=== PATIENT | female | born 1955 | race Caucasian/White ===

== ENCOUNTER → 2018-02-10 | Outpatient (CLI) | payer BC ==
[2018-02-10 14:42] LABS: Basophils % (A) 1 %; Eosinophils # (A) 0.2 k/uL (0-0.7); Eosinophils % (A) 3 %; HCT 43.7 % (34.0-46.0); HGB 13.8 gm/dL (11.4-16.0); Lymphocytes # (A) 1.1 k/uL (1.0-4.8); Lymphocytes % (A) 18 %; MCH 27.8 pg (25.0-35.0); MCHC 31.6 g/dL (31.0-37.0); MCV 87.9 fL (80.0-100.0); Mean Platelet Volume 7.8; Monocytes # (A) 0.4 k/uL (0-1.0); Monocytes % (A) 6 %; Neutrophils # (A) 4.3 k/uL (1.3-7.7); Neutrophils % (A) 70 %; Platelet Count 269 k/uL (150-450); RBC 4.97 m/uL (3.80-5.40); RDW 13.3 % (11.5-15.5); WBC 6.1 k/uL (3.8-10.6)
[2018-02-10 14:53] LABS: ALT 33 U/L (9-52); AST 26 U/L (14-36); Albumin 3.8 g/dL (3.5-5.0); Alkaline Phosphatase 79 U/L (38-126); Anion Gap 10 mmol/L; Blood Urea Nitrogen 15 mg/dL (7-17); Calcium 9.3 mg/dL (8.4-10.2); Carbon Dioxide 27 mmol/L (22-30); Chloride 105 mmol/L (98-107); Glucose 115 mg/dL (74-99); Potassium 3.7 mmol/L (3.5-5.1); Sodium 142 mmol/L (137-145); Total Bilirubin 0.4 mg/dL (0.2-1.3); Total Protein 6.6 g/dL (6.3-8.2)
== END | disposition home or self-care (01) ==
LOC: LABWHC1 14:03
PROVIDERS: ATTEND Family Medicine
DX: Z01.810 Encounter for preprocedural cardiovascular examination (principal)
CPT/HCPCS: 36415; 80053; 85025; 85610

== ENCOUNTER → 2018-02-25 | Outpatient (CLI) | payer BC ==
--- NOTE | 2018-02-25 10:16 | NM ---
EXAMINATION TYPE: NM stress cardiolite complete DATE OF EXAM: 02/25/2018 COMPARISON: NONE HISTORY: Vertigo, headaches TECHNIQUE: After the intravenous administration of 10.2 mCi Tc 99m Sestamibi - Rest images obtained 25.6 minutes post injection. The patient exercised using a GRIS protocol and 1 minute prior to pea k exercise was injected with 45 mCi Tc 99m Sestamibi - Stress images obtained 10 minutes post injecti on. FINDINGS: Targeted heart rate was achieved during performance of the study. Review of stress and rest SPECT rich ges demonstrates predominantly fixed defect involving the anteroapical myocardium. There is a suggest ion of this small area of questionable stress-induced ischemia involving the anteroseptal. Gated anal ysis shows normal wall motion with an estimated left ventricular ejection fraction of 59 %. IMPRESSION: 1. Predominantly fixed defect anteroapical myocardium. Could not exclude a tiny area of stress-induce d reversibility involving the anterior septal portion myocardium.
--- NOTE | 2018-02-26 06:19 | EST ---
EXERCISE STRESS AGE: 62 SEX: F HT: 68" WT: 205 pounds PROTOCOL: Cardiolite STAGE: I DURATION OF EXERCISE: 4:51. HEART RATE REST: 73 BLOOD PRESSURE REST: 145/86 MAXIMUM HEART RATE ACHIEVED: 136 MAXIMUM BLOOD PRESSURE: 168/74 85% MPHR: 133 100% MPHR: 157 METS: 6.8 INDICATIONS: Pre-op clearance. CLINICAL INFORMATION: Baseline heart rate 73 beats per minute. Baseline blood pressure 145/86 mmHg. Baseline 12-lead ECG shows sinus rhythm with normal MI interval. Narrow QRS. Patient exercised on a Matthew protocol for 4 minutes 51 seconds achieving a peak heart rate of 136 beats per minute. Normal blood pressure response to exercise. Intermittent PVCs were noted. No chest discomfort. She complains of shortness of breath and tiredness and no ST-segment abnormalities noted. IMPRESSION: 1. Low average exercise capacity. 2. PVCs noted with exercise. No nonsustained ventricular tachycardia. 3. Normal blood pressure response to exercise. No ECG evidence for ischemia. MMODL / IJN: [id number] /
== END | disposition home or self-care (01) ==
LOC: RADNMMAIN 07:23
PROVIDERS: ATTEND Family Medicine
DX: I99.8 Other disorder of circulatory system (principal); R06.09 Other forms of dyspnea
CPT/HCPCS: 93017; 78452; A9500

== ENCOUNTER → 2019-01-07 | Outpatient (CLI) | payer BC ==
--- NOTE | 2019-01-07 15:57 | CT ---
EXAMINATION TYPE: CT iac wo con DATE OF EXAM: 01/07/2019 COMPARISON: None HISTORY: Hearing loss CT DLP: 204mGycm Automated exposure control for dose reduction was used. Helical imaging through the brain. FINDINGS: There is motion on the exam. The external auditory canals are patent bilaterally. Mastoid air cells show no evidence of abnormal opacification bilaterally. The middle ear ossicles are symmetric and unremarkable. There is no jignesh dence of suspicious surrounding soft tissue density to suggest cholesteatoma. The scutum is preserve d bilaterally. The cochlea and the semicircular canals are symmetric and unremarkable. Vestibular a queduct and internal carotid canal appear unremarkable. Temporomandibular joints are maintained bila terally. There is opacity involving portion of the right maxillary sinus, inflammatory change presen t in the bilateral maxillary sinuses, ethmoid air cells. IMPRESSION: No significant abnormality seen to account for patient's symptoms. Sinus disease.
== END ==
LOC: RADCTMAIN 12:00
PROVIDERS: ATTEND Otolaryngology Sleep Medicine
DX: J32.9 Chronic sinusitis, unspecified (principal)
CPT/HCPCS: 70480

== ENCOUNTER → 2020-05-24 | Outpatient (CLI) | payer MEDICARE ==
--- NOTE | 2020-05-24 14:49 | MR ---
EXAMINATION TYPE: MR brain wo con DATE OF EXAM: 05/24/2020 COMPARISON: Correlation CT IAC 01/07/2019 HISTORY: 54-year-old female Head trauma, confusion TECHNIQUE: Multiplanar, multisequence images of the brain and brainstem were acquired without IV con trast. Diffusion weighted imaging is performed. FINDINGS: No evidence for acute infarction, hemorrhage, mass, mass effect, midline shift, herniation, effacemen t of basal cisterns, or extra-axial fluid collection. No hydrocephalus. Mild generalized supratentorial volume loss. T-2/FLAIR weighted sequences show minimal T2 bright white matter changes particularly in the subcorti gene and deep white matter regions, approximately 2 foci in each side. T2 star sequence shows no suspicious susceptibility artifact to suggest prior intracranial microplate s Midline structures demonstrate normal morphology. The craniocervical junction is normal. Dominant left vertebral artery. The nondominant right vertebral artery may terminate as a PICA branch . There may be a hypoplastic A1 segment left vertebral artery. Mild to moderate mucosal thickening ethmoid air cells. Mild mucosal thickening maxillary sinuses with partially visualized 1.5 cm mucosal retention cyst floor right maxillary sinus. Rightward nasal sept al deviation. Globes are intact. IMPRESSION: 1. Mild generalized atrophy. Minimal bright white matter change suggesting trace burden of chronic sm all vessel ischemic disease. No acute intracranial abnormality. 2. Moderate chronic ethmoid sinus disease. Rightward nasal septal deviation.
== END | disposition home or self-care (01) ==
LOC: RADMRIMAIN 10:56
PROVIDERS: ATTEND Family Medicine
DX: G31.9 Degenerative disease of nervous system, unspecified (principal); R90.89 Other abnormal findings on diagnostic imaging of central nervous system
CPT/HCPCS: 70551

== ENCOUNTER → 2020-10-05 | Outpatient (CLI) | payer MEDICARE ==
--- NOTE | 2020-10-05 11:58 | CT ---
EXAMINATION TYPE: CT chest wo con DATE OF EXAM: 10/05/2020 COMPARISON: None HISTORY: Myasthenia Gravis without exacerbation CT DLP: 411.1 mGycm. Automated Exposure Control for Dose Reduction was Utilized. TECHNIQUE: CT scan of the thorax is performed without IV contrast. FINDINGS: Lack of intravenous contrast could compromise sensitivity. LUNGS: The lungs are remarkable for interstitial changes, subpleural nodularity noted on axial image 39 in the left lower lobe. There are multiple additional nodules present, nodules measure only approx imately 2 mm within upper pole nodule on axial image #11 measuring 5 mm with central calcification is no pleural effusion or pneumothorax seen. The tracheobronchial tree is patent. MEDIASTINUM: Lack of IV contrast is noted to limit evaluation for mediastinal and especially hilar ad enopathy. There is a retrocaval pretracheal node which shows a short axis measurement of 13 mm, is en larged, additional node shows a short axis measurement of 11 mm, shotty nodes present in the aorticop ulmonary window, superior mediastinum. No cardiomegaly or pericardial effusion is seen. Coronary ar miguelina is dilated, correlate for pulmonary artery hypertension OTHER: Root of the aorta measures 4 cm. There is a paraesophageal hernia with partial intrathoracic s tomach. Some associated nodes at this level. Dependent high attenuation within the gallbladder consis tent with stones. Low-attenuation foci within the liver may represent cysts but are indeterminate, la rgest in the left lobe measures 11 mm, there are at least 4 lesions present. IMPRESSION: Findings may related to old granulomatous disease. There is no evident thymic mass. Aorti c aneurysm, correlate for pulmonary artery hypertension. Cholelithiasis. Hiatal hernia. Indeterminate liver lesions.
== END | disposition home or self-care (01) ==
LOC: RADCTMAIN 08:29
PROVIDERS: ATTEND Psychiatry & Neurology Neurology
DX: I71.2 Thoracic aortic aneurysm, without rupture (principal); K44.9 Diaphragmatic hernia without obstruction or gangrene
CPT/HCPCS: 71250

== ENCOUNTER 2020-10-27 17:06 | Emergency (ER) | payer MEDICARE ==
[2020-10-27 17:13] VITALS: TEMP 99.5
[2020-10-27] MEDS ORDERED: KETOROLAC 15 MG/ML 1 ML VIAL IM STA (17:40)
--- NOTE | 2020-10-27 17:42 | ED ---
Skin/Abscess/FB HPI - General Chief complaint: Skin/Abscess/Foreign Body Stated complaint: leg swelling/sore Time Seen by Provider: 10/27/20 17:23 Source: patient Mode of arrival: ambulatory Limitations: no limitations - History of Present Illness Initial comments: 65 year-old female patient presents to the emergency department today for evaluation of right lower leg pain. Patient states that yesterday she started having discomfort to the lower hassan anteriorly. States that today the area appeared swollen and red. Denies history of similar symptoms. Denies any known injury. States that it hurts to bear weight or walk on the leg. Denies history of DVT. Denies any recent travel. Has history of hypertension. Denies fever or chills. Denies taking any medication for symptoms. Patient denies any recent rash, cough, shortness of breath, chest pain, abdominal pain, nausea, vomiting, diarrhea, constipation, back pain, numbness, tingling, dizziness, weakness, hematuria, dysuria, urinary urgency, urinary frequency, headache, visual changes, or any other complaints. - Related Data Home Medications Medication Instructions Recorded Confirmed Enalapril [Vasotec] 10 mg PO DAILY 08/14/16 08/15/16 Levothyroxine Sodium [Synthroid] 125 mcg PO DAILY 08/14/16 08/15/16 Metoprolol Succinate (ER) [Toprol 50 mg PO DAILY 08/14/16 08/15/16 Xl] Multivit with Calcium,Iron,Min 1 each PO DAILY 08/14/16 08/15/16 [Women's Daily Multivitamin] Previous Rx's Medication Instructions Recorded Ibuprofen [Motrin] 600 mg PO Q8HR PRN #30 tab 10/27/20 Allergies Allergy/AdvReac Type Severity Reaction Status Date / Time No Known Allergies Allergy Verified 10/27/20 17:13 Review of Systems ROS Statement: Those systems with pertinent positive or pertinent negative responses have been documented in the HPI. ROS Other: All systems not noted in ROS Statement are negative. Past Medical History Past Medical History: Hypertension, Thyroid Disorder History of Any Multi-Drug Resistant Organisms: None Reported Past Surgical History: Hysterectomy Additional Past Surgical History / Comment(s): REPAIR RT RUPTURED THIGH MUSCLE. COLONOSCOPY Past Anesthesia/Blood Transfusion Reactions: No Reported Reaction Past Psychological History: No Psychological Hx Reported Smoking Status: Never smoker Past Alcohol Use History: None Reported Past Drug Use History: None Reported - Past Family History Sister(s) Family Medical History: Cancer Additional Family Medical History / Comment(s): COLON Mother Family Medical History: Cancer Additional Family Medical History / Comment(s): BREAST Father Family Medical History: Cancer Additional Family Medical History / Comment(s): LUNG General Exam Limitations: no limitations General appearance: alert, in no apparent distress, other (Physical well- developed, well-nourished adult female patient in no acute distress. Vital signs upon presentation are temperature 99.5F, pulse 89, respirations 20, blood pressure 144/77, pulse ox 99% on room air.) Eye exam: Present: normal appearance, PERRL, EOMI. Absent: scleral icterus, conjunctival injection, periorbital swelling Respiratory exam: Present: normal lung sounds bilaterally. Absent: respiratory distress, wheezes, rales, rhonchi, stridor Cardiovascular Exam: Present: regular rate, normal rhythm, normal heart sounds. Absent: systolic murmur, diastolic murmur, rubs, gallop, clicks Extremities exam: Present: full ROM, normal capillary refill, other (Right ateromedial hassan redness, swelling, induration. Area is very tender to touch. Skin is otherwise pink, warm, dry. Cap refills less than 3 seconds. Pedal and posttibial pulses 2+ and equal bilaterally.). Absent: normal inspection, tenderness, pedal edema, joint swelling, calf tenderness Neurological exam: Present: alert, oriented X3, CN II-XII intact Psychiatric exam: Present: normal affect, normal mood Skin exam: Present: warm, dry, intact, normal color. Absent: rash Course Vital Signs 10/27/20 17:08 Temperature 99.5 F Pulse Rate 89 Respiratory 20 Rate Blood Pressure 144/77 O2 Sat by Pulse 99 Oximetry Medical Decision Making - Medical Decision Making 65 year-old female patient presents to the emergency department for evaluation of redness, swelling, and pain to the right lower leg starting last night. Physical examination did reveal soft tissue swelling, erythema and oblique induration to the vessels over the right anterior medial hassan. Ultrasound was obtained and showed negative DVT but did show evidence for superficial thrombophlebitis. Patient will be started on anti-inflammatory medication and instructed to apply warm compresses over the area. She'll be discharged popped her primary care physician for further evaluation in 1-2 days. Return parameters were discussed in detail. She verbalizes understanding and agrees with this plan. - Radiology Data Radiology results: report reviewed, image reviewed Ultrasound of the right lower extremity was obtained. Report was reviewed in its entirety. Impression by Dr. Padron shows no evidence of deep vein thrombosis in the right leg. There is some superficial vein thrombosis. Disposition Clinical Impression: Thrombophlebitis of superficial veins of right lower extremity Disposition: HOME SELF-CARE Condition: Good Instructions (If sedation given, give patient instructions): Superficial Thrombophlebitis (ED) Additional Instructions: Apply warm compresses to the area. Take Motrin 3 times daily with meals. Follow-up through primary care physician for recheck in 1-2 days. Return to the emergency department immediately for any new, worsening, or concerning symp toms. Prescriptions: Ibuprofen [Motrin] 600 mg PO Q8HR PRN #30 tab PRN Reason: Pain Is patient prescribed a controlled substance at d/c from ED?: No Referrals: Rachana Dasilva MD [Primary Care Provider] - 1-2 days Time of Disposition: 19:09
--- NOTE | 2020-10-27 18:23 | US ---
EXAMINATION TYPE: US venous doppler duplex LE RT DATE OF EXAM: 10/27/2020 6:09 PM COMPARISON: NONE CLINICAL HISTORY: Right lower leg pain and swelling. SIDE PERFORMED: Right TECHNIQUE: The lower extremity deep venous system is examined utilizing real time linear array sonog omid with graded compression, doppler sonography and color-flow sonography. VESSELS IMAGED: Common Femoral Vein Deep Femoral Vein Greater Saphenous Vein * Femoral Vein Popliteal Vein Small Saphenous Vein * Proximal Calf Veins (* superficial vessels) Right Leg: Negative for DVT At area of concern, superficial thrombus in calf varicosities. IMPRESSION: No evidence of deep vein thrombosis in the right leg. There is some superficial vein thro mbosis.
[2020-10-27 19:13] VITALS: RESP 18
[2020-10-27 19:16] VITALS: BP 139/72; PULSE 83
== END 2020-10-27 19:16 | disposition home or self-care (01) ==
LOC: EC 17:06
DX: I80.01 Phlebitis and thrombophlebitis of superficial vessels of right lower extremity (principal); I10 Essential (primary) hypertension; E07.9 Disorder of thyroid, unspecified; Z79.890 Hormone replacement therapy; Z79.899 Other long term (current) drug therapy
CPT/HCPCS: 93971; 99283; 96372; J1885

== ENCOUNTER → 2020-12-19 | Outpatient (CLI) | payer MEDICARE ==
--- NOTE | 2020-12-19 15:55 | BD ---
EXAMINATION TYPE: Axial Bone Density DATE OF EXAM: 12/19/2020 COMPARISON: NONE CLINICAL HISTORY: Height: 5 FT 5 IN Weight: 197 FRAX RISK QUESTIONS: Alcohol (3 or more units per day): NO Family History (Parent hip fracture): NO Glucocorticoids (More than 3mos): NO (Ex: prednisone, prednisolone, methylprednisolone, dexamethasone, and hydrocortisone). History of Fracture in Adulthood: NO Secondary Osteoporosis: 1. Type 1 Diabetes: NO 2. Hyperthyroidism: NO 3. Menopause before 45: NO 4. Malnutrition: NO 5. Chronic liver disease: NO Rheumatoid Arthritis: NO Current Tobacco Use: NO RISK FACTORS HISTORY OF: When: Family History of Osteoporosis: YES Active: YES Diet low in dairy products/other sources of calcium: NO Postmenopausal woman: AGE 42-43 Take estrogen and/or progesterone medications: NONE Lost more than 2 inches in height since high school: YES Poor Health: YES MEDICATIONS: Thyroid Medications: YES Which medication: LEVOTHYROXINE How Lon-20 YEARS Additional Medications: METOPROLOL, LEVOTHYROXINE, AMLODIPINE, PRESERVISION, Additional History: EXAM MEASUREMENTS: Bone mineral densitometry was performed using the [employer] System. Bone mineral density as measured about the Lumbar spine is: ----- L1-L4(G/cm2): 0.968 T Score Values are as follows: ----- L2: -2.8 ----- L3: -1.2 ----- L4: -2.4 ----- L1-L4: -1.8 BASELINE Bone mineral density about the R hip (g/cm2): 0.767 Bone mineral density about the L hip (g/cm2): 0.755 T Score values are as follows: -----R Neck: -1.9 -----L Neck: -2.0 -----R Total: -0.9 -----L Total: -1.2 BASELINE IMPRESSION: Osteopenia (T Score between -2.5 and -1). There is slightly increased risk of fracture and the patient may be considered for treatment. Re-Screen 2-5 years. NOTE: T-SCORE=SD OF THE YOUNG ADULT MEAN.
== END | disposition home or self-care (01) ==
LOC: RADBDWWP 09:08
PROVIDERS: ATTEND Family Medicine
DX: M85.80 Other specified disorders of bone density and structure, unspecified site (principal); Z13.820 Encounter for screening for osteoporosis; N95.1 Menopausal and female climacteric states
CPT/HCPCS: 77080

== ENCOUNTER → 2021-03-29 | Day surgery (SDC) | payer MEDICARE ==
[2021-03-28 09:28] VITALS: BMI 30.1
[~2021-03-29] MED LIST: ALPRAZolam 0.25 MG TAB PO PRN; ALPRAZolam 0.5 MG TAB PO PRN; ASPIRIN 325 MG TAB PO STA; ASPIRIN 81 MG PO SCH; ATORVASTATIN 80 MG TAB PO STA; FERROUS SULFATE 325 MG TAB PO SCH; HEPARIN SODIUM 1,000 UN/ML (10ML VL) IV ONE; IOPAMIDOL-370 125ML BTL INJ ONE; LEVOTHYROXINE 125 MCG TAB PO SCH; LIDOCAINE 1% INJ 10MG/ML (20 ML MDV) SQ ONE; MAGNESIUM OXIDE 400 MG TAB PO SCH; METOPROLOL SUCCINATE (ER) 50 MG TAB.ER.24H PO SCH; NITROGLYCERIN SL TABS 0.4 MG TAB SUBLINGUAL PRN; RX INFO: IV CONTRAST WAS GIVEN 1 EACH MISC MISCELLANE PRN; SODIUM CHLORIDE 0.9% 1,000 ML IV SCH; SODIUM CHLORIDE 0.9% 1,000 ML in EMPTY BAG 1 BAG IV ONE; VERAPAMIL SYRINGE (5 MG/10 ML) INTRAARTER ONE; fentaNYL (PF) 50 MCG/ML 2 ML AMP IV ONE; lisinopriL 20 MG TAB PO SCH
[2021-03-29 07:03] VITALS: RESP 16; TEMP 98.4
[2021-03-29] MEDS: MIDAZOLAM 2 MG/2 ML VIAL IV ONE ×2 (07:38→07:47)
--- NOTE | 2021-03-29 08:33 | CC ---
CARDIAC CATHETERIZATION REPORT Mrs. Oseguera is a 65-year-old female known history of hypertension who has been complaining of progressive symptoms of dyspnea on exertion. She underwent myocardial perfusion imaging that revealed evidence of inducible ischemia in the anterolateral wall. In view of that, recommendation was made regarding cardiac catheterization, the procedure as well as the risks and the complications were discussed with the patient who is in full understanding and agreement. PROCEDURE: Patient was brought to offset label rewinder in a fasting semi-sedated state after receiving fentanyl and Benadryl and achieving moderate conscious sedated state. Using Xylocaine anesthesia and Seldinger technique, a 6-Grenadian sheath was introduced in the right radial artery. Selective right and angiography performed using 5-Grenadian 3.5 bend right and left Ange catheter. Multiple views of the coronary artery including hemiaxial views were obtained. Following that, catheter and sheath were removed. Hemostasis was obtained with deployment of TR band. There was no immediate complication. Patient was returned to her room in stable condition. Of note, the patient received 5000 units of intravenous heparin as well as intra-arterial verapamil. FINDINGS: LEFT MAIN: This is a short size vessel, large in caliber, bifurcating in left circumflex, left anterior descending artery. Left main artery has no evidence of high- grade stenosis. LEFT ANTERIOR DESCENDING ARTERY: This vessel reaches toward the apex, tapers down distally, gives rise to a diagonal branch. The left anterior descending artery as well as branches have no evidence of obstructive coronary artery disease. LEFT CIRCUMFLEX: This is a nondominant vessel, large in caliber, giving rise to a very proximal obtuse marginal branch. The second and third obtuse marginal branches are moderate in caliber. The left circumflex as well as branches have no evidence of obstructive coronary artery disease. RIGHT CORONARY ARTERY: This is a large dominant vessel bifurcating distally PDA and posterolateral segment and branches. The right coronary artery as well as branches have no evidence of obstructive coronary artery disease. LEFT VENTRICULOGRAM: Left ventriculogram was not performed. CONCLUSION: 1. Normal coronary arteries. 2. Right dominance. RECOMMENDATION: In view of finding anatomy, I recommend continue medical therapy with aggressive coronary risk modifications that have been initiated. Those findings and recommendation were discussed with the patient and she has full understanding and agreement. MMODL / IJN: [id number] /
[2021-03-29 10:22] VITALS: BP 133/83; PULSE 64
== END | disposition home or self-care (01) ==
LOC: CATHCVL 06:10
PROVIDERS: ATTEND Internal Medicine Interventional Cardiology
DX: R06.00 Dyspnea, unspecified (principal); R94.39 Abnormal result of other cardiovascular function study; I10 Essential (primary) hypertension; I73.9 Peripheral vascular disease, unspecified; I08.1 Rheumatic disorders of both mitral and tricuspid valves; Z20.822 Contact with and (suspected) exposure to COVID-19; I27.20 Pulmonary hypertension, unspecified; Z90.710 Acquired absence of both cervix and uterus; E07.9 Disorder of thyroid, unspecified; Z87.891 Personal history of nicotine dependence; Z79.82 Long term (current) use of aspirin; Z79.890 Hormone replacement therapy; Z79.899 Other long term (current) drug therapy
CPT/HCPCS: 93454; 87635; C1894; C1769 ×2; J2250; J2001; J3010; J1644; Q9967

== ENCOUNTER → 2021-04-25 | Outpatient (CLI) | payer MEDICARE ==
[2021-04-26 13:46] LABS: Zinc, Serum 104 ug/dL (60-130)
[2021-04-26 16:41] LABS: Calcium 8.6 mg/dL (8.7-10.3); Magnesium 2.2 mg/dL (1.5-2.4)
== END | disposition home or self-care (01) ==
LOC: LABWHC1 11:22
PROVIDERS: ATTEND Psychiatry & Neurology Pain Medicine
DX: R19.7 Diarrhea, unspecified (principal); Z51.81 Encounter for therapeutic drug level monitoring
CPT/HCPCS: 36415; 82180; 82310; 83540; 83735; 84630

== ENCOUNTER 2021-06-21 10:52 | Day surgery (SDC) | payer MEDICARE ==
[2021-06-19 09:02] VITALS: BMI 31.6
[~2021-06-21 10:52] MED LIST changes: -ALPRAZolam 0.25 MG TAB PO PRN; -ALPRAZolam 0.5 MG TAB PO PRN; -ASPIRIN 325 MG TAB PO STA; -ASPIRIN 81 MG PO SCH; -ATORVASTATIN 80 MG TAB PO STA; -FERROUS SULFATE 325 MG TAB PO SCH; -HEPARIN SODIUM 1,000 UN/ML (10ML VL) IV ONE; -IOPAMIDOL-370 125ML BTL INJ ONE; +LACTATED RINGERS 1,000 ML IV SCH; -LEVOTHYROXINE 125 MCG TAB PO SCH; +LIDOCAINE 1% (10MG/ML) FOR IV START INTRADERMA PRN; -LIDOCAINE 1% INJ 10MG/ML (20 ML MDV) SQ ONE; -MAGNESIUM OXIDE 400 MG TAB PO SCH; -METOPROLOL SUCCINATE (ER) 50 MG TAB.ER.24H PO SCH; -NITROGLYCERIN SL TABS 0.4 MG TAB SUBLINGUAL PRN; -RX INFO: IV CONTRAST WAS GIVEN 1 EACH MISC MISCELLANE PRN; -SODIUM CHLORIDE 0.9% 1,000 ML IV SCH; -SODIUM CHLORIDE 0.9% 1,000 ML in EMPTY BAG 1 BAG IV ONE; -VERAPAMIL SYRINGE (5 MG/10 ML) INTRAARTER ONE; -fentaNYL (PF) 50 MCG/ML 2 ML AMP IV ONE; -lisinopriL 20 MG TAB PO SCH
[2021-06-21 11:15] VITALS: RESP 16; TEMP 98.4
[2021-06-21] MEDS ORDERED: PROPOFOL 10 MG/ML 20 ML VIAL IV ONE (11:34)
--- NOTE | 2021-06-21 11:52 | P.PCN ---
Date of Procedure: 06/21/21 Procedure(s) Performed: BRIEF HISTORY: Patient is a 65-year-old pleasant white female scheduled for an elective colonoscopy as a part of screening for colorectal neoplasia. Her last colonoscopy was 5 years ago. She does have family history of colon cancer [id number]. PROCEDURE PERFORMED: Colonoscopy with biopsy. PREOPERATIVE DIAGNOSIS: Screening for colon cancer. IV sedation per Anesthesia. PROCEDURE: After informed consent was obtained, the patient, was brought into the endoscopy unit. IV sedation was administered by Anesthesia under continuous monitoring. Digital rectal examination was normal. Initially the Olympus CF-160 flexible video colonoscope was then inserted in the rectum, gradually advanced into the cecum without any difficulty. Careful examination was performed as the scope was gradually being withdrawn. Ileocecal valve and the appendiceal orifice were visualized and appeared normal. Prep was excellent. Mucosa of the cecum, ascending colon, transverse colon, descending colon, sigmoid colon, and rectum appeared normal. There were 2 small polyps in the distal rectum measuring 2 or 3 mm in size both of which were removed by cold biopsy Retroflexion was performed in the rectum and grade 2 internal hemorrhoids were seen. The patient tolerated the procedure well. IMPRESSION: 2 mm and 3 mm distal rectal polyp status post biopsy Small internal hemorrhoids RECOMMENDATIONS: Findings of this examination were discussed with the patient as well as a family. She was advised to follow with the biopsy results. She was advised to have a repeat screening colonoscopy every 5 years because of the strong family history of colon cancer
[2021-06-21 12:10] VITALS: BP 170/97; PULSE 56
== END 2021-06-21 12:24 ==
LOC: ORWHC2ENDO 10:52
PROVIDERS: ATTEND Internal Medicine Gastroenterology
DX: Z12.11 Encounter for screening for malignant neoplasm of colon (principal); K62.1 Rectal polyp; K64.8 Other hemorrhoids; Z80.0 Family history of malignant neoplasm of digestive organs; I10 Essential (primary) hypertension; E07.9 Disorder of thyroid, unspecified; G70.00 Myasthenia gravis without (acute) exacerbation; F03.90 Unspecified dementia, unspecified severity, without behavioral disturbance, psychotic disturbance, mood disturbance, and anxiety; K21.9 Gastro-esophageal reflux disease without esophagitis; Z79.890 Hormone replacement therapy; Z79.899 Other long term (current) drug therapy
CPT/HCPCS: 88305; 45380; J2704

== ENCOUNTER → 2021-08-19 | Outpatient (CLI) | payer MEDICARE ==
--- NOTE | 2021-08-19 12:03 | MR ---
EXAMINATION TYPE: MR brain wo/w con DATE OF EXAM: 08/19/2021 COMPARISON: MRI brain 05/24/2020 HISTORY: Atypical dementia, Neoplasm, Dizziness TECHNIQUE: Multiplanar, multisequence images of the brain and brainstem is performed without and with IV contras t, utilizing 8.5 mL intravenous Gadavist . FINDINGS: Diffusion weighted images demonstrate no evidence of a recent infarct or other diffusion ab normality. There is no extra-axial fluid collection or significant interval change in white matter s ignal abnormality. The ventricular system and cisternal spaces are normal in size and appearance. T he brain volume is age appropriate. Midline structures demonstrate normal morphology. The craniocervical junction appears within normal limits. Post contrast images demonstrate no abnormal enhancement. The dural venous sinuses appear pa tent. The visualized sinuses are similar, probable mucous retention cyst in the right maxillary sinus , callosal disease in the bilateral maxillary sinuses, ethmoid air cells similar to prior exam and th e globes are intact. IMPRESSION: Similar white matter signal changes consistent with demyelination, possible chronic small vessel ischemic change, there is age-related atrophy similar to prior
== END | disposition home or self-care (01) ==
LOC: RADMRIMAIN 09:26
PROVIDERS: ATTEND Psychiatry & Neurology Neurology
DX: C80.1 Malignant (primary) neoplasm, unspecified (principal); R93.0 Abnormal findings on diagnostic imaging of skull and head, not elsewhere classified
CPT/HCPCS: 70553; A9585

== ENCOUNTER → 2023-06-30 | Outpatient (CLI) | payer MEDICARE ==
[2023-06-30 10:36] LABS: African American GFR (CKD) >90 (>60 ml/min/1.73 sqM); Blood Urea Nitrogen 14 mg/dL (7-17); Non-African American GFR(CKD) >90 (>60 ml/min/1.73 sqM)
--- NOTE | 2023-06-30 12:23 | CT ---
EXAMINATION TYPE: CT angio chest CT DLP: 846.7 mGycm, Automated exposure control for dose reduction was used. DATE OF EXAM: 06/30/2023 11:40 AM COMPARISON: CT 10/05/2020. CLINICAL INDICATION:Female, 67 years old with history of I71.2 THORACIC AORTIC ANEURYSM,; Thoracic ao rtic aneurysm. TECHNIQUE/CONTRAST: CTA scan of the thorax is performed without and with IV Contrast, patient injected with 100ml mL of I sovue 370, 3D reconstructed images are created on an independent workstation and reviewed.. FINDINGS: Lungs/Pleura: Thickening of interlobular septa. No evidence of focal consolidation, pleural effusion or pneumothorax. Airway: Large airways are patent. Heart: Entire is mildly enlarged for size. Vasculature: No evidence for intramural hematoma on noncontrast. No evidence of intimal flap to sugge st dissection. No aneurysm identified. Scattered atherosclerotic disease. The ascending thoracic aor ta is at the upper limits normal measuring 39 mm. The aortic arch and descending thoracic aorta witho ut evidence for aneurysmal dilation. No filling defect within the pulmonary arterial vasculature to s uggest pulmonary embolus. Mediastinum: Moderate hiatal hernia is present. Multiple prominent lymph nodes are seen within the me diastinum similar prior in 2020 measuring up to 15 mm at the right low paratracheal region andr 13 mm in short axis in the subcarinal region. Musculoskeletal: Mild degenerative disc disease changes are present throughout the thoracolumbar spin e. Soft Tissues: Unremarkable. Lower neck: No significant findings. Upper Abdomen: Stable cysts in the segment 4A of the liver. IMPRESSION: 1. No evidence for aortic aneurysm, dissection, intramural hematoma, pulmonary embolus or significan t atherosclerotic disease. 2. Stable mediastinal lymphadenopathy back to at least 10/05/2020 3. Findings of cardiomegaly and some pulmonary vascular congestion correlate with serum BNP for comp onent of congestive heart failure with reactive lymphadenopathy.
== END | disposition home or self-care (01) ==
LOC: RADCTMAIN 09:45
PROVIDERS: ATTEND Internal Medicine Interventional Cardiology
DX: I71.20 Thoracic aortic aneurysm, without rupture, unspecified (principal); I51.7 Cardiomegaly; R59.0 Localized enlarged lymph nodes
CPT/HCPCS: 82565; 84520; 71275; 36415; Q9967

== ENCOUNTER 2023-10-24 08:15 | Inpatient (IN) | payer MEDICARE ==
[2023-10-24] MEDS ORDERED: KETOROLAC 15 MG/ML 1 ML VIAL IVP STA (08:24)
[2023-10-24] MEDS ORDERED: SODIUM CHLORIDE 0.9% 1,000 ML IV ONE (08:24)
[2023-10-24] MEDS ORDERED: ONDANSETRON 4 MG/2 ML VIAL IVP STA (08:24)
[2023-10-24] MEDS ORDERED: FAMOTIDINE 20 MG/2 ML VIAL IV STA (08:24)
--- NOTE | 2023-10-24 08:44 | ED ---
General Adult HPI - General Chief complaint: Nausea/Vomiting/Diarrhea Stated complaint: sick Time Seen by Provider: 10/24/23 08:23 Source: patient, family, RN notes reviewed Mode of arrival: ambulatory Limitations: no limitations - History of Present Illness Initial comments: 68-year-old female with a past medical history significant for hypot hyroidism and thoracic aortic aneurysm presents to the emergency department with a chief complaint of nausea and vomiting. Patient is complaining of nausea, vomiting, left-sided abdominal pain that radiates to her back 3 days. She describes the pain as sharp and at rest. She denies any chest pain, shortness of breath, fevers. she has been taking her medications as prescribed. She denies any trauma or injury. - Related Data Home Medications Medication Instructions Recorded Confirmed Levothyroxine Sodium [Synthroid] 125 mcg PO DAILY 08/14/16 10/24/23 Metoprolol Succinate (ER) [Toprol 50 mg PO DAILY 08/14/16 10/24/23 Xl] Ferrous Sulfate [Feosol] 325 mg PO DAILY 03/28/21 10/24/23 Beet Root 1000mg 1,000 mg PO DAILY 10/24/23 10/24/23 Cholecalciferol [Vitamin D3 (25 25 mcg PO DAILY 10/24/23 10/24/23 Mcg = 1000 Iu)] Cinnamon Bark [Cinnamon] 1,000 mg PO DAILY 10/24/23 10/24/23 Cyanocobalamin (Vitamin B-12) 1,000 mcg PO DAILY 10/24/23 10/24/23 [Vitamin B-12] Donepezil [Aricept] 10 mg PO DAILY 10/24/23 10/24/23 Ezetimibe [Zetia] 10 mg PO DAILY 10/24/23 10/24/23 Ginkgo Biloba Extract 1 cap PO DAILY 10/24/23 10/24/23 Potassium(Unknown Dose) 1 tab PO DAILY 10/24/23 10/24/23 Pro Advanced Urinary Formula 1 cap PO DAILY 10/24/23 10/24/23 Stem Cell Supplement 1 cap PO DAILY 10/24/23 10/24/23 amLODIPine [Norvasc] 10 mg PO DAILY 10/24/23 10/24/23 Allergies Allergy/AdvReac Type Severity Reaction Status Date / Time No Known Allergies Allergy Verified 10/24/23 14:33 Review of Systems ROS Statement: Those systems with pertinent positive or pertinent negative responses have been documented in the HPI. ROS Other: All systems not noted in ROS Statement are negative. Past Medical History Past Medical History: Deep Vein Thrombosis (DVT), GERD/Reflux, Hypertension, Memory Impairment, Thyroid Disorder Additional Past Medical History / Comment(s): early dementia and [place],90% deaf- please relay information to /daughter. family hx colorectal cancer. bowel/urinary incontinence wears depends. has appt 07/13 with neurologist to r/o myasthenia gravis has been experiencing facial drooping,lethary,muscle weakness. osteopenia History of Any Multi-Drug Resistant Organisms: None Reported Past Surgical History: Heart Catheterization, Hysterectomy Additional Past Surgical History / Comment(s): REPAIR RT RUPTURED THIGH MUSCLE. COLONOSCOPY, bladder prolapse surgery Past Anesthesia/Blood Transfusion Reactions: No Reported Reaction Past Psychological History: No Psychological Hx Reported Smoking Status: Never smoker Past Alcohol Use History: None Reported Past Drug Use History: None Reported - Past Family History Sister(s) Family Medical History: Cancer Additional Family Medical History / Comment(s): COLON Mother Family Medical History: Cancer Additional Family Medical History / Comment(s): BREAST Father Family Medical History: Cancer Additional Family Medical History / Comment(s): LUNG General Exam - General Exam Comments Initial Comments: General: Alert, in no acute distress Head: atraumatic normocephalic. Eyes PERRL, EOMI intact, mucous membranes moist Respiratory: Lungs clear to auscultation bilaterally Cardiovascular: Heart rate regular rate and rhythm Abdominal: Soft without guarding or rebound Extremities: Normal inspection with full range of motion and normal capillary refill Neuroogic: alert and oriented 3, CN II-XII intact, able to ambulate with steady gait Skin: warm dry and intact with normal color Limitations: no limitations Course Vital Signs 10/24/23 10/24/23 10/24/23 08:19 10:04 10:56 Temperature 98 F Pulse Rate 90 83 Respiratory 18 16 Rate Blood Pressure 160/82 170/87 O2 Sat by Pulse 98 95 90 L Oximetry 10/24/23 10/24/23 10/24/23 12:58 15:25 15:26 Temperature Pulse Rate 87 84 Respiratory 18 16 Rate Blood Pressure 143/81 156/63 O2 Sat by Pulse 95 95 Oximetry - Reevaluation(s) Reevaluation #1: 10/24/23 10:09 Notified of patient's oxygen saturation ranging from 89% to 91% on room air. Patient denies any shortness of breath. Patient placed on 3 L oxygen. Reevaluation #3: 10/24/23 14:[address] Roy who agrees and accepts the patient for admission EKG Findings - EKG Comments: EKG Findings:: I interpreted the following: EKG performed at 08:49 rate 78 bpm normal sinus rhythm LA interval 167, QRS duration 90 QT/QTc 362/395 Medical Decision Making - Medical Decision Making Was pt. sent in by a medical professional or institution (, YOLIE, ARBITRATOR, urgent care, hospital, or usp...) When possible be specific @ -[No] Did you speak to anyone other than the patient for history (EMS, parent, family, police, friend...)? What history was obtained from this source @ -[No] Did you review nursing and triage notes (agree or disagree)? Why? @ -[I reviewed and agree with nursing and triage notes] Were old charts reviewed (outside hosp., previous admission, EMS record, old EKG, old radiological studies, urgent care reports/EKG's, usp records)? Report findings @ -[No old charts were reviewed] Differential Diagnosis (chest pain, altered mental status, abdominal pain women, abdominal pain men, vaginal bleeding, weakness, fever, dyspnea, syncope, headache, dizziness, GI bleed, back pain, seizure, CVA, palpatations, mental health, musculoskeletal)? @ -[not applicable] EKG interpreted by me (3pts min.). @ -[As above] X-rays interpreted by me (1pt min.). @ yes CT interpreted by me (1pt min.). @ -yes U/S interpreted by me (1pt. min.). @ -None What testing was considered but not performed or refused? (CT, X-rays, U/S, labs)? Why? @ -[None] What meds were considered but not given or refused? Why? @ -[None] Did you discuss the management of the patient with other professionals (professionals i.e. , YOLIE, ARBITRATOR, lab, RT, psych nurse, social service manager, school community relations coordinator, teacher, community relations officer, rifle case repairer)? Give summary @ -Case discussed with Kirill Mccartney who agrees and accepts the patient for admission Was smoking cessation discussed for >3mins.? @ -[No] Was critical care preformed (if so, how long)? @ -[No] Were there social determinants of health that impacted care today? How? (Homelessness, low income, unemployed, alcoholism, drug addiction, transportation, low edu. Level, literacy, decrease access to med. care, group home, r ehab)? @ -[No] Was there de-escalation of care discussed even if they declined (Discuss DNR or withdrawal of care, Hospice)? DNR status @ -[No] What co-morbidities impacted this encounter? (DM, HTN, Smoking, COPD, CAD, Cance r, CVA, ARF, Chemo, Hep., AIDS, mental health diagnosis, sleep apnea, morbid obesity)? @ -[None] Was patient admitted / discharged? Hospital course, mention meds given and route, prescriptions, significant lab abnormalities, going to OR and other pertinent info. @Admission. This is a 68-year-old female presents the emergency depar tment with nausea and vomiting, back pain. Patient had a thorough history and physical exam performed. Exam revealed patient oxygen saturation 91-92% on room air. Upon exertion patient's oxygen level well decrease to 87-89%. Patient placed on 2 L of supplemental oxygen with improvement. Saturation 95%. Patient does not show any signs of acute respiratory distress. Resting comfortably on the stretcher multiple times during the evaluations. Patient laboratory studies which revealed WBC 23.5, hemoglobin 14.5 sodium 136, potassium 4.9 BUN 37, creatinine 0.69 lactic acid 0.9 initial troponin negative. BNP 4000 Covid or influenza RSV are negative. Urinalysis reveals 147 wbc's. Otherwise negative. Patient had computed tomography scan which revealed: Changes in the upper right quadrant. There is no obvious diverticulitis or pyelonephritis identified. There is a amount of fluid within the right paracolic gutter. Sigmoid diverticulosis without evidence of diverticulitis there is prominent me is single lymphadenopathy. I discussed the results in detail with the patient verbalized understanding all questions were addressed. She is agreeable with the plan for admission. She is provided Toradol, Pepcid, Zofran, 1 L IV fluids with symptomatic improvement. Although patient came in to be evaluated for nausea and vomiting, since oxygen saturation with decreased upon exertion. Case was discussed with Dr. Roy, [facility] who agrees and accepts the patient for further observation with recommend consult to pulmonology and infectious disease. Patient will be started on Rocephin. Case is discussed with Dr. veronica [facility] who agrees with plan of care Undiagnosed new problem with uncertain prognosis? @ -[No] Drug Therapy requiring intensive monitoring for toxicity (Heparin, Nitro, Insulin, Cardizem)? @ -[No] Were any procedures done? @ -[No] Diagnosis/symptom? @ -Nausea and Vomiting - Hypoxia - Pneumonia vs. Atelectasis - Leukocytosis - Elevated BNP Acute, or Chronic, or Acute on Chronic? @ -Acute Uncomplicated (without systemic symptoms) or Complicated (systemic symptoms)? @ -Uncomplictaed Side effects of treatment? @ -[No] Exacerbation, Progression, or Severe Exacerbation? @ -[No] Poses a threat to life or bodily function? How? (Chest pain, [place], [place], pneumonia, PE, COPD, DKA, ARF, appy, cholecystitis, CVA, Diverticulitis, Homicidal, Suicidal, threat to staff... and all critical care pts) @ -Yes, hypoxia - Lab Data Result diagrams: 10/24/23 08:34 10/24/23 08:34 Lab Results 10/24/23 10/24/23 10/24/23 Range/Units 08:34 08:34 08:34 WBC 23.5 H (3.8-10.6) k/uL RBC 4.86 (3.80-5.40) m/uL Hgb 14.5 (11.4-16.0) gm/dL Hct 44.3 (34.0-46.0) % MCV 91.2 (80.0-100.0) fL MCH 29.8 (25.0-35.0) pg MCHC 32.7 (31.0-37.0) g/dL RDW 13.0 (11.5-15.5) % Plt Count 140 L (150-450) k/uL MPV 10.5 Neutrophils % 93 % Lymphocytes % 2 % Monocytes % 3 % Eosinophils % 0 % Basophils % 0 % Neutrophils # 21.8 H (1.3-7.7) k/uL Lymphocytes # 0.5 L (1.0-4.8) k/uL Monocytes # 0.8 (0-1.0) k/uL Eosinophils # 0.1 (0-0.7) k/uL Basophils # 0.1 (0-0.2) k/uL Sodium 136 L (137-145) mmol/L Potassium 4.9 (3.5-5.1) mmol/L Chloride 100 (98-107) mmol/L Carbon Dioxide 26 (22-30) mmol/L Anion Gap 10 mmol/L BUN 37 H (7-17) mg/dL Creatinine 0.69 (0.52-1.04) mg/dL Est GFR (CKD-EPI)AfAm >90 (>60 ml/min/1.73 sqM) Est GFR (CKD-EPI)NonAf 89 (>60 ml/min/1.73 sqM) Glucose 100 H (74-99) mg/dL Plasma Lactic Acid Shekhar (0.7-2.0) mmol/L Calcium 8.1 L (8.4-10.2) mg/dL Total Bilirubin 1.3 (0.2-1.3) mg/dL AST 55 H (14-36) U/L ALT 33 (4-34) U/L Alkaline Phosphatase 82 (38-126) U/L Troponin I 0.016 (0.000-0.034) ng/mL NT-Pro-B Natriuret Pep pg/mL Total Protein 6.7 (6.3-8.2) g/dL Albumin 3.6 (3.5-5.0) g/dL Lipase (23-300) U/L Urine Color Urine Appearance (Clear) Urine pH (5.0-8.0) Ur Specific Walls (1.001-1.035) Urine Protein (Negative) Urine Glucose (UA) (Negative) Urine Ketones (Negative) Urine Blood (Negative) Urine Nitrite (Negative) Urine Bilirubin (Negative) Urine Urobilinogen (<2.0) mg/dL Ur Leukocyte Esterase (Negative) Urine RBC (0-5) /hpf Urine WBC (0-5) /hpf Ur Squamous Epith Cells (0-4) /hpf Urine Bacteria (None) /hpf Hyaline Casts (0-2) /lpf Urine Mucus (None) /hpf Influenza Type A (PCR) (Not Detectd) Influenza Type B (PCR) (Not Detectd) RSV (PCR) (Not Detectd) SARS-CoV-2 (PCR) (Not Detectd) 10/24/23 10/24/23 10/24/23 Range/Units 08:34 08:34 10:53 WBC (3.8-10.6) k/uL RBC (3.80-5.40) m/uL Hgb (11.4-16.0) gm/dL Hct (34.0-46.0) % MCV (80.0-100.0) fL MCH (25.0-35.0) pg MCHC (31.0-37.0) g/dL RDW (11.5-15.5) % Plt Count (150-450) k/uL MPV Neutrophils % % Lymphocytes % % Monocytes % % Eosinophils % % Basophils % % Neutrophils # (1.3-7.7) k/uL Lymphocytes # (1.0-4.8) k/uL Monocytes # (0-1.0) k/uL Eosinophils # (0-0.7) k/uL Basophils # (0-0.2) k/uL Sodium (137-145) mmol/L Potassium (3.5-5.1) mmol/L Chloride (98-107) mmol/L Carbon Dioxide (22-30) mmol/L Anion Gap mmol/L BUN (7-17) mg/dL Creatinine (0.52-1.04) mg/dL Est GFR (CKD-EPI)AfAm (>60 ml/min/1.73 sqM) Est GFR (CKD-EPI)NonAf (>60 ml/min/1.73 sqM) Glucose (74-99) mg/dL Plasma Lactic Acid Shekhar (0.7-2.0) mmol/L Calcium (8.4-10.2) mg/dL Total Bilirubin (0.2-1.3) mg/dL AST (14-36) U/L ALT (4-34) U/L Alkaline Phosphatase (38-126) U/L Troponin I (0.000-0.034) ng/mL NT-Pro-B Natriuret Pep 4110 pg/mL Total Protein (6.3-8.2) g/dL Albumin (3.5-5.0) g/dL Lipase (23-300) U/L Urine Color Yellow Urine Appearance Slightly Cloudy H (Clear) Urine pH 6.0 (5.0-8.0) Ur Specific Walls 1.025 (1.001-1.035) Urine Protein 2+ H (Negative) Urine Glucose (UA) Negative (Negative) Urine Ketones 1+ (Negative) Urine Blood Moderate (Negative) Urine Nitrite Positive (Negative) Urine Bilirubin Negative (Negative) Urine Urobilinogen <2.0 (<2.0) mg/dL Ur Leukocyte Esterase Large (Negative) Urine RBC 16 H (0-5) /hpf Urine WBC 147 H (0-5) /hpf Ur Squamous Epith Cells <1 (0-4) /hpf Urine Bacteria Occasional H (None) /hpf Hyaline Casts 1 (0-2) /lpf Urine Mucus Occasional H (None) /hpf Influenza Type A (PCR) Not Detected (Not Detectd) Influenza Type B (PCR) Not Detected (Not Detectd) RSV (PCR) Not Detected (Not Detectd) SARS-CoV-2 (PCR) Not Detected (Not Detectd) 10/24/23 10/24/23 Range/Units 11:20 11:50 WBC (3.8-10.6) k/uL RBC (3.80-5.40) m/uL Hgb (11.4-16.0) gm/dL Hct (34.0-46.0) % MCV (80.0-100.0) fL MCH (25.0-35.0) pg MCHC (31.0-37.0) g/dL RDW (11.5-15.5) % Plt Count (150-450) k/uL MPV Neutrophils % % Lymphocytes % % Monocytes % % Eosinophils % % Basophils % % Neutrophils # (1.3-7.7) k/uL Lymphocytes # (1.0-4.8) k/uL Monocytes # (0-1.0) k/uL Eosinophils # (0-0.7) k/uL Basophils # (0-0.2) k/uL Sodium (137-145) mmol/L Potassium (3.5-5.1) mmol/L Chloride (98-107) mmol/L Carbon Dioxide (22-30) mmol/L Anion Gap mmol/L BUN (7-17) mg/dL Creatinine (0.52-1.04) mg/dL Est GFR (CKD-EPI)AfAm (>60 ml/min/1.73 sqM) Est GFR (CKD-EPI)NonAf (>60 ml/min/1.73 sqM) Glucose (74-99) mg/dL Plasma Lactic Acid Shekhar 0.9 (0.7-2.0) mmol/L Calcium (8.4-10.2) mg/dL Total Bilirubin (0.2-1.3) mg/dL AST (14-36) U/L ALT (4-34) U/L Alkaline Phosphatase (38-126) U/L Troponin I (0.000-0.034) ng/mL NT-Pro-B Natriuret Pep pg/mL Total Protein (6.3-8.2) g/dL Albumin (3.5-5.0) g/dL Lipase 18 L (23-300) U/L Urine Color Urine Appearance (Clear) Urine pH (5.0-8.0) Ur Specific Walls (1.001-1.035) Urine Protein (Negative) Urine Glucose (UA) (Negative) Urine Ketones (Negative) Urine Blood (Negative) Urine Nitrite (Negative) Urine Bilirubin (Negative) Urine Urobilinogen (<2.0) mg/dL Ur Leukocyte Esterase (Negative) Urine RBC (0-5) /hpf Urine WBC (0-5) /hpf Ur Squamous Epith Cells (0-4) /hpf Urine Bacteria (None) /hpf Hyaline Casts (0-2) /lpf Urine Mucus (None) /hpf Influenza Type A (PCR) (Not Detectd) Influenza Type B (PCR) (Not Detectd) RSV (PCR) (Not Detectd) SARS-CoV-2 (PCR) (Not Detectd) Disposition Clinical Impression: Nausea and vomiting, Hypoxia, Pneumonia, Leukocytosis Disposition: ADMITTED IP TO THIS HOSP Condition: Fair Is patient prescribed a controlled substance at d/c from ED?: No Time of Disposition: 14:37
[2023-10-24 09:30] LABS: Basophils # (A) 0.1 k/uL (0-0.2); Basophils % (A) 0 %; Eosinophils # (A) 0.1 k/uL (0-0.7); Eosinophils % (A) 0 %; HCT 44.3 % (34.0-46.0); HGB 14.5 gm/dL (11.4-16.0); Lymphocytes # (A) 0.5 k/uL (1.0-4.8); Lymphocytes % (A) 2 %; MCH 29.8 pg (25.0-35.0); MCHC 32.7 g/dL (31.0-37.0); MCV 91.2 fL (80.0-100.0); Mean Platelet Volume 10.5; Monocytes # (A) 0.8 k/uL (0-1.0); Monocytes % (A) 3 %; Neutrophils # (A) 21.8 k/uL (1.3-7.7); Neutrophils % (A) 93 %; Platelet Count 140 k/uL (150-450); RBC 4.86 m/uL (3.80-5.40); WBC 23.5 k/uL (3.8-10.6)
[2023-10-24] MEDS ORDERED: METOCLOPRAMIDE 5 MG/ML 2 ML VIAL IVP STA (09:45)
[2023-10-24 10:23] LABS: ALT 33 U/L (4-34); AST 55 U/L (14-36); African American GFR (CKD) >90 (>60 ml/min/1.73 sqM); Albumin 3.6 g/dL (3.5-5.0); Alkaline Phosphatase 82 U/L (38-126); Anion Gap 10 mmol/L; Blood Urea Nitrogen 37 mg/dL (7-17); Calcium 8.1 mg/dL (8.4-10.2); Carbon Dioxide 26 mmol/L (22-30); Chloride 100 mmol/L (98-107); Glucose 100 mg/dL (74-99); Non-African American GFR(CKD) 89 (>60 ml/min/1.73 sqM); Sodium 136 mmol/L (137-145); Total Bilirubin 1.3 mg/dL (0.2-1.3); Total Protein 6.7 g/dL (6.3-8.2)
[2023-10-24 10:34] LABS: Potassium 4.9 mmol/L (3.5-5.1)
--- NOTE | 2023-10-24 11:12 | CT ---
EXAMINATION TYPE: CT ChestAbdPelvis w con DATE OF EXAM: 10/24/2023 INDICATION: abd pain, back pain COMPARISON: CTA chest 06/30/2023, CT chest 10/05/2020 CT DLP: 1419 mGycm CONTRAST: Performed without Oral Contrast and with IV Contrast, patient injected with 100 mL of Isovue 300. TECHNIQUE: Axial images at 5 mm thick sections. Reconstructed images in the coronal plane. Delayed images through the kidneys. FINDINGS: CT CHEST: Portion of the thyroid visualized is normal. Small right and minimal left pleural effusions are present. There are some prominent pretracheal lymph nodes measuring 1.6 to 1.4 cm. Additional smaller mediasti nal lymph nodes are present. There is a prominent subcarinal lymph node measuring 1.8 cm. Adenopathy is been present from 10/05/2020. 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 The ascending aorta diameter at the level of the main pulmonary artery is 3.9 cm. The main pulmonary artery diameter at the bifurcation is 3.9 cm. There is a moderate size hiatal hernia present. CT ABDOMEN: There is some mild inflammatory change at the hepatic flexure between the liver and right kidney. This is of unknown etiology and nonspecific. Liver: Hepatic cyst is present. Spleen: Normal Pancreas: Normal Adrenal glands: The adrenal glands are normal. Gallbladder: Normal Kidneys: No masses are evident. No hydronephrosis is present. No cysts are present. Delayed images were obtained through the kidneys, which remain unremarkable. Aorta: Vascular calcification is within the aorta. Inferior vena cava: Normal. CT PELVIS: Small amount of fluid may be within the right paracolic gutter. Loops of bowel within the abdomen and pelvis are normal. Some contrast is within the ascending colon . Couple of diverticuli within the sigmoid colon. No inflammatory changes to suggest acute diverticul itis. The majority of loops of bowel are incompletely distended or lack oral contrast limiting thei r evaluation. Appendix: Not clearly identified. No dilated tubular structure or inflammatory changes. Urinary bladder: Normal. Genitourinary structures: Uterus and ovaries are not identified. Osseous structures: No suspicious lytic or sclerotic lesions. IMPRESSION: 1. Mild inflammatory change right upper quadrant. No obvious diverticulitis or pyelonephritis identif ied. 2. Small amount of free fluid is within the right paracolic gutter. 3. Sigmoid diverticulosis without acute diverticulitis. 4. Prominent mediastinal lymphadenopathy
[2023-10-24 11:57] LABS: Bacteria,Urine Occasional /hpf; Hyaline Casts,Urine 1 /lpf (0-2); Mucus,Urine Occasional /hpf; RBC,Urine 16 /hpf (0-5); Squamous Epithelial Cell,Urine <1 /hpf (0-4); WBC,Urine 147 /hpf (0-5)
[2023-10-24 12:13] LABS: Appearance,Urine Slightly Cloudy (Clear); Color,Urine Yellow
[2023-10-24 12:14] LABS: Bilirubin,Urine Negative (Negative); Blood,Urine Moderate (Negative); Glucose,Urine (UA) Negative (Negative); Ketones,Urine 1+ (Negative); Protein,Urine 2+ (Negative); Specific Gravity,Urine 1.025 (1.001-1.035); Urobilinogen,Urine <2.0 mg/dL (<2.0)
[2023-10-24 12:15] LABS: Leukocyte Esterase,Urine Large (Negative); Nitrite,Urine Positive (Negative)
[2023-10-24] MEDS ORDERED: cefTRIAXone IN SWFI 1,000 MG/10 ML SYRINGE IVP STA (13:05)
[2023-10-24] MEDS ORDERED: NALOXONE 0.4 MG/ML 1 ML VIAL IV PRN (14:32)
[2023-10-24] MEDS ORDERED: PNEUMONIA PROTOCOL UTILIZED 1 EACH MISC PO PRN (14:34)
[2023-10-24] MEDS: SODIUM CHLORIDE 0.9% 1,000 ML IV SCH (15:26)
[2023-10-24] MEDS: PANTOPRAZOLE 40 MG/10 ML VIAL IVP SCH ×2 (16:44→21:14)
--- NOTE | 2023-10-24 17:36 | XR ---
EXAMINATION TYPE: XR chest 1V portable DATE OF EXAM: 10/24/2023 COMPARISON: None INDICATION: Pneumonia TECHNIQUE: Single frontal view of the chest is obtained. FINDINGS: The heart size is normal. The pulmonary vasculature is remanent. Mild diffuse increased lung markings are present. Correlate for pulmonary edema. Some linear opaciti es at the left base compatible plate atelectasis. IMPRESSION: 1. Plate atelectasis left lung base. 2. Diffuse increase pulmonary vascular markings, correlate for volume overload
[2023-10-25] MEDS: HYDROcodone/APAP 5-325MG 1 EACH TAB PO PRN (00:13)
--- NOTE | 2023-10-25 01:32 | HP ---
HISTORY AND PHYSICAL CHIEF COMPLAINT: Nausea, vomiting, abdominal discomfort as well as cough. HISTORY OF PRESENT ILLNESS: A 68-year-old woman with a past medical history of GERD, hypertension, and multiple other medical issues, having some nausea, vomiting, abdominal discomfort. The patient also had some cough also. The patient came to [facility] and evaluation showed possible pneumonia. White count is elevated. The patient was admitted for further evaluation and treatment. There is no history of any fever, rigors, or chills at this time. PAST MEDICAL HISTORY: GERD, DVT, memory impairment, multiple medical issues. Rest of the history and rest of the chart is also reviewed. HOME MEDICATIONS: Reviewed include Norvasc. Doses and rest of medications noted. ALLERGIES: None. FAMILY HISTORY: History of COPD, colon cancer. SOCIAL HISTORY: No history of smoking, or alcohol. REVIEW OF SYSTEMS: A 14-point review is negative except as mentioned earlier. PHYSICAL EXAMINATION: VITAL SIGNS: Pulse is 83, blood pressure is 170/87, respirations 16. HEENT: Conjunctivae normal. NECK: No JVD. CARDIOVASCULAR: S1, S2 muffled. RESPIRATIONS: Breath sounds diminished at the bases. Bilateral scattered rhonchi and crackles. ABDOMEN: Soft, obese, mild diffuse discomfort. No guarding. No rigidity. No mass palpable. LEGS: No edema. NERVOUS SYSTEM: Nonfocal. SKIN: No ulcer, rash, bleeding. JOINTS: No active deforming arthropathy. LABS: WBC 23.5. The rest of the labs are noted. ASSESSMENT: 1. Nausea, vomiting, possible acute gastritis. 2. Possible acute bilateral pneumonia interstitial, right more than the left. 3. Increased WBC. 4. Hyponatremia. 5. Deep venous thrombosis. 6. Gastroesophageal reflux disease. 7. Hypertension. 8. History of early dementia. RECOMMENDATIONS AND DISCUSSION: This is a 68-year-old woman presented with multiple complex medical issues, we will monitor the patient closely. I would recommend broad-spectrum IV antibiotics, serum procalcitonin, blood cultures. COVID-19 is negative. Recommend pulmonary, ID consultations. Resume home medications once they are confirmed. DVT prophylaxis. Symptomatic treatment for gastritis. Overall prognosis guarded because of multiple complex medical issues. Further recommendations to follow. See orders for further details. MMODL / IJN: [id number] /
[2023-10-25] MEDS ORDERED: METOCLOPRAMIDE 5 MG/ML 2 ML VIAL IVP PRN (02:21)
[2023-10-25] MEDS: SODIUM CHLORIDE 0.9% 1,000 ML IV SCH ×2 (03:39→22:00)
[2023-10-25] MEDS: LEVOTHYROXINE 125 MCG TAB PO SCH (06:19)
[2023-10-25] MEDS: DONEPEZIL 10 MG TAB PO SCH (08:40)
[2023-10-25] MEDS: PANTOPRAZOLE 40 MG/10 ML VIAL IVP SCH ×2 (08:40→22:01)
[2023-10-25] MEDS: CHOLECALCIFEROL 25 MCG (1000 IU) TABLET PO SCH (08:40)
[2023-10-25] MEDS: amLODIPine 10 MG TAB PO SCH (08:40)
[2023-10-25] MEDS: CYANOCOBALAMIN 500 MCG TAB PO SCH (08:40)
[2023-10-25] MEDS: EZETIMIBE 10 MG TAB PO SCH (08:40)
[2023-10-25] MEDS: METOPROLOL SUCCINATE (ER) 50 MG TAB.ER.24H PO SCH (08:41)
[2023-10-25] MEDS ORDERED: AZITHROMYCIN 500 MG TAB PO SCH (09:00)
[2023-10-25 10:19] LABS: Basophils # (A) 0.1 k/uL (0-0.2); Basophils % (A) 0 %; Eosinophils % (A) 0 %; HCT 43.5 % (34.0-46.0); HGB 13.7 gm/dL (11.4-16.0); Hypochromasia Slight; Lymphocytes # (A) 0.4 k/uL (1.0-4.8); Lymphocytes % (A) 3 %; MCH 29.6 pg (25.0-35.0); MCHC 31.4 g/dL (31.0-37.0); MCV 94.1 fL (80.0-100.0); Mean Platelet Volume 10.7; Monocytes # (A) 0.5 k/uL (0-1.0); Monocytes % (A) 4 %; Neutrophils % (A) 91 %; Platelet Count 113 k/uL (150-450); RBC 4.63 m/uL (3.80-5.40); RDW 13.1 % (11.5-15.5); WBC 13.1 k/uL (3.8-10.6)
[2023-10-25 11:04] LABS: ALT 22 U/L (4-34); AST 22 U/L (14-36); African American GFR (CKD) >90 (>60 ml/min/1.73 sqM); Albumin 2.8 g/dL (3.5-5.0); Albumin/Globulin Ratio 1.1; Alkaline Phosphatase 75 U/L (38-126); Anion Gap 9 mmol/L; Blood Urea Nitrogen 25 mg/dL (7-17); Calcium 7.8 mg/dL (8.4-10.2); Carbon Dioxide 25 mmol/L (22-30); Chloride 104 mmol/L (98-107); Globulin 2.6 g/dL; Glucose 116 mg/dL (74-99); Non-African American GFR(CKD) >90 (>60 ml/min/1.73 sqM); Potassium 3.5 mmol/L (3.5-5.1); Sodium 138 mmol/L (137-145); Total Bilirubin 0.6 mg/dL (0.2-1.3); Total Protein 5.4 g/dL (6.3-8.2)
--- NOTE | 2023-10-25 11:15 | XR ---
EXAMINATION TYPE: XR chest 1V DATE OF EXAM: 10/25/2023 COMPARISON: 10/24/2023 INDICATION: Pneumonia TECHNIQUE: Single frontal view of the chest is obtained. FINDINGS: The heart size is normal. The pulmonary vasculature is prominent. Plate atelectasis left base has improved rate mild scattered infiltrates are through the bilateral codey ng shipman. IMPRESSION: 1. Improving left basilar atelectasis. 2. Mild nonspecific infiltrates bilaterally. Consider atypical pneumonia.
--- NOTE | 2023-10-25 13:34 | P.CNPUL ---
History of Present Illness Consult date: 10/25/23 Requesting physician: Arie Roy Reason for consult: abnormal CXR/CT Chief complaint: Nausea, vomiting, diarrhea History of present illness: This is a 68-year-old female patient who has a history of hypothyroidism, hypertension, hyperlipidemia, early dementia, hearing disorder, lifelong nonsmo ker. She came into the emergency room yesterday with a three-day history of abdominal discomfort, nausea vomiting and diarrhea. Computed tomography scan of the chest abdomen pelvis revealed a mild inflammatory changes in the right upper quadrant. No obvious diverticulitis or pyelonephritis. There is a small amount of free fluid in the right paracolic gutter. Sigmoid diverticulosis without acu te diverticulitis. Mild infiltrate in the posterior right lung base. Atelectasis versus pneumonia. Blood cultures are revealing no growth to date. White count 13.1. Hemoglobin 13.7. Platelets 113. Sodium 138. Potassium 3.5. Bicarb 25. BUN 25. Creatinine 0.53. Glucose 116. Pro-calcitonin 16.80. Lipase 18. Urinalysis slightly cloudy with high WBCs and occasional bacteria. Culture pending. She is seen today in consultation on the regular medical floor. She is currently resting comfortably in bed. Awake and alert in no acute distress. She is maintaining O2 saturations in the 90s on 3 L/m per nasal cannula. She is on normal saline at 75 ML's per hour. She's been initiated on ceftriaxone and azithromycin. She is currently afebrile. Hemodynamically stable. Review of Systems REVIEW OF SYSTEMS: CONSTITUTIONAL: Denies any recent significant weight loss or weight gain. EYES: Denies change in vision. EARS, NOSE, MOUTH, THROAT: Denies headaches, denies sore throat. CARDIOVASCULAR: Denies chest pain, palpitations or syncopal episodes. RESPIRATORY: Denies shortness of breath, cough, congestion or hemoptysis. GASTROINTESTINAL: Positive for nausea, vomiting, diarrhea, abdominal pain GENITOURINARY: Denies hematuria, denies infections. MUSKULOSKELETAL: Denies pain, denies swelling. INTEGUMENTARY: Denies rash, denies eczema. NEUROLOGICAL: Denies recent memory loss, no recent seizure activity. PSYCHIATRIC: Denies anxiety, denies depression. HEMATOLOGIC/LYMPHATIC: Denies anemia, denies enlarged lymph nodes. Past Medical History Past Medical History: Deep Vein Thrombosis (DVT), GERD/Reflux, Hypertension, Memory Impairment, Thyroid Disorder Additional Past Medical History / Comment(s): early dementia and [place],90% deaf- please relay information to /daughter. family hx colorectal cancer. bowel/urinary incontinence wears depends. has appt 07/13 with neurologist to r/o myasthenia gravis has been experiencing facial drooping,lethary,muscle weakness. osteopenia History of Any Multi-Drug Resistant Organisms: None Reported Past Surgical History: Heart Catheterization, Hysterectomy Additional Past Surgical History / Comment(s): REPAIR RT RUPTURED THIGH MUSCLE. COLONOSCOPY, bladder prolapse surgery Past Anesthesia/Blood Transfusion Reactions: No Reported Reaction Past Psychological History: No Psychological Hx Reported Smoking Status: Never smoker Past Alcohol Use History: None Reported Past Drug Use History: None Reported - Past Family History Sister(s) Family Medical History: Cancer Additional Family Medical History / Comment(s): COLON Mother Family Medical History: Cancer Additional Family Medical History / Comment(s): BREAST Father Family Medical History: Cancer Additional Family Medical History / Comment(s): LUNG Medications and Allergies Home Medications Medication Instructions Recorded Confirmed Type Levothyroxine Sodium [Synthroid] 125 mcg PO DAILY 08/14/16 10/24/23 History Metoprolol Succinate (ER) [Toprol 50 mg PO DAILY 08/14/16 10/24/23 History Xl] Ferrous Sulfate [Feosol] 325 mg PO DAILY 03/28/21 10/24/23 History Beet Root 1000mg 1,000 mg PO DAILY 10/24/23 10/24/23 History Cholecalciferol [Vitamin D3 (25 25 mcg PO DAILY 10/24/23 10/24/23 History Mcg = 1000 Iu)] Cinnamon Bark [Cinnamon] 1,000 mg PO DAILY 10/24/23 10/24/23 History Cyanocobalamin (Vitamin B-12) 1,000 mcg PO DAILY 10/24/23 10/24/23 History [Vitamin B-12] Donepezil [Aricept] 10 mg PO DAILY 10/24/23 10/24/23 History Ezetimibe [Zetia] 10 mg PO DAILY 10/24/23 10/24/23 History Ginkgo Biloba Extract 1 cap PO DAILY 10/24/23 10/24/23 History Potassium(Unknown Dose) 1 tab PO DAILY 10/24/23 10/24/23 History Pro Advanced Urinary Formula 1 cap PO DAILY 10/24/23 10/24/23 History Stem Cell Supplement 1 cap PO DAILY 10/24/23 10/24/23 History amLODIPine [Norvasc] 10 mg PO DAILY 10/24/23 10/24/23 History Allergies Allergy/AdvReac Type Severity Reaction Status Date / Time No Known Allergies Allergy Verified 10/24/23 14:33 Physical Exam Vitals: Vital Signs Temp Pulse Pulse Resp BP BP Pulse Ox 10/25/23 08:00 76 18 10/25/23 07:21 98.2 F 76 18 150/76 95 10/25/23 01:49 99.0 F 77 18 137/73 94 L 10/24/23 20:00 99 F 81 16 121/66 94 L 10/24/23 16:00 98.6 F 86 18 160/79 95 10/24/23 15:26 84 16 156/63 95 10/24/23 15:25 95 Intake and Output 10/24/23 10/25/23 10/25/23 22:59 06:59 14:59 Other: # Voids 1 1 # Bowel Movements 0 GENERAL EXAM: Alert, pleasant 68-year-old female, hard of hearing, on 3 L nasal cannula comfortable in no apparent distress. HEAD: Normocephalic. EYES: Normal reaction of pupils, equal size. NOSE: Clear with pink turbinates. THROAT: No erythema or exudates. NECK: No masses, no JVD. CHEST: No chest wall deformity. LUNGS: Equal air entry with faint crackles in the posterior bases. CVS: S1 and S2 normal with no audible murmur, regular rhythm. ABDOMEN: No hepatosplenomegaly, normal bowel sounds, no guarding or rigidity. SPINE: No scoliosis or deformity SKIN: No rashes CENTRAL NERVOUS SYSTEM: No focal deficits, tone is normal in all 4 extremities. EXTREMITIES: There is no peripheral edema. No clubbing, no cyanosis. Peripheral pulses are intact. Results - Laboratory Findings CBC and BMP: 10/25/23 08:45 10/25/23 08:45 Abnormal lab findings: Abnormal Labs 10/24/23 10/24/23 10/24/23 08:34 08:34 10:53 WBC 23.5 H Plt Count 140 L Neutrophils # 21.8 H Lymphocytes # 0.5 L Sodium 136 L BUN 37 H Glucose 100 H Calcium 8.1 L AST 55 H Total Protein Albumin Lipase Procalcitonin Urine Appearance Slightly Cloudy H Urine Protein 2+ H Urine RBC 16 H Urine WBC 147 H Urine Bacteria Occasional H Urine Mucus Occasional H 10/24/23 10/25/23 10/25/23 11:50 01:51 08:45 WBC Plt Count Neutrophils # Lymphocytes # Sodium BUN 25 H Glucose 116 H Calcium 7.8 L AST Total Protein 5.4 L Albumin 2.8 L Lipase 18 L Procalcitonin 16.80 H Urine Appearance Urine Protein Urine RBC Urine WBC Urine Bacteria Urine Mucus 10/25/23 08:45 WBC 13.1 H Plt Count 113 L Neutrophils # 12.0 H Lymphocytes # 0.4 L Sodium BUN Glucose Calcium AST Total Protein Albumin Lipase Procalcitonin Urine Appearance Urine Protein Urine RBC Urine WBC Urine Bacteria Urine Mucus - Diagnostic Findings Chest x-ray: image reviewed CT scan - chest: image reviewed Assessment and Plan Assessment: Acute abdominal pain with nausea vomiting diarrhea Acute hypoxemic respiratory failure secondary possible early right lower lobe pneumonia Leukocytosis secondary to above Possible urinary tract infection, culture pending Early dementia Hypertension Hypothyroidism Plan: The patient was seen and evaluated Chest x-ray, CAT scan, labs and medications reviewed Procalcitonin elevated Continue antibiotics Urine culture pending Titrate down the FiO2 as tolerated Increase her activity as tolerated Continue gentle fluid resuscitation We will continue to follow and make further recommendations based on her clinical status I have personally seen and examined the patient, performed the documentation and the assessment and plan as written. Number of minutes spent on the visit: 20.
[2023-10-25] MEDS: ACETAMINOPHEN TAB 325 MG TAB PO PRN (13:52)
--- NOTE | 2023-10-25 17:04 | P.GSCN ---
History of Present Illness Consult date: 10/25/23 History of present illness: Patient reported abdominal pain with vomiting. Now resolved. Poor historian. Denies acute abdominal pain on exam. CT reviewed without acute findings. CT reports described mild inflammation of the right upper quadrant. Will observe. Diet as tolerated. Past Medical History Past Medical History: Deep Vein Thrombosis (DVT), GERD/Reflux, Hypertension, Memory Impairment, Thyroid Disorder Additional Past Medical History / Comment(s): early dementia and [place],90% deaf- please relay information to /daughter. family hx colorectal cancer. bowel/urinary incontinence wears depends. has appt 07/13 with neurologist to r/o myasthenia gravis has been experiencing facial drooping,lethary,muscle weakness. osteopenia History of Any Multi-Drug Resistant Organisms: None Reported Past Surgical History: Heart Catheterization, Hysterectomy Additional Past Surgical History / Comment(s): REPAIR RT RUPTURED THIGH MUSCLE. COLONOSCOPY, bladder prolapse surgery Past Anesthesia/Blood Transfusion Reactions: No Reported Reaction Past Psychological History: No Psychological Hx Reported Smoking Status: Never smoker Past Alcohol Use History: None Reported Past Drug Use History: None Reported - Past Family History Sister(s) Family Medical History: Cancer Additional Family Medical History / Comment(s): COLON Mother Family Medical History: Cancer Additional Family Medical History / Comment(s): BREAST Father Family Medical History: Cancer Additional Family Medical History / Comment(s): LUNG Medications and Allergies Home Medications Medication Instructions Recorded Confirmed Type Levothyroxine Sodium [Synthroid] 125 mcg PO DAILY 08/14/16 10/24/23 History Metoprolol Succinate (ER) [Toprol 50 mg PO DAILY 08/14/16 10/24/23 History Xl] Ferrous Sulfate [Feosol] 325 mg PO DAILY 03/28/21 10/24/23 History Beet Root 1000mg 1,000 mg PO DAILY 10/24/23 10/24/23 History Cholecalciferol [Vitamin D3 (25 25 mcg PO DAILY 10/24/23 10/24/23 History Mcg = 1000 Iu)] Cinnamon Bark [Cinnamon] 1,000 mg PO DAILY 10/24/23 10/24/23 History Cyanocobalamin (Vitamin B-12) 1,000 mcg PO DAILY 10/24/23 10/24/23 History [Vitamin B-12] Donepezil [Aricept] 10 mg PO DAILY 10/24/23 10/24/23 History Ezetimibe [Zetia] 10 mg PO DAILY 10/24/23 10/24/23 History Ginkgo Biloba Extract 1 cap PO DAILY 10/24/23 10/24/23 History Potassium(Unknown Dose) 1 tab PO DAILY 10/24/23 10/24/23 History Pro Advanced Urinary Formula 1 cap PO DAILY 10/24/23 10/24/23 History Stem Cell Supplement 1 cap PO DAILY 10/24/23 10/24/23 History amLODIPine [Norvasc] 10 mg PO DAILY 10/24/23 10/24/23 History Allergies Allergy/AdvReac Type Severity Reaction Status Date / Time No Known Allergies Allergy Verified 10/24/23 14:33 Surgical - Exam Vital Signs Temp Pulse Resp BP Pulse Ox 98 F 90 18 160/82 98 10/24/23 08:19 10/24/23 08:19 10/24/23 08:19 10/24/23 08:19 10/24/23 08:19 Results - Labs 10/25/23 08:45 10/25/23 08:45 Abnormal Lab Results - Last 24 Hours (Table) 10/25/23 10/25/23 10/25/23 Range/Units 01:51 08:45 08:45 WBC 13.1 H (3.8-10.6) k/uL Plt Count 113 L (150-450) k/uL Neutrophils # 12.0 H (1.3-7.7) k/uL Lymphocytes # 0.4 L (1.0-4.8) k/uL BUN 25 H (7-17) mg/dL Glucose 116 H (74-99) mg/dL Calcium 7.8 L (8.4-10.2) mg/dL Total Protein 5.4 L (6.3-8.2) g/dL Albumin 2.8 L (3.5-5.0) g/dL Procalcitonin 16.80 H (0.02-0.09) ng/mL Microbiology - Last 24 Hours (Table) 10/24/23 11:20 Blood Culture Gram Stain - Preliminary Blood 10/24/23 11:05 Blood Culture Gram Stain - Preliminary Blood Diabetes panel 10/25/23 Range/Units 08:45 Sodium 138 (137-145) mmol/L Potassium 3.5 (3.5-5.1) mmol/L Chloride 104 (98-107) mmol/L Carbon Dioxide 25 (22-30) mmol/L BUN 25 H (7-17) mg/dL Creatinine 0.53 (0.52-1.04) mg/dL Glucose 116 H (74-99) mg/dL Calcium 7.8 L (8.4-10.2) mg/dL AST 22 (14-36) U/L ALT 22 (4-34) U/L Alkaline Phosphatase 75 (38-126) U/L Total Protein 5.4 L (6.3-8.2) g/dL Albumin 2.8 L (3.5-5.0) g/dL Calcium panel 10/25/23 Range/Units 08:45 Calcium 7.8 L (8.4-10.2) mg/dL Albumin 2.8 L (3.5-5.0) g/dL Pituitary panel 10/25/23 Range/Units 08:45 Sodium 138 (137-145) mmol/L Potassium 3.5 (3.5-5.1) mmol/L Chloride 104 (98-107) mmol/L Carbon Dioxide 25 (22-30) mmol/L BUN 25 H (7-17) mg/dL Creatinine 0.53 (0.52-1.04) mg/dL Glucose 116 H (74-99) mg/dL Calcium 7.8 L (8.4-10.2) mg/dL Adrenal panel 10/25/23 Range/Units 08:45 Sodium 138 (137-145) mmol/L Potassium 3.5 (3.5-5.1) mmol/L Chloride 104 (98-107) mmol/L Carbon Dioxide 25 (22-30) mmol/L BUN 25 H (7-17) mg/dL Creatinine 0.53 (0.52-1.04) mg/dL Glucose 116 H (74-99) mg/dL Calcium 7.8 L (8.4-10.2) mg/dL Total Bilirubin 0.6 (0.2-1.3) mg/dL AST 22 (14-36) U/L ALT 22 (4-34) U/L Alkaline Phosphatase 75 (38-126) U/L Total Protein 5.4 L (6.3-8.2) g/dL Albumin 2.8 L (3.5-5.0) g/dL
--- NOTE | 2023-10-25 17:14 | PN ---
PROGRESS NOTE DATE OF SERVICE: 10/25/2023 SUBJECTIVE: This is a 68-year-old woman, who was admitted with nausea and vomiting, also had possible bilateral pneumonia. The most recent chest x-ray was reviewed personally by me. Multiple consultants are following the patient including Pulmonology. The patient continues to be nauseous. PAST MEDICAL HISTORY: Reviewed. REVIEW OF SYSTEMS: Fourteen-point review of systems is negative except as mentioned earlier. CURRENT MEDICATIONS: Reviewed include Zithromax. Doses and rest of the medications are reviewed. Rocephin. PHYSICAL EXAMINATION: VITAL SIGNS: Pulse is 76, blood pressure 150/76, respirations 18. HEENT: Conjunctivae are normal. NECK: No jugular venous distention. CARDIOVASCULAR: S1 and S2 muffled. RESPIRATORY: Breath sounds diminished at the bases. Few scattered rhonchi. ABDOMEN: Soft. Obese. LEGS: No edema. NERVOUS SYSTEM: Nonfocal. LABORATORY DATA: Procalcitonin is 16.8. Other labs are noted. ASSESSMENT: 1. Nausea and vomiting, possible acute gastritis, persistent. Rule out acute abdomen. 2. Possible acute bilateral pneumonia, interstitial, right more than the left. 3. Increased WBC. 4. Possible urinary tract infection. 5. Hyponatremia. 6. Deep venous thrombosis. 7. Gastroesophageal reflux disease. 8. Hypertension. 9. History of early dementia. 10.Full code. RECOMMENDATIONS: Recommend to continue current medical management. Continue symptomatic treatment. Repeat labs. Empiric antibiotics. I would recommend Infectious Disease and as well as Surgical evaluation also. Other than that, continue to monitor. Continue with empiric antibiotics. CT scan of the abdomen and pelvis was done, which showed a small amount of right paracolic gutter definitely. Get acute abdominal series as well. MMODL / IJN: [id number] /
--- NOTE | 2023-10-25 18:06 | XR ---
EXAMINATION TYPE: XR abdomen acute w cxr DATE OF EXAM: 10/25/2023 6:00 PM CLINICAL INDICATION:Female, 68 years old with history of acute abd COMPARISON: 10/25/2023. TECHNIQUE: Two radiographic views of the abdomen (upright and supine) and a frontal chest radiograph were obtained. FINDINGS CHEST: Lungs/Pleura: The lungs are clear. There is no evidence of pleural effusion, focal consolidation or p neumothorax. Flattening of the diaphragm with scattered haziness throughout the lungs. Mediastinum: The heart is enlarged for size. Vasculature: Normal. Heart: Normal in size. Musculoskeletal: The osseous structures are intact. Other findings: No significant. FINDINGS ABDOMEN: Bowel gas pattern: Normal without dilated loops of small or large bowel. Fecal material and gas are d emonstrated throughout the colon and rectum. Abnormal calcifications: None. Musculoskeletal: Degeneration changes of the acetabulum bilaterally. Other: None. IMPRESSION: 1. No radiographic evidence for acute abdominal process. 2. No acute cardiopulmonary process 3. Cardiomegaly with bilateral pleural effusions and some mild pulmonary edema correlate with patient 's BNP
[2023-10-25 19:37] LABS: Glucose,Whole Blood 139 mg/dL (70-110)
--- NOTE | 2023-10-25 20:01 | P.CONS ---
History of Present Illness - Reason for Consult Consult date: 10/25/23 Sepsis, pneumonia Requesting physician: Arie Roy - Chief Complaint Nausea and vomiting x few days - History of Present Illness Patient is a 68-year-old female with a past medical history significant for hypertension reflux DVT hypothyroidism presenting to the hospital yesterday morning for evaluation of nausea and vomiting patient's symptom has been going on for about 3 days before presentation to hospital and the patient also complaining of left flank pain for the same duration patient was described the pain to be more of a sharp in nature moderate in intensity with associated nausea no vomiting patient denies having any diarrhea pneumonia frequency urine denies any chest pain or shortness of breath minimal cough no sputum production with this symptom the patient was evaluated on presentation to the hospital she was afebrile subsequently did have a low-grade fever of 99 F the patient was not tachycardic hypotensive mildly hypoxic O2 sats of 90% currently 93% on 2 L nasal cannula patient did have a white count of 23.5 with a left shift creatinine was normal limits of the normal procalcitonin and CRP are elevated influenza RSV COVID testing was negative urine for the due to antigen negative urine was cloudy with 147 WBC patient did have a CT of the chest abdominal pelvis mild inflammatory changes right upper quadrant no obvious diverticulitis or pyelonephritis small amount of free fluid within the paracolic gutter did have a sigmoid diverticulosis without diverticulitis infected effusion on the right side patient did have blood cultures are coming back positive with E. coli infectious disease was consulted for further management of antibiotic repeat with initial concern for pneumonia Review of Systems Positive point and negatives has been mentioned in the HPI, complete review of systems was performed and all other systems are negative Past Medical History Past Medical History: Deep Vein Thrombosis (DVT), GERD/Reflux, Hypertension, Memory Impairment, Thyroid Disorder Additional Past Medical History / Comment(s): early dementia and [place],90% deaf- please relay information to /daughter. family hx colorectal cancer. bowel/urinary incontinence wears depends. has appt 07/13 with neurologist to r/o myasthenia gravis has been experiencing facial drooping,lethary,muscle weakness. osteopenia History of Any Multi-Drug Resistant Organisms: None Reported Past Surgical History: Heart Catheterization, Hysterectomy Additional Past Surgical History / Comment(s): REPAIR RT RUPTURED THIGH MUSCLE. COLONOSCOPY, bladder prolapse surgery Past Anesthesia/Blood Transfusion Reactions: No Reported Reaction Past Psychological History: No Psychological Hx Reported Smoking Status: Never smoker Past Alcohol Use History: None Reported Past Drug Use History: None Reported - Past Family History Sister(s) Family Medical History: Cancer Additional Family Medical History / Comment(s): COLON Mother Family Medical History: Cancer Additional Family Medical History / Comment(s): BREAST Father Family Medical History: Cancer Additional Family Medical History / Comment(s): LUNG Medications and Allergies Home Medications Medication Instructions Recorded Confirmed Type Levothyroxine Sodium [Synthroid] 125 mcg PO DAILY 08/14/16 10/24/23 History Metoprolol Succinate (ER) [Toprol 50 mg PO DAILY 08/14/16 10/24/23 History Xl] Ferrous Sulfate [Feosol] 325 mg PO DAILY 03/28/21 10/24/23 History Beet Root 1000mg 1,000 mg PO DAILY 10/24/23 10/24/23 History Cholecalciferol [Vitamin D3 (25 25 mcg PO DAILY 10/24/23 10/24/23 History Mcg = 1000 Iu)] Cinnamon Bark [Cinnamon] 1,000 mg PO DAILY 10/24/23 10/24/23 History Cyanocobalamin (Vitamin B-12) 1,000 mcg PO DAILY 10/24/23 10/24/23 History [Vitamin B-12] Donepezil [Aricept] 10 mg PO DAILY 10/24/23 10/24/23 History Ezetimibe [Zetia] 10 mg PO DAILY 10/24/23 10/24/23 History Ginkgo Biloba Extract 1 cap PO DAILY 10/24/23 10/24/23 History Potassium(Unknown Dose) 1 tab PO DAILY 10/24/23 10/24/23 History Pro Advanced Urinary Formula 1 cap PO DAILY 10/24/23 10/24/23 History Stem Cell Supplement 1 cap PO DAILY 10/24/23 10/24/23 History amLODIPine [Norvasc] 10 mg PO DAILY 10/24/23 10/24/23 History Allergies Allergy/AdvReac Type Severity Reaction Status Date / Time No Known Allergies Allergy Verified 10/24/23 14:33 Physical Exam Vitals: Vital Signs Temp Pulse Pulse Resp BP BP Pulse Ox 10/25/23 08:00 76 18 10/25/23 07:21 98.2 F 76 18 150/76 95 10/25/23 01:49 99.0 F 77 18 137/73 94 L 10/24/23 20:00 99 F 81 16 121/66 94 L 10/24/23 16:00 98.6 F 86 18 160/79 95 10/24/23 15:26 84 16 156/63 95 10/24/23 15:25 95 10/24/23 12:58 87 18 143/81 Intake and Output 10/24/23 10/25/23 10/25/23 22:59 06:59 14:59 Other: # Voids 1 1 # Bowel Movements 0 GENERAL DESCRIPTION: An elderly female lying in bed, no distress. No tachypnea or accessory muscle of respiration use. HEENT: Shows Pallor , no scleral icterus. Oral mucous membrane is dry. No pharyngeal erythema or thrush NECK: Trachea central, no thyromegaly. LUNGS: Unlabored breathing. Clear to auscultation anteriorly. No wheeze or crackle. HEART: S1, S2, regular rate and rhythm. No loud murmur ABDOMEN: Soft, no tenderness , guarding or rigidity, EXTREMITIES: No edema of feet. SKIN: No rash, no masses palpable. NEUROLOGICAL: The patient is awake, alert, oriented x3, mood and affect normal. Results CBC & Chem 7: 10/25/23 08:45 10/25/23 08:45 Labs: Abnormal Lab Results - Last 24 Hours (Table) 10/24/23 10/24/23 10/25/23 Range/Units 10:53 11:50 01:51 WBC (3.8-10.6) k/uL Plt Count (150-450) k/uL Neutrophils # (1.3-7.7) k/uL Lymphocytes # (1.0-4.8) k/uL BUN (7-17) mg/dL Glucose (74-99) mg/dL Calcium (8.4-10.2) mg/dL Total Protein (6.3-8.2) g/dL Albumin (3.5-5.0) g/dL Lipase 18 L (23-300) U/L Procalcitonin 16.80 H (0.02-0.09) ng/mL Urine Appearance Slightly Cloudy H (Clear) Urine Protein 2+ H (Negative) Urine RBC 16 H (0-5) /hpf Urine WBC 147 H (0-5) /hpf Urine Bacteria Occasional H (None) /hpf Urine Mucus Occasional H (None) /hpf 10/25/23 10/25/23 Range/Units 08:45 08:45 WBC 13.1 H (3.8-10.6) k/uL Plt Count 113 L (150-450) k/uL Neutrophils # 12.0 H (1.3-7.7) k/uL Lymphocytes # 0.4 L (1.0-4.8) k/uL BUN 25 H (7-17) mg/dL Glucose 116 H (74-99) mg/dL Calcium 7.8 L (8.4-10.2) mg/dL Total Protein 5.4 L (6.3-8.2) g/dL Albumin 2.8 L (3.5-5.0) g/dL Lipase (23-300) U/L Procalcitonin (0.02-0.09) ng/mL Urine Appearance (Clear) Urine Protein (Negative) Urine RBC (0-5) /hpf Urine WBC (0-5) /hpf Urine Bacteria (None) /hpf Urine Mucus (None) /hpf Microbiology - Last 24 Hours (Table) 10/24/23 11:20 Blood Culture Gram Stain - Preliminary Blood 10/24/23 11:05 Blood Culture Gram Stain - Preliminary Blood Assessment and Plan Plan: 1patient presented to hospital with sepsis in this patient who did have a fever elevated white count positive UA and now with E. coli bacteremia-suspicious for pyelonephritis with likely etiology, CT abdominal pelvis did not mention any intra-abdominal abscess or colitis clinical not behaving as pneumonia 2-patient to continue Rocephin 2 g daily while awaiting for sensitivity to finalize 3-gentle IV fluid We will follow on clinical condition and cultures to further adjust medication if needed Thank you for this consultation we will follow the patient along with you Dictation was produced using [email or web address] dictation software. please excuse any grammatical, word or spelling errors. Time with Patient: Greater than 30
[2023-10-25] MEDS: HEPARIN SODIUM,PORCINE 5,000 UNIT/ML 1 ML VIAL SQ SCH (22:00)
[2023-10-26] MEDS: ACETAMINOPHEN TAB 325 MG TAB PO PRN ×3 (02:45→19:13)
[2023-10-26 05:32] LABS: Glucose,Whole Blood 90 mg/dL (70-110)
[2023-10-26] MEDS: LEVOTHYROXINE 125 MCG TAB PO SCH (05:56)
[2023-10-26] MEDS: SODIUM CHLORIDE 0.9% 1,000 ML IV SCH (06:30)
[2023-10-26] MEDS: PANTOPRAZOLE 40 MG/10 ML VIAL IVP SCH ×2 (08:05→20:31)
[2023-10-26] MEDS: DONEPEZIL 10 MG TAB PO SCH (08:09)
[2023-10-26] MEDS: METOPROLOL SUCCINATE (ER) 50 MG TAB.ER.24H PO SCH (08:09)
[2023-10-26] MEDS: CHOLECALCIFEROL 25 MCG (1000 IU) TABLET PO SCH (08:09)
[2023-10-26] MEDS: HEPARIN SODIUM,PORCINE 5,000 UNIT/ML 1 ML VIAL SQ SCH (08:09)
[2023-10-26] MEDS: CYANOCOBALAMIN 500 MCG TAB PO SCH (08:09)
[2023-10-26] MEDS: EZETIMIBE 10 MG TAB PO SCH (08:09)
[2023-10-26] MEDS: amLODIPine 10 MG TAB PO SCH (08:10)
[2023-10-26 08:39] LABS: Basophils # (A) 0.03 X 10*3/uL (0.00-0.10); Basophils % (A) 0.3 %; Eosinophils # (A) 0.01 X 10*3/uL (0.04-0.35); Eosinophils % (A) 0.1 %; HCT 40.3 % (37.2-46.3); Lymphocytes # (A) 0.63 X 10*3/uL (0.90-5.00); MCH 28.8 pg (27.0-32.0); MCHC 32.3 g/dL (32.0-37.0); MCV 89.4 FL (80.0-97.0); Monocytes % (A) 7.7 %; NRBC Per 100 WBC 0 X 10*3/uL (0.00-0.01); Neutrophils # (A) 7.62 X 10*3/uL (1.80-7.70); Neutrophils % (A) 84.2 %; Platelet Count 135 X 10*3/uL (140-440); RBC 4.51 X 10*6/uL (4.10-5.20); RDW 13.4 % (11.5-14.5); WBC 9.05 X 10*3/uL (4.50-10.00)
[2023-10-26 08:55] LABS: ALT 17 U/L (8-44); AST 12 U/L (13-35); Alkaline Phosphatase 71 U/L (41-126); BUN/Creat Ratio 42.75 Ratio (12.00-20.00); Blood Urea Nitrogen 17.1 mg/dL (9.0-27.0); Calcium 7.8 mg/dL (8.7-10.3); Chloride 105 mmol/L (96-109); Glucose 98 mg/dL (70-110); Sodium 141 mmol/L (135-145); Total Bilirubin 0.4 mg/dL (0.3-1.2)
[2023-10-26] MEDS: AZITHROMYCIN 500 MG in SODIUM CHLORIDE 0.9% 250 ML IVPB SCH (09:10)
[2023-10-26] MEDS ORDERED: Potassium Replacement Protocol 1 EACH MISC MISCELLANE PRN (10:11)
[2023-10-26] MEDS: POTASSIUM CHLORIDE ER 20 MEQ TAB.ER PO SCH ×5 (10:30→14:45)
[2023-10-26 12:04] LABS: Glucose,Whole Blood 95 mg/dL (70-110)
--- NOTE | 2023-10-26 13:17 | P.PN ---
Subjective Progress Note Date: 10/26/23 This is a 68-year-old female patient who has a history of hypothyroidism, hyper tension, hyperlipidemia, early dementia, hearing disorder, lifelong nonsmoker. She came into the emergency room yesterday with a three-day history of abdominal discomfort, nausea vomiting and diarrhea. Computed tomography scan of the chest abdomen pelvis revealed a mild inflammatory changes in the right upper quadrant. No obvious diverticulitis or pyelonephritis. There is a small amount of free fluid in the right paracolic gutter. Sigmoid diverticulosis without acute diverticulitis. Mild infiltrate in the posterior right lung base. Atelectasis versus pneumonia. Blood cultures are revealing no growth to date. White count 13.1. Hemoglobin 13.7. Platelets 113. Sodium 138. Potassium 3.5. Bicarb 25. BUN 25. Creatinine 0.53. Glucose 116. Pro-calcitonin 16.80. Lipase 18. Urinalysis slightly cloudy with high WBCs and occasional bacteria. Culture pending. She is seen today in consultation on the regular medical floor. She is currently resting comfortably in bed. Awake and alert in no acute distress. She is maintaining O2 saturations in the 90s on 3 L/m per nasal cannula. She is on normal saline at 75 ML's per hour. She's been initiated on ceftriaxone and azithromycin. She is currently afebrile. Hemodynamically stable. On today's evaluation of 10/26/2023, no specific complaints. No abdominal pain. Patient is currently on 2 L of oxygen by nasal cannula. She was on 3 L earlier her current pulse ox is 98%. The white cell count is down to 9 with a hemoglo bin of 13, BUN is at 70 with a creatinine of 0.4 and a sodium load is 41 with a potassium level III.0. The blood cultures positive for gram-negative bacillus 2 out of 2 blood cultures and the patient was obviously septic and the patient is currently on Rocephin 2 g every 24 hours. IV fluids are still running at 75 mL an hour. Urine was abnormal and it is very much like to the patient started off with an underlying given tract infection. Objective - Vital Signs Vital signs: Vital Signs Temp 97.6 F 10/26/23 07:11 Pulse 71 10/26/23 07:11 Resp 18 10/26/23 08:00 BP 126/66 10/26/23 07:11 Pulse Ox 98 12/04/23 07:11 FiO2 Intake & Output 10/25/23 10/26/23 10/26/23 18:59 06:59 18:59 Intake Total 300 Balance 300 Intake: Intake, IV Titration 300 Amount Azithromycin 500 mg In 250 Sodium Chloride 0.9% 250 ml @ 250 mls/hr IVPB DAILY [facility] Rx#:[id number] cefTRIAXone 2 gm In 50 Sodium Chloride 0.9% 50 ml @ 100 mls/hr IVPB Q24HR [facility] Rx#:[id number] Other: Voiding Method Toilet Toilet # Voids 5 2 1 # Bowel Movements 1 1 - Exam GENERAL EXAM: Alert, pleasant 68-year-old female, hard of hearing, on 3 L nasal cannula comfortable in no apparent distress. HEAD: Normocephalic. EYES: Normal reaction of pupils, equal size. NOSE: Clear with pink turbinates. THROAT: No erythema or exudates. NECK: No masses, no JVD. CHEST: No chest wall deformity. LUNGS: Equal air entry with faint crackles in the posterior bases. CVS: S1 and S2 normal with no audible murmur, regular rhythm. ABDOMEN: No hepatosplenomegaly, normal bowel sounds, no guarding or rigidity. SPINE: No scoliosis or deformity SKIN: No rashes CENTRAL NERVOUS SYSTEM: No focal deficits, tone is normal in all 4 extremities. EXTREMITIES: There is no peripheral edema. No clubbing, no cyanosis. Periph eral pulses are intact. - Labs CBC & Chem 7: 10/26/23 05:43 10/26/23 05:43 Labs: Abnormal Lab Results - Last 24 Hours (Table) 10/25/23 10/25/23 10/25/23 Range/Units 14:06 14:06 19:35 Plt Count (140-440) X 10*3/uL MPV (9.5-12.2) FL Lymphocytes # (0.90-5.00) X 10*3/uL Eosinophils # (0.04-0.35) X 10*3/uL ESR 58 H (0-30) mm/Hr Potassium (3.5-5.5) mmol/L Creatinine (0.6-1.5) mg/dL BUN/Creatinine Ratio (12.00-20.00) Ratio POC Glucose (mg/dL) 139 H (70-110) mg/dL Calcium (8.7-10.3) mg/dL AST (13-35) U/L C-Reactive Protein 24.6 H (<1.0) mg/dL Total Protein (6.2-8.2) g/dL Albumin (3.8-4.9) g/dL Albumin/Globulin Ratio (1.60-3.17) Ratio 10/26/23 10/26/23 Range/Units 05:43 05:43 Plt Count 135 L (140-440) X 10*3/uL MPV 13.0 H (9.5-12.2) FL Lymphocytes # 0.63 L (0.90-5.00) X 10*3/uL Eosinophils # 0.01 L (0.04-0.35) X 10*3/uL ESR (0-30) mm/Hr Potassium 3.0 L (3.5-5.5) mmol/L Creatinine 0.4 L (0.6-1.5) mg/dL BUN/Creatinine Ratio 42.75 H (12.00-20.00) Ratio POC Glucose (mg/dL) (70-110) mg/dL Calcium 7.8 L (8.7-10.3) mg/dL AST 12 L (13-35) U/L C-Reactive Protein (<1.0) mg/dL Total Protein 5.0 L (6.2-8.2) g/dL Albumin 3.0 L (3.8-4.9) g/dL Albumin/Globulin Ratio 1.50 L (1.60-3.17) Ratio Microbiology - Last 24 Hours (Table) 10/24/23 11:20 Blood Culture Gram Stain - Preliminary Blood Blood Culture - Preliminary Gram Neg Bacilli 10/24/23 11:05 Blood Culture Gram Stain - Preliminary Blood Blood Culture - Preliminary Gram Neg Bacilli Assessment and Plan Plan: Acute sepsis related to gram-negative bacillus, currently on IV Rocephin. Likely sources a urinary source. GI sources less likely especially with a negative CAT scan of the abdomen. Pneumonia is felt to be less likely. Acute abdominal pain with nausea vomiting diarrhea, recovered Acute hypoxemic respiratory failure secondary possible early right lower lobe pneumonia, improving currently on 2 L Leukocytosis secondary to above, improving Early dementia Hypertension Hypothyroidism Plan: Continue with IV Rocephin Procalcitonin elevated Continue antibiotics Urine culture pending Titrate down the FiO2 as tolerated Increase her activity as tolerated Continue gentle fluid resuscitation Wean down FiO2 as tolerated and put the patient on rheumatic possible. We'll continue to follow.
--- NOTE | 2023-10-26 13:57 | P.PN ---
Subjective Progress Note Date: 10/26/23 CHIEF COMPLAINT: Sepsis HISTORY OF PRESENT ILLNESS: Patient sitting up in bed. She reports no abdominal pain. She is tolerating diet. Patient had reported episodes of diarrhea. She is on antibiotics for possible UTI and bacteremia. Abdominal x-ray no acute abdominal process. Afebrile. WBC is down from 13-9.05 Hgb 13 sodium 141 potassium 3.0 creatinine 0.4 PHYSICAL EXAM: VITAL SIGNS: Reviewed. GENERAL: Well-developed in no acute distress. ABDOMEN: Soft. Nondistended. Mild right-sided tenderness with palpation NEUROLOGIC: Alert and oriented. Hard of hearing ASSESSMENT: 1. Mild inflammation of the right upper quadrant noted on CT scan 2. UTI 3. Hypokalemia 4. Early dementia and hard of hearing PLAN: -Continue to observe -Continue regular diet -Continue antibiotics -No surgical intervention planned Physician Compilation Clerk note has been reviewed by physician. Signing provider agrees with the documented findings, assessment, and plan of care. Objective - Vital Signs Vital signs: Vital Signs Temp 97.6 F 10/26/23 07:11 Pulse 71 10/26/23 07:11 Resp 18 10/26/23 08:00 BP 126/66 10/26/23 07:11 Pulse Ox 98 10/26/23 07:11 FiO2 Intake & Output 10/25/23 10/26/23 10/26/23 18:59 06:59 18:59 Intake Total 300 Balance 300 Intake: Intake, IV Titration 300 Amount Azithromycin 500 mg In 250 Sodium Chloride 0.9% 250 ml @ 250 mls/hr IVPB DAILY [facility] Rx#:[id number] cefTRIAXone 2 gm In 50 Sodium Chloride 0.9% 50 ml @ 100 mls/hr IVPB Q24HR [facility] Rx#:[id number] Other: Voiding Method Toilet Toilet # Voids 5 2 1 # Bowel Movements 1 1 - Labs CBC & Chem 7: 10/26/23 05:43 10/26/23 05:43 Labs: Abnormal Lab Results - Last 24 Hours (Table) 10/25/23 10/25/23 10/25/23 Range/Units 14:06 14:06 19:35 Plt Count (140-440) X 10*3/uL MPV (9.5-12.2) FL Lymphocytes # (0.90-5.00) X 10*3/uL Eosinophils # (0.04-0.35) X 10*3/uL ESR 58 H (0-30) mm/Hr Potassium (3.5-5.5) mmol/L Creatinine (0.6-1.5) mg/dL BUN/Creatinine Ratio (12.00-20.00) Ratio POC Glucose (mg/dL) 139 H (70-110) mg/dL Calcium (8.7-10.3) mg/dL AST (13-35) U/L C-Reactive Protein 24.6 H (<1.0) mg/dL Total Protein (6.2-8.2) g/dL Albumin (3.8-4.9) g/dL Albumin/Globulin Ratio (1.60-3.17) Ratio 10/26/23 10/26/23 Range/Units 05:43 05:43 Plt Count 135 L (140-440) X 10*3/uL MPV 13.0 H (9.5-12.2) FL Lymphocytes # 0.63 L (0.90-5.00) X 10*3/uL Eosinophils # 0.01 L (0.04-0.35) X 10*3/uL ESR (0-30) mm/Hr Potassium 3.0 L (3.5-5.5) mmol/L Creatinine 0.4 L (0.6-1.5) mg/dL BUN/Creatinine Ratio 42.75 H (12.00-20.00) Ratio POC Glucose (mg/dL) (70-110) mg/dL Calcium 7.8 L (8.7-10.3) mg/dL AST 12 L (13-35) U/L C-Reactive Protein (<1.0) mg/dL Total Protein 5.0 L (6.2-8.2) g/dL Albumin 3.0 L (3.8-4.9) g/dL Albumin/Globulin Ratio 1.50 L (1.60-3.17) Ratio Microbiology - Last 24 Hours (Table) 10/24/23 11:20 Blood Culture Gram Stain - Preliminary Blood Blood Culture - Preliminary Gram Neg Bacilli 10/24/23 11:05 Blood Culture Gram Stain - Preliminary Blood Blood Culture - Preliminary Gram Neg Bacilli
[2023-10-26] MEDS ORDERED: Magnesium Replacement Protocol 1 EACH MISC MISCELLANE PRN (15:51)
--- NOTE | 2023-10-26 16:29 | PN ---
PROGRESS NOTE DATE OF SERVICE: 10/26/2023 SUBJECTIVE: This is a 68-year-old woman, who was admitted with nausea and vomiting, possible acute gastritis, also had bilateral pneumonia. The patient is being closely monitored at this time. The acute abdominal series, which I reviewed personally, showed no acute abdominal features. Multiple consultants are following the patient closely. The blood culture showed gram-negative bacillus. PAST MEDICAL HISTORY: Reviewed. REVIEW OF SYSTEMS: Fourteen-point review is negative except as mentioned earlier. CURRENT MEDICATIONS: Reviewed include Rocephin. PHYSICAL EXAMINATION: VITAL SIGNS: Pulse is 72, blood pressure 110/70, respirations 14. CHEST: Few scattered rhonchi and crackles. ABDOMEN: Soft. Obese. NERVOUS SYSTEM: Nonfocal. LABORATORY DATA: Reviewed. Potassium 3. ASSESSMENT: 1. Acute bilateral pneumonia, interstitial, right more than left. 2. Gram-negative sepsis. 3. Increased WBC. 4. Possible urinary tract infection. 5. Hyponatremia. 6. Deep venous thrombosis. 7. Gastroesophageal reflux disease. 8. Hypertension. 9. History of early dementia. 10.Full code. RECOMMENDATIONS: Recommend to continue current medical management. Continue symptomatic treatment. Continue with broad-spectrum IV antibiotics, Infectious Disease evaluation, cultures. Replace potassium. Closely monitor with multiple consultants. Guarded prognosis. Further recommendations to follow. Add potassium to the current regimen. MMODL / IJN: [id number] /
[2023-10-26] MEDS: 0.9% NACL WITH KCL 40 MEQ/L 1,000 ML IV SCH (17:24)
[2023-10-26 19:30] LABS: Glucose,Whole Blood 100 mg/dL (70-110)
[2023-10-26] MEDS: HYDROcodone/APAP 5-325MG 1 EACH TAB PO PRN (20:38)
[2023-10-27] MEDS: ACETAMINOPHEN TAB 325 MG TAB PO PRN (01:36)
[2023-10-27] MEDS: 0.9% NACL WITH KCL 40 MEQ/L 1,000 ML IV SCH ×3 (05:42→19:54)
[2023-10-27] MEDS: LEVOTHYROXINE 125 MCG TAB PO SCH (05:42)
[2023-10-27 05:52] LABS: Glucose,Whole Blood 122 mg/dL (70-110)
[2023-10-27] MEDS: DONEPEZIL 10 MG TAB PO SCH (08:45)
[2023-10-27] MEDS: EZETIMIBE 10 MG TAB PO SCH (08:45)
[2023-10-27] MEDS: METOPROLOL SUCCINATE (ER) 50 MG TAB.ER.24H PO SCH (08:45)
[2023-10-27] MEDS: HEPARIN SODIUM,PORCINE 5,000 UNIT/ML 1 ML VIAL SQ SCH ×2 (08:45→20:37)
[2023-10-27] MEDS: PANTOPRAZOLE 40 MG/10 ML VIAL IVP SCH ×2 (08:45→20:37)
[2023-10-27] MEDS: CHOLECALCIFEROL 25 MCG (1000 IU) TABLET PO SCH (08:45)
[2023-10-27] MEDS: CYANOCOBALAMIN 500 MCG TAB PO SCH (08:45)
[2023-10-27] MEDS: amLODIPine 10 MG TAB PO SCH (08:45)
[2023-10-27] MEDS: AZITHROMYCIN 500 MG in SODIUM CHLORIDE 0.9% 250 ML IVPB SCH (10:35)
[2023-10-27 10:59] LABS: Basophils # (A) 0.05 X 10*3/uL (0.00-0.10); Basophils % (A) 0.6 %; Eosinophils # (A) 0.06 X 10*3/uL (0.04-0.35); Eosinophils % (A) 0.7 %; HCT 40.9 % (37.2-46.3); HGB 13.2 g/dL (12.0-15.0); Lymphocytes # (A) 0.65 X 10*3/uL (0.90-5.00); MCH 28.6 pg (27.0-32.0); MCHC 32.3 g/dL (32.0-37.0); MCV 88.5 FL (80.0-97.0); Mean Platelet Volume 12.8 FL (9.5-12.2); Monocytes # (A) 0.87 X 10*3/uL (0.20-1.00); Monocytes % (A) 10.7 %; NRBC Per 100 WBC 0 X 10*3/uL (0.00-0.01); Neutrophils # (A) 6.37 X 10*3/uL (1.80-7.70); Neutrophils % (A) 78.3 %; Platelet Count 148 X 10*3/uL (140-440); RBC 4.62 X 10*6/uL (4.10-5.20); RDW 13.6 % (11.5-14.5); WBC 8.14 X 10*3/uL (4.50-10.00)
[2023-10-27 11:11] LABS: BUN/Creat Ratio 25.75 Ratio (12.00-20.00); Blood Urea Nitrogen 10.3 mg/dL (9.0-27.0); Calcium 8.3 mg/dL (8.7-10.3); Carbon Dioxide 27.1 mmol/L (21.6-31.8); Chloride 106 mmol/L (96-109); Glucose 124 mg/dL (70-110); Magnesium 1.9 mg/dL (1.5-2.4); Potassium 3.4 mmol/L (3.5-5.5); Sodium 142 mmol/L (135-145)
--- NOTE | 2023-10-27 11:17 | P.PN ---
Subjective Progress Note Date: 10/27/23 This is a 68-year-old female patient who has a history of hypothyroidism, hyper tension, hyperlipidemia, early dementia, hearing disorder, lifelong nonsmoker. She came into the emergency room yesterday with a three-day history of abdominal discomfort, nausea vomiting and diarrhea. Computed tomography scan of the chest abdomen pelvis revealed a mild inflammatory changes in the right upper quadrant. No obvious diverticulitis or pyelonephritis. There is a small amount of free fluid in the right paracolic gutter. Sigmoid diverticulosis without acute diverticulitis. Mild infiltrate in the posterior right lung base. Atelectasis versus pneumonia. Blood cultures are revealing no growth to date. White count 13.1. Hemoglobin 13.7. Platelets 113. Sodium 138. Potassium 3.5. Bicarb 25. BUN 25. Creatinine 0.53. Glucose 116. Pro-calcitonin 16.80. Lipase 18. Urinalysis slightly cloudy with high WBCs and occasional bacteria. Culture pending. She is seen today in consultation on the regular medical floor. She is currently resting comfortably in bed. Awake and alert in no acute distress. She is maintaining O2 saturations in the 90s on 3 L/m per nasal cannula. She is on normal saline at 75 ML's per hour. She's been initiated on ceftriaxone and azithromycin. She is currently afebrile. Hemodynamically stable. On today's evaluation of 10/26/2023, no specific complaints. No abdominal pain. Patient is currently on 2 L of oxygen by nasal cannula. She was on 3 L earlier her current pulse ox is 98%. The white cell count is down to 9 with a hemoglo bin of 13, BUN is at 70 with a creatinine of 0.4 and a sodium load is 41 with a potassium level III.0. The blood cultures positive for gram-negative bacillus 2 out of 2 blood cultures and the patient was obviously septic and the patient is currently on Rocephin 2 g every 24 hours. IV fluids are still running at 75 mL an hour. Urine was abnormal and it is very much like to the patient started off with an underlying given tract infection. On 10/27/2023, the patient is being treated for septic shock with E. coli. She remains on IV Rocephin. Doing well. The white cell count is down to 8.1. Sodium is at 142 with a potassium level of 3.4, BUN is at panel with a creatinine of 0.4. No other new complaints otherwise for now. She is only on oxygen at 2 L. Objective - Vital Signs Vital signs: Vital Signs Temp 97.4 F L 10/27/23 07:30 Pulse 79 10/27/23 07:30 Resp 19 10/27/23 07:30 BP 153/81 10/27/23 07:30 Pulse Ox 92 L 10/27/23 07:30 FiO2 Intake & Output 10/26/23 10/27/23 10/27/23 18:59 06:59 18:59 Intake Total 300 Balance 300 Intake: Intake, IV Titration 300 Amount Azithromycin 500 mg In 250 Sodium Chloride 0.9% 250 ml @ 250 mls/hr IVPB DAILY [facility] Rx#:[id number] cefTRIAXone 2 gm In 50 Sodium Chloride 0.9% 50 ml @ 100 mls/hr IVPB Q24HR [facility] Rx#:[id number] Other: Voiding Method Toilet Toilet # Voids 2 3 # Bowel Movements 1 - Exam GENERAL EXAM: Alert, pleasant 68-year-old female, hard of hearing, on 3 L nasal cannula comfortable in no apparent distress. HEAD: Normocephalic. EYES: Normal reaction of pupils, equal size. NOSE: Clear with pink turbinates. THROAT: No erythema or exudates. NECK: No masses, no JVD. CHEST: No chest wall deformity. LUNGS: Equal air entry with faint crackles in the posterior bases. CVS: S1 and S2 normal with no audible murmur, regular rhythm. ABDOMEN: No hepatosplenomegaly, normal bowel sounds, no guarding or rigidity. SPINE: No scoliosis or deformity SKIN: No rashes CENTRAL NERVOUS SYSTEM: No focal deficits, tone is normal in all 4 extremities. EXTREMITIES: There is no peripheral edema. No clubbing, no cyanosis. Peripheral pulses are intact. - Labs CBC & Chem 7: 10/27/23 06:23 10/27/23 06:23 Labs: Abnormal Lab Results - Last 24 Hours (Table) 10/27/23 10/27/23 10/27/23 Range/Units 05:51 06:23 06:23 MPV 12.8 H (9.5-12.2) FL Lymphocytes # 0.65 L (0.90-5.00) X 10*3/uL Potassium 3.4 L (3.5-5.5) mmol/L Creatinine 0.4 L (0.6-1.5) mg/dL BUN/Creatinine Ratio 25.75 H (12.00-20.00) Ratio Glucose 124 H (70-110) mg/dL POC Glucose (mg/dL) 122 H (70-110) mg/dL Calcium 8.3 L (8.7-10.3) mg/dL Microbiology - Last 24 Hours (Table) 10/24/23 11:20 Blood Culture Gram Stain - Final Blood Blood Culture - Final Escherichia coli 10/24/23 11:05 Blood Culture Gram Stain - Final Blood Blood Culture - Final Escherichia coli 10/26/23 00:54 Urine Culture - Final Urine,Voided 10/25/23 14:10 Blood Culture - Preliminary Blood Assessment and Plan Plan: Acute sepsis related to E. coli, currently on IV Rocephin. Likely sources a urinary source. GI sources less likely especially with a negative CAT scan of the abdomen. Pneumonia is felt to be less likely. Acute abdominal pain with nausea vomiting diarrhea, recovered Acute hypoxemic respiratory failure secondary possible early right lower lobe pneumonia, improving currently on 2 L Leukocytosis secondary to above, improving Early dementia Hypertension Hypothyroidism Plan: Continue with IV Rocephin discontinue Zithromax Procalcitonin elevated Continue antibiotics Urine culture pending Titrate down the FiO2 as tolerated Increase her activity as tolerated Continue gentle fluid resuscitation Wean down FiO2 as tolerated and put the patient on rheumatic possible. We'll continue to follow.
[2023-10-27 11:34] LABS: Glucose,Whole Blood 97 mg/dL (70-110)
--- NOTE | 2023-10-27 12:58 | P.PN ---
Subjective Progress Note Date: 10/27/23 CHIEF COMPLAINT: Sepsis HISTORY OF PRESENT ILLNESS: Patient lying in bed comfortably. She denies any abdominal pain. Denies any nausea vomiting. She did have bowel movements yesterday. She was able to eat. She is on antibiotics for possible UTI and bacteremia. Afebrile. WBC 8.14 Hgb 13.2 potassium is 3.4 magnesium 1.9 PHYSICAL EXAM: VITAL SIGNS: Reviewed. GENERAL: Well-developed in no acute distress. ABDOMEN: Soft. Nondistended. Nontender NEUROLOGIC: Alert and oriented. Hard of hearing ASSESSMENT: 1. Mild inflammation of the right upper quadrant noted on CT scan 2. UTI 3. Hypokalemia 4. Early dementia and hard of hearing PLAN: -Continue regular diet -Continue antibiotics -Continue to replace potassium -No surgical intervention planned Physician [employer] Advanced Operator Maintainer note has been reviewed by physician. Signing provider agrees with the documented findings, assessment, and plan of care. Objective - Vital Signs Vital signs: Vital Signs Temp 97.4 F L 10/27/23 07:30 Pulse 79 10/27/23 07:30 Resp 19 10/27/23 07:30 BP 153/81 10/27/23 07:30 Pulse Ox 92 L 10/27/23 07:30 FiO2 Intake & Output 10/26/23 10/27/23 10/27/23 18:59 06:59 18:59 Intake Total 300 Balance 300 Intake: Intake, IV Titration 300 Amount Azithromycin 500 mg In 250 Sodium Chloride 0.9% 250 ml @ 250 mls/hr IVPB DAILY [facility] Rx#:[id number] cefTRIAXone 2 gm In 50 Sodium Chloride 0.9% 50 ml @ 100 mls/hr IVPB Q24HR [facility] Rx#:[id number] Other: Voiding Method Toilet Toilet # Voids 2 3 # Bowel Movements 1 - Labs CBC & Chem 7: 10/27/23 06:23 10/27/23 06:23 Labs: Abnormal Lab Results - Last 24 Hours (Table) 10/27/23 10/27/23 10/27/23 Range/Units 05:51 06:23 06:23 MPV 12.8 H (9.5-12.2) FL Lymphocytes # 0.65 L (0.90-5.00) X 10*3/uL Potassium 3.4 L (3.5-5.5) mmol/L Creatinine 0.4 L (0.6-1.5) mg/dL BUN/Creatinine Ratio 25.75 H (12.00-20.00) Ratio Glucose 124 H (70-110) mg/dL POC Glucose (mg/dL) 122 H (70-110) mg/dL Calcium 8.3 L (8.7-10.3) mg/dL Microbiology - Last 24 Hours (Table) 10/24/23 11:20 Blood Culture Gram Stain - Final Blood Blood Culture - Final Escherichia coli 10/24/23 11:05 Blood Culture Gram Stain - Final Blood Blood Culture - Final Escherichia coli 10/26/23 00:54 Urine Culture - Final Urine,Voided 10/25/23 14:10 Blood Culture - Preliminary Blood
--- NOTE | 2023-10-27 14:47 | PN ---
PROGRESS NOTE DATE OF SERVICE: 10/27/2023 SUBJECTIVE: This is a 68-year-old woman, who was admitted with acute bilateral pneumonia, also had gram-negative sepsis. The cultures are showing E coli, which is rather sensitive. Dr. Dacosta is following the patient closely. PHYSICAL EXAMINATION: VITAL SIGNS: Pulse is 79, blood pressure 153/81, respirations 19. HEENT: Conjunctivae are normal. NECK: No jugular venous distention. CARDIOVASCULAR: S1 and S2 muffled. RESPIRATORY: Breath sounds diminished at the bases. Few scattered rhonchi ABDOMEN: Soft and nontender. LABORATORY DATA: Reviewed. ASSESSMENT: 1. Acute bilateral pneumonia, interstitial, right more than the left. 2. Escherichia coli sepsis. 3. Increased WBC. 4. Possible urinary tract infection. 5. Hyponatremia. 6. Deep venous thrombosis. 7. Gastroesophageal reflux disease. 8. Hypertension. 9. Multiple medical issues. EMERGENCY ROOM COURSE: Recommend to continue current medical management. Continue symptomatic treatment. Otherwise, closely follow with Surgery and Infectious Disease. Further recommendations to follow. See orders for the details. MMODL / IJN: [id number] /
--- NOTE | 2023-10-27 15:07 | P.PN ---
Subjective Progress Note Date: 10/26/23 Principal diagnosis: Reason for follow-up is E. coli bacteremia Patient is a 68-year-old female with a past medical history significant for hypertension reflux DVT hypothyroidism presenting to the hospital for evaluation of nausea and vomiting patient's symptom has been going on for about 3 days before presentation to hospital , patient did have a CT of abdominal pelvis with mild inflammatory changes in her right upper quadrant also have positive UA and blood culture positive for E. coli On today's evaluation that is10/26/2023 the patient remains to be afebrile, the patient is breathing comfortably today for nasal cannula supplemental oxygen, the patient denies having any chest pain denies any cough or sputum production, patient denies any abdominal pain no nausea vomiting or any diarrhea, feeling better today Patient white count normalized to 9.05, creatinine 0.4, blood culture with E. coli unfortunately urine culture not done Objective - Vital Signs Vital signs: Vital Signs Temp 97.6 F 10/26/23 07:11 Pulse 71 10/26/23 07:11 Resp 18 10/26/23 08:00 BP 126/66 10/26/23 07:11 Pulse Ox 98 10/26/23 07:11 FiO2 Intake & Output 10/25/23 10/26/23 10/26/23 18:59 06:59 18:59 Intake Total 300 Balance 300 Intake: Intake, IV Titration 300 Amount Azithromycin 500 mg In 250 Sodium Chloride 0.9% 250 ml @ 250 mls/hr IVPB DAILY [facility] Rx#:[id number] cefTRIAXone 2 gm In 50 Sodium Chloride 0.9% 50 ml @ 100 mls/hr IVPB Q24HR [facility] Rx#:[id number] Other: Voiding Method Toilet Toilet # Voids 5 2 1 # Bowel Movements 1 1 - Exam GENERAL DESCRIPTION: An elderly female lying in bed in no distress RESPIRATORY SYSTEM: Unlabored breathing , decreased breath sound at the base HEART: S1 S2 regular rate and rhythm , ABDOMEN: Soft , no tenderness EXTREMITIES: No edema feet - Labs CBC & Chem 7: 10/27/23 06:23 10/27/23 06:23 Labs: Abnormal Lab Results - Last 24 Hours (Table) 10/25/23 10/25/23 10/25/23 Range/Units 08:45 14:06 14:06 Plt Count (140-440) X 10*3/uL MPV (9.5-12.2) FL Lymphocytes # (0.90-5.00) X 10*3/uL Eosinophils # (0.04-0.35) X 10*3/uL ESR 58 H (0-30) mm/Hr Potassium (3.5-5.5) mmol/L BUN 25 H (7-17) mg/dL Creatinine (0.6-1.5) mg/dL BUN/Creatinine Ratio (12.00-20.00) Ratio Glucose 116 H (74-99) mg/dL POC Glucose (mg/dL) (70-110) mg/dL Calcium 7.8 L (8.4-10.2) mg/dL AST (13-35) U/L C-Reactive Protein 24.6 H (<1.0) mg/dL Total Protein 5.4 L (6.3-8.2) g/dL Albumin 2.8 L (3.5-5.0) g/dL Albumin/Globulin Ratio (1.60-3.17) Ratio 10/25/23 10/26/23 10/26/23 Range/Units 19:35 05:43 05:43 Plt Count 135 L (140-440) X 10*3/uL MPV 13.0 H (9.5-12.2) FL Lymphocytes # 0.63 L (0.90-5.00) X 10*3/uL Eosinophils # 0.01 L (0.04-0.35) X 10*3/uL ESR (0-30) mm/Hr Potassium 3.0 L (3.5-5.5) mmol/L BUN (7-17) mg/dL Creatinine 0.4 L (0.6-1.5) mg/dL BUN/Creatinine Ratio 42.75 H (12.00-20.00) Ratio Glucose (74-99) mg/dL POC Glucose (mg/dL) 139 H (70-110) mg/dL Calcium 7.8 L (8.4-10.2) mg/dL AST 12 L (13-35) U/L C-Reactive Protein (<1.0) mg/dL Total Protein 5.0 L (6.3-8.2) g/dL Albumin 3.0 L (3.5-5.0) g/dL Albumin/Globulin Ratio 1.50 L (1.60-3.17) Ratio Microbiology - Last 24 Hours (Table) 10/24/23 11:20 Blood Culture Gram Stain - Preliminary Blood Blood Culture - Preliminary Gram Neg Bacilli 10/24/23 11:05 Blood Culture Gram Stain - Preliminary Blood Blood Culture - Preliminary Gram Neg Bacilli Assessment and Plan (1) E coli bacteremia Current Visit: Yes Status: Acute Code(s): R78.81 - BACTEREMIA; B96.20 - UNSP ESCHERICHIA COLI THE CAUSE OF DISEASES CLASSD [facility] SNOMED Code(s): 697429736310 Plan: 1patient presented to hospital with sepsis in this patient who did have a fever elevated white count positive UA and now with E. coli bacteremia-suspicious for pyelonephritis with likely etiology, CT abdominal pelvis did not mention any intra-abdominal abscess or colitis , surgery is following the patient 2-patient to continue Rocephin 2 g daily while awaiting for sensitivity to finalize Dictation was produced using [employer] dictation software. please excuse any gram matical, word or spelling errors. Time with Patient: Less than 30
--- NOTE | 2023-10-27 15:09 | P.PN ---
Subjective Progress Note Date: 10/27/23 Principal diagnosis: Reason for follow-up is E. coli bacteremia Patient is a 68-year-old female with a past medical history significant for hypertension reflux DVT hypothyroidism presenting to the hospital for evaluation of nausea and vomiting patient's symptom has been going on for about 3 days before presentation to hospital , patient did have a CT of abdominal pelvis with mild inflammatory changes in her right upper quadrant also have positive UA and blood culture positive for E. coli On today's evaluation that is 10/27/2023, the patient continues to be afebrile and is breathing comfortably on 2 L nasal cannula oxygen, and patient denies any shortness of breath, chest pain, did have occasional cough but did not sputum production, patient has been complaining of some nausea but no vomiting no abdominal pain. Patient white count 8.14, creatinine 0.4, blood culture with E. coli unfortunately urine culture not done Objective - Vital Signs Vital signs: Vital Signs Temp 97.4 F L 10/27/23 07:30 Pulse 79 10/27/23 07:30 Resp 19 10/27/23 07:30 BP 153/81 10/27/23 07:30 Pulse Ox 92 L 10/27/23 07:30 FiO2 Intake & Output 10/26/23 10/27/23 10/27/23 18:59 06:59 18:59 Intake Total 300 Balance 300 Intake: Intake, IV Titration 300 Amount Azithromycin 500 mg In 250 Sodium Chloride 0.9% 250 ml @ 250 mls/hr IVPB DAILY SELENE Rx#:[id number] cefTRIAXone 2 gm In 50 Sodium Chloride 0.9% 50 ml @ 100 mls/hr IVPB Q24HR S[facility]ENE Rx#:[id number] Other: Voiding Method Toilet Toilet # Voids 2 3 # Bowel Movements 1 - Exam GENERAL DESCRIPTION: An elderly female lying in bed in no distress RESPIRATORY SYSTEM: Unlabored breathing , decreased breath sound at the base HEART: S1 S2 regular rate and rhythm , ABDOMEN: Soft , no tenderness EXTREMITIES: No edema feet - Labs CBC & Chem 7: 10/27/23 06:23 10/27/23 06:23 Labs: Abnormal Lab Results - Last 24 Hours (Table) 10/27/23 10/27/23 10/27/23 Range/Units 05:51 06: 06:23 MPV 12.8 H (9.5-12.2) FL Lymphocytes # 0.65 L (0.90-5.00) X 10*3/uL Potassium 3.4 L (3.5-5.5) mmol/L Creatinine 0.4 L (0.6-1.5) mg/dL BUN/Creatinine Ratio 25.75 H (12.00-20.00) Ratio Glucose 124 H (70-110) mg/dL POC Glucose (mg/dL) 122 H (70-110) mg/dL Calcium 8.3 L (8.7-10.3) mg/dL Microbiology - Last 24 Hours (Table) 10/24/23 11:20 Blood Culture Gram Stain - Final Blood Blood Culture - Final Escherichia coli 10/24/23 11:05 Blood Culture Gram Stain - Final Blood Blood Culture - Final Escherichia coli 10/26/23 00:54 Urine Culture - Final Urine,Voided 10/25/23 14:10 Blood Culture - Preliminary Blood Assessment and Plan (1) E coli bacteremia Current Visit: Yes Status: Acute Code(s): R78.81 - BACTEREMIA; B96.20 - UNSP ESCHERICHIA COLI THE CAUSE OF DISEASES [facility] SNOMED Code(s): 279568522805 Plan: 1patient presented to hospital with sepsis in this patient who did have a fever elevated white count positive UA and now with E. coli bacteremia-suspicious for pyelonephritis with likely etiology, CT abdominal pelvis did not mention any intra-abdominal abscess or colitis , surgery is following the patient 2-patient remains to be afebrile the patient white count has normalized, patient to continue Rocephin 2 g daily with a plan to finish therapy with oral antibiotics Dictation was produced using [employer] dictation software. please excuse any grammatical, word or spelling errors. Time with Patient: Less than 30
[2023-10-27 16:56] LABS: Glucose,Whole Blood 87 mg/dL (70-110)
[2023-10-27 20:34] LABS: Glucose,Whole Blood 99 mg/dL (70-110)
[2023-10-27] MEDS: POTASSIUM CHLORIDE ER 20 MEQ TAB.ER PO SCH ×2 (20:37→20:38)
[2023-10-28] MEDS: POTASSIUM CHLORIDE ER 20 MEQ TAB.ER PO SCH ×2 (00:05→00:06)
[2023-10-28] MEDS: ONDANSETRON 4 MG/2 ML VIAL IVP PRN (01:31)
[2023-10-28] MEDS: HYDROcodone/APAP 5-325MG 1 EACH TAB PO PRN (02:51)
[2023-10-28] MEDS: 0.9% NACL WITH KCL 40 MEQ/L 1,000 ML IV SCH ×2 (02:52→22:00)
[2023-10-28] MEDS: LEVOTHYROXINE 125 MCG TAB PO SCH (05:44)
[2023-10-28 06:20] LABS: Glucose,Whole Blood 90 mg/dL (70-110)
[2023-10-28] MEDS: METOPROLOL SUCCINATE (ER) 50 MG TAB.ER.24H PO SCH (08:26)
[2023-10-28] MEDS: DONEPEZIL 10 MG TAB PO SCH (08:26)
[2023-10-28] MEDS: EZETIMIBE 10 MG TAB PO SCH (08:26)
[2023-10-28] MEDS: amLODIPine 10 MG TAB PO SCH (08:26)
[2023-10-28] MEDS: PANTOPRAZOLE 40 MG/10 ML VIAL IVP SCH ×2 (08:26→22:00)
[2023-10-28] MEDS: CHOLECALCIFEROL 25 MCG (1000 IU) TABLET PO SCH (08:26)
[2023-10-28] MEDS: CYANOCOBALAMIN 500 MCG TAB PO SCH (08:26)
[2023-10-28] MEDS: HEPARIN SODIUM,PORCINE 5,000 UNIT/ML 1 ML VIAL SQ SCH ×2 (08:27→22:00)
--- NOTE | 2023-10-28 09:52 | P.PN ---
Subjective Progress Note Date: 10/28/23 CHIEF COMPLAINT: Sepsis HISTORY OF PRESENT ILLNESS: Patient lying in bed comfortably. She denies any abdominal pain. She complains of back pain. Denies any nausea vomiting. She did have bowel movements yesterday. She was able to eat. She is on antibiotics for possible UTI and bacteremia. Afebrile. WBC 4.1 PHYSICAL EXAM: VITAL SIGNS: Reviewed. GENERAL: Well-developed in no acute distress. ABDOMEN: Soft. Nondistended. Nontender NEUROLOGIC: Alert and oriented. Hard of hearing ASSESSMENT: 1. Abdominal pain resolved 2. Mild inflammation of the right upper quadrant noted on CT scan 3. UTI with bacteremia 4. Hypokalemia improved 5. Early dementia and hard of hearing PLAN: -Continue regular diet -Continue antibiotics -No surgical intervention planned -Okay to discharge surgical standpoint when medically cleared Physician Squad Sergeant note has been reviewed by physician. Signing provider agrees with the documented findings, assessment, and plan of care. Objective - Vital Signs Vital signs: Vital Signs Temp 98.2 F 10/28/23 08:00 Pulse 67 10/28/23 08:00 Resp 18 10/28/23 08:00 BP 138/78 10/28/23 08:00 Pulse Ox 98 10/28/23 08:00 FiO2 Intake & Output 10/27/23 10/28/23 10/28/23 18:59 06:59 18:59 Other: Voiding Method Toilet # Voids 9 1 - Labs CBC & Chem 7: 10/27/23 06:23 10/28/23 03:28 Labs: Abnormal Lab Results - Last 24 Hours (Table) 10/27/23 10/27/23 10/27/23 Range/Units : 06: 22:36 MPV 12.8 H (9.5-12.2) FL Lymphocytes # 0.65 L (0.90-5.00) X 10*3/uL Potassium 3.4 L 3.3 L (3.5-5.5) mmol/L Creatinine 0.4 L (0.6-1.5) mg/dL BUN/Creatinine Ratio 25.75 H (12.00-20.00) Ratio Glucose 124 H (70-110) mg/dL Calcium 8.3 L (8.7-10.3) mg/dL Microbiology - Last 24 Hours (Table) 10/26/23 16:46 Blood Culture - Preliminary Blood 10/25/23 14:10 Blood Culture - Preliminary Blood 10/24/23 11:20 Blood Culture Gram Stain - Final Blood Blood Culture - Final Escherichia coli 10/24/23 11:05 Blood Culture Gram Stain - Final Blood Blood Culture - Final Escherichia coli 10/26/23 00:54 Urine Culture - Final Urine,Voided
[2023-10-28 11:20] LABS: Glucose,Whole Blood 94 mg/dL (70-110)
[2023-10-28 16:41] LABS: Glucose,Whole Blood 159 mg/dL (70-110)
--- NOTE | 2023-10-28 16:57 | P.PN ---
Subjective Progress Note Date: 10/28/23 This is a 68-year-old female patient who has a history of hypothyroidism, hyper tension, hyperlipidemia, early dementia, hearing disorder, lifelong nonsmoker. She came into the emergency room yesterday with a three-day history of abdominal discomfort, nausea vomiting and diarrhea. Computed tomography scan of the chest abdomen pelvis revealed a mild inflammatory changes in the right upper quadrant. No obvious diverticulitis or pyelonephritis. There is a small amount of free fluid in the right paracolic gutter. Sigmoid diverticulosis without acute diverticulitis. Mild infiltrate in the posterior right lung base. Atelectasis versus pneumonia. Blood cultures are revealing no growth to date. White count 13.1. Hemoglobin 13.7. Platelets 113. Sodium 138. Potassium 3.5. Bicarb 25. BUN 25. Creatinine 0.53. Glucose 116. Pro-calcitonin 16.80. Lipase 18. Urinalysis slightly cloudy with high WBCs and occasional bacteria. Culture pending. She is seen today in consultation on the regular medical floor. She is currently resting comfortably in bed. Awake and alert in no acute distress. She is maintaining O2 saturations in the 90s on 3 L/m per nasal cannula. She is on normal saline at 75 ML's per hour. She's been initiated on ceftriaxone and azithromycin. She is currently afebrile. Hemodynamically stable. On today's evaluation of 10/26/2023, no specific complaints. No abdominal pain. Patient is currently on 2 L of oxygen by nasal cannula. She was on 3 L earlier her current pulse ox is 98%. The white cell count is down to 9 with a hemoglo bin of 13, BUN is at 70 with a creatinine of 0.4 and a sodium load is 41 with a potassium level III.0. The blood cultures positive for gram-negative bacillus 2 out of 2 blood cultures and the patient was obviously septic and the patient is currently on Rocephin 2 g every 24 hours. IV fluids are still running at 75 mL an hour. Urine was abnormal and it is very much like to the patient started off with an underlying given tract infection. On 10/27/2023, the patient is being treated for septic shock with E. coli. She remains on IV Rocephin. Doing well. The white cell count is down to 8.1. Sodium is at 142 with a potassium level of 3.4, BUN is at panel with a creatinine of 0.4. No other new complaints otherwise for now. She is only on oxygen at 2 L. On 10/28/2023, no new complaints and the patient remains on IV Rocephin. Repeat blood cultures are negative. The patient is on room air oxygen. Hemodynamically stable. She is afebrile. The patient is hemodynamically stable. The patient is taking regular diet. No surgical intervention. Objective - Vital Signs Vital signs: Vital Signs Temp 98.2 F 10/28/23 08:00 Pulse 67 10/28/23 08:27 Resp 18 10/28/23 08:27 BP 138/78 10/28/23 08:00 Pulse Ox 98 10/28/23 08:00 FiO2 Intake & Output 10/27/23 10/28/23 10/28/23 18:59 06:59 18:59 Other: Voiding Method Toilet Toilet # Voids 9 1 - Exam GENERAL EXAM: Alert, pleasant 68-year-old female, hard of hearing, on 3 L nasal cannula comfortable in no apparent distress. HEAD: Normocephalic. EYES: Normal reaction of pupils, equal size. NOSE: Clear with pink turbinates. THROAT: No erythema or exudates. NECK: No masses, no JVD. CHEST: No chest wall deformity. LUNGS: Equal air entry with faint crackles in the posterior bases. CVS: S1 and S2 normal with no audible murmur, regular rhythm. ABDOMEN: No hepatosplenomegaly, normal bowel sounds, no guarding or rigidity. SPINE: No scoliosis or deformity SKIN: No rashes CENTRAL NERVOUS SYSTEM: No focal deficits, tone is normal in all 4 extremities. EXTREMITIES: There is no peripheral edema. No clubbing, no cyanosis. Peripheral pulses are intact. - Labs CBC & Chem 7: 10/27/23 06:23 10/28/23 03:28 Labs: Abnormal Lab Results - Last 24 Hours (Table) 10/27/23 Range/Units 22:36 Potassium 3.3 L (3.5-5.1) mmol/L Microbiology - Last 24 Hours (Table) 10/27/23 06:23 Blood Culture - Preliminary Blood 10/26/23 16:46 Blood Culture - Preliminary Blood 10/25/23 14:10 Blood Culture - Preliminary Blood 10/24/23 11:20 Blood Culture Gram Stain - Final Blood Blood Culture - Final Escherichia coli 10/24/23 11:05 Blood Culture Gram Stain - Final Blood Blood Culture - Final Escherichia coli 10/26/23 00:54 Urine Culture - Final Urine,Voided Assessment and Plan Plan: Acute sepsis related to E. coli, currently on IV Rocephin. Likely sources a urinary source. GI sources less likely especially with a negative CAT scan of the abdomen. Pneumonia is felt to be less likely. Acute abdominal pain with nausea vomiting diarrhea, recovered Acute hypoxemic respiratory failure secondary possible early right lower lobe pneumonia, improving currently on 2 L Leukocytosis secondary to above, improving Early dementia Hypertension Hypothyroidism Plan: Clinically and hemodynamically stable Continue with IV Rocephin Procalcitonin elevated Continue antibiotics RA 02 Increase her activity as tolerated Continue gentle fluid resuscitation Wean down FiO2 as tolerated and put the patient on rheumatic possible. We'll continue to follow.
[2023-10-28 20:15] LABS: Glucose,Whole Blood 82 mg/dL (70-110)
[2023-10-29] MEDS: HYDROcodone/APAP 5-325MG 1 EACH TAB PO PRN ×2 (00:19→20:03)
[2023-10-29] MEDS: ONDANSETRON 4 MG/2 ML VIAL IVP PRN (01:32)
[2023-10-29] MEDS: LEVOTHYROXINE 125 MCG TAB PO SCH (05:22)
[2023-10-29 05:28] LABS: Glucose,Whole Blood 76 mg/dL (70-110)
--- NOTE | 2023-10-29 06:06 | P.PN ---
Subjective Progress Note Date: 10/28/23 This is a 68-year-old female who was recently admitted with acute bilateral pneumonia also found to have gram-negative sepsis with E. coli with pulmonary along with infectious disease following. Patient is continued on antibiotics and did have some right upper and lower quadrant tenderness infectious disease has ordered ultrasound of the abdomen which is currently pending. Patient was continued on oxygen although oxygen saturations are above 95% on 2 L and discuss with nursing staff about weaning FiO2 as tolerated and performing home O2 assessment. Patient was also seen and evaluated by general surgery and has been cleared for discharge with no plans of surgical intervention at this time. Claire ent is afebrile with no reported chest pain or shortness of breath. Patient has been encouraged to increase activity as tolerated. Patient denies any nausea or vomiting and is tolerating diet although reports the food here is terrible and not much of an appetite at this time. Review of systems: Constitutional: No reports of fatigue, fever, or chills Cardiovascular: No reports of chest pain or palpitations Respiratory: No reports of worsening shortness of breath or cough GI: No reports of nausea, no reports of vomiting, no diarrhea : No reports of dysuria or retention Neurovascular: No reports of generalized weakness All medications have been reviewed PHYSICAL EXAMINATION: GENERAL: The patient is alert and oriented x4, heart of hearing, Well developed, well nourished. Obese HEENT: Pupils are round and equally reacting to light. EOMI. no scleral icterus. No conjunctival pallor. Normocephalic, atraumatic. No pharyngeal erythema. No thyromegaly. CARDIOVASCULAR: S1 and S2 muffled PULMONARY: diminished breath sounds bilaterally with no wheezing or rhonchi noted. ABDOMEN: soft. Mildly tender right upper quadrant on exam. obese. non- distended, normoactive bowel sounds. No palpable organomegaly. MUSCULOSKELETAL: No joint swelling or deformity. EXTREMITIES: No cyanosis, clubbing, or pedal edema. NEUROLOGICAL: Gross neurological examination did not reveal any focal deficits SKIN: No rashes. Assessment: Acute bilateral pneumonia, interstitial, right more than left with elevated pro calcitonin Acute hypoxic respiratory failure secondary to acute bilateral pneumonia E. coli sepsis, present on admission possibly secondary to above Increased PVC Possible urinary tract infection, although suspicion is low [place] hyponatremia secondary to nausea and vomiting, improved [place] history of deep vein thrombosis next line gastroesophageal reflux disease History of hypertension Obesity with BMI of 30.1 GI prophylaxis DVT prophylaxis Full code Plan: Recommend to continue with current medications and management with general surgery along with infectious disease and pulmonary following. Patient is maintained on IV antibiotics and will most recent cultures have been negative although initial cultures were E. coli with sensitivities. Infectious disease following recommending ultrasound of the abdomen as patient had some tenderness prior to discharge Patient will continue on IV antibiotics and transition to oral Ceftin on discharge General surgery evaluated the patient with no plans of surgical intervention and has cleared the patient for discharge Encouraged increase activity as tolerated Encouraged oral intake Patient be evaluated off oxygen as pulse ox readings are above 95% on 2 L. Patient does not normally wear oxygen outpatient\ Possible discharge planning in the next 24 hours The impression and plan of care has been dictated by Pilar Campuznao, nurse practitioner as directed. Dr. Kirill LEYVA I have performed a history and examination and MDM of this patient, discussed the same with the dictator, and agree with the dictator's assessment and plan as written ,documented as a scribe. Based on total visit time, I have performed more than 50% of the visit. Any additional findings or plans will be noted. Objective - Vital Signs Vital signs: Vital Signs Temp 98.2 F 10/28/23 08:00 Pulse 67 10/28/23 08:27 Resp 18 10/28/23 08:27 BP 138/78 10/28/23 08:00 Pulse Ox 98 10/28/23 08:00 FiO2 Intake & Output 10/27/23 10/28/23 10/28/23 18:59 06:59 18:59 Other: Voiding Method Toilet Toilet # Voids 9 1 - Labs CBC & Chem 7: 10/27/23 06:23 10/28/23 03:28 Labs: Abnormal Lab Results - Last 24 Hours (Table) 10/27/23 Range/Units 22:36 Potassium 3.3 L (3.5-5.1) mmol/L Microbiology - Last 24 Hours (Table) 10/27/23 06:23 Blood Culture - Preliminary Blood 10/26/23 16:46 Blood Culture - Preliminary Blood 10/25/23 14:10 Blood Culture - Preliminary Blood 10/24/23 11:20 Blood Culture Gram Stain - Final Blood Blood Culture - Final Escherichia coli 10/24/23 11:05 Blood Culture Gram Stain - Final Blood Blood Culture - Final Escherichia coli 10/26/23 00:54 Urine Culture - Final Urine,Voided
[2023-10-29] MEDS: CYANOCOBALAMIN 500 MCG TAB PO SCH (07:48)
[2023-10-29] MEDS: DONEPEZIL 10 MG TAB PO SCH (07:48)
[2023-10-29] MEDS: amLODIPine 10 MG TAB PO SCH (07:48)
[2023-10-29] MEDS: EZETIMIBE 10 MG TAB PO SCH (07:48)
[2023-10-29] MEDS: CHOLECALCIFEROL 25 MCG (1000 IU) TABLET PO SCH (07:48)
[2023-10-29] MEDS: METOPROLOL SUCCINATE (ER) 50 MG TAB.ER.24H PO SCH (07:48)
[2023-10-29] MEDS: HEPARIN SODIUM,PORCINE 5,000 UNIT/ML 1 ML VIAL SQ SCH ×2 (07:49→20:04)
[2023-10-29] MEDS: PANTOPRAZOLE 40 MG/10 ML VIAL IVP SCH ×2 (07:49→20:04)
--- NOTE | 2023-10-29 09:02 | US ---
EXAMINATION TYPE: US abdomen complete DATE OF EXAM: 10/29/2023 COMPARISON: CT 2022 CLINICAL INDICATION: Female, 68 years old with history of Right upper quadrant pain; TECHNIQUE: Multiple sonographic images of the abdomen are obtained. FINDINGS: EXAM MEASUREMENTS: Liver Length: 18.3 cm Gallbladder Wall: 0.3 cm CBD: 0.3 cm Spleen: 11.8 cm Right Kidney: 12.4 x 5.7 x 5.8 cm Left Kidney: 11.6 x 5.6 x 5.7 cm Pancreas: visualized portions wnl, partially obscured by overlying midline bowel gas Liver: mildly enlarged, 2.0 x 1.9 x 2.0cm irregular cystic area left lobe, 1.3 x 1.2 x 1.4cm hypoech oic area right lobe Gallbladder: multiple echogenic foci, wall borderline dilated Evidence for sonographic King's sign: CBD: visualized portions wnl, limited by overlying bowel gas Spleen: wnl Right Kidney: wnl Left Kidney: wnl Upper IVC: wnl Abd Aorta: visualized portions wnl, limited by overlying midline bowel gas IMPRESSION: 1. Hepatomegaly with two intrahepatic lesions which are indeterminate 2. Cholelithiasis. Recommend HIDA scan if concern for cholecystitis.
--- NOTE | 2023-10-29 10:34 | P.PN ---
Subjective Progress Note Date: 10/29/23 CHIEF COMPLAINT: Sepsis HISTORY OF PRESENT ILLNESS: Patient lying in bed comfortably. She denies any abdominal pain. She complains of back pain on the right. Denies any nausea or vomiting. She is tolerating diet. She doesn't like the food here. Abdominal US and reported hepatomegaly with to intrahepatic lesions which are indeterminate. Cholelithiasis. Recommend HIDA scan if concern for cholecyst itis. PHYSICAL EXAM: VITAL SIGNS: Reviewed. GENERAL: Well-developed in no acute distress. ABDOMEN: Soft. Nondistended. No tenderness with palpation of the right upper quadrant NEUROLOGIC: Alert and oriented. Hard of hearing ASSESSMENT: 1. Abdominal pain resolved 2. Cholelithiasis noted on ultrasound 3. Mild inflammation of the right upper quadrant noted on CT scan 4. UTI with bacteremia 5. Hypokalemia improved 6. Early dementia and hard of hearing PLAN: -HIDA scan ordered for evaluation of cholecystitis -Further recommendations forthcoming pending on HIDA scan results -Continue antibiotics Physician Business Support Professional note has been reviewed by physician. Signing provider agrees with the documented findings, assessment, and plan of care. CHIEF COMPLAINT: Right-sided pain HISTORY OF PRESENT ILLNESS: The patient is a 68-year-old female admitted for pneumonia. Incidentally, diagnostic studies demonstrated inflammation of the right abdomen. Patient denies any moderate abdominal pain today. She denies any fatty food intolerance. Additional studies have been obtained ROS: No reports of nausea and vomiting. No fevers or chills. No new chest pain. PHYSICAL EXAM: VITAL SIGNS: Reviewed CONSTITUTIONAL: Well developed and in no acute distress. EYES: Conjuctivae without sclera icterus. Extraocular movements grossly intact. HEAD, EARS, NOSE, THROAT: Moist buccal mucosa. Head is atraumatic, normocephalic. Hears conversational speech. No nasal drainage. RESPIRATORY: Non-labored respirations and equal bilateral excursions. CARDIOVASCULAR: Palpable 2+ radial pulses. ABDOMEN: No peritonitis. MUSCULOSKELETAL: No gross deformity of the lower extremities noted. No clubbing. No cyanosis. SKIN: Good skin turgor. Well perfused. NEUROLOGIC: Cranial nerves II through XII grossly intact. No focal or lateralizing signs. PSYCH: Alert and oriented to person. CLINICAL LABS: Reviewed. WBC within normal limits. LFTs within normal limits. STUDIES: Ultrasound of the abdomen in the preoperative review demonstrates gallstones. This is my independent interpretation. HIDA scan independent reviewed demonstrating no evidence of acute cholecystitis. This is my independent interpretation. ASSESSMENT: 1. Pneumonia 2. Gallstones PLAN: 1. Clinically, she is stable and denies any moderate abdominal pain. Patient does confirm that she knew she had gallstones prior to studies. 2. Diagnostic studies demonstrated no evidence of acute cholecystitis. 3. Recommend conservative management at this time. Objective - Vital Signs Vital signs: Vital Signs Temp 98.5 F 10/29/23 07:36 Pulse 71 10/29/23 07:49 Resp 17 10/29/23 07:49 BP 165/83 10/29/23 07:36 Pulse Ox 95 10/29/23 07:36 FiO2 Intake & Output 10/28/23 10/29/23 10/29/23 18:59 06:59 18:59 Other: Voiding Method Toilet Toilet Toilet # Voids 4 - Labs CBC & Chem 7: 10/27/23 06:23 10/28/23 03:28 Labs: Abnormal Lab Results - Last 24 Hours (Table) 10/28/23 Range/Units 16:40 POC Glucose (mg/dL) 159 H (70-110) mg/dL Microbiology - Last 24 Hours (Table) 10/26/23 16:46 Blood Culture - Preliminary Blood 10/25/23 14:10 Blood Culture - Preliminary Blood 10/27/23 06:23 Blood Culture - Preliminary Blood
[2023-10-29 12:38] VITALS: BMI 30.1
--- NOTE | 2023-10-29 15:21 | NM ---
Nuclear medicine hepatobiliary scan. HISTORY: Pain. DOSAGE: The patient received 5.0 mCi of Technetium 99m Choletec. FINDINGS: There is normal hepatic extraction. The gallbladder is seen by 10 minutes. There is bilia ry to bowel clearance by 50 minutes. IMPRESSION: 1. Normal hepatobiliary exam
--- NOTE | 2023-10-29 15:56 | P.PN ---
Subjective Progress Note Date: 10/29/23 This is a 68-year-old female patient who has a history of hypothyroidism, hyper tension, hyperlipidemia, early dementia, hearing disorder, lifelong nonsmoker. She came into the emergency room yesterday with a three-day history of abdominal discomfort, nausea vomiting and diarrhea. Computed tomography scan of the chest abdomen pelvis revealed a mild inflammatory changes in the right upper quadrant. No obvious diverticulitis or pyelonephritis. There is a small amount of free fluid in the right paracolic gutter. Sigmoid diverticulosis without acute diverticulitis. Mild infiltrate in the posterior right lung base. Atelectasis versus pneumonia. Blood cultures are revealing no growth to date. White count 13.1. Hemoglobin 13.7. Platelets 113. Sodium 138. Potassium 3.5. Bicarb 25. BUN 25. Creatinine 0.53. Glucose 116. Pro-calcitonin 16.80. Lipase 18. Urinalysis slightly cloudy with high WBCs and occasional bacteria. Culture pending. She is seen today in consultation on the regular medical floor. She is currently resting comfortably in bed. Awake and alert in no acute distress. She is maintaining O2 saturations in the 90s on 3 L/m per nasal cannula. She is on normal saline at 75 ML's per hour. She's been initiated on ceftriaxone and azithromycin. She is currently afebrile. Hemodynamically stable. On today's evaluation of 10/26/2023, no specific complaints. No abdominal pain. Patient is currently on 2 L of oxygen by nasal cannula. She was on 3 L earlier her current pulse ox is 98%. The white cell count is down to 9 with a hemoglo bin of 13, BUN is at 70 with a creatinine of 0.4 and a sodium load is 41 with a potassium level III.0. The blood cultures positive for gram-negative bacillus 2 out of 2 blood cultures and the patient was obviously septic and the patient is currently on Rocephin 2 g every 24 hours. IV fluids are still running at 75 mL an hour. Urine was abnormal and it is very much like to the patient started off with an underlying given tract infection. On 10/27/2023, the patient is being treated for septic shock with E. coli. She remains on IV Rocephin. Doing well. The white cell count is down to 8.1. Sodium is at 142 with a potassium level of 3.4, BUN is at panel with a creatinine of 0.4. No other new complaints otherwise for now. She is only on oxygen at 2 L. On 10/28/2023, no new complaints and the patient remains on IV Rocephin. Repeat blood cultures are negative. The patient is on room air oxygen. Hemodynamically stable. She is afebrile. The patient is hemodynamically stable. The patient is taking regular diet. No surgical intervention. On today's evaluation of 10/29/2023, the patient is doing well. No specific complaints. The patient remains on IV antibiotics. Ultrasound the gallbladder was done and showed cholelithiasis. HIDA scan was done and it showed normal hepatobiliary examination. She is on room air oxygen. She remains on IV Rocephin. She is also on her routine home medications. She is afebrile. Pulse ox on room air is ranging between 90-95%. Objective - Vital Signs Vital signs: Vital Signs Temp 98.5 F 10/29/23 07:36 Pulse 71 10/29/23 07:49 Resp 17 10/29/23 07:49 BP 165/83 10/29/23 07:36 Pulse Ox 95 10/29/23 07:36 FiO2 Intake & Output 10/28/23 10/29/23 10/29/23 18:59 06:59 18:59 Weight 89.811 kg Other: Voiding Method Toilet Toilet Toilet # Voids 4 - Exam GENERAL EXAM: Alert, pleasant 68-year-old female, hard of hearing, on 3 L nasal cannula comfortable in no apparent distress. HEAD: Normocephalic. EYES: Normal reaction of pupils, equal size. NOSE: Clear with pink turbinates. THROAT: No erythema or exudates. NECK: No masses, no JVD. CHEST: No chest wall deformity. LUNGS: Equal air entry with faint crackles in the posterior bases. CVS: S1 and S2 normal with no audible murmur, regular rhythm. ABDOMEN: No hepatosplenomegaly, normal bowel sounds, no guarding or rigidity. SPINE: No scoliosis or deformity SKIN: No rashes CENTRAL NERVOUS SYSTEM: No focal deficits, tone is normal in all 4 extremities. EXTREMITIES: There is no peripheral edema. No clubbing, no cyanosis. Periphe ral pulses are intact. - Labs CBC & Chem 7: 10/27/23 06:23 10/28/23 03:28 Labs: Abnormal Lab Results - Last 24 Hours (Table) 10/28/23 Range/Units 16:40 POC Glucose (mg/dL) 159 H (70-110) mg/dL Microbiology - Last 24 Hours (Table) 10/26/23 16:46 Blood Culture - Preliminary Blood 10/25/23 14:10 Blood Culture - Preliminary Blood 10/27/23 06:23 Blood Culture - Preliminary Blood Assessment and Plan Plan: Acute sepsis related to E. coli, currently on IV Rocephin. Likely sources a urinary source. GI sources less likely especially with a negative CAT scan of the abdomen. Pneumonia is felt to be less likely. Acute abdominal pain with nausea vomiting diarrhea, recovered Cholelithiasis without evidence of cholecystitis. HIDA scan was negative. Acute hypoxemic respiratory failure secondary possible early right lower lobe pneumonia, improving currently on 2 L, the patient was further transitioned to room air oxygen Leukocytosis secondary to above, improving Early dementia Hypertension Hypothyroidism Plan: Clinically and hemodynamically stable Continue with IV Rocephin Ultrasound the gallbladder showed cholelithiasis and the HIDA scan showed no evidence of any cholecystitis Procalcitonin elevated, secondary to sepsis Continue antibiotics RA 02 Increase her activity as tolerated Continue gentle fluid resuscitation Wean down FiO2 as tolerated and put the patient on rheumatic possible. We'll continue to follow.
--- NOTE | 2023-10-29 16:39 | P.PN ---
Subjective Progress Note Date: 10/28/23 Principal diagnosis: Reason for follow-up is E. coli bacteremia Patient is a 68-year-old female with a past medical history significant for hypertension reflux DVT hypothyroidism presenting to the hospital for evaluation of nausea and vomiting patient's symptom has been going on for about 3 days before presentation to hospital , patient did have a CT of abdominal pelvis with mild inflammatory changes in her right upper quadrant also have positive UA and blood culture positive for E. coli On today's evaluation that is 10/28/2023 the patient remains to be afebrile, the patient is breathing comfortably on 2 L nasal cannula supplemental oxygen, the patient denies having any chest pain or cough and no sputum production, patient has been complaining of some nausea and right-sided abdominal pain but no vomiting and did not have any diarrhea Patient white count 8.14, creatinine 0.4 as of 10/27/2023, blood culture with E. coli unfortunately urine culture not done Objective - Vital Signs Vital signs: Vital Signs Temp 98.2 F 10/28/23 08:00 Pulse 67 10/28/23 08:27 Resp 18 10/28/23 08:27 BP 138/78 10/28/23 08:00 Pulse Ox 98 10/28/23 08:00 FiO2 Intake & Output 10/27/23 10/28/23 10/28/23 18:59 06:59 18:59 Other: Voiding Method Toilet Toilet # Voids 9 1 - Exam GENERAL DESCRIPTION: An elderly female lying in bed in no distress RESPIRATORY SYSTEM: Unlabored breathing , decreased breath sound at the base HEART: S1 S2 regular rate and rhythm , ABDOMEN: Soft , no tenderness EXTREMITIES: No edema feet - Labs CBC & Chem 7: 10/27/23 06:23 10/28/23 03:28 Labs: Abnormal Lab Results - Last 24 Hours (Table) 10/27/23 Range/Units 22:36 Potassium 3.3 L (3.5-5.1) mmol/L Microbiology - Last 24 Hours (Table) 10/26/23 16:46 Blood Culture - Preliminary Blood 10/25/23 14:10 Blood Culture - Preliminary Blood 10/24/23 11:20 Blood Culture Gram Stain - Final Blood Blood Culture - Final Escherichia coli 10/24/23 11:05 Blood Culture Gram Stain - Final Blood Blood Culture - Final Escherichia coli 10/26/23 00:54 Urine Culture - Final Urine,Voided Assessment and Plan (1) E coli bacteremia Current Visit: Yes Status: Acute Code(s): R78.81 - BACTEREMIA; B96.20 - UNSP ESCHERICHIA COLI THE CAUSE OF DISEASES CLASSD [facility] SNOMED Code(s): 488809467027 Plan: 1patient presented to hospital with sepsis in this patient who did have a fever elevated white count positive UA and now with E. coli bacteremia-suspicious for pyelonephritis with likely etiology, CT abdominal pelvis did not mention any intra-abdominal abscess or colitis , surgery is following the patient 2-patient remains to be afebrile the patient white count has normalized, patient still complaining of nausea and right upper quadrant discomfort we will order ultrasound, patient to continue Rocephin 2 g daily while awaiting further workup to be completed Dictation was produced using [facility] dictation software. please excuse any gra mmatical, word or spelling errors. Time with Patient: Less than 30
--- NOTE | 2023-10-29 16:41 | P.PN ---
Subjective Progress Note Date: 10/29/23 Principal diagnosis: Reason for follow-up is E. coli bacteremia Patient is a 68-year-old female with a past medical history significant for hypertension reflux DVT hypothyroidism presenting to the hospital for evaluation of nausea and vomiting patient's symptom has been going on for about 3 days before presentation to hospital , patient did have a CT of abdominal pelvis with mild inflammatory changes in her right upper quadrant also have positive UA and blood culture positive for E. coli On today's evaluation that is 10/29/2023, the patient continues to be afebrile and is breathing comfortably on 2 L nasal cannula oxygen, and patient denies any shortness of breath, chest pain and no cough or sputum production, patient denies abdominal pain, no nausea/vomiting and no diarrhea has been reported, patient mentioned feeding but wants to go home Patient white count 8.14, creatinine 0.4 as of 10/27/2023 no lab draw today, blood culture with E. coli unfortunately urine culture not done Objective - Vital Signs Vital signs: Vital Signs Temp 98.4 F 10/29/23 13:31 Pulse 62 10/29/23 13:31 Resp 17 10/29/23 13:31 BP 122/70 10/29/23 13:31 Pulse Ox 90 L 10/29/23 13:31 FiO2 Intake & Output 10/28/23 10/29/23 10/29/23 18:59 06:59 18:59 Weight 89.811 kg Other: Voiding Method Toilet Toilet Toilet # Voids 4 - Exam GENERAL DESCRIPTION: An elderly female lying in bed in no distress RESPIRATORY SYSTEM: Unlabored breathing , decreased breath sound at the base HEART: S1 S2 regular rate and rhythm , ABDOMEN: Soft , no tenderness EXTREMITIES: No edema feet - Labs CBC & Chem 7: 10/27/23 06:23 10/28/23 03:28 Labs: Abnormal Lab Results - Last 24 Hours (Table) 10/28/23 Range/Units 16:40 POC Glucose (mg/dL) 159 H (70-110) mg/dL Microbiology - Last 24 Hours (Table) 10/27/23 06:23 Blood Culture - Preliminary Blood 10/26/23 16:46 Blood Culture - Preliminary Blood 10/25/23 14:10 Blood Culture - Preliminary Blood Assessment and Plan (1) E coli bacteremia Current Visit: Yes Status: Acute Code(s): R78.81 - BACTEREMIA; B96.20 - UNSP ESCHERICHIA COLI THE [facility] Code(s): 937294990095 Plan: 1patient presented to hospital with sepsis in this patient who did have a fever elevated white count positive UA and now with E. coli bacteremia-suspicious for pyelonephritis with likely etiology, CT abdominal pelvis did not mention any intra-abdominal abscess or colitis , surgery is following the patient 2-patient abdominal ultrasound did show multiple gallstones, gallbladder wall b orderline dilated HIDA scan has been ordered. Patient to continue with Rocephin while awaiting further workup to be completed Dictation was produced using [employer] dictation software. please excuse any grammatical, word or spelling errors. Time with Patient: Less than 30
[2023-10-29] MEDS: ACETAMINOPHEN TAB 325 MG TAB PO PRN (17:54)
[2023-10-29 20:27] LABS: Glucose,Whole Blood 121 mg/dL (70-110)
[2023-10-29] MEDS: 0.9% NACL WITH KCL 40 MEQ/L 1,000 ML IV SCH (21:29)
[2023-10-30] MEDS: 0.9% NACL WITH KCL 40 MEQ/L 1,000 ML IV SCH (01:47)
[2023-10-30] MEDS: LEVOTHYROXINE 125 MCG TAB PO SCH (05:31)
[2023-10-30 05:50] LABS: Glucose,Whole Blood 94 mg/dL (70-110)
[2023-10-30] MEDS: ONDANSETRON 4 MG/2 ML VIAL IVP PRN (06:48)
--- NOTE | 2023-10-30 06:59 | P.PN ---
Subjective Progress Note Date: 10/29/23 This is a 68-year-old female who was recently admitted with acute bilateral pneumonia also found to have gram-negative sepsis with E. coli with pulmonary along with infectious disease following. Patient is continued on antibiotics and did have some right upper and lower quadrant tenderness infectious disease has ordered ultrasound of the abdomen which is currently pending. Patient was continued on oxygen although oxygen saturations are above 95% on 2 L and discuss with nursing staff about weaning FiO2 as tolerated and performing home O2 assessment. Patient was also seen and evaluated by general surgery and has been cleared for discharge with no plans of surgical intervention at this time. Claire ent is afebrile with no reported chest pain or shortness of breath. Patient has been encouraged to increase activity as tolerated. Patient denies any nausea or vomiting and is tolerating diet although reports the food here is terrible and not much of an appetite at this time. 10/29/2023 Patient is seen in follow-up today with multiple medical consultations including general surgery, pulmonary and infectious disease following. Patient is continued on IV antibiotics and was reporting some diffuse right upper and lower quadrant pain and infectious disease ordered an abdomen ultrasound which was unable to do yesterday due to patient eating and scheduled for this morning. Ultrasound was suggestive of cholelithiasis recommending HIDA scan which has been ordered and pending. Patient is asking when she can eat. Patient afebrile with no reported chest pain or shortness of breath. Patient is on room air maintaining oxygen saturations above 92%. Review of systems: Constitutional: No reports of fatigue, fever, or chills Cardiovascular: No reports of chest pain or palpitations Respiratory: No reports of worsening shortness of breath or cough GI: No reports of nausea, no reports of vomiting, no diarrhea, reports diffuse right side pain : No reports of dysuria or retention Neurovascular: No reports of generalized weakness All medications have been reviewed PHYSICAL EXAMINATION: GENERAL: The patient is alert and oriented x4, hard of hearing, Well developed, well nourished. Obese HEENT: Pupils are round and equally reacting to light. EOMI. no scleral icterus. No conjunctival pallor. Normocephalic, atraumatic. No pharyngeal erythema. No thyromegaly. CARDIOVASCULAR: S1 and S2 muffled PULMONARY: diminished breath sounds bilaterally with no wheezing or rhonchi noted. ABDOMEN: soft. Mildly tender right upper quadrant on exam. obese. non- distended, normoactive bowel sounds. No palpable organomegaly. MUSCULOSKELETAL: No joint swelling or deformity. EXTREMITIES: No cyanosis, clubbing, or pedal edema. NEUROLOGICAL: Gross neurological examination did not reveal any focal deficits SKIN: No rashes. Assessment: Acute bilateral pneumonia, interstitial, right more than left with elevated pro calcitonin Acute hypoxic respiratory failure secondary to acute bilateral pneumonia, improved currently on room air E. coli sepsis, present on admission possibly secondary to above Increased WBC Possible urinary tract infection, although suspicion is low hyponatremia secondary to nausea and vomiting, improved history of deep vein thrombosis gastroesophageal reflux disease History of hypertension Obesity with BMI of 30.1 GI prophylaxis DVT prophylaxis Full code Plan: Recommend to continue with current medications and management with general surgery along with infectious disease and pulmonary following. Patient is maintained on IV antibiotics and will most recent cultures have been negative although initial cultures were E. coli with sensitivities. Infectious disease following recommending ultrasound of the abdomen as patient had some tenderness. Ultrasound suggestive of cholelithiasis recommending HIDA scan and HIDA scan was ordered and pending Patient will continue on IV antibiotics and transition to oral Ceftin on discharge General surgery evaluated the patient with no plans of surgical intervention, HIDA scan ordered Encouraged increase activity as tolerated Encouraged oral intake Patient has been evaluated off oxygen as pulse ox readings are above 95% and has improved currently maintained on room air Possible discharge planning in the next 24 hours The impression and plan of care has been dictated by Pilar Campuzano nurse pr actitioner as directed. Dr. Hemalatha MD I have performed a history and examination and MDM of this patient, discussed the same with the dictator, and agree with the dictator's assessment and plan as written ,documented as a scribe. Based on total visit time, I have performed more than 50% of the visit. Any additional findings or plans will be noted. Objective - Vital Signs Vital signs: Vital Signs Temp 97.4 F L 10/30/23 01:37 Pulse 74 10/30/23 01:37 Resp 17 10/29/23 13:31 BP 159/89 10/30/23 01:37 Pulse Ox 91 L 10/30/23 01:37 FiO2 Intake & Output 10/29/23 10/29/23 10/30/23 06:59 18:59 06:59 Output Total 1 Balance -1 Weight 89.811 kg Output: Urine/Stool Mix 1 Other: Voiding Method Toilet Toilet Toilet # Voids 4 5 1 - Labs CBC & Chem 7: 10/27/23 06:23 10/28/23 03:28 Labs: Abnormal Lab Results - Last 24 Hours (Table) 10/29/23 Range/Units 20:26 POC Glucose (mg/dL) 121 H (70-110) mg/dL Microbiology - Last 24 Hours (Table) 10/26/23 16:46 Blood Culture - Preliminary Blood 10/27/23 06:23 Blood Culture - Preliminary Blood
[2023-10-30 08:03] VITALS: RESP 19
[2023-10-30] MEDS: EZETIMIBE 10 MG TAB PO SCH (08:21)
[2023-10-30] MEDS: DONEPEZIL 10 MG TAB PO SCH (08:21)
[2023-10-30] MEDS: CYANOCOBALAMIN 500 MCG TAB PO SCH (08:21)
[2023-10-30] MEDS: amLODIPine 10 MG TAB PO SCH (08:21)
[2023-10-30] MEDS: HYDROcodone/APAP 5-325MG 1 EACH TAB PO PRN (08:21)
[2023-10-30] MEDS: CHOLECALCIFEROL 25 MCG (1000 IU) TABLET PO SCH (08:21)
[2023-10-30] MEDS: HEPARIN SODIUM,PORCINE 5,000 UNIT/ML 1 ML VIAL SQ SCH (08:22)
[2023-10-30] MEDS: PANTOPRAZOLE 40 MG/10 ML VIAL IVP SCH (08:22)
[2023-10-30] MEDS: METOPROLOL SUCCINATE (ER) 50 MG TAB.ER.24H PO SCH (08:22)
[2023-10-30 11:19] LABS: Glucose,Whole Blood 96 mg/dL (70-110)
[2023-10-30 11:31] LABS: Basophils # (A) 0.05 X 10*3/uL (0.00-0.10); Basophils % (A) 0.7 %; Eosinophils # (A) 0.19 X 10*3/uL (0.04-0.35); Eosinophils % (A) 2.6 %; HCT 48.1 % (37.2-46.3); HGB 15.5 g/dL (12.0-15.0); Lymphocytes # (A) 1.12 X 10*3/uL (0.90-5.00); Lymphocytes % (A) 15.1 %; MCH 28.4 pg (27.0-32.0); MCHC 32.2 g/dL (32.0-37.0); MCV 88.3 FL (80.0-97.0); Mean Platelet Volume 12.4 FL (9.5-12.2); Monocytes # (A) 0.59 X 10*3/uL (0.20-1.00); Monocytes % (A) 7.9 %; NRBC Per 100 WBC 0 X 10*3/uL (0.00-0.01); Neutrophils # (A) 5.27 X 10*3/uL (1.80-7.70); Neutrophils % (A) 70.9 %; Platelet Count 247 X 10*3/uL (140-440); RBC 5.45 X 10*6/uL (4.10-5.20); RDW 13.8 % (11.5-14.5); WBC 7.43 X 10*3/uL (4.50-10.00)
[2023-10-30 11:34] LABS: BUN/Creat Ratio 21.67 Ratio (12.00-20.00); Calcium 9.1 mg/dL (8.7-10.3); Chloride 99 mmol/L (96-109); Glucose 96 mg/dL (70-110); Magnesium 1.8 mg/dL (1.5-2.4); Potassium 4.1 mmol/L (3.5-5.5); Sodium 139 mmol/L (135-145)
[2023-10-30 14:16] VITALS: BP 131/76; PULSE 74; TEMP 97.3
--- NOTE | 2023-10-30 14:40 | P.PN ---
Subjective Progress Note Date: 10/30/23 CHIEF COMPLAINT: Sepsis HISTORY OF PRESENT ILLNESS: Patient lying in bed comfortably. She denies any abdominal pain. Denies any nausea or vomiting. She is tolerating diet. She doesn't like the food here. Abdominal US and reported hepatomegaly with to intrahepatic lesions which are indeterminate. Cholelithiasis. HIDA scan showed normal hepatobiliary exam PHYSICAL EXAM: VITAL SIGNS: Reviewed. GENERAL: Well-developed in no acute distress. ABDOMEN: Soft. Nondistended. No tenderness with palpation of the right upper quadrant NEUROLOGIC: Alert and oriented. Hard of hearing ASSESSMENT: 1. Abdominal pain resolved 2. Cholelithiasis noted on ultrasound. No evidence of cholecystitis 3. Mild inflammation of the right upper quadrant noted on CT scan 4. UTI with bacteremia 5. Hypokalemia improved 6. Early dementia and hard of hearing PLAN: -No surgical intervention planned -Patient can be discharged and surgical standpoint Physician Mold [employer] note has been reviewed by physician. Signing provider agrees with the documented findings, assessment, and plan of care. Objective - Vital Signs Vital signs: Vital Signs Temp 97.3 F L 10/30/23 13:32 Pulse 74 10/30/23 13:32 Resp 19 10/30/23 13:32 BP 131/76 10/30/23 13:32 Pulse Ox 93 L 10/30/23 13:32 FiO2 Intake & Output 10/29/23 10/30/23 10/30/23 18:59 06:59 18:59 Output Total 1 Balance -1 Weight 89.811 kg Output: Urine/Stool Mix 1 Other: Voiding Method Toilet Toilet Toilet # Voids 5 1 - Labs CBC & Chem 7: 10/30/23 06:55 10/30/23 06:55 Labs: Abnormal Lab Results - Last 24 Hours (Table) 10/29/23 10/30/23 10/30/23 Range/Units 20:26 06:55 06:55 RBC 5.45 H (4.10-5.20) X 10*6/uL Hgb 15.5 H (12.0-15.0) g/dL Hct 48.1 H (37.2-46.3) % MPV 12.4 H (9.5-12.2) FL Immature Gran # 0.21 H (0.00-0.04) X 10*3/uL BUN/Creatinine Ratio 21.67 H (12.00-20.00) Ratio POC Glucose (mg/dL) 121 H (70-110) mg/dL Microbiology - Last 24 Hours (Table) 10/27/23 06:23 Blood Culture - Preliminary Blood 10/26/23 16:46 Blood Culture - Preliminary Blood
--- NOTE | 2023-10-30 16:47 | P.PN ---
Subjective Progress Note Date: 10/30/23 This is a 68-year-old female patient who has a history of hypothyroidism, hyper tension, hyperlipidemia, early dementia, hearing disorder, lifelong nonsmoker. She came into the emergency room yesterday with a three-day history of abdominal discomfort, nausea vomiting and diarrhea. Computed tomography scan of the chest abdomen pelvis revealed a mild inflammatory changes in the right upper quadrant. No obvious diverticulitis or pyelonephritis. There is a small amount of free fluid in the right paracolic gutter. Sigmoid diverticulosis without acute diverticulitis. Mild infiltrate in the posterior right lung base. Atelectasis versus pneumonia. Blood cultures are revealing no growth to date. White count 13.1. Hemoglobin 13.7. Platelets 113. Sodium 138. Potassium 3.5. Bicarb 25. BUN 25. Creatinine 0.53. Glucose 116. Pro-calcitonin 16.80. Lipase 18. Urinalysis slightly cloudy with high WBCs and occasional bacteria. Culture pending. She is seen today in consultation on the regular medical floor. She is currently resting comfortably in bed. Awake and alert in no acute distress. She is maintaining O2 saturations in the 90s on 3 L/m per nasal cannula. She is on normal saline at 75 ML's per hour. She's been initiated on ceftriaxone and azithromycin. She is currently afebrile. Hemodynamically stable. On today's evaluation of 10/26/2023, no specific complaints. No abdominal pain. Patient is currently on 2 L of oxygen by nasal cannula. She was on 3 L earlier her current pulse ox is 98%. The white cell count is down to 9 with a hemoglo bin of 13, BUN is at 70 with a creatinine of 0.4 and a sodium load is 41 with a potassium level III.0. The blood cultures positive for gram-negative bacillus 2 out of 2 blood cultures and the patient was obviously septic and the patient is currently on Rocephin 2 g every 24 hours. IV fluids are still running at 75 mL an hour. Urine was abnormal and it is very much like to the patient started off with an underlying given tract infection. On 10/27/2023, the patient is being treated for septic shock with E. coli. She remains on IV Rocephin. Doing well. The white cell count is down to 8.1. Sodium is at 142 with a potassium level of 3.4, BUN is at panel with a creatinine of 0.4. No other new complaints otherwise for now. She is only on oxygen at 2 L. On 10/28/2023, no new complaints and the patient remains on IV Rocephin. Repeat blood cultures are negative. The patient is on room air oxygen. Hemodynamically stable. She is afebrile. The patient is hemodynamically stable. The patient is taking regular diet. No surgical intervention. On today's evaluation of 10/29/2023, the patient is doing well. No specific complaints. The patient remains on IV antibiotics. Ultrasound the gallbladder was done and showed cholelithiasis. HIDA scan was done and it showed normal hepatobiliary examination. She is on room air oxygen. She remains on IV Rocephin. She is also on her routine home medications. She is afebrile. Pulse ox on room air is ranging between 90-95%. on 10/30/2023. No signs of any ongoing septicemia for now. Discharge planning is in progress.Labs showed no discrete of 7.4, hemoglobin 16.5, BUN is a 50 with a creatinine 0.6 and a sodium level is at 139. Abdominal pain is all. No surgical intervention. The patient is cholelithiasis without cholecystitis. Objective - Vital Signs Vital signs: Vital Signs Temp 97.6 F 10/30/23 06:44 Pulse 78 10/30/23 06:44 Resp 19 10/30/23 06:44 BP 141/81 10/30/23 06:44 Pulse Ox 92 L 10/30/23 06:44 FiO2 Intake & Output 10/29/23 10/30/23 10/30/23 18:59 06:59 18:59 Output Total 1 Balance -1 Weight 89.811 kg Output: Urine/Stool Mix 1 Other: Voiding Method Toilet Toilet Toilet # Voids 5 1 - Exam GENERAL EXAM: Alert, pleasant 68-year-old female, hard of hearing, on 3 L nasal cannula comfortable in no apparent distress. HEAD: Normocephalic. EYES: Normal reaction of pupils, equal size. NOSE: Clear with pink turbinates. THROAT: No erythema or exudates. NECK: No masses, no JVD. CHEST: No chest wall deformity. LUNGS: Equal air entry with faint crackles in the posterior bases. CVS: S1 and S2 normal with no audible murmur, regular rhythm. ABDOMEN: No hepatosplenomegaly, normal bowel sounds, no guarding or rigidity. SPINE: No scoliosis or deformity SKIN: No rashes CENTRAL NERVOUS SYSTEM: No focal deficits, tone is normal in all 4 extremities. EXTREMITIES: There is no peripheral edema. No clubbing, no cyanosis. Peripheral pulses are intact. - Labs CBC & Chem 7: 10/30/23 06:55 10/30/23 06:55 Labs: Abnormal Lab Results - Last 24 Hours (Table) 10/29/23 10/30/23 10/30/23 Range/Units 20:26 06:55 06:55 RBC 5.45 H (4.10-5.20) X 10*6/uL Hgb 15.5 H (12.0-15.0) g/dL Hct 48.1 H (37.2-46.3) % MPV 12.4 H (9.5-12.2) FL Immature Gran # 0.21 H (0.00-0.04) X 10*3/uL BUN/Creatinine Ratio 21.67 H (12.00-20.00) Ratio POC Glucose (mg/dL) 121 H (70-110) mg/dL Microbiology - Last 24 Hours (Table) 10/26/23 16:46 Blood Culture - Preliminary Blood 10/27/23 06:23 Blood Culture - Preliminary Blood Assessment and Plan Plan: Acute sepsis related to E. coli, currently on IV Rocephin. Likely sources a urinary source. GI sources less likely especially with a negative CAT scan of the abdomen. Pneumonia is felt to be less likely. Acute abdominal pain with nausea vomiting diarrhea, recovered Cholelithiasis without evidence of cholecystitis. HIDA scan was negative. Acute hypoxemic respiratory failure secondary possible early right lower lobe pneumonia, improving currently on 2 L, the patient was further transitioned to room air oxygen Leukocytosis secondary to above, improving Early dementia Hypertension Hypothyroidism Plan: Clinically and hemodynamically stable The patient can be on antibiotics and she can be considered for discharge Ultrasound the gallbladder showed cholelithiasis and the HIDA scan showed no evidence of any cholecystitis Procalcitonin elevated, secondary to sepsis Increase her activity as tolerated Continue gentle fluid resuscitation patient is currently on room air oxygen Discharge planning is in progress
--- NOTE | 2023-11-02 06:33 | P.DS ---
Providers Date of admission: 10/24/23 15:48 Expected date of discharge: 10/30/23 Attending physician: Arie Roy Consults: 10/24/23 14:32 Consult Physician Routine Consulting Provider: Von Segura Consult Reason/Comments: pnuemonia Do you want consulting provider notified?: Yes Consult Physician Routine Consulting Provider: Susanne Dacosta Consult Reason/Comments: Pnuemonia Do you want consulting provider notified?: Yes 10/24/23 15:22 Consult Physician Routine Consulting Provider: Von Segura Consult Reason/Comments: pneumonia Do you want consulting provider notified?: Yes Consult Physician Routine Consulting Provider: Susanne Dacosta Consult Reason/Comments: pneumonia Do you want consulting provider notified?: Yes 10/25/23 13:40 Consult Physician Routine Consulting Provider: Annette Centeno Consult Reason/Comments: abd pain Do you want consulting provider notified?: Yes Primary care physician: Rachana Dasilva Hospital Course: Final diagnosis Acute bilateral pneumonia, interstitial, right more than left with elevated pro calcitonin Acute hypoxic respiratory failure secondary to acute bilateral pneumonia, improved currently on room air E. coli sepsis, present on admission possibly secondary to above Increased WBC Possible urinary tract infection, although suspicion is low hyponatremia secondary to nausea and vomiting, improved history of deep vein thrombosis gastroesophageal reflux disease History of hypertension Obesity with BMI of 30.1 GI prophylaxis DVT prophylaxis Full code Discharge disposition Patient is being discharged in a stable condition with guarded prognosis to home. Patient will follow-up with Dr. Rachana Dasilva in the outpatient setting upon discharge. Patient is to continue with oral Ceftin twice daily for 1 week and outpatient follow-up with infectious disease as scheduled. Total time taken is greater than 35 minutes. Hospital course This is a 68-year-old female who was recently admitted with abdominal pain with nausea and vomiting being closely monitored. Patient also with concerns of pneumonia with an elevated pro calcitonin. X-ray findings show acute bilateral right more than left and was followed by pulmonary as well as infectious disease. Patient requiring oxygen has been currently weaned and on room air and does not wear oxygen outpatient. Patient was continued on IV antibiotics and will transition to oral Ceftin for one week and discharge. Patient also seen and evaluated by general surgery for having diffuse abdominal pain and was seen and evaluated with an abdominal ultrasound suggestive of stones and underwent HIDA scan which was normal. Patient is having no further nausea or vomiting and tolerating diet and has been cleared by consultations. Patient will have close outpatient follow-up with infectious disease on discharge. Please refer to the consultation notes for further HPI. Currently no reports of chest pain, shortness of breath, or palpitations. Patient is afebrile. No reports of nausea or vomiting and patient is tolerating diet. Patient will be discharged home today. Guarded prognosis Physical exam: Gen: This is a 68-year-old female who is awake, alert and oriented 3, well- developed, well-nourished, extremely hard of hearing, obese HEENT: Head is atraumatic, normocephalic. Pupils equal, round. Sclerae is anicteric. NECK: Supple. No JVD. No lymphadenopathy. No thyromegaly. LUNGS: Clear to auscultation. No wheezes or rhonchi. No intercostal retractions. HEART: Regular rate and rhythm. No murmur. ABDOMEN: Soft. Minimal tenderness of the right upper and lower quadrant. Bowel sounds are present. No masses. Obese EXTREMITIES: No pedal edema. No calf tenderness. NEUROLOGICAL: Patient is awake, alert and oriented x3. Cranial nerves 2 through 12 are grossly intact. Please refer to medication reconciliation sheet for a list of medications. The impression and plan of care has been dictated by Pilar Campuzano, Nurse Practitioner as directed. Dr. Hemalatha MD I have performed a history and examination and MDM of this patient, discussed the same with the dictator, and agree with the dictator's assessment and plan a s written ,documented as a scribe. Based on total visit time, I have performed more than 50% of the visit. Patient Condition at Discharge: Fair Plan - Discharge Summary Discharge Rx Participant: No New Discharge Prescriptions: New Acetaminophen Tab [Tylenol] 650 mg PO Q6HR PRN tab PRN Reason: Mild Pain Or Fever > 100.5 Ondansetron Odt [Zofran Odt] 4 mg PO Q8HR PRN #20 tab PRN Reason: Nausea cefUROXime axetiL [Ceftin] 500 mg PO BID 10 Days #20 tab Pantoprazole [Protonix] 40 mg PO DAILY #30 tab Continue Metoprolol Succinate (ER) [Toprol XL] 50 mg PO DAILY Levothyroxine Sodium [Synthroid] 125 mcg PO DAILY Ferrous Sulfate [Iron (65 MG Elemental)] 325 mg PO DAILY Beet Root 1000mg 1,000 mg PO DAILY Pro Advanced Urinary Formula 1 cap PO DAILY Stem Cell Supplement 1 cap PO DAILY amLODIPine [Norvasc] 10 mg PO DAILY Cinnamon Bark [Cinnamon] 1,000 mg PO DAILY Ezetimibe [Zetia] 10 mg PO DAILY Ginkgo Biloba Extract 1 cap PO DAILY Potassium(Unknown Dose) 1 tab PO DAILY Cholecalciferol [Vitamin D3 (25 Mcg = 1000 Iu)] 25 mcg PO DAILY Cyanocobalamin (Vitamin B-12) [Vitamin B-12] 1,000 mcg PO DAILY Donepezil [Aricept] 10 mg PO DAILY Discharge Medication List Levothyroxine Sodium [Synthroid] 125 mcg PO DAILY 08/14/16 [History] Metoprolol Succinate (ER) [Toprol XL] 50 mg PO DAILY 08/14/16 [History] Ferrous Sulfate [Iron (65 MG Elemental)] 325 mg PO DAILY 03/28/21 [History] Beet Root 1000mg 1,000 mg PO DAILY 10/24/23 [History] Cholecalciferol [Vitamin D3 (25 Mcg = 1000 Iu)] 25 mcg PO DAILY 10/24/23 [History] Cinnamon Bark [Cinnamon] 1,000 mg PO DAILY 10/24/23 [History] Cyanocobalamin (Vitamin B-12) [Vitamin B-12] 1,000 mcg PO DAILY 10/24/23 [History] Donepezil [Aricept] 10 mg PO DAILY 10/24/23 [History] Ezetimibe [Zetia] 10 mg PO DAILY 10/24/23 [History] Ginkgo Biloba Extract 1 cap PO DAILY 10/24/23 [History] Potassium(Unknown Dose) 1 tab PO DAILY 10/24/23 [History] Pro Advanced Urinary Formula 1 cap PO DAILY 10/24/23 [History] Stem Cell Supplement 1 cap PO DAILY 10/24/23 [History] amLODIPine [Norvasc] 10 mg PO DAILY 10/24/23 [History] Acetaminophen Tab [Tylenol] 650 mg PO Q6HR PRN tab 10/28/23 [Rx] Ondansetron Odt [Zofran Odt] 4 mg PO Q8HR PRN #20 tab 10/28/23 [Rx] Pantoprazole [Protonix] 40 mg PO DAILY #30 tab 10/28/23 [Rx] cefUROXime axetiL [Ceftin] 500 mg PO BID 10 Days #20 tab 10/30/23 [Rx] Follow up Appointment(s)/Referral(s): Rachana Dasilva MD [Primary Care Provider] - 1-2 days (Office is closed at time of discharge. Please call for follow-up appointment.) Susanne Dacosta MD [STAFF PHYSICIAN] - 1 Week (Office is closed at time of discharge. Please call for follow-up appointment.) Patient Instructions/Handouts: Pneumonia (DC) Activity/Diet/Wound Care/Special Instructions: Activity Limited until follow-up Follow-up primary care provider on discharge Follow-up with general surgery outpatient as needed Continue on antibiotics as prescribed Continue current diet and slowly advance as tolerated Discharge Disposition: HOME SELF-CARE
== END 2023-10-30 14:23 | disposition home or self-care (01) | DRG 871 ==
LOC: EC 08:15 → 4SSUR 14:44 → OBSVTOIN 15:48
PROVIDERS: ADMIT Hospitalist; ATTEND Hospitalist
DX: A41.51 Sepsis due to Escherichia coli [E. coli] (principal); J18.9 Pneumonia, unspecified organism; J96.01 Acute respiratory failure with hypoxia; R65.21 Severe sepsis with septic shock; E87.1 Hypo-osmolality and hyponatremia; J44.0 Chronic obstructive pulmonary disease with (acute) lower respiratory infection; N39.0 Urinary tract infection, site not specified; K21.9 Gastro-esophageal reflux disease without esophagitis; I10 Essential (primary) hypertension; F03.90 Unspecified dementia, unspecified severity, without behavioral disturbance, psychotic disturbance, mood disturbance, and anxiety; E03.9 Hypothyroidism, unspecified; E87.6 Hypokalemia; Z86.718 Personal history of other venous thrombosis and embolism; Z90.710 Acquired absence of both cervix and uterus; K29.70 Gastritis, unspecified, without bleeding; E66.9 Obesity, unspecified; Z68.30 Body mass index [BMI] 30.0-30.9, adult; E78.5 Hyperlipidemia, unspecified; H91.90 Unspecified hearing loss, unspecified ear; Z79.890 Hormone replacement therapy; Z79.899 Other long term (current) drug therapy
CPT/HCPCS: 36415; 71045; 71260; 74022; 74177; 76700; 78226; 80048; 80053; 81001; 83605; 83690; 83735; 83880; 84132; 84145; 84484; 85025; 85652; 86140; 87040; 87077; 87086; 87186; 87449; 87636; 93005; 94760; 96361; 96374; 96375; 99285

== ENCOUNTER 2023-11-28 11:28 | Inpatient (IN) | payer MEDICARE ==
--- NOTE | 2023-11-28 11:38 | ED ---
General Adult HPI <Sb Villalta - Last Filed: 11/28/23 16:36> - General Source: RN notes reviewed <Dodie Knott - Last Filed: 11/30/23 00:25> - General Stated complaint: weakness, vomiting - History of Present Illness Initial comments: Quick note: Patient is having dry heaves, feeling hot and cold, and just not feeling herself. She is having lower back pain. She had blood work done yesterda y and was found to have a high WBC. She feels like she has a fever. Verbally signed by Sb Villalta PAC 11/28/22 [id number] (Sb Villalta) Note reviewed. This is a pleasant 68-year-old female with no significant past medical history presents the emergency department with a chief complaint of generalized body aches. Patient is also complaining of nausea with dry heaves however no episodes of vomiting. She has been feeling hot and cold on and off. Overall she reports that she just is not feeling herself. She is also complaining of bilateral lower back pain. She reports that she saw her primary care physician regarding her complaints who did laboratory studies and found a high what blood cell count. She reports that she feels feverish however has not taken her temperature. She is also complaining of a nonproductive cough. (Dodie Knott) - Related Data Home Medications Medication Instructions Recorded Confirmed Levothyroxine Sodium [Synthroid] 125 mcg PO DAILY 08/14/16 11/28/23 Metoprolol Succinate (ER) [Toprol 50 mg PO DAILY 08/14/16 11/28/23 XL] Ferrous Sulfate [Iron (65 MG 325 mg PO DAILY 03/28/21 11/28/23 Elemental)] Beet Root 1000mg 1,000 mg PO DAILY 10/24/23 11/28/23 Cholecalciferol [Vitamin D3 (25 25 mcg PO DAILY 10/24/23 11/28/23 Mcg = 1000 Iu)] Cinnamon Bark [Cinnamon] 1,000 mg PO DAILY 10/24/23 11/28/23 Cyanocobalamin (Vitamin B-12) 1,000 mcg PO DAILY 10/24/23 11/28/23 [Vitamin B-12] Donepezil [Aricept] 10 mg PO DAILY 10/24/23 11/28/23 Ezetimibe [Zetia] 10 mg PO DAILY 10/24/23 11/28/23 Ginkgo Biloba Extract 1 cap PO DAILY 10/24/23 11/28/23 Potassium(Unknown Dose) 1 tab PO DAILY 10/24/23 11/28/23 Pro Advanced Urinary Formula 1 cap PO DAILY 10/24/23 11/28/23 Stem Cell Supplement 1 cap PO DAILY 10/24/23 11/28/23 amLODIPine [Norvasc] 10 mg PO DAILY 10/24/23 11/28/23 Diphenoxylate HCl/Atropine 2 tab PO QID PRN 11/28/23 11/28/23 [Lomotil 2.5-0.025 mg Tablet] Levofloxacin [Levaquin] 250 mg PO BID 11/28/23 11/28/23 Previous Rx's Medication Instructions Recorded Acetaminophen Tab [Tylenol] 650 mg PO Q6HR PRN tab 10/28/23 Ondansetron Odt [Zofran Odt] 4 mg PO Q8HR PRN #20 tab 10/28/23 Pantoprazole [Protonix] 40 mg PO DAILY #30 tab 10/28/23 Allergies Allergy/AdvReac Type Severity Reaction Status Date / Time No Known Allergies Allergy Verified 11/28/23 18:31 Review of Systems ROS Other: All systems not noted in ROS Statement are negative. <Sb Villalta - Last Filed: 11/28/23 16:36> ROS Other: All systems not noted in ROS Statement are negative. <Dodie Knott - Last Filed: 11/30/23 00:25> ROS Statement: Those systems with pertinent positive or pertinent negative responses have been documented in the HPI. Past Medical History Past Medical History: Deep Vein Thrombosis (DVT), GERD/Reflux, Hypertension, Memory Impairment, Thyroid Disorder Additional Past Medical History / Comment(s): early dementia and [place],90% deaf- please relay information to /daughter. family hx colorectal cancer. bowel/urinary incontinence wears depends. has appt 07/13 with neurologist to r/o myasthenia gravis has been experiencing facial drooping,lethary,muscle weakness. osteopenia History of Any Multi-Drug Resistant Organisms: None Reported Past Surgical History: Heart Catheterization, Hysterectomy Additional Past Surgical History / Comment(s): REPAIR RT RUPTURED THIGH MUSCLE. COLONOSCOPY, bladder prolapse surgery Past Anesthesia/Blood Transfusion Reactions: No Reported Reaction Past Psychological History: No Psychological Hx Reported Smoking Status: Never smoker Past Alcohol Use History: None Reported Past Drug Use History: None Reported - Past Family History Sister(s) Family Medical History: Cancer Additional Family Medical History / Comment(s): COLON Mother Family Medical History: Cancer Additional Family Medical History / Comment(s): BREAST Father Family Medical History: Cancer Additional Family Medical History / Comment(s): LUNG <Sb Villalta - Last Filed: 11/28/23 16:36> General Exam <Sb Villalta - Last Filed: 11/28/23 16:36> <Dodie Knott - Last Filed: 11/30/23 00:25> - General Exam Comments Initial Comments: Visual physical exam: well appearing, no acute distress (Sb Villalta) General: Alert, in no acute distress Head: atraumatic normocephalic. Eyes PERRL, EOMI intact, mucous membranes moist Respiratory: Lungs clear to auscultation bilaterally Cardiovascular: Regular rate and rhythm Abdominal: Soft without guarding or rebound Extremities: Normal inspection with full range of motion and normal capillary refill Neuroogic: alert and oriented 3, CN II-XII intact, able to ambulate with steady gait Skin: warm dry and intact with normal color (Dodie Knott) Course <Dodie Knott - Last Filed: 11/30/23 00:25> Vital Signs 11/28/23 11/28/23 11/28/23 11:44 15:00 15:07 Temperature 98.9 F 98.4 F Pulse Rate 80 80 Pulse Rate [ Pulse Oximetery ] Respiratory 20 16 18 Rate Blood Pressure 130/76 153/77 Blood Pressure [Left Arm] O2 Sat by Pulse 93 L 95 Oximetry 11/28/23 11/28/23 11/28/23 16:57 20:51 21:00 Temperature 98.4 F 98.4 F Pulse Rate 91 84 84 Pulse Rate [ Pulse Oximetery ] Respiratory 18 16 Rate Blood Pressure 159/80 135/71 Blood Pressure [Left Arm] O2 Sat by Pulse 94 L 92 L 89 L Oximetry 11/28/23 11/29/23 11/29/23 22:00 02:32 08:00 Temperature 98.6 F Pulse Rate 80 78 Pulse Rate [ 85 Pulse Oximetery ] Respiratory 16 18 Rate Blood Pressure 122/61 135/77 Blood Pressure 130/71 [Left Arm] O2 Sat by Pulse 92 L 91 L 97 Oximetry 11/29/23 10:00 Temperature Pulse Rate 80 Pulse Rate [ Pulse Oximetery ] Respiratory 20 Rate Blood Pressure 142/79 Blood Pressure [Left Arm] O2 Sat by Pulse 97 Oximetry - Reevaluation(s) Reevaluation #1: 11/28/23 17:[address] Rodríguez who accepts the patient for admission (Dodie Knott) Medical Decision Making - Lab Data Result diagrams: 11/28/23 12:12 11/28/23 12:12 <Sb Villalta - Last Filed: 11/28/23 16:36> - Lab Data Result diagrams: 11/29/23 07:06 11/29/23 07:06 <Dodie Knott - Last Filed: 11/30/23 00:25> - Medical Decision Making Was pt. sent in by a medical professional or institution (, PA, [employer], urgent care, hospital, or senior living...) When possible be specific @ -[No] Did you speak to anyone other than the patient for history (EMS, parent, family, police, friend...)? What history was obtained from this source @ - Did you review nursing and triage notes (agree or disagree)? Why? @ -[I reviewed and agree with nursing and triage notes] Were old charts reviewed (outside hosp., previous admission, EMS record, old EKG, old radiological studies, urgent care reports/EKG's, senior living records)? Report findings @ -[No old charts were reviewed] Differential Diagnosis (chest pain, altered mental status, abdominal pain women, abdominal pain men, vaginal bleeding, weakness, fever, dyspnea, syncope, headache, dizziness, GI bleed, back pain, seizure, CVA, palpatations, mental health, musculoskeletal)? @ -[not applicable] EKG interpreted by me (3pts min.). @ -[As above] X-rays interpreted by me (1pt min.). @ X-ray does not reveal any focal consolidation [cardiomegaly CT interpreted by me (1pt min.). @ -[None done] U/S interpreted by me (1pt. min.). @ -[None done] What testing was considered but not performed or refused? (CT, X-rays, U/S, labs)? Why? @ -[None] What meds were considered but not given or refused? Why? @ -[None] Did you discuss the management of the patient with other professionals (professionals i.e. DrXavier, PA, [employer], lab, RT, psych nurse, social staff worker, seasonal package handler, teacher, bank compliance officer, showcase maker)? Give summary @ -[No] Was smoking cessation discussed for >3mins.? @ -[No] Was critical care preformed (if so, how long)? @ -[No] Were there social determinants of health that impacted care today? How? (Homelessness, low income, unemployed, alcoholism, drug addiction, transportation, low edu. Level, literacy, decrease access to med. care, assisted, rehab)? @ -[No] Was there de-escalation of care discussed even if they declined (Discuss DNR or withdrawal of care, Hospice)? DNR status @ -[No] What co-morbidities impacted this encounter? (DM, HTN, Smoking, COPD, CAD, Canc er, CVA, ARF, Chemo, Hep., AIDS, mental health diagnosis, sleep apnea, morbid obesity)? @ -[None] Was patient admitted / discharged? Hospital course, mention meds given and route, prescriptions, significant lab abnormalities, going to OR and other pertinent info. @ -Admission. This is a pleasant 68-year-old female who presents the emergency department with generalized body aches. Patient has a history and physical exam performed. Physical exam is essentially unremarkable. Patient is afebrile. Heart rate regular rate and rhythm, lungs clear to auscultation bilaterally abdomen is soft and nontender. Patient's WBC count 16.2. Chest x- ray unremarkable. Urinalysis was sent with urinary tract infection. Patient was offered admission. Case is discussed with sound who agrees and accepts the patient for further observation. Case is discussed with Dr. Farah, ED attending who basically care Undiagnosed new problem with uncertain prognosis? @ -[No] Drug Therapy requiring intensive monitoring for toxicity (Heparin, Nitro, Insulin, Cardizem)? @ -[No] Were any procedures done? @ -[No] Diagnosis/symptom? @ -Leukocytosis - Generalized Malaise - Nausea and vomiting Acute, or Chronic, or Acute on Chronic? @ -Acute Uncomplicated (without systemic symptoms) or Complicated (systemic symptoms)? @ -Uncomplicated Side effects of treatment? @ -[No] Exacerbation, Progression, or Severe Exacerbation? @ -[No] Poses a threat to life or bodily function? How? (Chest pain, USA, OR, pneumonia, PE, COPD, DKA, ARF, appy, cholecystitis, CVA, Diverticulitis, Homicidal, Suicidal, threat to staff... and all critical care pts) @ -Yes, increased risk for sepsis (Dodie Knott) - Lab Data Lab Results 11/28/23 11/28/23 11/28/23 Range/Units 11:39 12:12 12:12 WBC 16.3 H (3.8-10.6) k/uL RBC 4.57 (3.80-5.40) m/uL Hgb 13.7 (11.4-16.0) gm/dL Hct 40.9 (34.0-46.0) % MCV 89.6 (80.0-100.0) fL MCH 29.9 (25.0-35.0) pg MCHC 33.4 (31.0-37.0) g/dL RDW 13.7 (11.5-15.5) % Plt Count 179 D (150-450) k/uL MPV 9.8 Neutrophils % 88 % Lymphocytes % 4 % Monocytes % 5 % Eosinophils % 1 % Basophils % 0 % Neutrophils # 14.4 H (1.3-7.7) k/uL Lymphocytes # 0.7 L (1.0-4.8) k/uL Monocytes # 0.9 (0-1.0) k/uL Eosinophils # 0.1 (0-0.7) k/uL Basophils # 0.0 (0-0.2) k/uL Sodium 136 L (137-145) mmol/L Potassium 3.8 (3.5-5.1) mmol/L Chloride 99 (98-107) mmol/L Carbon Dioxide 27 (22-30) mmol/L Anion Gap 10 mmol/L BUN 30 H (7-17) mg/dL Creatinine 0.66 (0.52-1.04) mg/dL Est GFR (CKD-EPI)AfAm >90 (>60 ml/min/1.73 sqM) Est GFR (CKD-EPI)NonAf >90 (>60 ml/min/1.73 sqM) Glucose 115 H (74-99) mg/dL Calcium 8.5 (8.4-10.2) mg/dL Total Bilirubin 1.2 (0.2-1.3) mg/dL AST 23 (14-36) U/L ALT 17 (4-34) U/L Alkaline Phosphatase 77 (38-126) U/L Total Protein 6.4 (6.3-8.2) g/dL Albumin 3.4 L (3.5-5.0) g/dL Urine Color Urine Appearance (Clear) Urine pH (5.0-8.0) Ur Specific Lawrence (1.001-1.035) Urine Protein (Negative) Urine Glucose (UA) (Negative) Urine Ketones (Negative) Urine Blood (Negative) Urine Nitrite (Negative) Urine Bilirubin (Negative) Urine Urobilinogen (<2.0) mg/dL Ur Leukocyte Esterase (Negative) Urine RBC (0-5) /hpf Urine WBC (0-5) /hpf Ur Squamous Epith Cells (0-4) /hpf Urine Bacteria (None) /hpf Urine Mucus (None) /hpf Influenza Type A (PCR) Not Detected (Not Detectd) Influenza Type B (PCR) Not Detected (Not Detectd) RSV (PCR) Not Detected (Not Detectd) SARS-CoV-2 (PCR) Not Detected (Not Detectd) 11/28/23 Range/Units 15:00 WBC (3.8-10.6) k/uL RBC (3.80-5.40) m/uL Hgb (11.4-16.0) gm/dL Hct (34.0-46.0) % MCV (80.0-100.0) fL MCH (25.0-35.0) pg MCHC (31.0-37.0) g/dL RDW (11.5-15.5) % Plt Count (150-450) k/uL MPV Neutrophils % % Lymphocytes % % Monocytes % % Eosinophils % % Basophils % % Neutrophils # (1.3-7.7) k/uL Lymphocytes # (1.0-4.8) k/uL Monocytes # (0-1.0) k/uL Eosinophils # (0-0.7) k/uL Basophils # (0-0.2) k/uL Sodium (137-145) mmol/L Potassium (3.5-5.1) mmol/L Chloride (98-107) mmol/L Carbon Dioxide (22-30) mmol/L Anion Gap mmol/L BUN (7-17) mg/dL Creatinine (0.52-1.04) mg/dL Est GFR (CKD-EPI)AfAm (>60 ml/min/1.73 sqM) Est GFR (CKD-EPI)NonAf (>60 ml/min/1.73 sqM) Glucose (74-99) mg/dL Calcium (8.4-10.2) mg/dL Total Bilirubin (0.2-1.3) mg/dL AST (14-36) U/L ALT (4-34) U/L Alkaline Phosphatase (38-126) U/L Total Protein (6.3-8.2) g/dL Albumin (3.5-5.0) g/dL Urine Color Yellow Urine Appearance Cloudy H (Clear) Urine pH 6.0 (5.0-8.0) Ur Specific [place] 1.020 (1.001-1.035) Urine Protein 2+ H (Negative) Urine Glucose (UA) Negative (Negative) Urine Ketones 1+ H (Negative) Urine Blood Moderate H (Negative) Urine Nitrite Negative (Negative) Urine Bilirubin Negative (Negative) Urine Urobilinogen <2.0 (<2.0) mg/dL Ur Leukocyte Esterase Large H (Negative) Urine RBC 14 H (0-5) /hpf Urine WBC 89 H (0-5) /hpf Ur Squamous Epith Cells 4 (0-4) /hpf Urine Bacteria Many H (None) /hpf Urine Mucus Many H (None) /hpf Influenza Type A (PCR) (Not Detectd) Influenza Type B (PCR) (Not Detectd) RSV (PCR) (Not Detectd) SARS-CoV-2 (PCR) (Not Detectd) Disposition <Sb Villalta - Last Filed: 11/28/23 16:36> Time of Disposition: 00:24 <Dodie Knott - Last Filed: 11/30/23 00:25> Clinical Impression: UTI (urinary tract infection), Nausea and vomiting, Leukocytosis Disposition: ADMITTED IP TO THIS HOSP Condition: Fair
[2023-11-28 12:34] LABS: ALT 17 U/L (4-34); AST 23 U/L (14-36); African American GFR (CKD) >90 (>60 ml/min/1.73 sqM); Albumin 3.4 g/dL (3.5-5.0); Alkaline Phosphatase 77 U/L (38-126); Anion Gap 10 mmol/L; Blood Urea Nitrogen 30 mg/dL (7-17); Calcium 8.5 mg/dL (8.4-10.2); Carbon Dioxide 27 mmol/L (22-30); Chloride 99 mmol/L (98-107); Glucose 115 mg/dL (74-99); Non-African American GFR(CKD) >90 (>60 ml/min/1.73 sqM); Potassium 3.8 mmol/L (3.5-5.1); Sodium 136 mmol/L (137-145); Total Bilirubin 1.2 mg/dL (0.2-1.3); Total Protein 6.4 g/dL (6.3-8.2)
[2023-11-28 12:35] LABS: Basophils % (A) 0 %; Eosinophils # (A) 0.1 k/uL (0-0.7); Eosinophils % (A) 1 %; HCT 40.9 % (34.0-46.0); HGB 13.7 gm/dL (11.4-16.0); Lymphocytes # (A) 0.7 k/uL (1.0-4.8); Lymphocytes % (A) 4 %; MCH 29.9 pg (25.0-35.0); MCHC 33.4 g/dL (31.0-37.0); MCV 89.6 fL (80.0-100.0); Mean Platelet Volume 9.8; Monocytes # (A) 0.9 k/uL (0-1.0); Monocytes % (A) 5 %; Neutrophils # (A) 14.4 k/uL (1.3-7.7); Neutrophils % (A) 88 %; RBC 4.57 m/uL (3.80-5.40); RDW 13.7 % (11.5-15.5); WBC 16.3 k/uL (3.8-10.6)
[2023-11-28 12:40] LABS: Platelet Count 179 k/uL (150-450)
--- NOTE | 2023-11-28 14:06 | XR ---
EXAMINATION TYPE: XR chest 2V DATE OF EXAM: 11/28/2023 COMPARISON: 10/25/2023 HISTORY: 68-year-old female with cough and congestion TECHNIQUE: PA and lateral views FINDINGS: Heart borderline in size. Rightward patient rotation IS a normal cardiac mediastinal contours. Athero sclerotic arch calcifications. Hyperinflation. Patchy opacity left greater than right lung bases. No pleural effusion on the lateral view. IMPRESSION: COPD. Patchy left greater than right basilar opacity, probably atelectasis. Patchy infiltrates are al so possible but considered less likely. Clinically correlate.
[2023-11-28 15:53] LABS: Appearance,Urine Cloudy (Clear); Bacteria,Urine Many /hpf; Bilirubin,Urine Negative (Negative); Blood,Urine Moderate (Negative); Color,Urine Yellow; Glucose,Urine (UA) Negative (Negative); Ketones,Urine 1+ (Negative); Leukocyte Esterase,Urine Large (Negative); Mucus,Urine Many /hpf; Nitrite,Urine Negative (Negative); Protein,Urine 2+ (Negative); RBC,Urine 14 /hpf (0-5); Squamous Epithelial Cell,Urine 4 /hpf (0-4); Urobilinogen,Urine <2.0 mg/dL (<2.0); WBC,Urine 89 /hpf (0-5)
[2023-11-28] MEDS ORDERED: ONDANSETRON 4 MG/2 ML VIAL IVP PRN (17:12)
[2023-11-28] MEDS ORDERED: MELATONIN 3 MG TABLET PO PRN (17:12)
[2023-11-28] MEDS ORDERED: DOCUSATE 100 MG CAP PO PRN (17:12)
[2023-11-28] MEDS ORDERED: NALOXONE 0.4 MG/ML 1 ML VIAL IV PRN ×2 (17:12→21:08)
--- NOTE | 2023-11-28 17:46 | P.HPIM ---
History of Present Illness H&P Date: 11/28/23 68 year old F with PMH of HTN, GERD, Dementia, HLD, Hypothyroidism presents to the ED for left flank pain, fever and chills. Symptoms started 3 days ago. She reports left flank pain. Fever and chills that are on and off along with dry heaves. She denies any dysuria. No chest pain, SOB or palpitations. In the ED she underwent extensive evaluation. Tachycardiac with HR in the 90s. CBC WBC count 16.3. CMP Na 136, BUN 30, glu 115, alb 3.4. UA large LE. COVID RSV Flu negative. CXR patchy bibasilar infiltrates. Patient is admitted for sepsis likely related to pyelonephritis General: non toxic, mild distress, appears at stated age Derm: warm, dry Head: atraumatic, normocephalic, symmetric Eyes: EOMI, no lid lag, anicteric sclera Cardiovascular: S1S2 tachy, no murmur Lungs: CTA bilateral, no rhonchi, no rales , no accessory muscle use Ext: no gross muscle atrophy, no edema, no contractures Neuro: No focal neurologic deficits Psych: Alert, oriented, appropriate affect L CVA tenderness Based on my assessment of this patient, this patient meets a high complexity level of care. Patient has an acute diagnosis of sepsis likely related to pyelonephritis that poses a threat to life or bodily function. Sepsis related to Pyelonephritis: Start Rocephin 2g IV QD. UCx. BCx. Lactic acid. Telemetry monitoring. NS at 75 cc/hr. Hyponatremia with prerenal azoetmia: Likely dehydration. IVF as above. Chronic conditions: HTN, GERD, Dementia, HLD, Hypothyroidism CODE STATUS: FULL CODE. DVT Prophylaxis: Lovenox GI Prophylaxis: Protonix Designated medical POA if patient is not able to make medical decisions for themselves: . I have reviewed the following human performance consultant notes: I have reviewed the results of the following tests: As above. I have ordered the following tests: As above. I have discussed the care of this patient with the following independent historian: I have independently interpreted the following test below: CXR I have discussed the management of this patient with the following physician: ED provider. Past Medical History Past Medical History: Deep Vein Thrombosis (DVT), GERD/Reflux, Hypertension, Memory Impairment, Thyroid Disorder Additional Past Medical History / Comment(s): early dementia and [place],90% deaf- please relay information to /daughter. family hx colorectal cancer. bowel/urinary incontinence wears depends. has appt 07/13 with neurologist to r/o myasthenia gravis has been experiencing facial drooping,lethary,muscle weakness. osteopenia History of Any Multi-Drug Resistant Organisms: None Reported Past Surgical History: Heart Catheterization, Hysterectomy Additional Past Surgical History / Comment(s): REPAIR RT RUPTURED THIGH MUSCLE. COLONOSCOPY, bladder prolapse surgery Past Anesthesia/Blood Transfusion Reactions: No Reported Reaction Past Psychological History: No Psychological Hx Reported Smoking Status: Never smoker Past Alcohol Use History: None Reported Past Drug Use History: None Reported - Past Family History Sister(s) Family Medical History: Cancer Additional Family Medical History / Comment(s): COLON Mother Family Medical History: Cancer Additional Family Medical History / Comment(s): BREAST Father Family Medical History: Cancer Additional Family Medical History / Comment(s): LUNG Medications and Allergies Home Medications Medication Instructions Recorded Confirmed Type Levothyroxine Sodium [Synthroid] 125 mcg PO DAILY 08/14/16 10/24/23 History Metoprolol Succinate (ER) [Toprol 50 mg PO DAILY 08/14/16 10/24/23 History XL] Ferrous Sulfate [Iron (65 MG 325 mg PO DAILY 03/28/21 10/24/23 History Elemental)] Beet Root 1000mg 1,000 mg PO DAILY 10/24/23 10/24/23 History Cholecalciferol [Vitamin D3 (25 25 mcg PO DAILY 10/24/23 10/24/23 History Mcg = 1000 Iu)] Cinnamon Bark [Cinnamon] 1,000 mg PO DAILY 10/24/23 10/24/23 History Cyanocobalamin (Vitamin B-12) 1,000 mcg PO DAILY 10/24/23 10/24/23 History [Vitamin B-12] Donepezil [Aricept] 10 mg PO DAILY 10/24/23 10/24/23 History Ezetimibe [Zetia] 10 mg PO DAILY 10/24/23 10/24/23 History Ginkgo Biloba Extract 1 cap PO DAILY 10/24/23 10/24/23 History Potassium(Unknown Dose) 1 tab PO DAILY 10/24/23 10/24/23 History Pro Advanced Urinary Formula 1 cap PO DAILY 10/24/23 10/24/23 History Stem Cell Supplement 1 cap PO DAILY 10/24/23 10/24/23 History amLODIPine [Norvasc] 10 mg PO DAILY 10/24/23 10/24/23 History Acetaminophen Tab [Tylenol] 650 mg PO Q6HR PRN tab 10/28/23 Rx Ondansetron Odt [Zofran Odt] 4 mg PO Q8HR PRN #20 tab 10/28/23 Rx Pantoprazole [Protonix] 40 mg PO DAILY #30 tab 10/28/23 Rx cefUROXime axetiL [Ceftin] 500 mg PO BID 10 Days #20 tab 10/30/23 Rx Allergies Allergy/AdvReac Type Severity Reaction Status Date / Time No Known Allergies Allergy Verified 11/28/23 11:46 Physical Exam Vitals: Vital Signs Temp Pulse Resp BP Pulse Ox 11/28/23 16:57 98.4 F 91 18 159/80 94 L 11/28/23 15:07 98.4 F 80 18 153/77 95 11/28/23 15:00 16 11/28/23 11:44 98.9 F 80 20 130/76 93 L Intake and Output 11/28/23 11/28/23 11/28/23 06:59 14:59 22:59 Other: Weight 89.811 kg Results CBC & Chem 7: 11/28/23 12:12 11/28/23 12:12 Labs: Abnormal Lab Results - Last 24 Hours (Table) 11/28/23 11/28/23 11/28/23 Range/Units 12:12 12:12 15:00 WBC 16.3 H (3.8-10.6) k/uL Neutrophils # 14.4 H (1.3-7.7) k/uL Lymphocytes # 0.7 L (1.0-4.8) k/uL Sodium 136 L (137-145) mmol/L BUN 30 H (7-17) mg/dL Glucose 115 H (74-99) mg/dL Albumin 3.4 L (3.5-5.0) g/dL Urine Appearance Cloudy H (Clear) Urine Protein 2+ H (Negative) Urine Ketones 1+ H (Negative) Urine Blood Moderate H (Negative) Ur Leukocyte Esterase Large H (Negative) Urine RBC 14 H (0-5) /hpf Urine WBC 89 H (0-5) /hpf Urine Bacteria Many H (None) /hpf Urine Mucus Many H (None) /hpf
[2023-11-28] MEDS: SODIUM CHLORIDE 0.9% 1,000 ML IV SCH ×2 (19:33→22:18)
[2023-11-28] MEDS: ACETAMINOPHEN TAB 325 MG TAB PO PRN (23:00)
[2023-11-29] MEDS: LEVOTHYROXINE 125 MCG TAB PO SCH (06:33)
[2023-11-29] MEDS: PANTOPRAZOLE 40 MG TABLET PO SCH (06:33)
[2023-11-29] MEDS: SODIUM CHLORIDE 0.9% 1,000 ML IV SCH ×3 (06:34→21:03)
[2023-11-29 08:13] LABS: Basophils % (A) 0 %; Eosinophils % (A) 0 %; HCT 39.1 % (34.0-46.0); Lymphocytes # (A) 0.5 k/uL (1.0-4.8); Lymphocytes % (A) 5 %; MCH 30.2 pg (25.0-35.0); MCHC 33.2 g/dL (31.0-37.0); Mean Platelet Volume 9.4; Monocytes # (A) 0.7 k/uL (0-1.0); Monocytes % (A) 6 %; Neutrophils # (A) 10.2 k/uL (1.3-7.7); Neutrophils % (A) 88 %; Platelet Count 190 k/uL (150-450); RBC 4.29 m/uL (3.80-5.40); RDW 13.7 % (11.5-15.5); WBC 11.7 k/uL (3.8-10.6)
[2023-11-29 08:20] LABS: African American GFR (CKD) >90 (>60 ml/min/1.73 sqM); Anion Gap 12 mmol/L; Blood Urea Nitrogen 23 mg/dL (7-17); Calcium 8.4 mg/dL (8.4-10.2); Carbon Dioxide 27 mmol/L (22-30); Chloride 98 mmol/L (98-107); Glucose 84 mg/dL (74-99); Non-African American GFR(CKD) >90 (>60 ml/min/1.73 sqM); Potassium 3.5 mmol/L (3.5-5.1); Sodium 137 mmol/L (137-145)
--- NOTE | 2023-11-29 09:25 | US ---
EXAMINATION TYPE: US renals and bladder DATE OF EXAM: 11/29/2023 COMPARISON: NONE CLINICAL INDICATION: Female, 68 years old with pain, history of pyelo; EXAM MEASUREMENTS: Right Kidney: 12.8 x 6.3 x 5.6 cm Left Kidney: 12.3 x 6.3 x 5.6 cm Right Kidney: No hydronephrosis. Tiny 6 mm cortical cyst mid to lower pole. Left Kidney: No hydronephrosis. Bladder: Anechoic Bilateral Jets seen: No IMPRESSION: No hydronephrosis. Tiny 6 mm cortical cyst right kidney.
[2023-11-29] MEDS: amLODIPine 10 MG TAB PO SCH (09:43)
[2023-11-29] MEDS: METOPROLOL SUCCINATE (ER) 50 MG TAB.ER.24H PO SCH (09:44)
[2023-11-29] MEDS: EZETIMIBE 10 MG TAB PO SCH (09:44)
[2023-11-29] MEDS: DONEPEZIL 10 MG TAB PO SCH (09:44)
[2023-11-29] MEDS: FERROUS SULFATE 325 MG TAB PO SCH (09:45)
[2023-11-29] MEDS: ENOXAPARIN 40 MG/0.4 ML SYRINGE SQ SCH (09:46)
--- NOTE | 2023-11-29 12:04 | P.PN ---
Subjective Progress Note Date: 11/29/23 68 year old F with PMH of HTN, GERD, Dementia, HLD, Hypothyroidism presents to the ED for left flank pain, fever and chills. Symptoms started 3 days ago. She reports left flank pain. Fever and chills that are on and off along with dry heaves. She denies any dysuria. No chest pain, SOB or palpitations. In the ED she underwent extensive evaluation. Tachycardiac with HR in the 90s. CBC WBC count 16.3. CMP Na 136, BUN 30, glu 115, alb 3.4. UA large LE. COVID RSV Flu negative. CXR patchy bibasilar infiltrates. Patient is admitted for sepsis likely related to pyelonephritis. 11/29 Patient was seen and examined. Left flank pain improved. CBC WBC 11.7. BMP BUN 23. Lactic acid 1.0. Renal US ordered to rule out structural disease. General: non toxic, mild distress, appears at stated age Derm: warm, dry Head: atraumatic, normocephalic, symmetric Eyes: EOMI, no lid lag, anicteric sclera Cardiovascular: S1S2 tachy, no murmur Lungs: CTA bilateral, no rhonchi, no rales , no accessory muscle use Ext: no gross muscle atrophy, no edema, no contractures Neuro: No focal neurologic deficits Psych: Alert, oriented, appropriate affect L CVA tenderness Based on my assessment of this patient, this patient meets a moderate complexity level of care. Patient has an acute diagnosis of sepsis likely related to pyelonephritis that poses a threat to life or bodily function. Sepsis related to Pyelonephritis: Rocephin 2g IV QD. UCx. BCx. Telemetry monitoring. NS at 75 cc/hr. Hyponatremia with prerenal azoetmia: Likely dehydration. IVF as above. Chronic conditions: HTN, GERD, Dementia, HLD, Hypothyroidism CODE STATUS: FULL CODE. DVT Prophylaxis: Lovenox GI Prophylaxis: Protonix Designated medical POA if patient is not able to make medical decisions for themselves: . I have reviewed the following data power consultant notes: I have reviewed the results of the following tests: CBC. BMP. Lactic acid I have ordered the following tests: Pending: UCx, BCx Renal US. I have discussed the care of this patient with the following independent historian: I have independently interpreted the following test below: I have discussed the management of this patient with the following physician: Objective - Vital Signs Vital signs: Vital Signs Temp 98.6 F 11/29/23 02:32 Pulse 85 11/29/23 02:32 Resp 16 11/29/23 02:32 BP 130/71 11/29/23 02:32 Pulse Ox 91 L 11/29/23 02:32 FiO2 Intake & Output 11/28/23 11/29/23 11/29/23 18:59 06:59 18:59 Intake Total 750 Balance 750 Weight 89.811 kg Intake: Intake, IV Titration 750 Amount Sodium Chloride 0.9% 1, 750 000 ml @ 75 mls/hr IV . [id number] [facility] Rx#:[id number] Other: # Voids 1 # Bowel Movements 1 - Labs CBC & Chem 7: 11/29/23 07:06 11/29/23 07:06 Labs: Abnormal Lab Results - Last 24 Hours (Table) 11/28/23 11/28/23 11/28/23 Range/Units 12:12 12:12 15:00 WBC 16.3 H (3.8-10.6) k/uL Neutrophils # 14.4 H (1.3-7.7) k/uL Lymphocytes # 0.7 L (1.0-4.8) k/uL Sodium 136 L (137-145) mmol/L BUN 30 H (7-17) mg/dL Glucose 115 H (74-99) mg/dL Albumin 3.4 L (3.5-5.0) g/dL Urine Appearance Cloudy H (Clear) Urine Protein 2+ H (Negative) Urine Ketones 1+ H (Negative) Urine Blood Moderate H (Negative) Ur Leukocyte Esterase Large H (Negative) Urine RBC 14 H (0-5) /hpf Urine WBC 89 H (0-5) /hpf Urine Bacteria Many H (None) /hpf Urine Mucus Many H (None) /hpf 11/29/23 11/29/23 Range/Units 07:06 07:06 WBC 11.7 H (3.8-10.6) k/uL Neutrophils # 10.2 H (1.3-7.7) k/uL Lymphocytes # 0.5 L (1.0-4.8) k/uL Sodium (137-145) mmol/L BUN 23 H (7-17) mg/dL Glucose (74-99) mg/dL Albumin (3.5-5.0) g/dL Urine Appearance (Clear) Urine Protein (Negative) Urine Ketones (Negative) Urine Blood (Negative) Ur Leukocyte Esterase (Negative) Urine RBC (0-5) /hpf Urine WBC (0-5) /hpf Urine Bacteria (None) /hpf Urine Mucus (None) /hpf
[2023-11-30] MEDS: ACETAMINOPHEN TAB 325 MG TAB PO PRN (01:23)
[2023-11-30] MEDS: SODIUM CHLORIDE 0.9% 1,000 ML IV SCH ×4 (01:25→20:22)
[2023-11-30] MEDS: LEVOTHYROXINE 125 MCG TAB PO SCH (06:46)
[2023-11-30] MEDS: PANTOPRAZOLE 40 MG TABLET PO SCH (06:46)
[2023-11-30] MEDS: amLODIPine 10 MG TAB PO SCH (08:49)
[2023-11-30] MEDS: FERROUS SULFATE 325 MG TAB PO SCH (08:49)
[2023-11-30] MEDS: EZETIMIBE 10 MG TAB PO SCH (08:49)
[2023-11-30] MEDS: DONEPEZIL 10 MG TAB PO SCH (08:49)
[2023-11-30] MEDS: METOPROLOL SUCCINATE (ER) 50 MG TAB.ER.24H PO SCH (08:49)
[2023-11-30] MEDS: ENOXAPARIN 40 MG/0.4 ML SYRINGE SQ SCH (08:49)
[2023-11-30] MEDS: HYDROcodone/APAP 5-325MG 1 EACH TAB PO PRN ×2 (11:00→20:20)
--- NOTE | 2023-11-30 11:12 | P.DS ---
Providers Date of admission: 11/28/23 17:44 Expected date of discharge: 11/30/23 Attending physician: Aliza Donovan MD Primary care physician: Rachana Conrad [facility] Course: 68 year old F with PMH of HTN, GERD, Dementia, HLD, Hypothyroidism presents to the ED for left flank pain, fever and chills. Symptoms started 3 days ago. She reports left flank pain. Fever and chills that are on and off along with dry heaves. She denies any dysuria. No chest pain, SOB or palpitations. In the ED she underwent extensive evaluation. Tachycardiac with HR in the 90s. CBC WBC count 16.3. CMP Na 136, BUN 30, glu 115, alb 3.4. UA large LE. COVID RSV Flu negative. CXR patchy bibasilar infiltrates. Patient is admitted for sepsis likely related to pyelonephritis. 11/29 Patient was seen and examined. Left flank pain improved. CBC WBC 11.7. BMP BUN 23. Lactic acid 1.0. Renal US ordered to rule out structural disease. 11/30 Patient was seen and examined. She reports moderate left flank pain. UCx gram negative bacilli. Renal US no hydronephrosis, 6 mm cortical right kidney cyst. I am hoping we get final urine cultures back today with sensitivities. Plans for discharge home when we do. General: non toxic, mild distress, appears at stated age Derm: warm, dry Head: atraumatic, normocephalic, symmetric Eyes: EOMI, no lid lag, anicteric sclera Cardiovascular: S1S2 reg, no murmur Lungs: CTA bilateral, no rhonchi, no rales , no accessory muscle use Ext: no gross muscle atrophy, no edema, no contractures Neuro: No focal neurologic deficits Psych: Alert, oriented, appropriate affect L CVA tenderness Discharge Diagnosis: Sepsis related to Pyelonephritis Hyponatremia Prerenal azoetmia Chronic conditions: HTN, GERD, Dementia, HLD, Hypothyroidism This complex discharge took 35 minutes to complete. Patient Condition at Discharge: Stable Plan - Discharge Summary Discharge Rx Participant: Yes New Discharge Prescriptions: No Action Metoprolol Succinate (ER) [Toprol XL] 50 mg PO DAILY Levothyroxine Sodium [Synthroid] 125 mcg PO DAILY Ferrous Sulfate [Iron (65 MG Elemental)] 325 mg PO DAILY Beet Root 1000mg 1,000 mg PO DAILY Pro Advanced Urinary Formula 1 cap PO DAILY Stem Cell Supplement 1 cap PO DAILY amLODIPine [Norvasc] 10 mg PO DAILY Cinnamon Bark [Cinnamon] 1,000 mg PO DAILY Ezetimibe [Zetia] 10 mg PO DAILY Acetaminophen Tab [Tylenol] 650 mg PO Q6HR PRN tab PRN Reason: Mild Pain Or Fever > 100.5 Ondansetron Odt [Zofran Odt] 4 mg PO Q8HR PRN #20 tab PRN Reason: Nausea Levofloxacin [Levaquin] 250 mg PO BID Ginkgo Biloba Extract 1 cap PO DAILY Potassium(Unknown Dose) 1 tab PO DAILY Cholecalciferol [Vitamin D3 (25 Mcg = 1000 Iu)] 25 mcg PO DAILY Cyanocobalamin (Vitamin B-12) [Vitamin B-12] 1,000 mcg PO DAILY Donepezil [Aricept] 10 mg PO DAILY Pantoprazole [Protonix] 40 mg PO DAILY #30 tab Diphenoxylate HCl/Atropine [Lomotil 2.5-0.025 mg Tablet] 2 tab PO QID PRN PRN Reason: Diarrhea Discharge Medication List Levothyroxine Sodium [Synthroid] 125 mcg PO DAILY 08/14/16 [History] Metoprolol Succinate (ER) [Toprol XL] 50 mg PO DAILY 08/14/16 [History] Ferrous Sulfate [Iron (65 MG Elemental)] 325 mg PO DAILY 03/28/21 [History] Beet Root 1000mg 1,000 mg PO DAILY 10/24/23 [History] Cholecalciferol [Vitamin D3 (25 Mcg = 1000 Iu)] 25 mcg PO DAILY 10/24/23 [History] Cinnamon Bark [Cinnamon] 1,000 mg PO DAILY 10/24/23 [History] Cyanocobalamin (Vitamin B-12) [Vitamin B-12] 1,000 mcg PO DAILY 10/24/23 [History] Donepezil [Aricept] 10 mg PO DAILY 10/24/23 [History] Ezetimibe [Zetia] 10 mg PO DAILY 10/24/23 [History] Ginkgo Biloba Extract 1 cap PO DAILY 10/24/23 [History] Potassium(Unknown Dose) 1 tab PO DAILY 10/24/23 [History] Pro Advanced Urinary Formula 1 cap PO DAILY 10/24/23 [History] Stem Cell Supplement 1 cap PO DAILY 10/24/23 [History] amLODIPine [Norvasc] 10 mg PO DAILY 10/24/23 [History] Acetaminophen Tab [Tylenol] 650 mg PO Q6HR PRN tab 10/28/23 [Rx] Ondansetron Odt [Zofran Odt] 4 mg PO Q8HR PRN #20 tab 10/28/23 [Rx] Pantoprazole [Protonix] 40 mg PO DAILY #30 tab 10/28/23 [Rx] Diphenoxylate HCl/Atropine [Lomotil 2.5-0.025 mg Tablet] 2 tab PO QID PRN 11/28/23 [History] Levofloxacin [Levaquin] 250 mg PO BID 11/28/23 [History] Follow up Appointment(s)/Referral(s): Rachana Dasilva MD [Primary Care Provider] - 1-2 days
[2023-12-01] MEDS: SODIUM CHLORIDE 0.9% 1,000 ML IV SCH ×3 (03:36→21:34)
[2023-12-01] MEDS: LEVOTHYROXINE 125 MCG TAB PO SCH (06:25)
[2023-12-01] MEDS: PANTOPRAZOLE 40 MG TABLET PO SCH (06:25)
[2023-12-01] MEDS: METOPROLOL SUCCINATE (ER) 50 MG TAB.ER.24H PO SCH (08:16)
[2023-12-01] MEDS: DONEPEZIL 10 MG TAB PO SCH (08:16)
[2023-12-01] MEDS: amLODIPine 10 MG TAB PO SCH (08:16)
[2023-12-01] MEDS: FERROUS SULFATE 325 MG TAB PO SCH (08:16)
[2023-12-01] MEDS: EZETIMIBE 10 MG TAB PO SCH (08:16)
[2023-12-01] MEDS: ERTAPENEM 1 GM in SODIUM CHLORIDE 0.9% 50 ML IVPB SCH (08:17)
[2023-12-01] MEDS: ENOXAPARIN 40 MG/0.4 ML SYRINGE SQ SCH (08:17)
--- NOTE | 2023-12-01 10:40 | P.PN ---
Subjective Progress Note Date: 12/01/23 68 year old F with PMH of HTN, GERD, Dementia, HLD, Hypothyroidism presents to the ED for left flank pain, fever and chills. Symptoms started 3 days ago. She reports left flank pain. Fever and chills that are on and off along with dry heaves. She denies any dysuria. No chest pain, SOB or palpitations. In the ED she underwent extensive evaluation. Tachycardiac with HR in the 90s. CBC WBC count 16.3. CMP Na 136, BUN 30, glu 115, alb 3.4. UA large LE. COVID RSV Flu negative. CXR patchy bibasilar infiltrates. Patient is admitted for sepsis likely related to pyelonephritis. Started on Rocephin IV. UCx gram negative bacilli. Renal US no hydronephrosis, 6 mm cortical right kidney cyst. 12/01 Patient was seen and examined. Feels well, continues to report L flank pain well controlled with Lovely PRN. UCx finalized ESBL E. coli resistant to Rocephin. Antibiotics switched to Ertapenem and ID consulted. General: non toxic, mild distress, appears at stated age Derm: warm, dry Head: atraumatic, normocephalic, symmetric Eyes: EOMI, no lid lag, anicteric sclera Cardiovascular: S1S2 reg, no murmur Lungs: CTA bilateral, no rhonchi, no rales , no accessory muscle use Ext: no gross muscle atrophy, no edema, no contractures Neuro: No focal neurologic deficits Psych: Alert, oriented, appropriate affect L CVA tenderness Based on my assessment of this patient, this patient meets a moderate complexity level of care. Patient has an acute diagnosis of sepsis likely related to pyelonephritis that poses a threat to life or bodily function. Sepsis related to Pyelonephritis: DC Rocephin and start Ertapenem 1g IV QD. UCx as above. BCx negative so far. Telemetry monitoring. NS at 75 cc/hr. ID consult. Hyponatremia with prerenal azoetmia: Likely dehydration. IVF as above. Chronic conditions: HTN, GERD, Dementia, HLD, Hypothyroidism CODE STATUS: FULL CODE DVT Prophylaxis: Lovenox GI Prophylaxis: Protonix Designated medical POA if patient is not able to make medical decisions for themselves: I have reviewed the following it sales consultant notes: I have reviewed the results of the following tests: UCx BCx I have ordered the following tests: I have discussed the care of this patient with the following independent historian: I have independently interpreted the following test below: I have discussed the management of this patient with the following physician: Discussed with Dr. Dacosta. Objective - Vital Signs Vital signs: Vital Signs Temp 97.9 F 12/01/23 04:40 Pulse 64 12/01/23 04:40 Resp 19 12/01/23 04:40 BP 132/72 12/01/23 04:40 Pulse Ox 90 L 12/01/23 04:40 FiO2 Intake & Output 11/30/23 12/01/23 12/01/23 18:59 06:59 18:59 Intake Total 374 Balance 374 Intake: IV 20 Invasive Line 2 20 Oral 354 Other: Voiding Method Toilet Toilet # Voids 4 - Labs CBC & Chem 7: 11/29/23 07:06 11/29/23 07:06 Labs: Microbiology - Last 24 Hours (Table) 11/28/23 15:00 Urine Culture - Final Urine,Voided Escherichia coli 11/28/23 18:45 Blood Culture - Preliminary Blood
[2023-12-01 19:47] LABS: Appearance,Urine Clear (Clear); Bilirubin,Urine Negative (Negative); Blood,Urine Small (Negative); Color,Urine Colorless; Glucose,Urine (UA) Negative (Negative); Ketones,Urine Negative (Negative); Leukocyte Esterase,Urine Negative (Negative); Mucus,Urine Occasional /hpf; Nitrite,Urine Negative (Negative); PH, Urine 7.5 (5.0-8.0); Protein,Urine Negative (Negative); RBC,Urine 5 /hpf (0-5); Urobilinogen,Urine <2.0 mg/dL (<2.0); WBC,Urine 7 /hpf (0-5)
--- NOTE | 2023-12-01 22:28 | P.CONS ---
History of Present Illness - Reason for Consult Consult date: 12/01/23 - History of Present Illness Patient is a 68-year-old female with a past medical history significant for recurrent urinary tract infection hypertension reflux DVT patient was brought into the hospital 3 days ago on 11/28/2023 for evaluation of dry heaves feeling hot and cold, and was also complaining of right flank pain patient apparently did have blood work done at her primary care physician office noticed to have elevated WBC and the patient thought she was running a fever for the patient present to the hospital patient denies having any headache or URI symptoms no chest pain shortness of breath or cough at pain to the right flank area mostly dull aching to sharp mild to moderate intensity without any rad iation patient did have some nausea but no vomiting no abdominal pain or diarrhea did have some urinary symptoms of frequency urgency and foul-smelling convention no significant burning with the symptoms the patient has been evaluated on presentation to the hospital the patient was afebrile and no fever have recorded subsequently patient was not tachycardic hypotensive or hypoxic did have a white count of 16.3 with a left shift creatinine 0.66 patient UA was positive with large leukocyte Estrace 89 WBC many bacteria culture has been finalized with ESBL E. coli antibiotics were switched to Invanz infectious was consulted for further management of antibiotic therapy, patient did have a chest x-ray this admission COPD patchy left greater than right basilar opacity probable atelectasis and ultrasound of the kidneys no hydronephrosis tiny cortical cyst right kidney Past Medical History Past Medical History: Deep Vein Thrombosis (DVT), GERD/Reflux, Hypertension, Memory Impairment, Thyroid Disorder Additional Past Medical History / Comment(s): early dementia and [place],90% deaf- please relay information to /daughter. family hx colorectal cancer. bowel/urinary incontinence wears depends. has appt 07/13 with neurologist to r/o myasthenia gravis has been experiencing facial drooping,lethary,muscle weakness. osteopenia History of Any Multi-Drug Resistant Organisms: None Reported Past Surgical History: Heart Catheterization, Hysterectomy Additional Past Surgical History / Comment(s): REPAIR RT RUPTURED THIGH MUSCLE. COLONOSCOPY, bladder prolapse surgery Past Anesthesia/Blood Transfusion Reactions: No Reported Reaction Past Psychological History: No Psychological Hx Reported Additional Psychological History / Comment(s): early dementia. mood swings Smoking Status: Never smoker Past Alcohol Use History: None Reported Past Drug Use History: None Reported - Past Family History Sister(s) Family Medical History: Cancer Additional Family Medical History / Comment(s): COLON Mother Family Medical History: Cancer Additional Family Medical History / Comment(s): BREAST Father Family Medical History: Cancer Additional Family Medical History / Comment(s): LUNG Medications and Allergies Home Medications Medication Instructions Recorded Confirmed Type Levothyroxine Sodium [Synthroid] 125 mcg PO DAILY 08/14/16 11/28/23 History Metoprolol Succinate (ER) [Toprol 50 mg PO DAILY 08/14/16 11/28/23 History XL] Ferrous Sulfate [Iron (65 MG 325 mg PO DAILY 03/28/21 11/28/23 History Elemental)] Beet Root 1000mg 1,000 mg PO DAILY 10/24/23 11/28/23 History Cholecalciferol [Vitamin D3 (25 25 mcg PO DAILY 10/24/23 11/28/23 History Mcg = 1000 Iu)] Cinnamon Bark [Cinnamon] 1,000 mg PO DAILY 10/24/23 11/28/23 History Cyanocobalamin (Vitamin B-12) 1,000 mcg PO DAILY 10/24/23 11/28/23 History [Vitamin B-12] Donepezil [Aricept] 10 mg PO DAILY 10/24/23 11/28/23 History Ezetimibe [Zetia] 10 mg PO DAILY 10/24/23 11/28/23 History Ginkgo Biloba Extract 1 cap PO DAILY 10/24/23 11/28/23 History Potassium(Unknown Dose) 1 tab PO DAILY 10/24/23 11/28/23 History Pro Advanced Urinary Formula 1 cap PO DAILY 10/24/23 11/28/23 History Stem Cell Supplement 1 cap PO DAILY 10/24/23 11/28/23 History amLODIPine [Norvasc] 10 mg PO DAILY 10/24/23 11/28/23 History Acetaminophen Tab [Tylenol] 650 mg PO Q6HR PRN tab 10/28/23 11/28/23 Rx Ondansetron Odt [Zofran Odt] 4 mg PO Q8HR PRN #20 tab 10/28/23 11/28/23 Rx Pantoprazole [Protonix] 40 mg PO DAILY #30 tab 10/28/23 11/28/23 Rx Diphenoxylate HCl/Atropine 2 tab PO QID PRN 11/28/23 11/28/23 History [Lomotil 2.5-0.025 mg Tablet] Levofloxacin [Levaquin] 250 mg PO BID 11/28/23 11/28/23 History Allergies Allergy/AdvReac Type Severity Reaction Status Date / Time No Known Allergies Allergy Verified 11/28/23 18:31 Physical Exam Vitals: Vital Signs Temp Pulse Resp BP Pulse Ox 12/01/23 20:00 98 F 69 134/75 96 12/01/23 14:35 73 123/65 85 L 12/01/23 08:51 98.3 F 70 129/74 93 L 12/01/23 04:40 97.9 F 64 19 132/72 90 L 12/01/23 00:37 97.9 F 66 19 135/73 94 L Intake and Output 12/01/23 12/01/23 12/01/23 06:59 14:59 22:59 Other: Voiding Method Toilet # Voids 4 Results CBC & Chem 7: 11/29/23 07:06 11/29/23 07:06 Labs: Abnormal Lab Results - Last 24 Hours (Table) 12/01/23 Range/Units 19:42 Urine Blood Small H (Negative) Urine WBC 7 H (0-5) /hpf Urine Mucus Occasional H (None) /hpf Microbiology - Last 24 Hours (Table) 11/28/23 15:00 Urine Culture - Final Urine,Voided Escherichia coli 11/28/23 18:45 Blood Culture - Preliminary Blood Assessment and Plan Plan: 1-patient presenting to the hospital with right flank pain nausea urinary symptoms elevated white count concerning for right-sided pyelonephritis in this patient white count has responded to Rocephin however urine culture has been fi nalized with ESBL E. coli with question of possible contaminant versus real pathogen 2-we will repeat her UA if significantly positive we will need to arrange for outpatient IV Invanz however if the repeat UA is negative may consider ESBL E. coli to be the likely contaminant rather than true pathogen 3for now continue with the Invanz 1 g daily We will follow on clinical condition and cultures to further adjust medication if needed Thank you for this consultation we will follow the patient along with you Dictation was produced using [employer] software. please excuse any grammatical, word or spelling errors. Time with Patient: Greater than 30
[2023-12-02] MEDS: HYDROcodone/APAP 5-325MG 1 EACH TAB PO PRN (04:25)
[2023-12-02] MEDS: LEVOTHYROXINE 125 MCG TAB PO SCH (06:21)
[2023-12-02 07:51] VITALS: BP 138/88; PULSE 68; RESP 16; TEMP 97.4
[2023-12-02] MEDS: PANTOPRAZOLE 40 MG TABLET PO SCH (08:23)
[2023-12-02] MEDS: ERTAPENEM 1 GM in SODIUM CHLORIDE 0.9% 50 ML IVPB SCH (08:23)
[2023-12-02] MEDS: METOPROLOL SUCCINATE (ER) 50 MG TAB.ER.24H PO SCH (08:23)
[2023-12-02] MEDS: FERROUS SULFATE 325 MG TAB PO SCH (08:23)
[2023-12-02] MEDS: ENOXAPARIN 40 MG/0.4 ML SYRINGE SQ SCH (08:23)
[2023-12-02] MEDS: amLODIPine 10 MG TAB PO SCH (08:23)
[2023-12-02] MEDS: DONEPEZIL 10 MG TAB PO SCH (08:24)
[2023-12-02] MEDS: EZETIMIBE 10 MG TAB PO SCH (08:24)
[2023-12-02] MEDS ORDERED: LIDOCAINE 4% PATCH TOPICAL SCH (11:15)
--- NOTE | 2023-12-02 11:27 | P.DS ---
Providers Date of admission: 11/28/23 17:44 Expected date of discharge: 12/02/23 Attending physician: Aliza Donovan MD Consults: 12/01/23 07:46 Consult Physician Routine Consulting Provider: Susanne Dacosta Consult Reason/Comments: ESBL UTI/Pyelo Do you want consulting provider notified?: Yes Primary care physician: Rachana Dasilva Hospital Course: Discharge Diagnosis: Sepsis secondary Right-sided pyelonephritis Leukocytosis ESBL E. coli in urine suspected contaminant Right shoulder pain Hospital Course: 68-year-old female with history of recurrent urinary tract infection, hypertension, GERD, dementia, hypothyroidism presenting with bilateral lower back pain. Vital signs were within normal limits except for respiratory rate being 20, CBC was 16.3, urinalysis positive for leukocyte esterase and negative for nitrites. Patient was started on Rocephin. Symptoms improved. However cultures came back positive for ESBL E. coli. Patient was started on ertapenem. ID was consulted. Repeat urinalysis was negative. Renal ultrasound showed no hydronephrosis, tiny 6 mm cortical cyst on the right kidney. As patient improved on ceftriaxone, ESBL E. coli is likely contaminant. Patient being discharged on oral Cefdinir. Follow-up with PCP. Patient seen and examined at bedside. Vital signs reviewed and stable. General: nontoxic, no distress, appears at stated age Derm: warm, dry Head: atraumatic, normocephalic, symmetric Eyes: EOMI, no lid lag, anicteric sclera Mouth: no lip lesion, mucus membranes moist Cardiovascular: S1S2 reg, no murmur Lungs: CTA bilateral, no rhonchi, no rales , no accessory muscle use Abdominal: soft, nontender to palpation, no guarding, no appreciable organomegaly Ext: no gross muscle atrophy, no edema, no contractures, right posterior scapula tender to palpation Neuro: CN II-XI grossly intact, no focal neuro deficits Psych: Alert, oriented, appropriate affect A total of 33 minutes of time were spent preparing this complex discharge summary. Patient was discharged on 12/02/23 at 1120. Patient Condition at Discharge: Stable Plan - Discharge Summary Discharge Rx Participant: Yes New Discharge Prescriptions: New Cefdinir [Omnicef] 300 mg PO Q12HR #6 capsule Continue Metoprolol Succinate (ER) [Toprol XL] 50 mg PO DAILY Levothyroxine Sodium [Synthroid] 125 mcg PO DAILY Ferrous Sulfate [Iron (65 MG Elemental)] 325 mg PO DAILY amLODIPine [Norvasc] 10 mg PO DAILY Ezetimibe [Zetia] 10 mg PO DAILY Acetaminophen Tab [Tylenol] 650 mg PO Q6HR PRN tab PRN Reason: Mild Pain Or Fever > 100.5 Ondansetron Odt [Zofran ODT] 4 mg PO Q8HR PRN #20 tab PRN Reason: Nausea Cholecalciferol [Vitamin D3 (25 Mcg = 1000 Iu)] 25 mcg PO DAILY Cyanocobalamin (Vitamin B-12) [Vitamin B-12] 1,000 mcg PO DAILY Donepezil [Aricept] 10 mg PO DAILY Pantoprazole [Protonix] 40 mg PO DAILY #30 tab Diphenoxylate HCl/Atropine [Lomotil 2.5-0.025 mg Tablet] 2 tab PO QID PRN PRN Reason: Diarrhea Discontinued Levofloxacin [Levaquin] 250 mg PO BID No Action Beet Root 1000mg 1,000 mg PO DAILY Pro Advanced Urinary Formula 1 cap PO DAILY Stem Cell Supplement 1 cap PO DAILY Cinnamon Bark [Cinnamon] 1,000 mg PO DAILY Ginkgo Biloba Extract 1 cap PO DAILY Potassium(Unknown Dose) 1 tab PO DAILY Discharge Medication List Levothyroxine Sodium [Synthroid] 125 mcg PO DAILY 08/14/16 [History] Metoprolol Succinate (ER) [Toprol XL] 50 mg PO DAILY 08/14/16 [History] Ferrous Sulfate [Iron (65 MG Elemental)] 325 mg PO DAILY 03/28/21 [History] Beet Root 1000mg 1,000 mg PO DAILY 10/24/23 [History] Cholecalciferol [Vitamin D3 (25 Mcg = 1000 Iu)] 25 mcg PO DAILY 10/24/23 [History] Cinnamon Bark [Cinnamon] 1,000 mg PO DAILY 10/24/23 [History] Cyanocobalamin (Vitamin B-12) [Vitamin B-12] 1,000 mcg PO DAILY 10/24/23 [History] Donepezil [Aricept] 10 mg PO DAILY 10/24/23 [History] Ezetimibe [Zetia] 10 mg PO DAILY 10/24/23 [History] Ginkgo Biloba Extract 1 cap PO DAILY 10/24/23 [History] Potassium(Unknown Dose) 1 tab PO DAILY 10/24/23 [History] Pro Advanced Urinary Formula 1 cap PO DAILY 10/24/23 [History] Stem Cell Supplement 1 cap PO DAILY 10/24/23 [History] amLODIPine [Norvasc] 10 mg PO DAILY 10/24/23 [History] Acetaminophen Tab [Tylenol] 650 mg PO Q6HR PRN tab 10/28/23 [Rx] Ondansetron Odt [Zofran ODT] 4 mg PO Q8HR PRN #20 tab 10/28/23 [Rx] Pantoprazole [Protonix] 40 mg PO DAILY #30 tab 10/28/23 [Rx] Diphenoxylate HCl/Atropine [Lomotil 2.5-0.025 mg Tablet] 2 tab PO QID PRN 11/28/23 [History] Cefdinir [Omnicef] 300 mg PO Q12HR #6 capsule 12/02/23 [Rx] Follow up Appointment(s)/Referral(s): Rachana Dasilva MD [Primary Care Provider] - 1-2 days Patient Instructions/Handouts: Urinary Tract Infection in Women (DC) Activity/Diet/Wound Care/Special Instructions: Please see your PCP. Discharge Disposition: HOME SELF-CARE
--- NOTE | 2023-12-02 18:25 | P.PN ---
Subjective Progress Note Date: 12/02/23 Principal diagnosis: Reason for follow-up is ESBL E. coli urinary tract infection Patient is a 68-year-old female with a past medical history significant for recurrent urinary tract infection hypertension reflux DVT patient was brought into the hospital on 11/28/2023 for evaluation of dry heaves feeling hot and cold, and was also complaining of right flank pain, patient be diagnosed with a UTI treated with Rocephin subsequent urine cultures came back positive with ESBL E. coli prompting this infectious disease consultation. On today's evaluation that is 12/02/2023, patient denies having any fever or any chills patient is breathing comfortably on room air patient denies having any chest pain or shortness of breath or cough no nausea vomiting no abdominal pain or diarrhea. Patient did not have any CBC done today repeat UA completed yesterday was relatively clear Objective - Vital Signs Vital signs: Vital Signs Temp 97.4 F L 12/02/23 07:31 Pulse 68 12/02/23 07:31 Resp 16 12/02/23 07:31 BP 138/88 12/02/23 07:31 Pulse Ox 93 L 12/02/23 07:31 FiO2 Intake & Output 12/01/23 12/02/23 12/02/23 18:59 06:59 18:59 Intake Total 400 120 Balance 400 120 Intake: IV 400 Sodium Chloride 0.9% 1, 400 000 ml @ 75 mls/hr IV . [id number] [facility] Rx#:[id number] Oral 120 Other: Voiding Method Toilet # Voids 2 - Exam GENERAL DESCRIPTION: An elderly female lying in bed in no distress RESPIRATORY SYSTEM: Unlabored breathing , decreased breath sounds at bases HEART: S1 S2 regular rate and rhythm , ABDOMEN: Soft , no tenderness EXTREMITIES: No edema feet - Labs CBC & Chem 7: 11/29/23 07:06 11/29/23 07:06 Labs: Abnormal Lab Results - Last 24 Hours (Table) 12/01/23 Range/Units 19:42 Urine Blood Small H (Negative) Urine WBC 7 H (0-5) /hpf Urine Mucus Occasional H (None) /hpf Microbiology - Last 24 Hours (Table) 11/28/23 18:45 Blood Culture - Preliminary Blood Assessment and Plan (1) Infection due to ESBL-producing Escherichia coli Current Visit: Yes Status: Acute Code(s): A49.8 - OTHER BACTERIAL INFECTIONS OF UNSPECIFIED SITE; Z16.12 - EXTENDED SPECTRUM BETA LACTAMASE (ESBL) RESISTANCE SNOMED Code(s): 224587214 (2) UTI (urinary tract infection) Current Visit: Yes Status: Acute Code(s): N39.0 - URINARY TRACT INFECTION, SITE NOT SPECIFIED SNOMED Code(s): 66466201 Plan: 1-patient presenting to the hospital with right flank pain nausea urinary sympt oms elevated white count concerning for right-sided pyelonephritis in this patient white count has responded to Rocephin however urine culture has been finalized with ESBL E. coli with question of possible contaminant versus real pathogen 2-patient repeat UA is clear without getting any treatment for ESBL with a question of possible contamination she will get her second dose of Invanz today afterwards consider short course of oral Ceftin on discharge this was discussed with the admitting team working on discharge Dictation was produced using [employer] dictation software. please excuse any grammatical, word or spelling errors. Time with Patient: Less than 30
== END 2023-12-02 13:24 | disposition home or self-care (01) | DRG 872 ==
LOC: EC 11:28 → 4SSUR 17:44 → 1SOBS 11-29 14:15
PROVIDERS: ADMIT Family Medicine; ATTEND Family Medicine
DX: A41.51 Sepsis due to Escherichia coli [E. coli] (principal); N12 Tubulo-interstitial nephritis, not specified as acute or chronic; E87.1 Hypo-osmolality and hyponatremia; F03.93 Unspecified dementia, unspecified severity, with mood disturbance; J98.11 Atelectasis; Z16.12 Extended spectrum beta lactamase (ESBL) resistance; J44.9 Chronic obstructive pulmonary disease, unspecified; E86.0 Dehydration; E03.9 Hypothyroidism, unspecified; E78.5 Hyperlipidemia, unspecified; H91.90 Unspecified hearing loss, unspecified ear; I10 Essential (primary) hypertension; K21.9 Gastro-esophageal reflux disease without esophagitis; R32 Unspecified urinary incontinence; M25.511 Pain in right shoulder; M85.80 Other specified disorders of bone density and structure, unspecified site; Z79.890 Hormone replacement therapy; Z79.899 Other long term (current) drug therapy; Z87.440 Personal history of urinary (tract) infections; Z86.718 Personal history of other venous thrombosis and embolism
CPT/HCPCS: 36415; 71046; 76770; 80048; 80053; 81001; 83605; 85025; 87040; 87077; 87086; 87186; 87636; 96361; 96365; 96366; 96372; 99285

== ENCOUNTER 2024-01-27 14:12 | Emergency (ER) | payer MEDICARE ==
--- NOTE | 2024-01-27 14:39 | ED ---
Chest Pain HPI - General Source: patient, RN notes reviewed Mode of arrival: ambulatory Limitations: no limitations <Leti Sotomayor - Last Filed: 01/27/24 14:47> - General Source: RN notes reviewed, old records reviewed Mode of arrival: ambulatory Limitations: no limitations - History of Present Illness MD Complaint: chest pain, other (Back pain) -: days(s) Onset: during exertion Pain Location: substernal, left chest, right chest Pain Radiation: back Severity: moderate Severity scale (1-10): 6 Quality: dull Consistency: constant, intermittent Improves With: nothing Worsens With: nothing Anginal Symptoms: sense of impending doom Other Symptoms: palpitations Treatments Prior to Arrival: none <Sushant Miller - Last Filed: 02/04/24 01:27> - General Chief Complaint: Chest Pain Stated Complaint: Weakness, Nausea Time Seen by Provider: 01/27/24 14:38 - History of Present Illness Initial Comments: Patient is a 68-year-old female presented to the ER with chief complaint of lower and mid back pain. She also reporting left shoulder pain, weakness, nausea and vomiting. Denies any known cardiac history. (Leti Sotomayor) This is a 68-year-old female to the ER for evaluation of lower back pain mid back pain patient is having low back pain mid back pain with shoulder pain with weakness. No significant travel history or sick contacts no fever cough or congestion no history of high blood pressure cholesterol diabetes. (Sushant Miller) - Related Data Home Medications Medication Instructions Recorded Confirmed Levothyroxine Sodium [Synthroid] 125 mcg PO DAILY 08/14/16 11/28/23 Metoprolol Succinate (ER) [Toprol 50 mg PO DAILY 08/14/16 11/28/23 XL] Ferrous Sulfate [Iron (65 MG 325 mg PO DAILY 03/28/21 11/28/23 Elemental)] Beet Root 1000mg 1,000 mg PO DAILY 10/24/23 11/28/23 Cholecalciferol [Vitamin D3 (25 25 mcg PO DAILY 10/24/23 11/28/23 Mcg = 1000 Iu)] Cinnamon Bark [Cinnamon] 1,000 mg PO DAILY 10/24/23 11/28/23 Cyanocobalamin (Vitamin B-12) 1,000 mcg PO DAILY 10/24/23 11/28/23 [Vitamin B-12] Donepezil [Aricept] 10 mg PO DAILY 10/24/23 11/28/23 Ezetimibe [Zetia] 10 mg PO DAILY 10/24/23 11/28/23 Ginkgo Biloba Extract 1 cap PO DAILY 10/24/23 11/28/23 Potassium(Unknown Dose) 1 tab PO DAILY 10/24/23 11/28/23 Pro Advanced Urinary Formula 1 cap PO DAILY 10/24/23 11/28/23 Stem Cell Supplement 1 cap PO DAILY 10/24/23 11/28/23 amLODIPine [Norvasc] 10 mg PO DAILY 10/24/23 11/28/23 Diphenoxylate HCl/Atropine 2 tab PO QID PRN 11/28/23 11/28/23 [Lomotil 2.5-0.025 mg Tablet] Previous Rx's Medication Instructions Recorded Acetaminophen Tab [Tylenol] 650 mg PO Q6HR PRN tab 10/28/23 Ondansetron Odt [Zofran ODT] 4 mg PO Q8HR PRN #20 tab 10/28/23 Pantoprazole [Protonix] 40 mg PO DAILY #30 tab 10/28/23 Cefdinir [Omnicef] 300 mg PO Q12HR #6 capsule 12/02/23 Allergies Allergy/AdvReac Type Severity Reaction Status Date / Time No Known Allergies Allergy Verified 01/27/24 14:32 Review of Systems ROS Other: All systems not noted in ROS Statement are negative. <Leti Sotomayor - Last Filed: 01/27/24 14:47> ROS Other: All systems not noted in ROS Statement are negative. <Sushant Miller - Last Filed: 02/04/24 01:27> ROS Statement: Those systems with pertinent positive or pertinent negative responses have been documented in the HPI. EKG Findings - EKG Comments: EKG Findings:: EKG is sinus 86 SD 122 QRS 96 QTc 425 - EKG Results: EKG: interpreted by ERMD <Sushant Miller - Last Filed: 02/04/24 01:27> Past Medical History Past Medical History: Deep Vein Thrombosis (DVT), GERD/Reflux, Hypertension, Memory Impairment, Thyroid Disorder Additional Past Medical History / Comment(s): early dementia and [place],90% deaf- please relay information to /daughter. family hx colorectal cancer. bowel/urinary incontinence wears depends. has appt 07/13 with neurologist to r/o myasthenia gravis has been experiencing facial drooping,lethary,muscle weakness. osteopenia History of Any Multi-Drug Resistant Organisms: None Reported Past Surgical History: Heart Catheterization, Hysterectomy Additional Past Surgical History / Comment(s): REPAIR RT RUPTURED THIGH MUSCLE. COLONOSCOPY, bladder prolapse surgery Past Anesthesia/Blood Transfusion Reactions: No Reported Reaction Past Psychological History: No Psychological Hx Reported Smoking Status: Never smoker Past Alcohol Use History: None Reported Past Drug Use History: None Reported - Past Family History Sister(s) Family Medical History: Cancer Additional Family Medical History / Comment(s): COLON Mother Family Medical History: Cancer Additional Family Medical History / Comment(s): BREAST Father Family Medical History: Cancer Additional Family Medical History / Comment(s): LUNG <Leti Sotomayor - Last Filed: 01/27/24 14:47> General Exam <Leti Sotomayor - Last Filed: 01/27/24 14:47> General appearance: alert, in no apparent distress Head exam: Present: atraumatic, normocephalic, normal inspection Eye exam: Present: normal appearance, PERRL, EOMI. Absent: scleral icterus, conjunctival injection, periorbital swelling ENT exam: Present: normal exam, mucous membranes moist Neck exam: Present: normal inspection. Absent: tenderness, meningismus, lymphadenopathy Respiratory exam: Present: normal lung sounds bilaterally. Absent: respiratory distress, wheezes, rales, rhonchi, stridor Cardiovascular Exam: Present: regular rate, normal rhythm, normal heart sounds. Absent: systolic murmur, diastolic murmur, rubs, gallop, clicks GI/Abdominal exam: Present: soft, normal bowel sounds. Absent: distended, tenderness, guarding, rebound, rigid Extremities exam: Present: normal inspection, full ROM, normal capillary refill. Absent: tenderness, pedal edema, joint swelling, calf tenderness Back exam: Present: normal inspection Neurological exam: Present: alert, oriented X3, CN II-XII intact Psychiatric exam: Present: normal affect, normal mood Skin exam: Present: warm, dry, intact, normal color. Absent: rash <Roskopp,Sushant Francoise - Last Filed: 02/04/24 01:27> - General Exam Comments Initial Comments: Visual Physical Exam Vital signs reviewed General: Well-appearing, nontoxic, no acute distress. Head: Normocephalic, atraumatic Eyes: PERRLA, EOMI ENT: Airway patent Chest: Nonlabored breathing Skin: No visual rash, normal skin tone Neuro: Alert and oriented 3 Musculoskeletal: No gross abnormalities (Leti Sotomayor) Course <Sushant Miller - Last Filed: 02/04/24 01:27> Vital Signs 01/27/24 01/27/24 01/27/24 14:27 16:35 17:39 Temperature 99 F 98.8 F Pulse Rate 91 76 74 Respiratory 18 12 18 Rate Blood Pressure 140/78 145/78 149/83 O2 Sat by Pulse 94 L 95 96 Oximetry 01/27/24 19:03 Temperature 98.9 F Pulse Rate 82 Respiratory 18 Rate Blood Pressure 131/70 O2 Sat by Pulse 98 Oximetry - Reevaluation(s) Reevaluation #1: Medical records reviewed (Sushant Miller) Reevaluation #2: Patient symptoms improved (Sushant Miller) Reevaluation #3: Patient informed of results and questions answered Studies Chest x-ray is negative for acute disease (Sushant Miller) Reevaluation #4: Was pt. sent in by a medical professional or institution (, PA, ASSOCIATE PROFESSOR OF CHEMISTRY, urgent care, hospital, or [facility]...) When possible be specific @ -no Did you speak to anyone other than the patient for history (EMS, parent, family, police, friend...)? What history was obtained from this source @ -no Did you review nursing and triage notes (agree or disagree)? Why? @ -agree Are old charts reviewed (outside hosp., previous admission, EMS record, old EKG, old radiological studies, urgent care reports/EKG's, [facility] records)? Report findings @ -yes Differential Diagnosis (chest pain, altered mental status, abdominal pain women, abdominal pain men, vaginal bleeding, weakness, fever, dyspnea, syncope, headache, dizziness, GI bleed, back pain, seizure, CVA, palpatations, mental health, musculoskeletal)? @ -prior EKG interpreted by me (3pts min.). @ -yes X-rays interpreted by me (1pt min.). @ -yes negative for acute disease CT interpreted by me (1pt min.). @ -no U/S interpreted by me (1pt. min.). @ -no What testing was considered but not performed or refused? (CT, X-rays, U/S, labs)? Why? @ -none What meds were considered but not given or refused? Why? @ -none Did you discuss the management of the patient with other professionals (professionals i.e. , PA, ASSOCIATE PROFESSOR OF CHEMISTRY, lab, RT, psych nurse, social psychologist, poultry dressing worker, teacher, medical officer, counter caser)? Give summary @ -no Was smoking cessation discussed for >3mins.? @ -no Was critical care preformed (if so, how long)? @ -no Were there social determinants of health that impacted care today? How? (Homelessness, low income, unemployed, alcoholism, drug addiction, transportation, low edu. Level, literacy, decrease access to med. care, residential, rehab)? @ -none Was there de-escalation of care discussed even if they declined (Discuss DNR or withdrawal of care, Hospice)? DNR status @ -no What co-morbidities impacted this encounter? (DM, HTN, Smoking, COPD, CAD, Cancer, CVA, ARF, Chemo, Hep., AIDS, mental health diagnosis, sleep apnea, morbid obesity)? @ -none Was patient admitted / discharged? Hospital course, mention meds given and route, prescriptions, significant lab abnormalities, going to OR and other pertinent info. @ - 68 female to ER for evaluation of nonspecific chest pain back pain. Patient has no acute cause found here in the ER feels well can be discharged home Discharge Undiagnosed new problem with uncertain prognosis? @ -no Drug Therapy requiring intensive monitoring for toxicity (Heparin, Nitro, Insulin, Cardizem)? @ -no Were any procedures done? @ -no Diagnosis/symptom? @ -Chest pain Acute, or Chronic, or Acute on Chronic? @ -Acute Uncomplicated (without systemic symptoms) or Complicated (systemic symptoms)? @ -Complicated Side effects of treatment? @ -no Exacerbation, Progression, or Severe Exacerbation? @ -exacerbation Poses a threat to life or bodily function? How? (Chest pain, [place], PA, pneumonia, PE, COPD, DKA, ARF, appy, cholecystitis, CVA, Diverticulitis, Homicidal, Suicidal, threat to staff... and all critical care pts) @ -yes negative for acute disease (Sushant Miller) Reevaluation #5: Differential Chest Pain: Stable Angina, Unstable Angina, STEMI, NSTEMI Aortic Dissection, Pneumothorax, Musculoskeletal, Esophageal Spasm GERD, Cholecystitis, Pancreatitis, Zoster, this is not meant to be an all-inclusive list. (Sushant Miller) Chest Pain MDM <Leti Sotomayor - Last Filed: 01/27/24 14:47> <Sushant Miller - Last Filed: 02/04/24 01:27> - MDM I performed the quick note portion of this chart. Electronically signed by Leti Sotomayor PA-C (Leti Sotomayor) 68 female to ER for evaluation of nonspecific chest pain back pain. Patient has no acute cause found here in the ER feels well can be discharged home (Sushant Miller) Disposition <Leti Sotomayor - Last Filed: 01/27/24 14:47> Is patient prescribed a controlled substance at d/c from ED?: No Time of Disposition: 18:10 <Sushant Miller - Last Filed: 02/04/24 01:27> Clinical Impression: Chest pain, Atypical chest pain Disposition: HOME SELF-CARE Condition: Good Instructions (If sedation given, give patient instructions): Chest Pain (ED), Costochondritis (ED) Referrals: Rachana Dasilva MD [Primary Care Provider] - 1-2 days
[2024-01-27 14:59] LABS: Basophils % (A) 0 %; Eosinophils # (A) 0.1 k/uL (0-0.7); Eosinophils % (A) 1 %; HCT 43.6 % (34.0-46.0); Lymphocytes # (A) 0.5 k/uL (1.0-4.8); Lymphocytes % (A) 4 %; MCH 29.9 pg (25.0-35.0); MCHC 32.2 g/dL (31.0-37.0); MCV 92.8 fL (80.0-100.0); Mean Platelet Volume 9.1; Monocytes # (A) 0.6 k/uL (0-1.0); Monocytes % (A) 5 %; Neutrophils % (A) 90 %; Platelet Count 211 k/uL (150-450); RDW 13.7 % (11.5-15.5); WBC 13.3 k/uL (3.8-10.6)
[2024-01-27 15:31] LABS: ALT 21 U/L (4-34); AST 28 U/L (14-36); African American GFR (CKD) >90 (>60 ml/min/1.73 sqM); Albumin 3.9 g/dL (3.5-5.0); Alkaline Phosphatase 90 U/L (38-126); Anion Gap 7 mmol/L; Blood Urea Nitrogen 15 mg/dL (7-17); Calcium 8.7 mg/dL (8.4-10.2); Carbon Dioxide 26 mmol/L (22-30); Chloride 105 mmol/L (98-107); Glucose 116 mg/dL (74-99); Magnesium 2.1 mg/dL (1.6-2.3); Non-African American GFR(CKD) >90 (>60 ml/min/1.73 sqM); Partial Thromboplastin Time 23.9 sec (22.0-30.0); Potassium 3.9 mmol/L (3.5-5.1); Prothrombin Time 10.6 sec (10.0-12.5); Sodium 138 mmol/L (137-145); Total Bilirubin 1.2 mg/dL (0.2-1.3); Total Protein 6.9 g/dL (6.3-8.2)
--- NOTE | 2024-01-27 17:00 | XR ---
EXAMINATION TYPE: XR chest 2V DATE OF EXAM: 01/27/2024 COMPARISON: 11/28/2023 HISTORY: Shortness of breath TECHNIQUE: Frontal and lateral views of the chest are obtained. FINDINGS: Scattered senescent parenchymal changes noted. Hyperinflation compatible with COPD. No evidence for infiltrate. No evidence for atelectasis. Heart size is stable. Mediastinal structures are stable and grossly unremarkable. No evidence for hilar prominence. Degenerative changes dorsal spine. IMPRESSION: 1. No evidence for acute pulmonary disease.
[2024-01-27] MEDS: KETOROLAC 15 MG/ML 1 ML VIAL IVP STA (17:37)
[2024-01-27 18:02] VITALS: RESP 18
[2024-01-27 19:30] VITALS: BP 131/70; PULSE 82; TEMP 98.9
== END 2024-01-27 19:03 | disposition home or self-care (01) ==
LOC: EC 14:12
DX: R07.89 Other chest pain (principal); I10 Essential (primary) hypertension; E07.9 Disorder of thyroid, unspecified; Z79.890 Hormone replacement therapy; Z79.899 Other long term (current) drug therapy; Z20.822 Contact with and (suspected) exposure to COVID-19
CPT/HCPCS: 36415; 93005; 80053; 83735; 84484; 85025; 85610; 85730; 87636; 71046; 99285; 96374; J1885

== ENCOUNTER 2025-02-01 13:46 | Inpatient (IN) | payer MEDICARE ==
[2025-02-01] MEDS: SODIUM CHLORIDE 0.9% 1,000 ML IV ONE (14:51)
[2025-02-01 15:02] LABS: Basophils % (A) 0 %; Eosinophils # (A) 0.2 k/uL (0-0.7); Eosinophils % (A) 2 %; HCT 53.2 % (34.0-46.0); HGB 16.1 gm/dL (11.4-16.0); Lymphocytes # (A) 0.8 k/uL (1.0-4.8); Lymphocytes % (A) 8 %; MCH 27.7 pg (25.0-35.0); MCHC 30.3 g/dL (31.0-37.0); MCV 91.4 fL (80.0-100.0); Mean Platelet Volume 10.1; Monocytes # (A) 0.5 k/uL (0-1.0); Monocytes % (A) 5 %; Neutrophils # (A) 8.4 k/uL (1.3-7.7); Neutrophils % (A) 84 %; Platelet Count 215 k/uL (150-450); RBC 5.82 m/uL (3.80-5.40); RDW 13.9 % (11.5-15.5); WBC 9.9 k/uL (3.8-10.6)
[2025-02-01] MEDS: KETOROLAC 15 MG/ML 1 ML VIAL IVP STA (15:08)
[2025-02-01] MEDS: HYDROmorphone 0.5 MG/0.5 ML SYRINGE IVP STA (15:09)
[2025-02-01 15:13] LABS: Appearance,Urine Clear (Clear); Bacteria,Urine Occasional /hpf; Bilirubin,Urine Negative (Negative); Blood,Urine Trace (Negative); Color,Urine Light Yellow; Glucose,Urine (UA) Negative (Negative); Ketones,Urine Negative (Negative); Leukocyte Esterase,Urine Moderate (Negative); Mucus,Urine Rare /hpf; Nitrite,Urine Negative (Negative); PH, Urine 6.5 (5.0-8.0); Protein,Urine 1+ (Negative); RBC,Urine 11 /hpf (0-5); Specific Gravity,Urine 1.019 (1.001-1.035); Squamous Epithelial Cell,Urine 1 /hpf (0-4); Urobilinogen,Urine <2.0 mg/dL (<2.0); WBC,Urine 28 /hpf (0-5)
--- NOTE | 2025-02-01 15:15 | ED ---
Back Pain HPI - General Chief Complaint: Back Pain/Injury Stated Complaint: Back pain Time Seen by Provider: 02/01/25 15:13 Source: patient, family, RN notes reviewed Limitations: no limitations - History of Present Illness Initial Comments: 69-year-old female presented to the ER for evaluation of right-sided back pain. She states this started approximately 2 hours prior to arrival. It is a sharp stabbing pain to her right flank. Denies any radiation of the pain. Patient d oes admit to multiple bouts of diarrhea this morning. She denies any nausea, vomiting, hematic emesis, coffee-ground emesis, melena or hematochezia. She denies any injuries or traumas. Denies any bowel or bladder incontinence/retention, saddle paresthesias, fevers or history of IV drug abuse. No urinary complaints. No chest pain, shortness of breath, dizziness, lightheadedness or other complaints at this time. - Related Data Home Medications Medication Instructions Recorded Confirmed Levothyroxine Sodium [Synthroid] 125 mcg PO DAILY 08/14/16 11/28/23 Metoprolol Succinate (ER) [Toprol 50 mg PO DAILY 08/14/16 11/28/23 XL] Ferrous Sulfate [Iron (65 MG 325 mg PO DAILY 03/28/21 11/28/23 Elemental)] Beet Root 1000mg 1,000 mg PO DAILY 10/24/23 11/28/23 Cholecalciferol [Vitamin D3 (25 25 mcg PO DAILY 10/24/23 11/28/23 Mcg = 1000 Iu)] Cinnamon Bark [Cinnamon] 1,000 mg PO DAILY 10/24/23 11/28/23 Cyanocobalamin (Vitamin B-12) 1,000 mcg PO DAILY 10/24/23 11/28/23 [Vitamin B-12] Donepezil [Aricept] 10 mg PO DAILY 10/24/23 11/28/23 Ezetimibe [Zetia] 10 mg PO DAILY 10/24/23 11/28/23 Ginkgo Biloba Extract 1 cap PO DAILY 10/24/23 11/28/23 Potassium(Unknown Dose) 1 tab PO DAILY 10/24/23 11/28/23 Pro Advanced Urinary Formula 1 cap PO DAILY 10/24/23 11/28/23 Stem Cell Supplement 1 cap PO DAILY 10/24/23 11/28/23 amLODIPine [Norvasc] 10 mg PO DAILY 10/24/23 11/28/23 Diphenoxylate HCl/Atropine 2 tab PO QID PRN 11/28/23 11/28/23 [Lomotil 2.5-0.025 mg Tablet] Previous Rx's Medication Instructions Recorded Acetaminophen Tab [Tylenol] 650 mg PO Q6HR PRN tab 10/28/23 Ondansetron Odt [Zofran ODT] 4 mg PO Q8HR PRN #20 tab 10/28/23 Pantoprazole [Protonix] 40 mg PO DAILY #30 tab 10/28/23 Cefdinir [Omnicef] 300 mg PO Q12HR #6 capsule 12/02/23 Cephalexin [Keflex] 500 mg PO Q6HR #40 cap 02/01/25 Ketorolac [Toradol] 10 mg PO Q8HR #15 tab 02/01/25 Tamsulosin [Flomax] 0.4 mg PO DAILY #7 cap 02/01/25 Allergies Allergy/AdvReac Type Severity Reaction Status Date / Time No Known Allergies Allergy Verified 02/01/25 13:54 Review of Systems ROS Statement: Those systems with pertinent positive or pertinent negative responses have been documented in the HPI. ROS Other: All systems not noted in ROS Statement are negative. Past Medical History Past Medical History: Deep Vein Thrombosis (DVT), GERD/Reflux, Hypertension, Memory Impairment, Thyroid Disorder Additional Past Medical History / Comment(s): early dementia and [place],90% deaf- please relay information to /daughter. family hx colorectal cancer. bowel/urinary incontinence wears depends. has appt 07/13 with neurologist to r/o myasthenia gravis has been experiencing facial drooping,lethary,muscle weakness. osteopenia History of Any Multi-Drug Resistant Organisms: None Reported Date of last positivie culture/infection: 11/28/23 MDRO Source:: Urine Past Surgical History: Heart Catheterization, Hysterectomy Additional Past Surgical History / Comment(s): REPAIR RT RUPTURED THIGH MUSCLE. COLONOSCOPY, bladder prolapse surgery Past Anesthesia/Blood Transfusion Reactions: No Reported Reaction Past Psychological History: No Psychological Hx Reported Smoking Status: Never smoker Past Alcohol Use History: None Reported Past Drug Use History: None Reported - Past Family History Sister(s) Family Medical History: Cancer Additional Family Medical History / Comment(s): COLON Mother Family Medical History: Cancer Additional Family Medical History / Comment(s): BREAST Father Family Medical History: Cancer Additional Family Medical History / Comment(s): LUNG General Exam Limitations: no limitations General appearance: alert, in no apparent distress, other (patietn pacing exam room) Respiratory exam: Present: normal lung sounds bilaterally. Absent: respiratory distress, wheezes, rales, rhonchi, stridor Cardiovascular Exam: Present: regular rate, normal rhythm, normal heart sounds. Absent: systolic murmur, diastolic murmur, rubs, gallop, clicks Back exam: Present: tenderness (right flank. no overlying skin chagnes.) Neurological exam: Present: alert, oriented X3, CN II-XII intact Skin exam: Present: warm, dry, intact, normal color. Absent: rash Course Vital Signs 02/01/25 02/01/25 02/01/25 13:49 15:42 16:40 Temperature 97.4 F L 98 F 98 F Pulse Rate 65 72 Respiratory 18 16 18 Rate Blood Pressure 188/90 194/93 194/103 O2 Sat by Pulse 95 95 Oximetry - Reevaluation(s) Reevaluation #1: 02/01/25 18:[address] Son for admission. Case discussed with RAFFI Bai, for admission. Medical Decision Making - Medical Decision Making Was pt. sent in by a medical professional or institution (, PA, ONLINE MEDIA DIRECTOR, urgent care, hospital, or long term...) When possible be specific @ -No Did you speak to anyone other than the patient for history (EMS, parent, family, police, friend...)? What history was obtained from this source @ -Patient's daughter called ER adn spoke with me regarding her concern of patient's ability to care for self if discharged. Did you review nursing and triage notes (agree or disagree)? Why? @ -I reviewed and agree with nursing and triage notes Were old charts reviewed (outside hosp., previous admission, EMS record, old EKG, old radiological studies, urgent care reports/EKG's, long term records)? Report findings @ -No old charts were reviewed Differential Diagnosis (chest pain, altered mental status, abdominal pain women, abdominal pain men, vaginal bleeding, weakness, fever, dyspnea, syncope, headache, dizziness, GI bleed, back pain, seizure, CVA, palpatations, mental health, musculoskeletal)? @ -Differential Back Pain:Strain, zoster, cauda equina syndrome, epidural abscess, vertebral osteomyelitis, discitis, fracture, subluxation, disc herniation, DJD, spinal stenosis, dissection, AAA, pancreatitis, peptic ulcer disease, pyelonephritis, kidney stone, this is not meant to be an all-inclusive list. EKG interpreted by me (3pts min.). @ -None done X-rays interpreted by me (1pt min.). @ -None done CT interpreted by me (1pt min.). @ -CT abdomen pelvis showing moderate to marked right hydronephrosis and ureter secondary to obstructing 12 mm right UVJ calculus. Hepatomegaly. Mild cholelithiasis. Mild nonspecific interstitial density of the right lung base U/S interpreted by me (1pt. min.). @ -None done What testing was considered but not performed or refused? (CT, X-rays, U/S, labs)? Why? @ -None What meds were considered but not given or refused? Why? @ -None Did you discuss the management of the patient with other professionals (radha spann i.e. , YOLIE, ONLINE MEDIA DIRECTOR, lab, RT, psych nurse, oncology social worker, high school sports coach, teacher, sales and service officer, child support case officer)? Give summary @ -Yes, case discussed with on-call urology, Dr. Son. He is agreeable for patients admission to medicine with plans of surgical intervention tomorrow. [facility]. Was smoking cessation discussed for >3mins.? @ -No Was critical care preformed (if so, how long)? @ -No Were there social determinants of health that impacted care today? How? (Homelessness, low income, unemployed, alcoholism, drug addiction, transportation, low edu. Level, literacy, decrease access to med. care, senior care, rehab)? @ -No Was there de-escalation of care discussed even if they declined (Discuss DNR or withdrawal of care, Hospice)? DNR status @ -No What co-morbidities impacted this encounter? (DM, HTN, Smoking, COPD, CAD, Cancer, CVA, ARF, Chemo, Hep., AIDS, mental health diagnosis, sleep apnea, morbid obesity)? @ -Dementia, hard of hearing, hypertension, thyroid disorder Was patient admitted / discharged? Hospital course, mention meds given and route, prescriptions, significant lab abnormalities, going to OR and other pertinent info. @ -Admitted. 69-year-old female presented to the ER for evaluation of right flank pain. Upon rooming, history and physical exam completed.Patient is hypertensive 184/93 vitals otherwise been acceptable limits. It is unsure if patient took antihypertensive medications this morning, patient received amlodipine and metoprolol, home medications, for this. Patient is pacing room un easy to lay down for examination. Laboratory studies remarkable for WBC of 9.9 with a left shift of 8.4. Kidney function with a BUN of 23, creatinine 0.62 with GFR greater than 90. Urinalysis with occasional bacteria, 28 WBCs and 11 RBCs this will be sent for culture. CT abdomen pelvis showing right sided hydronephrosis due to obstructing 12 mm calculus at the UVJ. Laboratory studies and CT findings were discussed with on-call urology, Dr. Son. He is agreeable for patient's admission and plans on surgical intervention tomorrow. He would like patient admitted to medicine service. Case also discussed with [facility] for admission. Patient given IV fluid bolus along with Toradol and Dilaudid for pain control in the emergency department with improvement. Patient agreeable for admission. Case discussed with ED attending, Dr. Denny. Undiagnosed new problem with uncertain prognosis? @ -No Drug Therapy requiring intensive monitoring for toxicity (Heparin, Nitro, Insul in, Cardizem)? @ -No Were any procedures done? @ -No Diagnosis/symptom? @ -Hydronephrosis secondary to obstructing calculus Acute, or Chronic, or Acute on Chronic? @ -Acute Uncomplicated (without systemic symptoms) or Complicated (systemic symptoms)? @ -Complicated Side effects of treatment? @ -No Exacerbation, Progression, or Severe Exacerbation? @ -No Poses a threat to life or bodily function? How? (Chest pain, USA, CT, pneumonia, PE, COPD, DKA, ARF, appy, cholecystitis, CVA, Diverticulitis, Homicidal, Suicidal, threat to staff... and all critical care pts) @ -Yes can lead to sepsis and end organ dysfunction. - Lab Data Result diagrams: 02/01/25 14:46 02/01/25 14:46 Lab Results 02/01/25 02/01/25 02/01/25 Range/Units 14:46 14:46 14:46 WBC 9.9 (3.8-10.6) k/uL RBC 5.82 H (3.80-5.40) m/uL Hgb 16.1 H (11.4-16.0) gm/dL Hct 53.2 H (34.0-46.0) % MCV 91.4 (80.0-100.0) fL MCH 27.7 (25.0-35.0) pg MCHC 30.3 L (31.0-37.0) g/dL RDW 13.9 (11.5-15.5) % Plt Count 215 (150-450) k/uL MPV 10.1 Neutrophils % 84 % Lymphocytes % 8 % Monocytes % 5 % Eosinophils % 2 % Basophils % 0 % Neutrophils # 8.4 H (1.3-7.7) k/uL Lymphocytes # 0.8 L (1.0-4.8) k/uL Monocytes # 0.5 (0-1.0) k/uL Eosinophils # 0.2 (0-0.7) k/uL Basophils # 0.0 (0-0.2) k/uL Sodium 139 (137-145) mmol/L Potassium 3.7 (3.5-5.1) mmol/L Chloride 103 (98-107) mmol/L Carbon Dioxide 26 (22-30) mmol/L Anion Gap 10 mmol/L BUN 23 H (7-17) mg/dL Creatinine 0.62 (0.52-1.04) mg/dL Est GFR (CKD-EPI)AfAm >90 (>60 ml/min/1.73 sqM) Est GFR (CKD-EPI)NonAf >90 (>60 ml/min/1.73 sqM) Glucose 94 (74-99) mg/dL Calcium 9.3 (8.4-10.2) mg/dL Total Bilirubin 0.8 (0.2-1.3) mg/dL AST 34 (14-36) U/L ALT 24 (4-34) U/L Alkaline Phosphatase 98 (38-126) U/L Total Protein 7.2 (6.3-8.2) g/dL Albumin 4.2 (3.5-5.0) g/dL Urine Color Light Yellow Urine Appearance Clear (Clear) Urine pH 6.5 (5.0-8.0) Ur Specific [place] 1.019 (1.001-1.035) Urine Protein 1+ H (Negative) Urine Glucose (UA) Negative (Negative) Urine Ketones Negative (Negative) Urine Blood Trace H (Negative) Urine Nitrite Negative (Negative) Urine Bilirubin Negative (Negative) Urine Urobilinogen <2.0 (<2.0) mg/dL Ur Leukocyte Esterase Moderate H (Negative) Urine RBC 11 H (0-5) /hpf Urine WBC 28 H (0-5) /hpf Ur Squamous Epith Cells 1 (0-4) /hpf Urine Bacteria Occasional H (None) /hpf Urine Mucus Rare H (None) /hpf - Radiology Data Radiology results: report reviewed, image reviewed Disposition Clinical Impression: Hydronephrosis with obstructing calculus Disposition: ADMITTED IP TO THIS [facility] Condition: Stable Is patient prescribed a controlled substance at d/c from ED?: No Time of Disposition: 16:39
[2025-02-01 15:23] LABS: ALT 24 U/L (4-34); AST 34 U/L (14-36); African American GFR (CKD) >90 (>60 ml/min/1.73 sqM); Albumin 4.2 g/dL (3.5-5.0); Alkaline Phosphatase 98 U/L (38-126); Anion Gap 10 mmol/L; Blood Urea Nitrogen 23 mg/dL (7-17); Calcium 9.3 mg/dL (8.4-10.2); Carbon Dioxide 26 mmol/L (22-30); Chloride 103 mmol/L (98-107); Glucose 94 mg/dL (74-99); Non-African American GFR(CKD) >90 (>60 ml/min/1.73 sqM); Potassium 3.7 mmol/L (3.5-5.1); Sodium 139 mmol/L (137-145); Total Bilirubin 0.8 mg/dL (0.2-1.3); Total Protein 7.2 g/dL (6.3-8.2)
--- NOTE | 2025-02-01 16:07 | CT ---
EXAMINATION TYPE: CT abdomen pelvis w con DATE OF EXAM: 02/01/2025 COMPARISON: CT chest abdomen and pelvis dated 10/24/2023 CLINICAL INDICATION: Female, 69 years old with history of right back pain/diarrhea; PHH, PT comes to with complaint of back pain that started 2 hours DEAL[employer]OUNT [employer]. Pt denies any trauma and has hx of back pain similar to this in the past. TECHNIQUE: Performed without Oral Contrast and with IV Contrast, patient injected with 100ml mL of Isovue 300. CT DLP: 1108.[address] CTDI: mGy Automated exposure control for dose reduction was used. FINDINGS: There are increased interstitial markings in the lung bases, right greater than left. This is nonspec ific and could represent an acute or chronic interstitial process. There is a large hiatal hernia. There is mild cholelithiasis. No gallbladder wall thickening, pericholecystic fluid or distention. There are multiple scattered small low-density lesions within the liver most likely representing cyst s. There is hepatomegaly. There is no focal mass or organomegaly involving the pancreas, spleen or adrenal glands. There is moderate to marked right hydronephrosis and hydroureter secondary to an obstructing 12 mm r ight UVJ calcification. The left kidney is unremarkable. Caliber the abdominal aorta is normal is no retroperitoneal adenopathy or hemorrhage. The bowel loops are normal in caliber and there is no evidence of dilatation or obstruction. No infla mmatory changes are identified in the bowel wall or mesentery. There is no free intraperitoneal air or fluid. No pelvic mass, free fluid, abscess or adenopathy. There is surgical absence of uterus. The osseous structures and soft tissues are intact. IMPRESSION: 1. Moderate to marked right hydronephrosis and ureter secondary to an obstructing 12 mm right UVJ gene culus. 2. Hepatomegaly. 3. Mild cholelithiasis. 4. Mild nonspecific interstitial density in the lung bases, right greater than left. [facility], , 02/01/2025 4:04 PM
[2025-02-01] MEDS: METOPROLOL SUCCINATE (ER) 50 MG TAB.ER.24H PO STA (16:58)
[2025-02-01] MEDS: amLODIPine 10 MG TAB PO STA (16:58)
[2025-02-01] MEDS: ACET/COD 300 MG/30 MG STARTER PACK 6 TAB BTL PO STA (16:59)
[2025-02-01] MEDS ORDERED: NALOXONE 0.4 MG/ML 1 ML VIAL IV PRN (17:22)
[2025-02-01] MEDS: SODIUM CHLORIDE 0.9% 1,000 ML IV SCH (17:37)
--- NOTE | 2025-02-01 22:28 | P.GSCN ---
History of Present Illness Consult date: 02/01/25 Reason for Consult: Right ureteral calculus Requesting physician: Arie Roy History of present illness: The patient is a 69-year-old white female with no prior history of urolithiasis. Around noon today, she experienced acute onset of right flank pain, which she describes as being throbbing and severe. She has experienced associated nausea and vomiting. She underwent evaluation and was found to have right hydro nephrosis due to a 12 mm right distal ureteral calculus. She was admitted due to intractable symptoms. Review of Systems - Cardiovascular Reports high blood pressure - Gastrointestinal Reports nausea, Denies vomiting - Genitourinary Genitourinary: Reports flank pain, Reports kidney stones, Denies dysuria, Denies hematuria Past Medical History Past Medical History: Deep Vein Thrombosis (DVT), GERD/Reflux, Hypertension, Memory Impairment, Thyroid Disorder Additional Past Medical History / Comment(s): early dementia and [place],90% deaf- please relay information to /daughter. family hx colorectal cancer. bow el/urinary incontinence wears depends. has appt 07/13 with neurologist to r/o myasthenia gravis has been experiencing facial drooping,lethary,muscle weakness. osteopenia History of Any Multi-Drug Resistant Organisms: None Reported Year Discovered:: 11/28/23 MDRO Source:: Urine Past Surgical History: Heart Catheterization, Hysterectomy Additional Past Surgical History / Comment(s): REPAIR RT RUPTURED THIGH MUSCLE. COLONOSCOPY, bladder prolapse surgery Past Anesthesia/Blood Transfusion Reactions: No Reported Reaction Past Psychological History: No Psychological Hx Reported Smoking Status: Never smoker Past Alcohol Use History: None Reported Past Drug Use History: None Reported - Past Family History Sister(s) Family Medical History: Cancer Additional Family Medical History / Comment(s): COLON Mother Family Medical History: Cancer Additional Family Medical History / Comment(s): BREAST Father Family Medical History: Cancer Additional Family Medical History / Comment(s): LUNG Medications and Allergies Home Medications Medication Instructions Recorded Confirmed Type Metoprolol Succinate (ER) [Toprol 50 mg PO DAILY 08/14/16 02/01/25 History XL] Ferrous Sulfate [Iron (65 MG 325 mg PO DAILY 03/28/21 02/01/25 History Elemental)] Beet Root 1000mg 1,000 mg PO DAILY 10/24/23 02/01/25 History Cyanocobalamin (Vitamin B-12) 1,000 mcg PO Q2D 10/24/23 02/01/25 History [Vitamin B-12] Donepezil [Aricept] 10 mg PO HS 10/24/23 02/01/25 History Cephalexin [Keflex] 500 mg PO Q6HR #40 cap 02/01/25 Rx Ketorolac [Toradol] 10 mg PO Q8HR #15 tab 02/01/25 Rx Levothyroxine Sodium [Synthroid] 137 mcg PO DAILY 02/01/25 02/01/25 History Lipitor (Unknown Dose) 1 tab PO HS 02/01/25 02/01/25 History Tamsulosin [Flomax] 0.4 mg PO DAILY #7 cap 02/01/25 Rx traZODone HCL [Desyrel] 50 - 75 mg PO HS 02/01/25 02/01/25 History Allergies Allergy/AdvReac Type Severity Reaction Status Date / Time No Known Allergies Allergy Verified 02/01/25 18:20 Surgical - Exam Vital Signs Temp Resp BP 97.4 F L 18 188/90 02/01/25 13:49 02/01/25 13:49 02/01/25 13:49 - General well developed, well nourished, moderate distress - Respiratory normal respiratory effort - Abdomen Abdomen: soft, non tender, no guarding, no rigid, no rebound - Psychiatric oriented to time, oriented to person, oriented to place, speech is normal, memory intact Results - Labs 02/01/25 14:46 02/01/25 14:46 Abnormal Lab Results - Last 24 Hours (Table) 02/01/25 02/01/25 02/01/25 Range/Units 14:46 14:46 14:46 RBC 5.82 H (3.80-5.40) m/uL Hgb 16.1 H (11.4-16.0) gm/dL Hct 53.2 H (34.0-46.0) % MCHC 30.3 L (31.0-37.0) g/dL Neutrophils # 8.4 H (1.3-7.7) k/uL Lymphocytes # 0.8 L (1.0-4.8) k/uL BUN 23 H (7-17) mg/dL Urine Protein 1+ H (Negative) Urine Blood Trace H (Negative) Ur Leukocyte Esterase Moderate H (Negative) Urine RBC 11 H (0-5) /hpf Urine WBC 28 H (0-5) /hpf Urine Bacteria Occasional H (None) /hpf Urine Mucus Rare H (None) /hpf Diabetes panel 02/01/25 Range/Units 14:46 Sodium 139 (137-145) mmol/L Potassium 3.7 (3.5-5.1) mmol/L Chloride 103 (98-107) mmol/L Carbon Dioxide 26 (22-30) mmol/L BUN 23 H (7-17) mg/dL Creatinine 0.62 (0.52-1.04) mg/dL Glucose 94 (74-99) mg/dL Calcium 9.3 (8.4-10.2) mg/dL AST 34 (14-36) U/L ALT 24 (4-34) U/L Alkaline Phosphatase 98 (38-126) U/L Total Protein 7.2 (6.3-8.2) g/dL Albumin 4.2 (3.5-5.0) g/dL Calcium panel 02/01/25 Range/Units 14:46 Calcium 9.3 (8.4-10.2) mg/dL Albumin 4.2 (3.5-5.0) g/dL Pituitary panel 02/01/25 Range/Units 14:46 Sodium 139 (137-145) mmol/L Potassium 3.7 (3.5-5.1) mmol/L Chloride 103 (98-107) mmol/L Carbon Dioxide 26 (22-30) mmol/L BUN 23 H (7-17) mg/dL Creatinine 0.62 (0.52-1.04) mg/dL Glucose 94 (74-99) mg/dL Calcium 9.3 (8.4-10.2) mg/dL Adrenal panel 02/01/25 Range/Units 14:46 Sodium 139 (137-145) mmol/L Potassium 3.7 (3.5-5.1) mmol/L Chloride 103 (98-107) mmol/L Carbon Dioxide 26 (22-30) mmol/L BUN 23 H (7-17) mg/dL Creatinine 0.62 (0.52-1.04) mg/dL Glucose 94 (74-99) mg/dL Calcium 9.3 (8.4-10.2) mg/dL Total Bilirubin 0.8 (0.2-1.3) mg/dL AST 34 (14-36) U/L ALT 24 (4-34) U/L Alkaline Phosphatase 98 (38-126) U/L Total Protein 7.2 (6.3-8.2) g/dL Albumin 4.2 (3.5-5.0) g/dL - Imaging CT scan - abdomen: report reviewed, image reviewed Assessment and Plan (1) Hydronephrosis with obstructing calculus Current Visit: Yes Status: Acute Code(s): N13.2 - HYDRONEPHROSIS WITH RENAL AND URETERAL CALCULOUS OBSTRUCTION SNOMED Code(s): 7840378664 Plan: As stated, the patient was admitted due to her intractable symptoms. I have suggested she undergo cystoscopy, right ureteroscopy with laser lithotripsy and stone basketing, right ureteral stent insertion. I have reviewed the procedure with her in detail, and made her aware of potential risks which include anesthesia, bleeding, infection, ureteral injury, and inability to successfully remove the calculus. I am hopeful that this can be performed on February 02, 2025. Time with Patient: Greater than 30
[2025-02-02] MEDS: HYDROmorphone 0.5 MG/0.5 ML SYRINGE IVP PRN (01:54)
[2025-02-02] MEDS: LEVOTHYROXINE 137 MCG TAB PO SCH (06:20)
[2025-02-02] MEDS: ONDANSETRON 4 MG/2 ML VIAL IVP PRN (07:51)
[2025-02-02] MEDS: FERROUS SULFATE 325 MG TAB PO SCH (08:10)
[2025-02-02] MEDS: METOPROLOL SUCCINATE (ER) 50 MG TAB.ER.24H PO SCH (08:10)
[2025-02-02] MEDS: KETOROLAC 15 MG/ML 1 ML VIAL IVP PRN (09:03)
--- NOTE | 2025-02-02 12:40 | XR ---
EXAMINATION TYPE: XR chest 1V portable DATE OF EXAM: 02/02/2025 CLINICAL INDICATION: Female, 69 years old with history of shortness of breath, progress study. TECHNIQUE: Single AP portable upright view of the chest is obtained. COMPARISON: Chest x-ray from 01/27/2024. FINDINGS: Chronic parenchymal changes bilaterally are redemonstrated. There is left basilar linear scarring redemonstrated. No new suspicious focal air space opacity. Cardiomegaly is redemonstrated. Osseous structures are intact. IMPRESSION: Chronic parenchymal changes and cardiomegaly without acute pulmonary process. [facility], , 02/02/2025 12:38 PM
[2025-02-02] MEDS: IV FLUID CONTINUATION 1,000 ML IV ONE (13:50)
[2025-02-02] MEDS: DEXAMETHASONE SOD PHOSPHATE 4 MG/ML 1 ML VIAL IVP ONE (13:53)
[2025-02-02] MEDS: ONDANSETRON 4 MG/2 ML VIAL IVP ONE (13:53)
[2025-02-02] MEDS ORDERED: MIDAZOLAM 2 MG/2 ML VIAL ONE (14:35)
[2025-02-02] MEDS ORDERED: SUCCINYLCHOLINE CHLORIDE 200 MG/10 ML VIAL IV ONE (14:35)
[2025-02-02] MEDS ORDERED: LIDOCAINE 1% INJ 10MG/ML (20 ML MDV) ONE (14:35)
[2025-02-02] MEDS ORDERED: fentaNYL (PF) 50 MCG/ML 2 ML AMP ONE (14:35)
[2025-02-02] MEDS ORDERED: PROPOFOL 10 MG/ML 20 ML VIAL IV ONE (14:35)
--- NOTE | 2025-02-02 15:36 | P.HPIM ---
History of Present Illness H&P Date: 02/02/25 This is a pleasant 69-year-old female who presented to the emergency department with sudden onset right flank pain that started yesterday having intense pain and came to the ER for further evaluation. Patient underwent CT abdomen pelvis and there was a moderate to marked right hydronephrosis and hydroureter secondary to obstructing 12 mm right UVJ calcification otherwise left kidney is unremarkable, hepatal medically and mild cholelithiasis with mild nonspecific interstitial densities in the lung bases right greater than left noted. Patient follows with Dr. Rachana Dasilva in the outpatient setting with a past medical history of DVT, GERD, hypertension, early dementia, significant hard of hearing, hypothyroidism. Patient denies any illicit drug use, alcohol, or smoking. Urology was consulted and patient is scheduled to undergo cystoscopy with right ureteroscopy and laser lithotripsy along with stone basketing and right ureteral stent insertion today. Patient is currently n.p.o. and will await official report. Labs reviewed and patient had a normal white count of 9.9, hemoglobin was 16.1, platelets 215, sodium 139 with a potassium of 3.7, BUN 23 with a creatinine of 0.62, urinalysis was negative other than a trace of blood and WBCs mildly elevated at 28. Patient denies any pain, burning, or frequency with urination. REVIEW OF SYSTEMS: CONSTITUTIONAL: No fever, no malaise, no fatigue. HEENT: No recent visual problems or hearing problems. Denied any sore throat. CARDIOVASCULAR: No chest pain, orthopnea, PND, no palpitations, no syncope. PULMONARY: No shortness of breath, no cough, no hemoptysis. GASTROINTESTINAL: No diarrhea, no nausea, no vomiting, no abdominal pain. NEUROLOGICAL: No headaches, no weakness, no numbness. HEMATOLOGICAL: Denies any bleeding or petechiae. GENITOURINARY: Denies any burning micturition, frequency, or urgency. MUSCULOSKELETAL/RHEUMATOLOGICAL: Reports of right flank pain and back pain ENDOCRINE: Denies any polyuria or polydipsia. The rest of the 14-point review of systems is negative. PHYSICAL EXAMINATION: GENERAL: The patient is alert and oriented x2, baseline, extremely hard of hearing . Well developed, ill-appearing, elderly appearing HEENT: Pupils are round and equally reacting to light. EOMI. No scleral icterus. No conjunctival pallor. Normocephalic, atraumatic. No pharyngeal erythema. No thyromegaly. CARDIOVASCULAR: S1 and S2 muffled PULMONARY: Diminished breath sounds bilaterally otherwise chest is clear to auscultation, no wheezing or crackles. ABDOMEN: Soft, nontender, nondistended, normoactive bowel sounds. No palpable organomegaly. CVA tenderness noted on the right MUSCULOSKELETAL: No joint swelling or deformity. EXTREMITIES: No cyanosis, clubbing, or pedal edema. NEUROLOGICAL: Gross neurological examination did not reveal any focal deficits. SKIN: No rashes. Assessment: Right flank pain with concerns of obstructing 12 mm right UVJ calcification Marked right hydronephrosis and hydroureter secondary to an obstructing stone as noted on imaging History of DVT GERD Hypertension History of early dementia Hard of hearing Hypothyroidism GI prophylaxis DVT prophylaxis Full code Plan: Patient is admitted with concerns of ureteral stone obstruction and is being followed by urology currently n.p.o. and scheduled to undergo surgical intervention including cystoscopy, possible lithotripsy and possible ureteral stent placement Urinalysis does not appear infectious and will be receiving prophylactic antibiotic Will follow-up on repeat labs in the a.m. Await urology report and recommendations moving forward Patient denies any history of previous kidney stones Home medications will be reviewed and resumed as appropriate The impression and plan of care has been dictated by Pilar Campuzano, Nurse Practitioner as directed. Dr. Samir MD I have performed a history and examination and MDM of this patient, discussed the same with the dictator, and agree with the dictator's assessment and plan as written ,documented as a scribe. Based on total visit time, I have performed more than 50% of the visit. Past Medical History Past Medical History: Deep Vein Thrombosis (DVT), GERD/Reflux, Hypertension, Memory Impairment, Thyroid Disorder Additional Past Medical History / Comment(s): early dementia and [place],90% deaf- please relay information to /daughter. family hx colorectal cancer. bowel/urinary incontinence wears depends. has appt 07/13 with neurologist to r/o myasthenia gravis has been experiencing facial drooping,lethary,muscle weakness. osteopenia History of Any Multi-Drug Resistant Organisms: None Reported Date of last positivie culture/infection: 11/28/23 MDRO Source:: Urine Past Surgical History: Heart Catheterization, Hysterectomy Additional Past Surgical History / Comment(s): REPAIR RT RUPTURED THIGH MUSCLE. COLONOSCOPY, bladder prolapse surgery Past Anesthesia/Blood Transfusion Reactions: No Reported Reaction Past Psychological History: No Psychological Hx Reported Additional Psychological History / Comment(s): early dementia. mood swings Smoking Status: Never smoker Past Alcohol Use History: None Reported Past Drug Use History: None Reported - Past Family History Sister(s) Family Medical History: Cancer Additional Family Medical History / Comment(s): COLON Mother Family Medical History: Cancer Additional Family Medical History / Comment(s): BREAST Father Family Medical History: Cancer Additional Family Medical History / Comment(s): LUNG Medications and Allergies Home Medications Medication Instructions Recorded Confirmed Type Metoprolol Succinate (ER) [Toprol 50 mg PO DAILY 08/14/16 02/01/25 History XL] Ferrous Sulfate [Iron (65 MG 325 mg PO DAILY 03/28/21 02/01/25 History Elemental)] Beet Root 1000mg 1,000 mg PO DAILY 10/24/23 02/01/25 History Cyanocobalamin (Vitamin B-12) 1,000 mcg PO Q2D 10/24/23 02/01/25 History [Vitamin B-12] Donepezil [Aricept] 10 mg PO HS 10/24/23 02/01/25 History Cephalexin [Keflex] 500 mg PO Q6HR #40 cap 02/01/25 Rx Ketorolac [Toradol] 10 mg PO Q8HR #15 tab 02/01/25 Rx Levothyroxine Sodium [Synthroid] 137 mcg PO DAILY 02/01/25 02/01/25 History Tamsulosin [Flomax] 0.4 mg PO DAILY #7 cap 02/01/25 Rx traZODone HCL [Desyrel] 50 - 75 mg PO HS 02/01/25 02/01/25 History Atorvastatin Calcium [Lipitor] 40 mg PO HS 02/02/25 02/02/25 History Allergies Allergy/AdvReac Type Severity Reaction Status Date / Time No Known Allergies Allergy Verified 02/01/25 18:20 Physical Exam Vitals: Vital Signs Temp Pulse Pulse Resp BP BP Pulse Ox 02/02/25 07:14 98.7 F 64 18 150/68 91 L 02/02/25 01:25 98.2 F 73 16 148/67 89 L 02/01/25 20:20 98.2 F 72 18 156/81 98 02/01/25 18:21 98.1 F 65 16 183/81 95 02/01/25 16:40 98 F 72 18 194/103 95 02/01/25 15:42 98 F 65 16 194/93 95 02/01/25 13:49 97.4 F L 18 188/90 Intake and Output 02/01/25 02/02/25 02/02/25 22:59 06:59 14:59 Other: Voiding Method Toilet Toilet Bedside Commode Bedside Commode # Voids 4 Weight 88.451 kg Results CBC & Chem 7: 02/01/25 14:46 02/01/25 14:46 Labs: Abnormal Lab Results - Last 24 Hours (Table) 02/01/25 02/01/25 02/01/25 Range/Units 14:46 14:46 14:46 RBC 5.82 H (3.80-5.40) m/uL Hgb 16.1 H (11.4-16.0) gm/dL Hct 53.2 H (34.0-46.0) % MCHC 30.3 L (31.0-37.0) g/dL Neutrophils # 8.4 H (1.3-7.7) k/uL Lymphocytes # 0.8 L (1.0-4.8) k/uL BUN 23 H (7-17) mg/dL Urine Protein 1+ H (Negative) Urine Blood Trace H (Negative) Ur Leukocyte Esterase Moderate H (Negative) Urine RBC 11 H (0-5) /hpf Urine WBC 28 H (0-5) /hpf Urine Bacteria Occasional H (None) /hpf Urine Mucus Rare H (None) /hpf Thrombosis Risk Factor Assmnt - Choose All That Apply Any of the Below Risk Factors Present?: Yes Each Factor Represents 1 point: Minor surgery planned Other Risk Factors: Yes Each Risk Factor Represents 2 Points: Age 61-74 years Each Risk Factor Represents 3 Points: History of DVT/PE Thrombosis Risk Factor Assessment Total Risk Factor Score: 6 Thrombosis Risk Factor Assessment Level: High Risk
--- NOTE | 2025-02-02 15:37 | P.OP ---
Date of Procedure: 02/02/25 Preoperative Diagnosis: Right ureteral calculus Postoperative Diagnosis: Same Procedure(s) Performed: Cystoscopy, right ureteroscopy with Holmium laser lithotripsy and stone basketing, right ureteral stent insertion Anesthesia: MADELINE Surgeon: Gino Son Estimated Blood Loss (ml): 5 IV fluids (ml): 200 Pathology: other (Right ureteral calculus fragments, sent for chemical analysis.) Condition: stable Disposition: PACU Indications for Procedure: The patient is a 69-year-old white female with no prior history of urolithiasis. Around noon today, she experienced acute onset of right flank pain, which she describes as being throbbing and severe. She has experienced associated nausea and vomiting. She underwent evaluation and was found to have right hydronephrosis due to a 12 mm right distal ureteral calculus. She was admitted due to intractable symptoms and now comes for ureteroscopic removal of the calculus. Operative Findings: Right distal ureteral calculus, fragmented and removed completely. Description of Procedure: The patient was taken to the operating room and placed in the dorsolithotomy position, with legs supported in Ancelmo stirrups. The external genitalia was prepped and draped sterilely. The 30 lens was used to introduce the 21-South African Delgado cystoscopic sheath through the urethra and into the bladder under direct vision. The bladder was examined in its entirety. Both ureteral orifices were normal anatomic location and configuration. No tumors or foreign bodies were seen. The Delgado semirigid ureteroscope was advanced into the bladder, and the right ureteral orifice was cannulated. The ureteroscope was slowly advanced under direct vision for several centimeters until the calculus was seen. The 272 micron Holmium laser probe was passed through the ureteroscope, and lithotripsy was performed. After fragmenting the calculus, a 1.9 South African 0 tip nitinol basket was used to remove the calculus fragments from the ureter. Final inspection of the ureter showed no evidence of ureteral trauma, and only minimal debris. A 0.035 inch Glidewire was passed through the ureteroscope and up to the right renal pelvis. The ureteroscope was removed, and the Glidewire was backloaded into the cystoscope, which was passed into the bladder. A 26 cm, 4.8 South African double-J ureteral stent was placed over the wire. Proper stent positioning was verified fluoroscopically and endoscopically. The bladder was emptied and the cystoscope removed. The patient tolerated the procedure well and was taken to the recovery room in stable condition. Rocket RaiseS Report: Procedure Acuity: Urgent Stone Size and Location: 12 mm, right distal ureter Ureteral Dilation: No Ureteral Access Sheath Used: No Stone Sent for Analysis: Yes All Stones/Fragments Were Removed with a Basket: Yes Complications: No Preoperative Antibiotics Given: Yes Stent Placed: Yes If Stent Placed, Was String Left Attached: No If Stent Placed, When is it to be Removed: 1 week
--- NOTE | 2025-02-02 16:03 | FL ---
EXAMINATION TYPE: FL guidance operating room DATE OF EXAM: 02/02/2025 3:56 PM COMPARISON: Pre Operative Images if available both CT/MRI or plain film CLINICAL INDICATION: Female, 69 years old with history of Cysto for rt kidney stone; TECHNIQUE: FL guidance operating room, multiple fluoroscopic images provided for procedure. DAP: 0.7581 mGym2 Gycm2 uGym2 cGycm2 or equivalent. FINDINGS: Multiple intraoperative fluoroscopic images were taken resulting in ureteral stent placement with sup erior pigtail in appropriate position projecting over the renal pelvis. No immediate intraoperative c omplication. Multilevel degeneration changes throughout the spine. IMPRESSION: 1. No evidence for intraoperative complication. 2. Please see the operative/procedural note for further details. [facility], , 02/02/2025 4:00 PM
[2025-02-02] MEDS: hydrALAZINE HCL 20 MG/ML 1 ML VIAL IM STA (16:22)
[2025-02-02] MEDS: ACETAMINOPHEN IV (For NPO) 1,000 MG in EMPTY BAG 1 BAG IVPB STA (16:24)
[2025-02-02] MEDS: SODIUM CHLORIDE 0.9% 1,000 ML IV ONE (17:15)
[2025-02-02 17:26] LABS: Basophils % (A) 0 %; Eosinophils # (A) 0.1 k/uL (0-0.7); Eosinophils % (A) 1 %; HCT 48.3 % (34.0-46.0); Hypochromasia Slight; Lymphocytes # (A) 0.1 k/uL (1.0-4.8); Lymphocytes % (A) 2 %; MCH 28.4 pg (25.0-35.0); MCV 91.7 fL (80.0-100.0); Mean Platelet Volume 9.2; Monocytes # (A) 0.1 k/uL (0-1.0); Monocytes % (A) 1 %; Neutrophils # (A) 5.9 k/uL (1.3-7.7); Neutrophils % (A) 96 %; Platelet Count 174 k/uL (150-450); RBC 5.27 m/uL (3.80-5.40); RDW 13.8 % (11.5-15.5); WBC 6.2 k/uL (3.8-10.6)
[2025-02-02] MEDS: ERTAPENEM 1 GM in SODIUM CHLORIDE 0.9% 50 ML IVPB SCH (17:34)
[2025-02-02 17:39] LABS: ALT 22 U/L (4-34); AST 23 U/L (14-36); African American GFR (CKD) >90 (>60 ml/min/1.73 sqM); Albumin 3.7 g/dL (3.5-5.0); Albumin/Globulin Ratio 1.4; Alkaline Phosphatase 110 U/L (38-126); Anion Gap 11 mmol/L; Blood Urea Nitrogen 24 mg/dL (7-17); Calcium 8.2 mg/dL (8.4-10.2); Carbon Dioxide 24 mmol/L (22-30); Chloride 104 mmol/L (98-107); Globulin 2.6 g/dL; Glucose 129 mg/dL (74-99); Non-African American GFR(CKD) 90 (>60 ml/min/1.73 sqM); Potassium 3.2 mmol/L (3.5-5.1); Sodium 139 mmol/L (137-145); Total Bilirubin 1.9 mg/dL (0.2-1.3); Total Protein 6.3 g/dL (6.3-8.2)
[2025-02-02] MEDS: cloNIDine HCL 0.1 MG TAB PO SCH (20:38)
[2025-02-02] MEDS: ACETAMINOPHEN TAB 325 MG TAB PO PRN (20:38)
[2025-02-02] MEDS: DONEPEZIL 10 MG TAB PO SCH (20:39)
--- NOTE | 2025-02-02 23:01 | P.CNPUL ---
History of Present Illness Consult date: 02/02/25 Reason for consult: dyspnea History of present illness: On 01/30/2025, I was asked to evaluate this patient in recovery for possible ICU transfer. The patient has a right ureteral calculus and the patient underwent cystoscopy, right ureteroscopy and laser lithotripsy and stone basketing and right ureteral stent insertion. Postop, the patient was in recovery when she developed chills and tachycardia and shortness of breath. She was placed on a 5 L simple mask and pulmonary and critical care evaluation was requested. She was hypertensive. Her current blood pressure is normalized. She is currently on 3 L of oxygen by nasal cannula with a pulse ox of 94%. She is spiking low-grade temperature. No significant tachycardia. The patient's white cell count is at 6.2 with a hemoglobin of 15 and a platelet count of 174. BUN is 24 with a creatinine of 0.66 and a sodium levels at 139 and a potassium level is at 3.2. LFTs are normal. UA is abnormal with 28 WBCs and cultures showing gram-negative bacillus. Noted based on previous cultures from 11/28/2023, the patient back to then had an ESBL producing E. coli. Based on previous microbiology, I started the patient on IV Invanz. The patient was given IV fluids and currently the pat ient is running on normal saline at rate of 75 cc an hour. She was observed over the next 7260 minutes and the patient's overall condition improved. Blood pressure also improved. I made recommendation to transfer this patient to medical surgical floor for further monitoring. Chest x-ray done in recovery showed cardiomegaly without any acute cardiopulmonary process. CAT scan of the abdomen and pelvis done on 02/01/2025 showed moderate to large right hydronephrosis and hydroureter secondary to a 12 mm obstructing right UVJ calculus. There is also mild cholelithiasis. Review of Systems Constitutional: Reports fatigue, Reports fever, Reports weakness Eyes: bilateral decreased vision, denies as per HPI, denies blurred vision, denies bulging eye, denies diplopia, denies discharge, denies dry eye, denies irritation, denies itching, denies pain, denies photophobia, denies loss of peripheral vision, denies loss of vision, denies tunnel vision/blind spots Ears: bilateral: decreased hearing, deny: ear discharge, earache, tinnitus Ears, nose, mouth and throat: Reports as per HPI Breasts: absent: as per HPI, change in shape, gynecomastia, masses, nipple discharge, pain, skin changes, swelling Cardiovascular: Reports as per HPI Respiratory: Reports as per HPI Gastrointestinal: Reports abdominal pain (Flank pain) Genitourinary: Reports as per HPI (Flank pain), Reports flank pain Menstruation: Reports as per HPI Musculoskeletal: Reports as per HPI Integumentary: Reports as per HPI Neurological: Reports as per HPI Psychiatric: Reports as per HPI Endocrine: Reports as per HPI Hematologic/Lymphatic: Reports as per HPI Allergic/Immunologic: Reports as per HPI Past Medical History Past Medical History: Deep Vein Thrombosis (DVT), GERD/Reflux, Hypertension, Memory Impairment, Thyroid Disorder Additional Past Medical History / Comment(s): early dementia and [place],90% deaf- please relay information to /daughter. family hx colorectal cancer. bowel/urinary incontinence wears depends. has appt 07/13 with neurologist to r/o myasthenia gravis has been experiencing facial drooping,lethary,muscle weakness. osteopenia History of Any Multi-Drug Resistant Organisms: None Reported Date of last positivie culture/infection: 11/28/23 MDRO Source:: Urine Past Surgical History: Heart Catheterization, Hysterectomy Additional Past Surgical History / Comment(s): REPAIR RT RUPTURED THIGH MUSCLE. COLONOSCOPY, bladder prolapse surgery Past Anesthesia/Blood Transfusion Reactions: No Reported Reaction Past Psychological History: No Psychological Hx Reported Additional Psychological History / Comment(s): early dementia. mood swings Smoking Status: Never smoker Past Alcohol Use History: None Reported Past Drug Use History: None Reported - Past Family History Sister(s) Family Medical History: Cancer Additional Family Medical History / Comment(s): COLON Mother Family Medical History: Cancer Additional Family Medical History / Comment(s): BREAST Father Family Medical History: Cancer Additional Family Medical History / Comment(s): LUNG Medications and Allergies Home Medications Medication Instructions Recorded Confirmed Type Metoprolol Succinate (ER) [Toprol 50 mg PO DAILY 08/14/16 02/01/25 History XL] Ferrous Sulfate [Iron (65 MG 325 mg PO DAILY 03/28/21 02/01/25 History Elemental)] Beet Root 1000mg 1,000 mg PO DAILY 10/24/23 02/01/25 History Cyanocobalamin (Vitamin B-12) 1,000 mcg PO Q2D 10/24/23 02/01/25 History [Vitamin B-12] Donepezil [Aricept] 10 mg PO HS 10/24/23 02/01/25 History Cephalexin [Keflex] 500 mg PO Q6HR #40 cap 02/01/25 Rx Ketorolac [Toradol] 10 mg PO Q8HR #15 tab 02/01/25 Rx Levothyroxine Sodium [Synthroid] 137 mcg PO DAILY 02/01/25 02/01/25 History Tamsulosin [Flomax] 0.4 mg PO DAILY #7 cap 02/01/25 Rx traZODone HCL [Desyrel] 50 - 75 mg PO HS 02/01/25 02/01/25 History Atorvastatin Calcium [Lipitor] 40 mg PO HS 02/02/25 02/02/25 History Allergies Allergy/AdvReac Type Severity Reaction Status Date / Time No Known Allergies Allergy Verified 02/01/25 18:20 Physical Exam Vitals: Vital Signs Temp Pulse Pulse Resp BP BP Pulse Ox 02/02/25 18:58 100.5 F H 91 18 133/79 94 L 02/02/25 18:45 83 22 136/73 97 02/02/25 18:30 98.1 F 85 22 140/73 96 02/02/25 18:00 98.3 F 88 24 142/67 96 02/02/25 17:45 93 22 151/65 94 L 02/02/25 17:30 86 23 148/66 92 L 02/02/25 17:15 99.3 F 90 21 149/73 92 L 02/02/25 17:00 99.3 F 94 23 133/60 92 L 02/02/25 16:45 100.3 F H 96 22 192/104 99 02/02/25 16:30 96 20 197/104 99 02/02/25 16:15 100.9 F H 94 100 H 205/114 97 02/02/25 16:00 88 24 198/102 97 02/02/25 15:44 97.1 F L 81 22 173/115 97 02/02/25 13:45 98.7 F 65 18 147/67 93 L 02/02/25 07:14 98.7 F 64 18 150/68 91 L 02/02/25 01:25 98.2 F 73 16 148/67 89 L Intake and Output 02/02/25 02/02/25 02/02/25 06:59 14:59 22:59 Intake Total 600 200 Output Total 5 Balance 595 200 Intake: IV 600 200 Output: Estimated Blood Loss 5 Other: Voiding Method Toilet Toilet Toilet Bedside Commode Bedside Commode Bedside Commode # Voids 4 1 Weight 88.451 kg 88.451 kg The patient appeared well nourished and normally developed. Vital signs as documented. The patient is currently on 2 L of oxygen by nasal cannula Head exam is unremarkable. No scleral icterus or corneal arcus noted. Neck is without jugular venous distension, thyromegaly, or carotid bruits. Carotid upstrokes are brisk bilaterally. Hearing impairment Lungs are clear to auscultation and percussion. Cardiac exam reveals the PMI to be normally sized and situated. Rhythm is regular. First and second heart sounds normal. No murmurs, rubs or gallops. Abdominal exam reveals normal bowel sounds, no masses, no organomegaly and no aortic enlargement. Flank discomfort secondary to a ureteral stone on the right Extremities are nonedematous and both femoral and pedal pulses are normal. Examination of the skin revealed no evidence of significant rashes, suspicious appearing nevi or other concerning lesions. Neurologically, the patient is awake and alert and the patient does not have any focal neurological deficit. Cranial nerves are essentially intact. Patient has memory impairment and dementia Results - Laboratory Findings CBC and BMP: 02/02/25 17:08 02/02/25 17:08 Abnormal lab findings: Abnormal Labs 02/01/25 02/01/25 02/01/25 14:46 14:46 14:46 RBC 5.82 H Hgb 16.1 H Hct 53.2 H MCHC 30.3 L Neutrophils # 8.4 H Lymphocytes # 0.8 L Potassium BUN 23 H Glucose Calcium Total Bilirubin Urine Protein 1+ H Urine Blood Trace H Ur Leukocyte Esterase Moderate H Urine RBC 11 H Urine WBC 28 H Urine Bacteria Occasional H Urine Mucus Rare H 02/02/25 02/02/25 17:08 17:08 RBC Hgb Hct 48.3 H MCHC Neutrophils # Lymphocytes # 0.1 L Potassium 3.2 L BUN 24 H Glucose 129 H Calcium 8.2 L Total Bilirubin 1.9 H Urine Protein Urine Blood Ur Leukocyte Esterase Urine RBC Urine WBC Urine Bacteria Urine Mucus - Diagnostic Findings Chest x-ray: image reviewed Assessment and Plan Plan: Right ureteral stone, with secondary rightt flank pain /obstructing 12 mm right UVJ calcification, marked right hydronephrosis and hydroureter secondary to an obstructing stoneand the patient is status post Cystoscopy, right ureteroscopy with Holmium laser lithotripsy and stone basketing, right ureteral stent insertion. The patient is postop day #0. The patient was seen in recovery due to chills, tachycardia increased shortness of breath where the patient was placed on simple full facemask and currently she is on liters of oxygen by nasal cannula. Acute systemic inflammatory response syndrome post urologic intervention, rule out transient bacteremia Acute hypoxemia, currently on 3 L of oxygen by nasal cannula chest x-ray is not showing any acute abnormalities. This is probably related to bacteremia and sepsis Dementia Hypertension Hypothyroidism Cholelithiasis without evidence of cholecystitis Hearing impairment Previous history of DVT Previous history of E. coli urinary tract infection, ESBL producing Plan Start the patient on normal saline at 75 cc an hour Started patient on IV Invanz 1 g every 24 hours Urine cultures and blood cultures Titrate FiO2 to maintain saturation above 90%, currently on 3 L Monitor blood pressure. No significant hypotension No need for ICU transfer for now. Will continue to follow on the medical floor. Follow-up with urology. Time with Patient: Greater than 30
[2025-02-02] MEDS: traZODone HCL 50 MG TAB PO SCH (23:53)
--- NOTE | 2025-02-03 10:15 | P.PN ---
Subjective Progress Note Date: 02/03/25 Principal diagnosis: Right ureteral calculus The patient was admitted with right renal colic due to a 12 mm right distal ureteral calculus. She underwent ureteroscopic removal of the calculus in February 02, 2025. A ureteral stent was placed. Postoperatively, she was noted to be t achycardic and dyspneic, with chills. Those symptoms have resolved. She is currently receiving Invanz. She had a low-grade fever overnight but states she is feeling much better this morning. Objective - Vital Signs Vital signs: Vital Signs Temp 97.9 F 02/03/25 00:31 Pulse 78 02/03/25 00:31 Resp 18 02/02/25 18:58 BP 124/68 02/03/25 00:31 Pulse Ox 93 L 02/03/25 05:49 FiO2 Intake & Output 02/02/25 02/03/25 02/03/25 18:59 06:59 18:59 Intake Total 800 Output Total 5 Balance 795 Weight 88.451 kg Intake: IV 800 Output: Estimated Blood Loss 5 Other: Voiding Method Toilet Toilet Bedside Commode Bedside Commode # Voids 1 - Constitutional General appearance: Present: average body habitus, cooperative, no acute distress - Psychiatric Psychiatric: Present: A&O x's 3 - Labs CBC & Chem 7: 02/02/25 17:08 02/02/25 17:08 Labs: Abnormal Lab Results - Last 24 Hours (Table) 02/02/25 02/02/25 Range/Units 17:08 17:08 Hct 48.3 H (34.0-46.0) % Lymphocytes # 0.1 L (1.0-4.8) k/uL Potassium 3.2 L (3.5-5.1) mmol/L BUN 24 H (7-17) mg/dL Glucose 129 H (74-99) mg/dL Calcium 8.2 L (8.4-10.2) mg/dL Total Bilirubin 1.9 H (0.2-1.3) mg/dL Microbiology - Last 24 Hours (Table) 02/01/25 14:46 Urine Culture - Preliminary Urine,Voided Gram Neg Bacilli Assessment and Plan (1) Hydronephrosis with obstructing calculus Current Visit: Yes Status: Acute Code(s): N13.2 - HYDRONEPHROSIS WITH RENAL AND URETERAL CALCULOUS OBSTRUCTION SNOMED Code(s): 3888296312 (2) UTI (urinary tract infection) Current Visit: No Status: Acute Code(s): N39.0 - URINARY TRACT INFECTION, SITE NOT SPECIFIED SNOMED Code(s): 90821585 Plan: Continue Invanz, pending culture results. The patient may be discharged home on appropriate oral antibiotics. She will undergo office cystoscopy with stent removal next week.
--- NOTE | 2025-02-03 18:00 | P.PN ---
Subjective Progress Note Date: 02/03/25 On 01/30/2025, I was asked to evaluate this patient in recovery for possible ICU transfer. The patient has a right ureteral calculus and the patient underwent cystoscopy, right ureteroscopy and laser lithotripsy and stone basketing and right ureteral stent insertion. Postop, the patient was in recovery when she developed chills and tachycardia and shortness of breath. She was placed on a 5 L simple mask and pulmonary and critical care evaluation was requested. She was hypertensive. Her current blood pressure is normalized. She is currently on 3 L of oxygen by nasal cannula with a pulse ox of 94%. She is spiking low-grade temperature. No significant tachycardia. The patient's white cell count is at 6.2 with a hemoglobin of 15 and a platelet count of 174. BUN is 24 with a creatinine of 0.66 and a sodium levels at 139 and a potassium level is at 3.2. LFTs are normal. UA is abnormal with 28 WBCs and cultures showing gram-negative bacillus. Noted based on previous cultures from 11/28/2023, the patient back to then had an ESBL producing E. coli. Based on previous microbiology, I started the patient on IV Invanz. The patient was given IV fluids and currently the patient is running on normal saline at rate of 75 cc an hour. She was observed over the next 7260 minutes and the patient's overall condition improved. Blood pressure also improved. I made recommendation to transfer this patient to medical surgical floor for further monitoring. Chest x-ray done in recovery showed cardiomegaly without any acute cardiopulmonary process. CAT scan of the abdomen and pelvis done on 02/01/2025 showed moderate to large right hydronephrosis and hydroureter secondary to a 12 mm obstructing right UVJ calculus. There is also mild cholelithiasis. On 02/03/2025, the patient is stable on the medical floor. Denies having any specific complaints. The patient has a 4 mm right distal ureteral calculus that was removed surgically. Postop, the patient had tachycardia dyspnea and some hy poxemia and chills and all of those symptoms recovered. The patient is currently on IV Invanz. The patient is currently on room air oxygen with a pulse ox of 92%. Afebrile and hemodynamically stable. The white cell count from yesterday was 6.2. No other new labs are available from today. Urine culture is still positive for gram-negative bacillus, Objective - Vital Signs Vital signs: Vital Signs Temp 98.3 F 02/03/25 08:00 Pulse 70 02/03/25 08:00 Resp 18 02/03/25 08:00 BP 121/70 02/03/25 08:00 Pulse Ox 92 L 02/03/25 08:00 FiO2 Intake & Output 02/02/25 02/03/25 02/03/25 18:59 06:59 18:59 Intake Total 800 Output Total 5 Balance 795 Weight 88.451 kg Intake: IV 800 Output: Estimated Blood Loss 5 Other: Voiding Method Toilet Toilet Bedside Commode Bedside Commode # Voids 1 - Exam The patient appeared well nourished and normally developed. Vital signs as documented. The patient is currently on room air oxygen Head exam is unremarkable. No scleral icterus or corneal arcus noted. Neck is without jugular venous distension, thyromegaly, or carotid bruits. Carotid upstrokes are brisk bilaterally. Hearing impairment Lungs are clear to auscultation and percussion. Cardiac exam reveals the PMI to be normally sized and situated. Rhythm is regular. First and second heart sounds normal. No murmurs, rubs or gallops. Abdominal exam reveals normal bowel sounds, no masses, no organomegaly and no aortic enlargement. Flank discomfort secondary to a ureteral stone on the right Extremities are nonedematous and both femoral and pedal pulses are normal. Examination of the skin revealed no evidence of significant rashes, suspicious appearing nevi or other concerning lesions. Neurologically, the patient is awake and alert and the patient does not have any focal neurological deficit. Cranial nerves are essentially intact. Patient has memory impairment and dementia - Labs CBC & Chem 7: 02/02/25 17:08 02/02/25 17:08 Labs: Abnormal Lab Results - Last 24 Hours (Table) 02/02/25 02/02/25 Range/Units 17:08 17:08 Hct 48.3 H (34.0-46.0) % Lymphocytes # 0.1 L (1.0-4.8) k/uL Potassium 3.2 L (3.5-5.1) mmol/L BUN 24 H (7-17) mg/dL Glucose 129 H (74-99) mg/dL Calcium 8.2 L (8.4-10.2) mg/dL Total Bilirubin 1.9 H (0.2-1.3) mg/dL Microbiology - Last 24 Hours (Table) 02/01/25 14:46 Urine Culture - Preliminary Urine,Voided Gram Neg Bacilli Assessment and Plan Plan: Right ureteral stone, with secondary rightt flank pain /obstructing 12 mm right UVJ calcification, marked right hydronephrosis and hydroureter secondary to an obstructing stoneand the patient is status post Cystoscopy, right ureteroscopy with Holmium laser lithotripsy and stone basketing, right ureteral stent insertion. The patient is postop day #1. . Acute systemic inflammatory response syndrome post urologic intervention, rule out transient bacteremia, improved and the patient is hemodynamically stable Acute hypoxemia, currently on 3 L of oxygen by nasal cannula chest x-ray is not showing any acute abnormalities. This is probably related to bacteremia and sepsis, improved and the patient is currently on room air oxygen Dementia Hypertension Hypothyroidism Cholelithiasis without evidence of cholecystitis Hearing impairment Previous history of DVT Previous history of E. coli urinary tract infection, ESBL producing Plan normal saline at 75 cc an hour IV Invanz 1 g every 24 hours, pending further urine cultures Urine cultures is showing gram-negative bacillus Patient currently on room air oxygen Monitor blood pressure. No significant hypotension Will follow
--- NOTE | 2025-02-03 18:20 | P.PN ---
Subjective Progress Note Date: 02/03/25 69-year-old female who presented to the emergency department with sudden onset right flank pain that started yesterday having intense pain and came to the ER for further evaluation. Patient underwent CT abdomen pelvis and there was a moderate to marked right hydronephrosis and hydroureter secondary to obstructing 12 mm right UVJ calcification otherwise left kidney is unremarkable, hepatal medically and mild cholelithiasis with mild nonspecific interstitial densities in the lung bases right greater than left noted. Patient follows with Dr. Rachana Dasilva in the outpatient setting with a past medical history of DVT, GERD, hypertension, early dementia, significant hard of hearing, hypothyroidism. Claire ent denies any illicit drug use, alcohol, or smoking. Urology was consulted and patient is scheduled to undergo cystoscopy with right ureteroscopy and laser lithotripsy along with stone basketing and right ureteral stent insertion today. Patient is currently n.p.o. and will await official report. Labs reviewed and patient had a normal white count of 9.9, hemoglobin was 16.1, platelets 215, sodium 139 with a potassium of 3.7, BUN 23 with a creatinine of 0.62, urinalysis was negative other than a trace of blood and WBCs mildly elevated at 28. Patient denies any pain, burning, or frequency with urination. Objective - Vital Signs Vital signs: Vital Signs Temp 98.3 F 02/03/25 08:00 Pulse 70 02/03/25 08:00 Resp 18 02/03/25 08:00 BP 121/70 02/03/25 08:00 Pulse Ox 92 L 02/03/25 08:00 FiO2 Intake & Output 02/02/25 02/03/25 02/03/25 18:59 06:59 18:59 Intake Total 800 Output Total 5 Balance 795 Weight 88.451 kg Intake: IV 800 Output: Estimated Blood Loss 5 Other: Voiding Method Toilet Toilet Bedside Commode Bedside Commode # Voids 1 - Exam GENERAL: The patient is alert and oriented x2, baseline, extremely hard of hearing . Well developed, ill-appearing, elderly appearing HEENT: Pupils are round and equally reacting to light. EOMI. No scleral icterus. No conjunctival pallor. Normocephalic, atraumatic. No pharyngeal erythema. No thyromegaly. CARDIOVASCULAR: S1 and S2 muffled PULMONARY: Diminished breath sounds bilaterally otherwise chest is clear to auscultation, no wheezing or crackles. ABDOMEN: Soft, nontender, nondistended, normoactive bowel sounds. No palpable organomegaly. CVA tenderness noted on the right MUSCULOSKELETAL: No joint swelling or deformity. EXTREMITIES: No cyanosis, clubbing, or pedal edema. NEUROLOGICAL: Gross neurological examination did not reveal any focal deficits. SKIN: No rashes. - Labs CBC & Chem 7: 02/02/25 17:08 02/02/25 17:08 Labs: Abnormal Lab Results - Last 24 Hours (Table) 02/02/25 02/02/25 Range/Units 17:08 17:08 Hct 48.3 H (34.0-46.0) % Lymphocytes # 0.1 L (1.0-4.8) k/uL Potassium 3.2 L (3.5-5.1) mmol/L BUN 24 H (7-17) mg/dL Glucose 129 H (74-99) mg/dL Calcium 8.2 L (8.4-10.2) mg/dL Total Bilirubin 1.9 H (0.2-1.3) mg/dL Microbiology - Last 24 Hours (Table) 02/01/25 14:46 Urine Culture - Preliminary Urine,Voided Gram Neg Bacilli Assessment and Plan Assessment: Right flank pain with concerns of obstructing 12 mm right UVJ calcification Marked right hydronephrosis and hydroureter secondary to an obstructing stone as noted on imaging History of DVT GERD Hypertension History of early dementia Hard of hearing Hypothyroidism GI prophylaxis DVT prophylaxis Full code Plan: Patient is admitted with concerns of ureteral stone obstruction and is being followed by urology currently n.p.o. and scheduled to undergo surgical interv ention including cystoscopy, possible lithotripsy and possible ureteral stent placement Urinalysis does not appear infectious and will be receiving prophylactic antibiotic Will follow-up on repeat labs in the a.m. Await urology report and recommendations moving forward Patient denies any history of previous kidney stones Home medications will be reviewed and resumed as appropriate
[2025-02-04 09:29] LABS: Basophils # (A) 0.03 X 10*3/uL (0.00-0.10); Basophils % (A) 0.2 %; Eosinophils # (A) 0.04 X 10*3/uL (0.04-0.35); Eosinophils % (A) 0.3 %; HCT 42.4 % (37.2-46.3); HGB 13.2 g/dL (12.0-15.0); Lymphocytes # (A) 0.53 X 10*3/uL (0.90-5.00); MCH 28.6 pg (27.0-32.0); MCHC 31.1 g/dL (32.0-37.0); Mean Platelet Volume 13.6 FL (9.5-12.2); Monocytes # (A) 0.94 X 10*3/uL (0.20-1.00); Monocytes % (A) 7.2 %; NRBC Per 100 WBC 0 X 10*3/uL (0.00-0.01); Neutrophils % (A) 87.7 %; Platelet Count 145 X 10*3/uL (140-440); RBC 4.61 X 10*6/uL (4.10-5.20); RDW 14.6 % (11.5-14.5); WBC 13.12 X 10*3/uL (4.50-10.00)
[2025-02-04 09:34] LABS: BUN/Creat Ratio 43.75 Ratio (12.00-20.00); Calcium 8.1 mg/dL (8.7-10.3); Carbon Dioxide 23.6 mmol/L (21.6-31.8); Chloride 106 mmol/L (96-109); Glucose 105 mg/dL (70-110); Potassium 3.5 mmol/L (3.5-5.5); Sodium 141 mmol/L (135-145)
--- NOTE | 2025-02-04 14:46 | P.PN ---
Subjective Progress Note Date: 02/04/25 On 01/30/2025, I was asked to evaluate this patient in recovery for possible ICU transfer. The patient has a right ureteral calculus and the patient underwent cystoscopy, right ureteroscopy and laser lithotripsy and stone basketing and right ureteral stent insertion. Postop, the patient was in recovery when she developed chills and tachycardia and shortness of breath. She was placed on a 5 L simple mask and pulmonary and critical care evaluation was requested. She was hypertensive. Her current blood pressure is normalized. She is currently on 3 L of oxygen by nasal cannula with a pulse ox of 94%. She is spiking low-grade temperature. No significant tachycardia. The patient's white cell count is at 6.2 with a hemoglobin of 15 and a platelet count of 174. BUN is 24 with a creatinine of 0.66 and a sodium levels at 139 and a potassium level is at 3.2. LFTs are normal. UA is abnormal with 28 WBCs and cultures showing gram-negative bacillus. Noted based on previous cultures from 11/28/2023, the patient back to then had an ESBL producing E. coli. Based on previous microbiology, I started the patient on IV Invanz. The patient was given IV fluids and currently the patient is running on normal saline at rate of 75 cc an hour. She was observed over the next 7260 minutes and the patient's overall condition improved. Blood pressure also improved. I made recommendation to transfer this patient to medical surgical floor for further monitoring. Chest x-ray done in recovery showed cardiomegaly without any acute cardiopulmonary process. CAT scan of the abdomen and pelvis done on 02/01/2025 showed moderate to large right hydronephrosis and hydroureter secondary to a 12 mm obstructing right UVJ calculus. There is also mild cholelithiasis. On 02/03/2025, the patient is stable on the medical floor. Denies having any specific complaints. The patient has a 4 mm right distal ureteral calculus that was removed surgically. Postop, the patient had tachycardia dyspnea and some hy poxemia and chills and all of those symptoms recovered. The patient is currently on IV Invanz. The patient is currently on room air oxygen with a pulse ox of 92%. Afebrile and hemodynamically stable. The white cell count from yesterday was 6.2. No other new labs are available from today. Urine culture is still positive for gram-negative bacillus, On 02/04/2025, the patient has no specific complaints. The patient had a urinary tract infection with ESBL producing E. coli. She is status post cystoscopy and right ureteroscopy and laser lithotripsy and stone basketing and right ureteral stent insertion. Sitting up in a chair. Calm and comfortable. The white cell count is at 13.1 with a heme of 13.2 and a platelet count of 145. Electrolytes are all within normal limits. Procalcitonin level is at 25. The patient is afebrile for now on 2 L of O2 nasal cannula. Slightly hypertensive. No other significant issues for now. Urology is on the case. Medical team is also on the case. Objective - Vital Signs Vital signs: Vital Signs Temp 97.8 F 02/04/25 14:00 Pulse 70 02/04/25 14:00 Resp 17 02/04/25 14:00 BP 170/79 02/04/25 14:00 Pulse Ox 97 02/04/25 14:00 FiO2 Intake & Output 02/03/25 02/04/25 02/04/25 18:59 06:59 18:59 Intake Total 650 480 Balance 650 480 Intake: Intake, IV Titration 650 Amount Ertapenem 1 gm In Sodium 50 Chloride 0.9% 50 ml @ 100 mls/hr IVPB 1800 SELENE Rx# :[id number] Sodium Chloride 0.9% 1, 600 000 ml @ 75 mls/hr IV . [id number] SELENE Rx#:[id number] Oral 480 Other: Voiding Method Toilet Bedside Commode # Voids 3 1 - Exam The patient appeared well nourished and normally developed. Vital signs as documented. The patient is currently on room air oxygen Head exam is unremarkable. No scleral icterus or corneal arcus noted. Neck is without jugular venous distension, thyromegaly, or carotid bruits. Carotid upstrokes are brisk bilaterally. Hearing impairment Lungs are clear to auscultation and percussion. Cardiac exam reveals the PMI to be normally sized and situated. Rhythm is regular. First and second heart sounds normal. No murmurs, rubs or gallops. Abdominal exam reveals normal bowel sounds, no masses, no organomegaly and no aortic enlargement. Flank discomfort secondary to a ureteral stone on the right Extremities are nonedematous and both femoral and pedal pulses are normal. Examination of the skin revealed no evidence of significant rashes, suspicious appearing nevi or other concerning lesions. Neurologically, the patient is awake and alert and the patient does not have any focal neurological deficit. Cranial nerves are essentially intact. Patient has memory impairment and dementia - Labs CBC & Chem 7: 02/04/25 03:02/04/25 03:33 Labs: Abnormal Lab Results - Last 24 Hours (Table) 02/04/25 02/04/25 02/04/25 Range/Units 03:33 03: 03:33 WBC 13.12 H (4.50-10.00) X 10*3/uL MCHC 31.1 L (32.0-37.0) g/dL RDW 14.6 H (11.5-14.5) % MPV 13.6 H (9.5-12.2) FL Immature Gran # 0.08 H (0.00-0.04) X 10*3/uL Neutrophils # 11.50 H (1.80-7.70) X 10*3/uL Lymphocytes # 0.53 L (0.90-5.00) X 10*3/uL BUN 35.0 H (9.0-27.0) mg/dL BUN/Creatinine Ratio 43.75 H (12.00-20.00) Ratio Calcium 8.1 L (8.7-10.3) mg/dL C-Reactive Protein 12.90 H (0.00-0.80) mg/dL Procalcitonin 25.70 H (0.02-0.50) ng/mL Microbiology - Last 24 Hours (Table) 02/02/25 17:08 Blood Culture - Preliminary Blood 02/01/25 14:46 Urine Culture - Final Urine,Voided Escherichia coli ESBL Assessment and Plan Plan: Right ureteral stone, with secondary rightt flank pain /obstructing 12 mm right UVJ calcification, marked right hydronephrosis and hydroureter secondary to an obstructing stoneand the patient is status post Cystoscopy, right ureteroscopy with Holmium laser lithotripsy and stone basketing, right ureteral stent insertion. The patient is postop day # 2 Complicated UTI with ESBL producing E. coli, currently on IV Invanz Acute systemic inflammatory response syndrome post urologic intervention, rule out transient bacteremia, improved and the patient is hemodynamically stable Acute hypoxemia, currently on 2 L of oxygen by nasal cannula chest x-ray is not showing any acute abnormalities. This is probably related to bacteremia and sepsis, improved and the patient is currently on room air oxygen Dementia Hypertension Hypothyroidism Cholelithiasis without evidence of cholecystitis Hearing impairment Previous history of DVT Previous history of E. coli urinary tract infection, ESBL producing Plan normal saline at 75 cc an hour IV Invanz 1 g every 24 hours, pending further urine cultures Urine cultures is showing E. coli, ESBL producing Titrate oxygen flow to maintain oxygen saturation above 90%, currently on 2 L Monitor blood pressure. No significant hypotension Will sign off and keep present management of the medicine and urology.
--- NOTE | 2025-02-04 16:17 | P.PN ---
Subjective Progress Note Date: 02/04/25 69-year-old female who presented to the emergency department with sudden onset right flank pain that started yesterday having intense pain and came to the ER for further evaluation. Patient underwent CT abdomen pelvis and there was a moderate to marked right hydronephrosis and hydroureter secondary to obstructing 12 mm right UVJ calcification otherwise left kidney is unremarkable, hepatal medically and mild cholelithiasis with mild nonspecific interstitial densities in the lung bases right greater than left noted. Patient follows with Dr. Rachana Dasilva in the outpatient setting with a past medical history of DVT, GERD, hypertension, early dementia, significant hard of hearing, hypothyroidism. Claire ent denies any illicit drug use, alcohol, or smoking. Urology was consulted and patient is scheduled to undergo cystoscopy with right ureteroscopy and laser lithotripsy along with stone basketing and right ureteral stent insertion today. Patient is currently n.p.o. and will await official report. Labs reviewed and patient had a normal white count of 9.9, hemoglobin was 16.1, platelets 215, sodium 139 with a potassium of 3.7, BUN 23 with a creatinine of 0.62, urinalysis was negative other than a trace of blood and WBCs mildly elevated at 28. Patient denies any pain, burning, or frequency with urination. 02/04/2025 - the patient is seen and evaluated sitting up in bedside chair; has no specific complaints. The patient had a urinary tract infection with ESBL producing E. coli. She is status post cystoscopy and right ureteroscopy and laser lithotripsy and stone basketing and right ureteral stent insertion. -- Blood work reveals the white cell count is at 13.1 with a heme of 13.2 and a platelet count of 145. Electrolytes are all within normal limits. Proc alcitonin level is at 25. -Urine culture reveals E. coli, ESBL positive; patient is currently on Invanz 1 g IV; we will consult ID for final recommendations on antibiotic therapy Objective - Vital Signs Vital signs: Vital Signs Temp 97.6 F 02/04/25 08:00 Pulse 71 02/04/25 08:00 Resp 18 02/04/25 08:00 BP 161/81 02/04/25 08:00 Pulse Ox 94 L 02/04/25 08:00 FiO2 Intake & Output 02/03/25 02/04/25 02/04/25 18:59 06:59 18:59 Intake Total 650 Balance 650 Intake: Intake, IV Titration 650 Amount Ertapenem 1 gm In Sodium 50 Chloride 0.9% 50 ml @ 100 mls/hr IVPB 1800 SELENE Rx# :[id number] Sodium Chloride 0.9% 1, 600 000 ml @ 75 mls/hr IV . [id number] SELENE Rx#:[id number] Other: Voiding Method Toilet Bedside Commode # Voids 3 1 - Exam GENERAL: The patient is alert and oriented x2, baseline, extremely hard of hearing . Well developed, ill-appearing, elderly appearing HEENT: Pupils are round and equally reacting to light. EOMI. No scleral icterus. No conjunctival pallor. Normocephalic, atraumatic. No pharyngeal erythema. No thyromegaly. CARDIOVASCULAR: S1 and S2 muffled PULMONARY: Diminished breath sounds bilaterally otherwise chest is clear to auscultation, no wheezing or crackles. ABDOMEN: Soft, nontender, nondistended, normoactive bowel sounds. No palpable organomegaly. CVA tenderness noted on the right MUSCULOSKELETAL: No joint swelling or deformity. EXTREMITIES: No cyanosis, clubbing, or pedal edema. NEUROLOGICAL: Gross neurological examination did not reveal any focal deficits. SKIN: No rashes. - Labs CBC & Chem 7: 02/04/25 03:33 02/04/25 03:33 Labs: Abnormal Lab Results - Last 24 Hours (Table) 02/04/25 02/04/25 02/04/25 Range/Units 03:33 03:33 03:33 WBC 13.12 H (4.50-10.00) X 10*3/uL MCHC 31.1 L (32.0-37.0) g/dL RDW 14.6 H (11.5-14.5) % MPV 13.6 H (9.5-12.2) FL Immature Gran # 0.08 H (0.00-0.04) X 10*3/uL Neutrophils # 11.50 H (1.80-7.70) X 10*3/uL Lymphocytes # 0.53 L (0.90-5.00) X 10*3/uL BUN 35.0 H (9.0-27.0) mg/dL BUN/Creatinine Ratio 43.75 H (12.00-20.00) Ratio Calcium 8.1 L (8.7-10.3) mg/dL C-Reactive Protein 12.90 H (0.00-0.80) mg/dL Procalcitonin 25.70 H (0.02-0.50) ng/mL Microbiology - Last 24 Hours (Table) 02/02/25 17:08 Blood Culture - Preliminary Blood 02/01/25 14:46 Urine Culture - Final Urine,Voided Escherichia coli ESBL Assessment and Plan Assessment: Right flank pain with concerns of obstructing 12 mm right UVJ calcification Marked right hydronephrosis and hydroureter secondary to an obstructing stone as noted on imaging History of DVT GERD Hypertension History of early dementia Hard of hearing Hypothyroidism GI prophylaxis DVT prophylaxis Full code Plan: Patient is admitted with concerns of ureteral stone obstruction and is being followed by urology currently n.p.o. and scheduled to undergo surgical intervention including cystoscopy, possible lithotripsy and possible ureteral stent placement Urinalysis does not appear infectious and will be receiving prophylactic antibiotic Will follow-up on repeat labs in the a.m. Await urology report and recommendations moving forward Patient denies any history of previous kidney stones Home medications will be reviewed and resumed as appropriate
--- NOTE | 2025-02-04 23:30 | P.CONS ---
History of Present Illness - Reason for Consult Consult date: 02/04/25 UTI, ESBL Requesting physician: Logan Cardenas - Chief Complaint Right flank pain x days - History of Present Illness Patient is a 69-year-old female with a past medical history significant for DVT reflux hypertension memory impairment presenting to the hospital 3 days ago for evaluation of right-sided back pain in this patient symptom started 2 hours prior to presentation to the hospital was complaining of mostly sharp pain to the right flank area moderate intensity without any radiation with associated nausea and did have some diarrhea on presentation to the hospital patient was afebrile subsequently spiked a fever of 100.9 F on 02/02/2025 patient was nontachycardic during this hospitalization or hypotensive mildly hypoxic currently on 3 L current oxygen patient did have a white count of 9.9 admission which is up to 13,000 today creatinine 0.8 liver isms are normal urine was positive urine cultures came back positive with ESBL E. coli prompted this consultation patient did have abdominal pelvis CT moderate to marked right hydronephrosis and hydroureter with an obstructing 4 mm right UV junction stone with the patient did have cystoscopy and ureteral stent placement on 02/02/2025 Review of Systems Positive point and negatives has been mentioned in the HPI, complete review of systems was performed and all other systems are negative Past Medical History Past Medical History: Deep Vein Thrombosis (DVT), GERD/Reflux, Hypertension, Memory Impairment, Thyroid Disorder Additional Past Medical History / Comment(s): early dementia and [place],90% deaf-please relay information to /daughter. family hx colorectal cancer. bowel/urinary incontinence wears depends. has appt 07/13 with neurologist to r/o myasthenia gravis has been experiencing facial drooping,lethary,muscle weakness. osteopenia History of Any Multi-Drug Resistant Organisms: None Reported Year Discovered:: 11/28/23 MDRO Source:: Urine Past Surgical History: Heart Catheterization, Hysterectomy Additional Past Surgical History / Comment(s): REPAIR RT RUPTURED THIGH MUSCLE. COLONOSCOPY, bladder prolapse surgery Past Anesthesia/Blood Transfusion Reactions: No Reported Reaction Past Psychological History: No Psychological Hx Reported Additional Psychological History / Comment(s): early dementia. mood swings Smoking Status: Never smoker Past Alcohol Use History: None Reported Past Drug Use History: None Reported - Past Family History Sister(s) Family Medical History: Cancer Additional Family Medical History / Comment(s): COLON Mother Family Medical History: Cancer Additional Family Medical History / Comment(s): BREAST Father Family Medical History: Cancer Additional Family Medical History / Comment(s): LUNG Medications and Allergies Home Medications Medication Instructions Recorded Confirmed Type Metoprolol Succinate (ER) [Toprol 50 mg PO DAILY 08/14/16 02/01/25 History XL] Ferrous Sulfate [Iron (65 MG 325 mg PO DAILY 03/28/21 02/01/25 History Elemental)] Beet Root 1000mg 1,000 mg PO DAILY 10/24/23 02/01/25 History Cyanocobalamin (Vitamin B-12) 1,000 mcg PO Q2D 10/24/23 02/01/25 History [Vitamin B-12] Donepezil [Aricept] 10 mg PO HS 10/24/23 02/01/25 History Cephalexin [Keflex] 500 mg PO Q6HR #40 cap 02/01/25 Rx Ketorolac [Toradol] 10 mg PO Q8HR #15 tab 02/01/25 Rx Levothyroxine Sodium [Synthroid] 137 mcg PO DAILY 02/01/25 02/01/25 History Tamsulosin [Flomax] 0.4 mg PO DAILY #7 cap 02/01/25 Rx traZODone HCL [Desyrel] 50 - 75 mg PO HS 02/01/25 02/01/25 History Atorvastatin Calcium [Lipitor] 40 mg PO HS 02/02/25 02/02/25 History Allergies Allergy/AdvReac Type Severity Reaction Status Date / Time No Known Allergies Allergy Verified 02/01/25 18:20 Physical Exam Vitals: Vital Signs Temp Pulse Resp BP Pulse Ox 02/04/25 14:00 97.8 F 70 17 170/79 97 02/04/25 08:00 97.6 F 71 18 161/81 94 L 02/04/25 01:29 97.7 F 65 17 165/89 96 02/03/25 20:02 98.4 F 63 19 145/69 90 L Intake and Output 02/04/25 02/04/25 02/04/25 06:59 14:59 22:59 Intake Total 480 Balance 480 Intake: Oral 480 Other: # Voids 1 GENERAL DESCRIPTION: Elderly female up in the chair, no distress. No tachypnea or accessory muscle of respiration use. HEENT: Shows Pallor , no scleral icterus. Oral mucous membrane is dry. No pharyngeal erythema or thrush NECK: Trachea central, no thyromegaly. LUNGS: Unlabored breathing. Clear to auscultation anteriorly. No wheeze or crackle. HEART: S1, S2, regular rate and rhythm. No loud murmur ABDOMEN: Soft, no tenderness , guarding or rigidity, no organomegaly EXTREMITIES: No edema of feet. SKIN: No rash, no masses palpable. NEUROLOGICAL: The patient is awake, alert, oriented x3, mood and affect normal. Results CBC & Chem 7: 02/04/25 03:02/04/25 03:33 Labs: Abnormal Lab Results - Last 24 Hours (Table) 02/04/25 02/04/25 02/04/25 Range/Units 03:33 03: 03:33 WBC 13.12 H (4.50-10.00) X 10*3/uL MCHC 31.1 L (32.0-37.0) g/dL RDW 14.6 H (11.5-14.5) % MPV 13.6 H (9.5-12.2) FL Immature Gran # 0.08 H (0.00-0.04) X 10*3/uL Neutrophils # 11.50 H (1.80-7.70) X 10*3/uL Lymphocytes # 0.53 L (0.90-5.00) X 10*3/uL BUN 35.0 H (9.0-27.0) mg/dL BUN/Creatinine Ratio 43.75 H (12.00-20.00) Ratio Calcium 8.1 L (8.7-10.3) mg/dL C-Reactive Protein 12.90 H (0.00-0.80) mg/dL Procalcitonin 25.70 H (0.02-0.50) ng/mL Microbiology - Last 24 Hours (Table) 02/02/25 17:08 Blood Culture - Preliminary Blood 02/01/25 14:46 Urine Culture - Final Urine,Voided Escherichia coli ESBL Assessment and Plan (1) E coli bacteremia Current Visit: No Status: Acute Code(s): R78.81 - BACTEREMIA; B96.20 - UNSP ESCHERICHIA COLI THE CAUSE OF DISEASES CLASSD [facility] SNOMED Code(s): 202911957256 (2) Infection due to ESBL-producing Escherichia coli Current Visit: No Status: Acute Code(s): A49.8 - OTHER BACTERIAL INFECTIONS OF UNSPECIFIED SITE; Z16.12 - EXTENDED SPECTRUM BETA LACTAMASE (ESBL) RESISTANCE SNOMED Code(s): 047157139 (3) Leukocytosis Current Visit: No Status: Acute Code(s): D72.829 - ELEVATED WHITE BLOOD CELL COUNT, UNSPECIFIED SNOMED Code(s): 081305486 Plan: Pain and presented hospital with sepsis in this patient who did have a fever tachycardia elevated white count source is complicated UTI in this patient who did have right-sided hydronephrosis requiring cystoscopy and ureteral stent placement with urine now growing ESBL E. coli 2-patient will be treated with Invanz 1 g daily will likely need a midline and outpatient IV antibiotic arrangement on discharge Question concern answered We will follow on clinical condition and cultures to further adjust medication if needed Thank you for this consultation we will follow the patient along with you Dictation was produced using [employer] dictation software. please excuse any grammatical, word or spelling errors. Time with Patient: Greater than 30
[2025-02-05 07:53] LABS: Basophils % (A) 0 %; Eosinophils # (A) 0.1 k/uL (0-0.7); Eosinophils % (A) 1 %; HCT 43.8 % (34.0-46.0); HGB 13.2 gm/dL (11.4-16.0); Hypochromasia Slight; Lymphocytes # (A) 0.4 k/uL (1.0-4.8); Lymphocytes % (A) 4 %; MCH 28.1 pg (25.0-35.0); MCV 93.5 fL (80.0-100.0); Mean Platelet Volume 10.3; Monocytes # (A) 0.5 k/uL (0-1.0); Monocytes % (A) 5 %; Neutrophils # (A) 9.6 k/uL (1.3-7.7); Neutrophils % (A) 89 %; Platelet Count 167 k/uL (150-450); RBC 4.68 m/uL (3.80-5.40); RDW 13.9 % (11.5-15.5); WBC 10.8 k/uL (3.8-10.6)
[2025-02-05 08:09] LABS: African American GFR (CKD) >90 (>60 ml/min/1.73 sqM); Anion Gap 9 mmol/L; Blood Urea Nitrogen 23 mg/dL (7-17); Calcium 8.1 mg/dL (8.4-10.2); Carbon Dioxide 25 mmol/L (22-30); Chloride 105 mmol/L (98-107); Glucose 112 mg/dL (74-99); Non-African American GFR(CKD) >90 (>60 ml/min/1.73 sqM); Potassium 3.4 mmol/L (3.5-5.1); Sodium 139 mmol/L (137-145)
[2025-02-05] MEDS: POTASSIUM CHLORIDE ER 10 MEQ TAB.ER.PRT PO STA (13:50)
--- NOTE | 2025-02-05 16:20 | P.PN ---
Subjective Progress Note Date: 02/05/25 Principal diagnosis: Reason for follow-up is E. coli UTI and bacteremia Patient is a 69-year-old female with a past medical history significant for DVT reflux hypertension memory impairment presenting to the hospital with right flank pain has been diagnosed with a complicated UTI in this patient with right-sided hydronephrosis requiring cystoscopy and ureteral stent placement urine culture with ESBL E. coli blood culture documented positive as well. On today's evaluation that is 02/05/2025, Patient is afebrile patient is currently on 4 L current oxygen and denies having any shortness of breath, the patient denies any chest pain or cough, the patient denies any nausea vomiting did not have any abdominal pain and no diarrhea. Patient white count is 10.8, creatinine 0.44 blood culture with an E. coli Objective - Vital Signs Vital signs: Vital Signs Temp 98.5 F 02/05/25 14:00 Pulse 93 02/05/25 14:00 Resp 18 02/05/25 14:00 BP 177/97 02/05/25 14:00 Pulse Ox 95 02/05/25 14:00 FiO2 Intake & Output 02/04/25 02/05/25 02/05/25 18:59 06:59 18:59 Intake Total 720 Balance 720 Intake: Oral 720 Other: Voiding Method Toilet Bedside Commode # Voids 7 3 3 # Bowel Movements 5 1 4 - Exam GENERAL DESCRIPTION: An elderly female lying in bed in no distress RESPIRATORY SYSTEM: Unlabored breathing , decreased breath sounds at bases HEART: S1 S2 regular rate and rhythm , ABDOMEN: Soft , no tenderness EXTREMITIES: No edema feet - Labs CBC & Chem 7: 02/05/25 07:35 02/05/25 07:35 Labs: Abnormal Lab Results - Last 24 Hours (Table) 02/05/25 02/05/25 Range/Units 07:35 07:35 WBC 10.8 H (3.8-10.6) k/uL MCHC 30.0 L (31.0-37.0) g/dL Neutrophils # 9.6 H (1.3-7.7) k/uL Lymphocytes # 0.4 L (1.0-4.8) k/uL Potassium 3.4 L (3.5-5.1) mmol/L BUN 23 H (7-17) mg/dL Creatinine 0.44 L (0.52-1.04) mg/dL Glucose 112 H (74-99) mg/dL Calcium 8.1 L (8.4-10.2) mg/dL Microbiology - Last 24 Hours (Table) 02/02/25 17:08 Blood Culture Gram Stain - Preliminary Blood Blood Culture - Preliminary Molecular ID Assessment and Plan (1) E coli bacteremia Current Visit: No Status: Acute Code(s): R78.81 - BACTEREMIA; B96.20 - UNSP ESCHERICHIA COLI THE CAUSE OF DISEASES CLASSD [facility] SNOMED Code(s): 5 61925036768 (2) Infection due to ESBL-producing Escherichia coli Current Visit: No Status: Acute Code(s): A49.8 - OTHER BACTERIAL INFECTIONS OF UNSPECIFIED SITE; Z16.12 - EXTENDED SPECTRUM BETA LACTAMASE (ESBL) RESISTANCE SNOMED Code(s): 417040757 (3) Leukocytosis Current Visit: No Status: Acute Code(s): D72.829 - ELEVATED WHITE BLOOD CELL COUNT, UNSPECIFIED SNOMED Code(s): 942090509 Plan: Pain and presented hospital with sepsis in this patient who did have a fever tachycardia elevated white count source is complicated UTI in this patient who did have right-sided hydronephrosis requiring cystoscopy and ureteral stent placement with urine now growing ESBL E. coli 2-patient blood culture also positive for colitis sensitivities pending blood cultures will be repeated to document clearance continue with Invanz Dictation was produced using [employer] dictation software. please excuse any grammatical, word or spelling errors. Time with Patient: Less than 30
--- NOTE | 2025-02-05 18:02 | P.PN ---
Subjective Progress Note Date: 02/05/25 69-year-old female who presented to the emergency department with sudden onset right flank pain that started yesterday having intense pain and came to the ER for further evaluation. Patient underwent CT abdomen pelvis and there was a moderate to marked right hydronephrosis and hydroureter secondary to obstructing 12 mm right UVJ calcification otherwise left kidney is unremarkable, hepatal medically and mild cholelithiasis with mild nonspecific interstitial densities in the lung bases right greater than left noted. Patient follows with Dr. Rachana Dasilva in the outpatient setting with a past medical history of DVT, GERD, hypertension, early dementia, significant hard of hearing, hypothyroidism. Claire ent denies any illicit drug use, alcohol, or smoking. Urology was consulted and patient is scheduled to undergo cystoscopy with right ureteroscopy and laser lithotripsy along with stone basketing and right ureteral stent insertion today. Patient is currently n.p.o. and will await official report. Labs reviewed and patient had a normal white count of 9.9, hemoglobin was 16.1, platelets 215, sodium 139 with a potassium of 3.7, BUN 23 with a creatinine of 0.62, urinalysis was negative other than a trace of blood and WBCs mildly elevated at 28. Patient denies any pain, burning, or frequency with urination. 02/04/2025 - the patient is seen and evaluated sitting up in bedside chair; has no specific complaints. The patient had a urinary tract infection with ESBL producing E. coli. She is status post cystoscopy and right ureteroscopy and laser lithotripsy and stone basketing and right ureteral stent insertion. -- Blood work reveals the white cell count is at 13.1 with a heme of 13.2 and a platelet count of 145. Electrolytes are all within normal limits. Proc alcitonin level is at 25. -Urine culture reveals E. coli, ESBL positive; patient is currently on Invanz 1 g IV; we will consult ID for final recommendations on antibiotic therapy 02/05/2025 Patient is seen and evaluated sitting up in bed; denies any complaint of chest pain, dysuria hematuria Vital signs are reviewed and stable Blood work reveals WBC of 10.8, hemoglobin of 13.2 and platelet count of 167, sodium 139, potassium 3.4, BUNs/creatinine of 23/0.44 Blood culture is positive for gram-negative bacilli; final culture and sensitivities pending; urine culture is growing ESBL E. coli -ID is on board and recommending to continue with IV Invanz; patient will need PICC line for extended IV antibiotic therapy outpatient Objective - Vital Signs Vital signs: Vital Signs Temp 98.0 F 02/05/25 07:30 Pulse 81 02/05/25 07:30 Resp 18 02/05/25 07:30 BP 176/99 02/05/25 07:30 Pulse Ox 97 02/05/25 07:30 FiO2 Intake & Output 02/04/25 02/05/25 02/05/25 18:59 06:59 18:59 Intake Total 720 Balance 720 Intake: Oral 720 Other: Voiding Method Toilet Bedside Commode # Voids 7 3 # Bowel Movements 5 1 - Exam GENERAL: The patient is alert and oriented x2, baseline, extremely hard of hearing . Well developed, ill-appearing, elderly appearing HEENT: Pupils are round and equally reacting to light. EOMI. No scleral icterus. No conjunctival pallor. Normocephalic, atraumatic. No pharyngeal erythema. No thyromegaly. CARDIOVASCULAR: S1 and S2 muffled PULMONARY: Diminished breath sounds bilaterally otherwise chest is clear to auscultation, no wheezing or crackles. ABDOMEN: Soft, nontender, nondistended, normoactive bowel sounds. No palpable organomegaly. CVA tenderness noted on the right MUSCULOSKELETAL: No joint swelling or deformity. EXTREMITIES: No cyanosis, clubbing, or pedal edema. NEUROLOGICAL: Gross neurological examination did not reveal any focal deficits. SKIN: No rashes. - Labs CBC & Chem 7: 02/05/25 07:35 02/05/25 07:35 Labs: Abnormal Lab Results - Last 24 Hours (Table) 02/05/25 02/05/25 Range/Units 07:35 07:35 WBC 10.8 H (3.8-10.6) k/uL MCHC 30.0 L (31.0-37.0) g/dL Neutrophils # 9.6 H (1.3-7.7) k/uL Lymphocytes # 0.4 L (1.0-4.8) k/uL Potassium 3.4 L (3.5-5.1) mmol/L BUN 23 H (7-17) mg/dL Creatinine 0.44 L (0.52-1.04) mg/dL Glucose 112 H (74-99) mg/dL Calcium 8.1 L (8.4-10.2) mg/dL Microbiology - Last 24 Hours (Table) 02/02/25 17:08 Blood Culture Gram Stain - Preliminary Blood Blood Culture - Preliminary Molecular ID Assessment and Plan Assessment: Right flank pain with concerns of obstructing 12 mm right UVJ calcification Marked right hydronephrosis and hydroureter secondary to an obstructing stone as noted on imaging History of DVT GERD Hypertension History of early dementia Hard of hearing Hypothyroidism GI prophylaxis DVT prophylaxis Full code Plan: Patient is admitted with concerns of ureteral stone obstruction and is being followed by urology currently n.p.o. and scheduled to undergo surgical intervention including cystoscopy, possible lithotripsy and possible ureteral stent placement Urinalysis does not appear infectious and will be receiving prophylactic antibiotic Will follow-up on repeat labs in the a.m. Await urology report and recommendations moving forward Patient denies any history of previous kidney stones Home medications will be reviewed and resumed as appropriate
[2025-02-05] MEDS: LOPERAMIDE 2 MG CAP PO PRN (21:18)
--- NOTE | 2025-02-06 10:32 | P.PN ---
Subjective 69-year-old female who presented to the emergency department with sudden onset right flank pain that started yesterday having intense pain and came to the ER for further evaluation. Patient underwent CT abdomen pelvis and there was a moderate to marked right hydronephrosis and hydroureter secondary to obstructing 12 mm right UVJ calcification otherwise left kidney is unremarkable, hepatal medically and mild cholelithiasis with mild nonspecific interstitial densities in the lung bases right greater than left noted. Patient follows with Dr. Rachana Dasilva in the outpatient setting with a past medical history of DVT, GERD, hypertension, early dementia, significant hard of hearing, hypothyroidism. Patient denies any illicit drug use, alcohol, or smoking. Urology was consulted and patient is scheduled to undergo cystoscopy with right ureteroscopy and laser lithotripsy along with stone basketing and right ureteral stent insertion today. Patient is currently n.p.o. and will await official report. Labs reviewed and patient had a normal white count of 9.9, hemoglobin was 16.1, platelets 215, sodium 139 with a potassium of 3.7, BUN 23 with a creatinine of 0.62, urinalysis was negative other than a trace of blood and WBCs mildly elevated at 28. Patient denies any pain, burning, or frequency with urination. 02/04/2025 - the patient is seen and evaluated sitting up in bedside chair; has no specific complaints. The patient had a urinary tract infection with ESBL producing E. coli. She is status post cystoscopy and right ureteroscopy and laser lithotripsy and stone basketing and right ureteral stent insertion. -- Blood work reveals the white cell count is at 13.1 with a heme of 13.2 and a platelet count of 145. Electrolytes are all within normal limits. Procalcitonin level is at 25. -Urine culture reveals E. coli, ESBL positive; patient is currently on Invanz 1 g IV; we will consult ID for final recommendations on antibiotic therapy 02/05/2025 Patient is seen and evaluated sitting up in bed; denies any complaint of chest pain, dysuria hematuria Vital signs are reviewed and stable Blood work reveals WBC of 10.8, hemoglobin of 13.2 and platelet count of 167, sodium 139, potassium 3.4, BUNs/creatinine of 23/0.44 Blood culture is positive for gram-negative bacilli; final culture and sensitivities pending; urine culture is growing ESBL E. coli -ID is on board and recommending to continue with IV Invanz; patient will need PICC line for extended IV antibiotic therapy outpatient 02/06 Patient still feels generally weak She still feels dysuria Patient is only minimally better No chest pain or dyspnea She remains on Invanz/ertapenem started for her ESBL E. coli in the blood and urine culture pending final results CRP elevated 12.9 and procalcitonin 25.7. Objective - Vital Signs Vital signs: Vital Signs Temp 98.6 F 02/06/25 07:49 Pulse 95 02/06/25 07:49 Resp 19 02/06/25 07:49 BP 197/98 02/06/25 07:49 Pulse Ox 94 L 02/06/25 08:00 FiO2 Intake & Output 02/05/25 02/06/25 02/06/25 18:59 06:59 18:59 Other: Voiding Method Toilet Bedside Commode # Voids 3 3 # Bowel Movements 4 - Exam -GENERAL: The patient is alert and oriented x3, not in any acute distress. Well developed, well nourished. Generally weak HEENT: Pupils are round and equally reacting to light. EOMI. No scleral icterus. No conjunctival pallor. Normocephalic, atraumatic. No pharyngeal erythema. No thyromegaly. CARDIOVASCULAR: S1 and S2 present. No murmurs, rubs, or gallops. PULMONARY: Chest is clear to auscultation, no wheezing , no crackles. ABDOMEN: Soft, nontender, nondistended, normoactive bowel sounds. No palpable organomegaly. MUSCULOSKELETAL: No joint swelling or deformity. EXTREMITIES: No cyanosis, clubbing, or pedal edema. NEUROLOGICAL: Gross neurological examination did not reveal any focal deficits. SKIN: No rashes. no petechiae. - Labs CBC & Chem 7: 02/05/25 07:35 02/05/25 07:35 Labs: Microbiology - Last 24 Hours (Table) 02/02/25 17:08 Blood Culture Gram Stain - Preliminary Blood Blood Culture - Preliminary Molecular ID Assessment and Plan Assessment: Acute urinary tract infection and cystitis associated with right flank pain secondary to UTI. Urine culture is growing ESBL Marked right hydronephrosis and hydroureter secondary to an obstructing stone as noted on imaging, s/p right ureteral stent placement on 02/02 Bacteremia History of DVT GERD Hypertension History of early dementia Hard of hearing Hypothyroidism GI prophylaxis DVT prophylaxis Full code Plan: Plan: Continue with ertapenem Follow-up final results of the blood and urine culture Infectious disease following closely Urology service evaluated the patient, she is status post right ureteral stent placement. Urology recommended follow-up with Dr. Conti in 1 week after discharge for cystoscopy and stent removal Pain management Labs and medication were reviewed.. Continue same treatment. Continue with symptomatic treatment. Resume home medication. Monitor labs and vitals. DVT and GI prophylaxis. Further recommendations as per clinical course of the patient DVT prophylaxis: Subcutaneous heparin GI Prophylaxis: Pepcid PT/OT: Pending Prognosis is guarded
[2025-02-06] MEDS: HEPARIN SODIUM,PORCINE 5,000 UNIT/ML 1 ML VIAL SQ SCH (11:56)
[2025-02-06] MEDS: POTASSIUM CHLORIDE ER 20 MEQ TAB.ER PO STA (11:56)
--- NOTE | 2025-02-06 13:30 | XR ---
EXAMINATION TYPE: XR chest 2V DATE OF EXAM: 02/06/2025 1:04 PM COMPARISON: Chest radiographs CLINICAL INDICATION: Female, 69 years old with history of hypoxia; [facility] TECHNIQUE: XR chest 2V Frontal and lateral views of the chest. FINDINGS: Lungs/Pleura: No evidence of focal consolidation or pneumothorax. Blunting of the costophrenic angles is present. Pulmonary vascularity: Pulmonary vascular congestion. Heart/mediastinum: Cardiomediastinal silhouette is enlarged and stable. Musculoskeletal: No acute osseous pathology. Other findings: None IMPRESSION: Worsening Cardiomegaly, pulmonary vascular congestion and bilateral pleural effusions. Correlate with BNP for congestive heart failure. [facility], , 02/06/2025 1:28 PM
--- NOTE | 2025-02-06 17:41 | P.PN ---
Subjective Progress Note Date: 02/06/25 Principal diagnosis: Reason for follow-up is E. coli UTI and bacteremia Patient is a 69-year-old female with a past medical history significant for DVT reflux hypertension memory impairment presenting to the hospital with right flank pain has been diagnosed with a complicated UTI in this patient with right-sided hydronephrosis requiring cystoscopy and ureteral stent placement urine culture with ESBL E. coli blood culture documented positive as well. On today's evaluation that is 02/06/2025, patient has been afebrile, patient is breathing comfortably and is currently on 4 L of oxygen, patient denies having any significant cough no chest pain, patient denies nausea vomiting or diarrhea No abdominal pain and mention not feeling better. No new lab has been repeated today Objective - Vital Signs Vital signs: Vital Signs Temp 98.6 F 02/06/25 07:49 Pulse 95 02/06/25 07:49 Resp 19 02/06/25 07:49 BP 197/98 02/06/25 07:49 Pulse Ox 94 L 02/06/25 08:00 FiO2 Intake & Output 02/05/25 02/06/25 02/06/25 18:59 06:59 18:59 Other: Voiding Method Toilet Bedside Commode # Voids 3 3 # Bowel Movements 4 - Exam GENERAL DESCRIPTION: An elderly female lying in bed in no distress RESPIRATORY SYSTEM: Unlabored breathing , decreased breath sounds at bases HEART: S1 S2 regular rate and rhythm , ABDOMEN: Soft , no tenderness EXTREMITIES: No edema feet - Labs CBC & Chem 7: 02/05/25 07:35 02/05/25 07:35 Labs: Microbiology - Last 24 Hours (Table) 02/02/25 17:08 Blood Culture Gram Stain - Preliminary Blood Blood Culture - Preliminary Escherichia coli Molecular ID Assessment and Plan (1) E coli bacteremia Current Visit: No Status: Acute Code(s): R78.81 - BACTEREMIA; B96.20 - UNSP ESCHERICHIA COLI THE CAUSE OF DISEASES CLASSD [facility] SNOMED Code(s): 790168621808 (2) Infection due to ESBL-producing Escherichia coli Current Visit: No Status: Acute Code(s): A49.8 - OTHER BACTERIAL INFECTIONS OF UNSPECIFIED SITE; Z16.12 - EXTENDED SPECTRUM BETA LACTAMASE (ESBL) RESISTANCE SNOMED Code(s): 414425058 (3) Leukocytosis Current Visit: No Status: Acute Code(s): D72.829 - ELEVATED WHITE BLOOD CELL COUNT, UNSPECIFIED SNOMED Code(s): 847637216 Plan: Pain and presented hospital with sepsis in this patient who did have a fever tachycardia elevated white count source is complicated UTI in this patient who did have right-sided hydronephrosis requiring cystoscopy and ureteral stent placement with urine now growing ESBL E. coli 2-patient blood culture also positive for E. coli that is a sensitive pathogen 3patient is on Invanz to continue to finish her course of therapy outpatient IV antibiotic prescription provided the rn field case manager Dictation was produced using [employer] software. please excuse any grammatical, word or spelling errors.
--- NOTE | 2025-02-06 21:53 | P.PN ---
Subjective Progress Note Date: 02/06/25 Principal diagnosis: Right ureteral calculus The patient was admitted with right renal colic due to a 12 mm right distal ureteral calculus. She was afebrile and exhibited no signs of sepsis at that time. She underwent ureteroscopic removal of the calculus in February 02, 2025. A ureteral stent was placed. Postoperatively, she was noted to be tachycardic and dyspneic, with chills and she was placed on Invanz. Urine and blood cultures have now shown ESBL E. coli, sensitive to Invanz. She reports occasional headache and nausea, but denies flank pain. Objective - Vital Signs Vital signs: Vital Signs Temp 97.6 F 02/06/25 00:55 Pulse 63 02/06/25 00:55 Resp 21 02/06/25 00:55 BP 173/89 02/06/25 03:43 Pulse Ox 99 02/06/25 00:55 FiO2 Intake & Output 02/05/25 02/06/25 02/06/25 18:59 06:59 18:59 Other: Voiding Method Toilet Bedside Commode # Voids 3 3 # Bowel Movements 4 - Constitutional General appearance: Present: average body habitus, cooperative, no acute distress - Psychiatric Psychiatric: Present: A&O x's 3 - Labs CBC & Chem 7: 02/05/25 07:35 02/05/25 07:35 Labs: Abnormal Lab Results - Last 24 Hours (Table) 02/05/25 02/05/25 Range/Units 07:35 07:35 WBC 10.8 H (3.8-10.6) k/uL MCHC 30.0 L (31.0-37.0) g/dL Neutrophils # 9.6 H (1.3-7.7) k/uL Lymphocytes # 0.4 L (1.0-4.8) k/uL Potassium 3.4 L (3.5-5.1) mmol/L BUN 23 H (7-17) mg/dL Creatinine 0.44 L (0.52-1.04) mg/dL Glucose 112 H (74-99) mg/dL Calcium 8.1 L (8.4-10.2) mg/dL Microbiology - Last 24 Hours (Table) 02/02/25 17:08 Blood Culture Gram Stain - Preliminary Blood Blood Culture - Preliminary Molecular ID Assessment and Plan (1) Hydronephrosis with obstructing calculus Current Visit: Yes Status: Acute Code(s): N13.2 - HYDRONEPHROSIS WITH RENAL AND URETERAL CALCULOUS OBSTRUCTION SNOMED Code(s): 3866740194 (2) UTI (urinary tract infection) Current Visit: No Status: Acute Code(s): N39.0 - URINARY TRACT INFECTION, SITE NOT SPECIFIED SNOMED Code(s): 83444525 Plan: - Patient will require outpatient IV antibiotic therapy. This will be determined by Dr. Dacosta. - Upon discharge, arrangements will be made for the patient to undergo office cystoscopy with stent removal
--- NOTE | 2025-02-07 00:50 | P.PN ---
Subjective Progress Note Date: 02/07/25 Principal diagnosis: Complicated UTI, hypoxia On 02/02/2025, I was asked to evaluate this patient in recovery for possible ICU transfer. The patient has a right ureteral calculus and the patient underwent cystoscopy, right ureteroscopy and laser lithotripsy and stone basketing and right ureteral stent insertion. Postop, the patient was in recovery when she developed chills and tachycardia and shortness of breath. She was placed on a 5 L simple mask and pulmonary and critical care evaluation was requested. She was hypertensive. Her current blood pressure is normalized. She is currently on 3 L of oxygen by nasal cannula with a pulse ox of 94%. She is spiking low-grade temperature. No significant tachycardia. The patient's white cell count is at 6.2 with a hemoglobin of 15 and a platelet count of 174. BUN is 24 with a creatinine of 0.66 and a sodium levels at 139 and a potassium level is at 3.2. LFTs are normal. UA is abnormal with 28 WBCs and cultures showing gram-negative bacillus. Noted based on previous cultures from 11/28/2023, the patient back to then had an ESBL producing E. coli. Based on previous microbiology, I started the patient on IV Invanz. The patient was given IV fluids and currently the patient is running on normal saline at rate of 75 cc an hour. She was observed over the next 7260 minutes and the patient's overall condition improved. Blood pressure also improved. I made recommendation to transfer this patient to medical surgical floor for further monitoring. Chest x-ray done in recovery showed cardiomegaly without any acute cardiopulmonary process. CAT scan of the abdomen and pelvis done on 02/01/2025 showed moderate to large right hydronephrosis and hydroureter secondary to a 12 mm obstructing right UVJ calculus. There is also mild cholelithiasis. On 02/03/2025, the patient is stable on the medical floor. Denies having any specific complaints. The patient has a 4 mm right distal ureteral calculus that was removed surgically. Postop, the patient had tachycardia dyspnea and some hypoxemia and chills and all of those symptoms recovered. The patient is currently on IV Invanz. The patient is currently on room air oxygen with a pulse ox of 92%. Afebrile and hemodynamically stable. The white cell count fr om yesterday was 6.2. No other new labs are available from today. Urine culture is still positive for gram-negative bacillus, On 02/04/2025, the patient has no specific complaints. The patient had a urinary tract infection with ESBL producing E. coli. She is status post cystoscopy and right ureteroscopy and laser lithotripsy and stone basketing and right ureteral stent insertion. Sitting up in a chair. Calm and comfortable. The white cell count is at 13.1 with a heme of 13.2 and a platelet count of 145. Electrolytes are all within normal limits. Procalcitonin level is at 25. The patient is afebrile for now on 2 L of O2 nasal cannula. Slightly hypertensive. No other significant issues for now. Urology is on the case. Medical team is also on the case. On 02/07/2025 we are seeing this patient in follow-up. We are asked to reevaluate this patient regards to increased oxygen demands and exertional dyspnea. Originally, presented to the emergency department on 02/01/2025 with right flank pain. CT of the chest, abdomen, pelvis identified a obstructing 12 mm right UVJ calculus with associated moderate to marked right-sided hydronephrosis. Patient is status postoperative day #5 following cystoscopy, right ureteroscopy with holmium laser lithotripsy and stone basketing, and right ureteral stent insertion. Urine was positive for ESBL producing E. coli. Initially, a critical care consultation was placed to evaluate the patient in regard to urosepsis. Blood pressures remain normotensive, not requiring vasopressors. She has been receiving normal saline at 75 mL/h. White blood cell count trending down. Procalcitonin was elevated at 25.7. Blood was positive for E. coli bacteremia. No longer febrile. Continues on ertapenem per ID recommendations. Most recent labs from 02/05/2025 included CBC with a WBC count of 10.8, hemoglobin 13.2, platelets 167. BMP: Sodium 139, potassium 3.4, chloride 105, serum bicarb 25, BUN 23, creatinine 0.44, glucose 112. Pulmonary /CC had signed off the case. Pulmonary was reconsulted yesterday as the patient has had slight increase oxygen demands over the last couple days. Currently, on 4 L/min nasal cannula. Chest x-ray from yesterday demonstrates cardiomegaly, pulmonary vascular congestion, and new moderate-sized bilateral pleural effusions with associated atelectasis. Patient currently being evaluated in the general medical floor. She is awake and alert, she is hard of hearing. On 4 L/min nasal cannula. No notable respiratory distress while at rest. Reports significant exertional dyspnea with ambulation to the restroom. Denies history of heart failure. Denies history of previous thoracentesis. Denies chest pain, heart palpitations, lightheadedness or syncopal events, orthopnea, lower extremity edema. Denies cough, sputum production, hemoptysis. Not on any anticoagulants. Current vital signs: Temperature 97.6 F, heart rate 63 bpm, blood pressure 165/94 mmHg, nontachypneic, SpO2 was recorded at 99% on 4 L/min nasal cannula. Objective - Vital Signs Vital signs: Vital Signs Temp 97.8 F 02/06/25 20:45 Pulse 75 02/06/25 20:45 Resp 22 02/06/25 20:45 BP 163/90 02/06/25 20:45 Pulse Ox 98 02/06/25 20:45 FiO2 Intake & Output 02/06/25 02/06/25 02/07/25 06:59 18:59 06:59 Other: Voiding Method Toilet Toilet Bedside Commode Bedside Commode # Voids 3 4 - Exam GENERAL EXAM: Alert, 69-year-old white female, hard of hearing, on 4 L/min nasal cannula, comfortable in no apparent distress. HEAD: Normocephalic and atraumatic EYES: Normal reaction of pupils, equal size. NOSE: Clear with pink turbinates. THROAT: No erythema or exudates. NECK: No masses, no JVD. CHEST: No chest wall deformity. LUNGS: Equal air entry with diminished bibasilar lung sounds. Expiratory wheezing over the anterior lung shipman. No conversational dyspnea or accessory muscle use while at rest CVS: S1 and S2 normal with no audible murmur, regular rhythm. No extra heart sounds ABDOMEN: No hepatosplenomegaly, active bowel sounds, no guarding or rigidity. SPINE: No scoliosis or deformity SKIN: No rashes CENTRAL NERVOUS SYSTEM: No focal deficits, tone is normal in all 4 extremities. EXTREMITIES: There is no peripheral edema, clubbing, or cyanosis. Peripheral pulses are intact. - Labs CBC & Chem 7: 02/05/25 07:35 02/05/25 07:35 Labs: Microbiology - Last 24 Hours (Table) 02/02/25 17:08 Blood Culture Gram Stain - Preliminary Blood Blood Culture - Preliminary Escherichia coli Molecular ID Assessment and Plan Assessment: Acute hypoxemic respiratory failure, currently on 4 L/min nasal cannula, chest x-ray from yesterday demonstrating cardiomegaly, pulmonary vascular congestion, and new bilateral moderate-sized pleural effusions. Right ureteral stone, with secondary rightt flank pain /obstructing 12 mm right UVJ calcification, marked right hydronephrosis and hydroureter secondary to an obstructing stoneand the patient is status post Cystoscopy, right ureteroscopy with Holmium laser lithotripsy and stone basketing, right ureteral stent insertion. The patient is postop day # 5 Complicated UTI with ESBL producing E. coli, currently on IV Invanz E. coli bacteremia Acute systemic inflammatory response syndrome post urologic intervention, improved and the patient is hemodynamically stable Dementia Hypertension Hypothyroidism Cholelithiasis without evidence of cholecystitis Hearing impairment Previous history of DVT Previous history of E. coli urinary tract infection, ESBL producing Plan: Continue supplemental oxygen maintain oxygen saturation 92% or greater, wean as tolerated Start the patient on IV Lasix 20 mg twice daily Obtain transthoracic echocardiogram Obtain ultrasound of the chest with markings for possible thoracentesis Continue antibiotics per ID recommendation Case to be reviewed with Dr. Cope, and further recommendations forthcoming I have personally seen and examined the patient, performed the documentation and the assessment and plan as written. Number of minutes spent on the visit:10 Time with Patient: Greater than 30
--- NOTE | 2025-02-07 03:18 | US ---
EXAM: US Chest CLINICAL HISTORY: ITS.REASON US Reason: bilateral pleural effusions TECHNIQUE: Real-time ultrasound of the chest with image documentation. COMPARISON: None. FINDINGS: Soft tissues: Right pleural effusion pocket size: 11.4 cm. A right skin surface to fluid distance: 4.7 cm. Left pleural effusion pocket size: 8.8 cm. Left skin surface to fluid distance: 3.4 cm. Left side is marked for possible thoracentesis outside the radiology department. IMPRESSION: Bilateral pleural effusions .
[2025-02-07] MEDS: FUROSEMIDE 10 MG/ML 2 ML VIAL IV SCH (08:08)
--- NOTE | 2025-02-07 08:46 | CDI ---
Documentation Clarification Form Date: 02/07/2025 07:08:00 AM From: Tonya Jalloh RN, CCDS Phone: [phone] Admit Date: 02/01/2025 05:09:00 PM Patient Name: Padmini Oseguera Visit Number: [id number] Discharge Date: ATTENTION: The Clinical Documentation Specialists (CDI) and [facility] Coding Staff appreciate your assistance in clarifying documentation. Please respond to the clarification below the line at the bottom and electronically sign. The CDI & [facility] Coding staff will review the response and follow-up if needed. Please note: Queries are made part of the Legal Health Record. If you have any questions, please contact the author of this message via ITS. Doctor. Carlos Sheet The patient has sepsis documentation in the ID consult and subsequent progress notes starting on 02/04/25. Based on this information and the findings below, is there an additional diagnosis that is clinically appropriate for this patient? History/Risk Factors: Deep Vein Thrombosis (DVT), GERD/Reflux, Hypertension, Thyroid Disorder Clinical Indicators: 69-year-old present with right-sided back pain on presentation to the hospital patient was afebrile subsequently spiked a fever of 100.9 F on 02/02/25. Positive for UTI with cultures positive with ESBL E. coli. She had right hydronephrosis and had cystoscopy and ureteral stent placement. Blood cultures 02/02 preliminary showing E coli bacteremia per ID. 02/04 ID Consult: Infection due to ESBL-producing Escherichia coli. Presented hospital with sepsis in this patient who did have a fever, tachycardia elevated white count source is complicated UTI in this patient who did have right-sided hydronephrosis requiring cystoscopy and ureteral stent placement WBC (02/01) 9.9, Neutrophils 8.4 (02/02) 6.2 02/04 13.1, Neutrophils 11.5: 02/02 Blood cultures: E. coli Bacteremia (per ID) 02/01 VS: (18:21) 183/81 65 16 95% RA 02/02 VS: (18:58) 133/79 91 18 100.5 94% 3/l NC Treatment Invanz IVPB Daily Is there an additional diagnosis that is clinically appropriate for this patient? [ x ] Sepsis, present on admission due to UTI Bacteremia [ ] Sepsis, Ruled out [ ] SIRS with Bacteremia without Sepsis [ ] No additional diagnosis/not clinically significant [ ] Other, please specify [ ] Unable to determine SIRS Criteria: 2 or more of the following may indicate SIRS Temperature < 96.8F (36C) or > 101.0F (38.3C) Heart Rate > 90 bpm Respiratory Rate > 20 breaths/min or PaCO2 < 32 mmHg White Blood Cell Count > 12,000 or < 4,000 cells/mm3 or > 10% bands (Template Last Reviewed: November 2022) MTDD
[2025-02-07 09:32] LABS: Basophils # (A) 0.03 X 10*3/uL (0.00-0.10); Basophils % (A) 0.5 %; Eosinophils # (A) 0.12 X 10*3/uL (0.04-0.35); Eosinophils % (A) 1.8 %; HCT 42.3 % (37.2-46.3); HGB 13.1 g/dL (12.0-15.0); Lymphocytes # (A) 0.56 X 10*3/uL (0.90-5.00); Lymphocytes % (A) 8.6 %; MCH 28.5 pg (27.0-32.0); Mean Platelet Volume 13.3 FL (9.5-12.2); Monocytes # (A) 0.63 X 10*3/uL (0.20-1.00); Monocytes % (A) 9.7 %; NRBC Per 100 WBC 0 X 10*3/uL (0.00-0.01); Neutrophils # (A) 5.12 X 10*3/uL (1.80-7.70); Neutrophils % (A) 78.8 %; Platelet Count 173 X 10*3/uL (140-440)
[2025-02-07 09:54] LABS: Blood Urea Nitrogen 12.8 mg/dL (9.0-27.0); Calcium 8.4 mg/dL (8.7-10.3); Carbon Dioxide 30.9 mmol/L (21.6-31.8); Chloride 104 mmol/L (96-109); Glucose 100 mg/dL (70-110); Potassium 3.4 mmol/L (3.5-5.5); Sodium 143 mmol/L (135-145)
--- NOTE | 2025-02-07 10:28 | CDI ---
Documentation Clarification Form Date: 02/07/2025 08:50:00 AM From: Tonya Jalloh RN, CCDS Phone: [phone] Admit Date: 02/01/2025 05:09:00 PM Patient Name: Padmini Oseguera Visit Number: [id number] Discharge Date: ATTENTION: The Clinical Documentation Specialists (CDI) and [facility] Coding Staff appreciate your assistance in clarifying documentation. Please respond to the clarification below the line at the bottom and electronically sign. The CDI & [facility] Coding staff will review the response and follow-up if needed. Please note: Queries are made part of the Legal Health Record. If you have any questions, please contact the author of this message via ITS. Doctor. Gino Son Acute systemic inflammatory response syndrome post urologic intervention rule out transient bacteremia is documented in pulmonary progress note starting on 02/02/25 and the patient post Cystoscopy, right ureteroscopy with Holmium laser lithotripsy and stone basketing, right ureteral stent insertion. Additional clarification is requested regarding the relationship, if any, that exists between the diagnosis and the procedure. History/Risk Factors: Deep Vein Thrombosis (DVT), GERD/Reflux, Hypertension, Thyroid Disorder Patients Admitting Diagnosis: complicated UTI Infection due to ESBL, Right ureteral calculus Post-Operative Diagnosis: Same Procedure performed: Cystoscopy, right ureteroscopy with Holmium laser lithotripsy and stone basketing, right ureteral stent insertion Clinical Indicators: 69-year-old white female found to have right hydronephrosis due to a 12 mm right distal ureteral calculus. 02/02 VS: (18:58) 133/79 91 18 100.5 94% 3/l NC WBC (02/01) 9.9, Neutrophils 8.4 (02/02) 6.2 02/04 13.1, Neutrophils 11.5: 02/02 Blood cultures: E. coli Bacteremia (per ID) 02/03 Urology progress notes: Postoperatively, she was noted to be tachycardic and dyspneic, with chills. Those symptoms have resolved. 02/03 VS: 124/68 78 18 97.9 93% RA 02/04 Labs: WBC 13.1, BUN 35.0 Treatment: Invanz IVPB Daily What relationship, if any, exists between the diagnosis acute systemic inflammatory response syndrome post urologic intervention and the procedure? [ ] Acute systemic inflammatory response syndrome post urologic intervention is not clinically significant and not a complication [ ] Acute systemic inflammatory response syndrome post urologic intervention is clinically significant and not a complication [ X] Acute systemic inflammatory response syndrome post urologic intervention is clinically significant and a complication [ ] Other please specify ____ [ ] Unable to determine (Template Last Revised: November 2024) MTDD
--- NOTE | 2025-02-07 12:58 | XR ---
EXAMINATION TYPE: XR chest 1V portable DATE OF EXAM: 02/07/2025 12:41 PM COMPARISON: Chest radiographs from 02/06/2025 CLINICAL INDICATION: Female, 69 years old with history of Post right thoracentesis; [facility] TECHNIQUE: XR chest 1V portable Frontal view of the chest. FINDINGS: Lungs/Pleura: No evidence of focal consolidation or pneumothorax. Decrease in the pleural effusion. B lunting of the costophrenic angles is present. Pulmonary vascularity: Pulmonary vascular congestion. Heart/mediastinum: Cardiomediastinal silhouette is enlarged. Musculoskeletal: No acute osseous pathology. IMPRESSION: 1. Decreased right pleural effusion, no evidence for pneumothorax. 2. Cardiomegaly, pulmonary vascular congestion and bilateral pleural effusions. Correlate with BNP f or congestive heart failure. [facility], , 02/07/2025 12:55 PM
--- NOTE | 2025-02-07 14:47 | P.PN ---
Subjective Progress Note Date: 02/07/25 Principal diagnosis: Reason for follow-up is E. coli UTI and bacteremia Patient is a 69-year-old female with a past medical history significant for DVT reflux hypertension memory impairment presenting to the hospital with right flank pain has been diagnosed with a complicated UTI in this patient with right-sided hydronephrosis requiring cystoscopy and ureteral stent placement urine culture with ESBL E. coli blood culture documented positive as well. On today's evaluation that is 02/07/2025, Patient is afebrile this morning patient denies having any chest pain and mention breathing more comfortably after 2 L of fluid from the lung no nausea vomiting abdominal pain or diarrhea. Patient white count 6.50, creatinine 0.4 blood culture repeat currently pending Objective - Vital Signs Vital signs: Vital Signs Temp 98.5 F 02/07/25 07:50 Pulse 86 02/07/25 07:50 Resp 20 02/07/25 07:50 BP 195/100 02/07/25 07:50 Pulse Ox 97 02/07/25 07:50 FiO2 Intake & Output 02/06/25 02/07/25 02/07/25 18:59 06:59 18:59 Other: Voiding Method Toilet Bedside Commode # Voids 4 2 - Exam GENERAL DESCRIPTION: An elderly female lying in bed in no distress RESPIRATORY SYSTEM: Unlabored breathing , decreased breath sounds at bases HEART: S1 S2 regular rate and rhythm , ABDOMEN: Soft , no tenderness EXTREMITIES: No edema feet - Labs CBC & Chem 7: 02/07/25 02:46 02/07/25 02:46 Labs: Abnormal Lab Results - Last 24 Hours (Table) 02/07/25 02/07/25 Range/Units 02:46 02:46 MCHC 31.0 L (32.0-37.0) g/dL MPV 13.3 H (9.5-12.2) FL Lymphocytes # 0.56 L (0.90-5.00) X 10*3/uL Potassium 3.4 L (3.5-5.5) mmol/L Creatinine 0.4 L (0.6-1.5) mg/dL BUN/Creatinine Ratio 32.00 H (12.00-20.00) Ratio Calcium 8.4 L (8.7-10.3) mg/dL Microbiology - Last 24 Hours (Table) 02/05/25 16:59 Blood Culture - Preliminary Blood Assessment and Plan (1) E coli bacteremia Current Visit: No Status: Acute Code(s): R78.81 - BACTEREMIA; B96.20 - UNSP ESCHERICHIA COLI THE CAUSE OF DISEASES CLASSD [facility] SNOMED Code(s): 597777218027 (2) Infection due to ESBL-producing Escherichia coli Current Visit: No Status: Acute Code(s): A49.8 - OTHER BACTERIAL INFECTIONS OF UNSPECIFIED SITE; Z16.12 - EXTENDED SPECTRUM BETA LACTAMASE (ESBL) RESISTANCE SNOMED Code(s): 340824013 (3) Leukocytosis Current Visit: No Status: Acute Code(s): D72.829 - ELEVATED WHITE BLOOD CELL COUNT, UNSPECIFIED SNOMED Code(s): 599750349 Plan: 1patient presented to hospital with sepsis in this patient who did have a fever tachycardia elevated white count source is complicated UTI in this patient who did have right-sided hydronephrosis requiring cystoscopy and ureteral stent placement with urine is growing ESBL E. coli, however patient blood culture also positive for E. coli that is a sensitive pathogen 2patient currently treated with Invanz blood culture repeat so far negative will need a midline antibiotic on discharge Dictation was produced using [employer] dictation software. please excuse any gra mmatical, word or spelling errors. Time with Patient: Less than 30
--- NOTE | 2025-02-07 15:15 | P.PN ---
Subjective Progress Note Date: 02/07/25 69-year-old female who presented to the emergency department with sudden onset right flank pain that started yesterday having intense pain and came to the ER for further evaluation. Patient underwent CT abdomen pelvis and there was a moderate to marked right hydronephrosis and hydroureter secondary to obstructing 12 mm right UVJ calcification otherwise left kidney is unremarkable, hepatal medically and mild cholelithiasis with mild nonspecific interstitial densities in the lung bases right greater than left noted. Patient follows with Dr. Rachana Dasilva in the outpatient setting with a past medical history of DVT, GERD, hypertension, early dementia, significant hard of hearing, hypothyroidism. Claire ent denies any illicit drug use, alcohol, or smoking. Urology was consulted and patient is scheduled to undergo cystoscopy with right ureteroscopy and laser lithotripsy along with stone basketing and right ureteral stent insertion today. Patient is currently n.p.o. and will await official report. Labs reviewed and patient had a normal white count of 9.9, hemoglobin was 16.1, platelets 215, sodium 139 with a potassium of 3.7, BUN 23 with a creatinine of 0.62, urinalysis was negative other than a trace of blood and WBCs mildly elevated at 28. Patient denies any pain, burning, or frequency with urination. 02/04/2025 - the patient is seen and evaluated sitting up in bedside chair; has no specific complaints. The patient had a urinary tract infection with ESBL producing E. coli. She is status post cystoscopy and right ureteroscopy and laser lithotripsy and stone basketing and right ureteral stent insertion. -- Blood work reveals the white cell count is at 13.1 with a heme of 13.2 and a platelet count of 145. Electrolytes are all within normal limits. Proc alcitonin level is at 25. -Urine culture reveals E. coli, ESBL positive; patient is currently on Invanz 1 g IV; we will consult ID for final recommendations on antibiotic therapy 02/05/2025 Patient is seen and evaluated sitting up in bed; denies any complaint of chest pain, dysuria hematuria Vital signs are reviewed and stable Blood work reveals WBC of 10.8, hemoglobin of 13.2 and platelet count of 167, sodium 139, potassium 3.4, BUNs/creatinine of 23/0.44 Blood culture is positive for gram-negative bacilli; final culture and sensitivities pending; urine culture is growing ESBL E. coli -ID is on board and recommending to continue with IV Invanz; patient will need PICC line for extended IV antibiotic therapy outpatient 02/06 Patient still feels generally weak She still feels dysuria Patient is only minimally better No chest pain or dyspnea She remains on Invanz/ertapenem started for her ESBL E. coli in the blood and urine culture pending final results CRP elevated 12.9 and procalcitonin 25.7. 02/07. Patient seen and examined. Breathing has improved. Currently on 3 L of oxygen denies any chest pain REVIEW OF SYSTEMS: CONSTITUTIONAL: No fever, no malaise,. CARDIOVASCULAR: No chest pain, no palpitations, no syncope. PULMONARY: No shortness of breath, no cough, GASTROINTESTINAL: No diarrhea, no nausea, no vomiting, no abdominal pain. NEUROLOGICAL: No headaches, no weakness, PHYSICAL EXAMINATION: GENERAL: The patient is alert and oriented x3, ill looking HEENT: Pupils are round and equally reacting to light. EOMI. No scleral icterus. No conjunctival pallor. Normocephalic, atraumatic. No pharyngeal erythema. No thyromegaly. CARDIOVASCULAR: S1 and S2 present. No murmurs, rubs, or gallops. PULMONARY: Chest is clear to auscultation, no wheezing or crackles. ABDOMEN: Soft, nontender, nondistended, normoactive bowel sounds. No palpable o rganomegaly. MUSCULOSKELETAL: No joint swelling or deformity. EXTREMITIES: No cyanosis, clubbing, or pedal edema. NEUROLOGICAL: Gross neurological examination did not reveal any focal deficits. SKIN: No rashes. Assessment and plan Acute hypoxic respiratory failure Bilateral pleural effusions Acute urinary tract infection and cystitis associated with right flank pain secondary to UTI. Urine culture is growing ESBL Marked right hydronephrosis and hydroureter secondary to an obstructing stone as noted on imaging, s/p right ureteral stent placement on 02/02 Bacteremia History of DVT GERD Hypertension History of early dementia Hard of hearing Hypothyroidism Monitor vital signs Monitor CBC Monitor CMP Continue telemetry monitoring Strict I's and O's, daily weights Continue IV Lasix 20 mg every 12 2D echo ordered Continue ertapenem Ultrasound chest ordered ID following Pulmonology following Labs and medication were reviewed.. Continue same treatment. Continue with symptomatic treatment. Resume home medication. Monitor labs and vitals. DVT and GI prophylaxis. Further recommendations as per clinical course of the patient Dictation was produced using [employer] dictation software. please excuse any grammatical, word or spelling errors. Objective - Vital Signs Vital signs: Vital Signs Temp 98.5 F 02/07/25 07:50 Pulse 86 02/07/25 07:50 Resp 20 02/07/25 07:50 BP 195/100 02/07/25 07:50 Pulse Ox 97 02/07/25 07:50 FiO2 Intake & Output 02/06/25 02/07/25 02/07/25 18:59 06:59 18:59 Other: Voiding Method Toilet Bedside Commode # Voids 4 2 - Labs CBC & Chem 7: 02/07/25 02:46 02/07/25 02:46 Labs: Abnormal Lab Results - Last 24 Hours (Table) 02/07/25 02/07/25 Range/Units 02:46 02:46 MCHC 31.0 L (32.0-37.0) g/dL MPV 13.3 H (9.5-12.2) FL Lymphocytes # 0.56 L (0.90-5.00) X 10*3/uL Potassium 3.4 L (3.5-5.5) mmol/L Creatinine 0.4 L (0.6-1.5) mg/dL BUN/Creatinine Ratio 32.00 H (12.00-20.00) Ratio Calcium 8.4 L (8.7-10.3) mg/dL Microbiology - Last 24 Hours (Table) 02/05/25 16:59 Blood Culture - Preliminary Blood 02/02/25 17:08 Blood Culture Gram Stain - Preliminary Blood Blood Culture - Preliminary Escherichia coli Molecular ID
[2025-02-07 19:02] LABS: Glucose, BF Source Pleural Fluid; Glucose, Body Fluid 141 mg/dL
[2025-02-07 19:03] LABS: LDH, Body Fluid Source Pleural Fluid; T. Protein, Body Fluid Source Pleural Fluid; Total Protein, Body Fluid 1400 mg/dL
--- NOTE | 2025-02-07 20:22 | OP ---
OPERATIVE REPORT DATE OF SERVICE : PROCEDURE PERFORMED: Right-sided thoracentesis. PREOPERATIVE DIAGNOSIS: Right pleural effusion. POSTOPERATIVE DIAGNOSIS: Right pleural effusion. ANESTHESIA USED: 2 mL of 1% lidocaine. PROCEDURE: The patient was placed in a sitting upright position, the area below the right scapula was prepared in a sterile fashion and drapes were applied. The area of the ultrasound marking was actually at the 8th intercostal space and tip of the scapula, the area was locally anesthetized with lidocaine, and a 26-gauge needle inserted into the pleural space until the fluid was localized. Then, a small tiny incision was made, at the same site. A standard thoracentesis catheter and needle used, advanced into the pleural space and as soon as the fluid was obtained, the catheter was advanced over the needle, and the needle was pulled out of the pleural space. Freely flowing fluid was removed, roughly 700 cc of lis-colored fluid removed from the right pleural space. Procedure was well tolerated, no complications, fluid was sent for different diagnostic studies. MMODL / IJN: [id number] /
[2025-02-07] MEDS: METOPROLOL SUCCINATE (ER) 50 MG TAB.ER.24H PO SCH (23:22)
[2025-02-08] MEDS: DIPHENOX-ATROP 2.5-0.025 MG 1 EACH TAB PO PRN (09:03)
--- NOTE | 2025-02-08 09:50 | CA ---
Transthoracic Echo Report Name: Padmini Oseguera Age: 69 Gender: F : 1955 Exam Date: 02/07/2025 08:59 Exam Location: [facility] Ht (in): 68 Wt (lb): 195 Ordering Physician: Joseph Mccabe Attending/Referring Phys: Baby Formula Worker Rodriguez Viveros RDCS Procedure CPT: Indications: evaluate EF Cardiac Hx: HTN, DVT, wasn't able to use Definity, they couldn't start an IV line Technical Quality: Technically difficult study Contrast 1: Total Dose (mL): Contrast 2: Total Dose (mL): MEASUREMENTS (Male / Female) Normal Values 2D ECHO LV Diastolic Diameter PLAX 6.6 cm 4.2 - 5.9 / 3.9 - 5.3 cm LV Systolic Diameter PLAX 5.2 cm IVS Diastolic Thickness 1.0 cm 0.6 - 1.0 / 0.6 - 0.9 cm LVPW Diastolic Thickness 1.0 cm 0.6 - 1.0 / 0.6 - 0.9 cm LV Relative Wall Thickness 0.3 RV Internal Dim ED PLAX 3.0 cm LVOT Diameter 2.1 cm LA Systolic Diameter LX 3.5 cm 3.0 - 4.0 / 2.7 - 3.8 cm LA Volume 145.9 cm??? 18 - 58 / 22 - 52 cm??? LA Volume Index 70.0 cm???/m??? 16 - 28 cm???/m??? DOPPLER LVOT Peak Velocity 118.9 cm/s LVOT Peak Gradient 5.7 mmHg LVOT Velocity Time Integral 24.9 cm LVOT Stroke Volume 85.7 cm??? LVOT Stroke Volume Index 42.4 ml/m??? LVOT Cardiac Index 3661.6 cm???/min???m??? MV Peak Velocity 133.1 cm/s MV Peak Gradient 7.1 mmHg MV Mean Velocity 83.1 cm/s MV Mean Gradient 3.4 mmHg MV Velocity Time Integral 26.1 cm MV Area PHT 3.1 cm??? Mitral E Point Velocity 103.8 cm/s Mitral A Point Velocity 129.4 cm/s Mitral E to A Ratio 0.8 MV Deceleration Time 241.3 ms TR Peak Velocity 370.2 cm/s TR Peak Gradient 54.8 mmHg Right Atrial Pressure 10.0 mmHg Pulmonary Artery Systolic Pressu 64.8 mmHg Right Ventricular Systolic Press 64.8 mmHg FINDINGS Left Ventricle Left ventricular ejection fraction is estimated at 45-50 %. Severely increased left ventricular diastolic diameter. Left ventricular wall thickness normal. Reduced global left ventricular systolic function. Right Ventricle Mild right ventricular dilatation. Severe pulmonary hypertension. Right ventricular systolic pressure estimated at 65 mm hg. Right Atrium Moderate right atrial dilatation. Left Atrium Severely increased left atrial volume. Moderately increased left atrial area. Mitral Valve Structurally normal mitral valve. Mild mitral stenosis. Trace mitral regurgitation. Aortic Valve Trileaflet aortic valve. No aortic stenosis. No aortic regurgitation. Tricuspid Valve Structurally normal tricuspid valve. No tricuspid stenosis. Moderate tricuspid regurgitation. Pulmonic Valve Structurally normal pulmonic valve. No pulmonic stenosis. No pulmonic regurgitation. Pericardium No pericardial effusion. No pleural effusion. Aorta Normal size aortic root and proximal ascending aorta. CONCLUSIONS Enlarged left ventricle with a global decrease in contractility estimate ejection fraction 45%. Enlarged atria. Enlarged right ventricle with moderate to severe pulmonary hypertension. Moderate tricuspid regurgitation mild mitral regurgitation. No pericardial effusion Previewed by: Dr. Linda Balderrama MD (Electronically Signed) Final Date: 08 February 2025 09:50
[2025-02-08 10:45] VITALS: BMI 29.6
--- NOTE | 2025-02-08 13:07 | P.PN ---
Subjective Progress Note Date: 02/08/25 69-year-old female who presented to the emergency department with sudden onset right flank pain that started yesterday having intense pain and came to the ER for further evaluation. Patient underwent CT abdomen pelvis and there was a moderate to marked right hydronephrosis and hydroureter secondary to obstructing 12 mm right UVJ calcification otherwise left kidney is unremarkable, hepatal medically and mild cholelithiasis with mild nonspecific interstitial densities in the lung bases right greater than left noted. Patient follows with Dr. Rachana Dasilva in the outpatient setting with a past medical history of DVT, GERD, hypertension, early dementia, significant hard of hearing, hypothyroidism. Claire ent denies any illicit drug use, alcohol, or smoking. Urology was consulted and patient is scheduled to undergo cystoscopy with right ureteroscopy and laser lithotripsy along with stone basketing and right ureteral stent insertion today. Patient is currently n.p.o. and will await official report. Labs reviewed and patient had a normal white count of 9.9, hemoglobin was 16.1, platelets 215, sodium 139 with a potassium of 3.7, BUN 23 with a creatinine of 0.62, urinalysis was negative other than a trace of blood and WBCs mildly elevated at 28. Patient denies any pain, burning, or frequency with urination. 02/04/2025 - the patient is seen and evaluated sitting up in bedside chair; has no specific complaints. The patient had a urinary tract infection with ESBL producing E. coli. She is status post cystoscopy and right ureteroscopy and laser lithotripsy and stone basketing and right ureteral stent insertion. -- Blood work reveals the white cell count is at 13.1 with a heme of 13.2 and a platelet count of 145. Electrolytes are all within normal limits. Proc alcitonin level is at 25. -Urine culture reveals E. coli, ESBL positive; patient is currently on Invanz 1 g IV; we will consult ID for final recommendations on antibiotic therapy 02/05/2025 Patient is seen and evaluated sitting up in bed; denies any complaint of chest pain, dysuria hematuria Vital signs are reviewed and stable Blood work reveals WBC of 10.8, hemoglobin of 13.2 and platelet count of 167, sodium 139, potassium 3.4, BUNs/creatinine of 23/0.44 Blood culture is positive for gram-negative bacilli; final culture and sensitivities pending; urine culture is growing ESBL E. coli -ID is on board and recommending to continue with IV Invanz; patient will need PICC line for extended IV antibiotic therapy outpatient 02/06 Patient still feels generally weak She still feels dysuria Patient is only minimally better No chest pain or dyspnea She remains on Invanz/ertapenem started for her ESBL E. coli in the blood and urine culture pending final results CRP elevated 12.9 and procalcitonin 25.7. 02/07. Patient seen and examined. Breathing has improved. Currently on 3 L of oxygen denies any chest pain 02/08. Patient seen and examined. Breathing is improving, continues to be on 3 L of oxygen. Denies any chest pain. Denies any cough. Patient underwent r ight-sided thoracentesis with removal of 700 mL of fluid REVIEW OF SYSTEMS: CONSTITUTIONAL: No fever, no malaise,. CARDIOVASCULAR: No chest pain, no palpitations, no syncope. PULMONARY: No shortness of breath, no cough, GASTROINTESTINAL: No diarrhea, no nausea, no vomiting, no abdominal pain. NEUROLOGICAL: No headaches, no weakness, PHYSICAL EXAMINATION: GENERAL: The patient is alert and oriented x3, ill looking HEENT: Pupils are round and equally reacting to light. EOMI. No scleral icterus. No conjunctival pallor. Normocephalic, atraumatic. No pharyngeal erythema. No thyromegaly. CARDIOVASCULAR: S1 and S2 present. No murmurs, rubs, or gallops. PULMONARY: diminished breath sounds at bases bilaterally, no wheezing or crackles. ABDOMEN: Soft, nontender, nondistended, normoactive bowel sounds. No palpable organomegaly. MUSCULOSKELETAL: No joint swelling or deformity. EXTREMITIES: No cyanosis, clubbing, or pedal edema. NEUROLOGICAL: Gross neurological examination did not reveal any focal deficits. SKIN: No rashes. Assessment and plan Acute hypoxic respiratory failure Bilateral pleural effusions Acute urinary tract infection and cystitis associated with right flank pain secondary to UTI. Urine culture is growing ESBL Marked right hydronephrosis and hydroureter secondary to an obstructing stone as noted on imaging, s/p right ureteral stent placement on 02/02 Bacteremia History of DVT GERD Hypertension History of early dementia Hard of hearing Hypothyroidism Monitor vital signs Monitor CBC Monitor CMP Continue telemetry monitoring Status post right-sided thoracentesis with removal of 700 mL of fluid on 02/07 Strict I's and O's, daily weights Continue IV Lasix 20 mg every 12 2D echo 2D echo done showed a large left ventricle with global decrease in contractility EF 45%, enlarged atria, enlarged right ventricle with moderate to severe pulm hypertension. Moderate tricuspid regurg, mild atrial regurg no pericardial effusion Continue ertapenem ID following Pulmonology following Labs and medication were reviewed.. Continue same treatment. Continue with s ymptomatic treatment. Resume home medication. Monitor labs and vitals. DVT and GI prophylaxis. Further recommendations as per clinical course of the patient Dictation was produced using [employer] dictation software. please excuse any grammatical, word or spelling errors. Objective - Vital Signs Vital signs: Vital Signs Temp 97.7 F 02/08/25 07:24 Pulse 74 02/08/25 07:24 Resp 18 02/08/25 07:24 BP 159/89 02/08/25 07:24 Pulse Ox 95 02/08/25 07:24 FiO2 Intake & Output 02/07/25 02/08/25 02/08/25 18:59 06:59 18:59 Other: Voiding Method Bedside Commode Bedside Commode # Voids 4 4 2 # Bowel Movements 0 6 - Labs CBC & Chem 7: 02/07/25 02:46 02/07/25 02:46 Labs: Microbiology - Last 24 Hours (Table) 02/07/25 12:49 Gram Stain - Preliminary Pleural Fluid Body Fluid Culture - Preliminary 02/05/25 16:59 Blood Culture - Preliminary Blood 02/02/25 17:08 Blood Culture Gram Stain - Final Blood Blood Culture - Final Escherichia coli Molecular ID
[2025-02-08] MEDS: MAGNESIUM SULFATE-D5W PMX 1 GM in DEXTROSE/WATER 1 100ML.BAG IVPB ONE (13:23)
--- NOTE | 2025-02-08 13:49 | P.CRDCN ---
History of Present Illness Consult date: 02/08/25 Reason for Consult (text): Run of VE History of present illness: This is a 77-year-old female patient of Dr. Rojas with past medical history of moderate mitral valve regurgitation, thoracic aortic aneurysm, hypertension, hyperlipidemia, pulmonary hypertension. We have been asked to evaluate the patient for run of ventricular ectopy. Patient presented to the hospital on 02/01 and has been treated for acute hypoxic respiratory failure, bilateral moderate-sized pleural effusions, complicated UTI, bacteremia, right sided hydronephrosis status post cystoscopy and ureteral stent placement. 02/07, patient underwent right-sided thoracentesis with Dr. Moreno with removal of 700 cc of lis-colored fluid for worsening pleural effusions. Blood pressure 159/89 to 170/84, pulse ox 95% on 3 L nasal cannula, heart rate in the 60s and 70s. Reviewed telemetry and patient has had short runs of PAT and nonsustained ventricular tachycardia. On 02/07, beta-russ was increased to 50 mg twice daily. EKG obtained is sinus rhythm with PACs -Chest x-ray: 02/07: Decreased right pleural effusion. No evidence of pneumothorax. Cardiomegaly, pulmonary vascular congestion and bilateral pleural effusions. -Laboratory studies: WBC 6.5, hemoglobin 13.1, potassium 3.4, BUN 12 and creatinine 0.4. proBNP 18,800. Blood and urine cultures positive for E. coli on 02/02. -Home cardiac medications: Atorvastatin 40 mg at bedtime,, metoprolol succinate 50 mg daily, also on levothyroxine. -Cardiac catheterization performed 04/01/2021: Normal coronary arteries. -Echocardiogram performed in the office on 07/03/2022 revealed normal EF, diastolic dysfunction, mild to moderate MR, mild to moderate TR, estimated RVSP 40 mmHg. Review Of Systems: At the time of my exam: CONSTITUTIONAL: Denies fever or chills. Generalized weakness. HEENT: Denies blurred vision, vision changes, or eye pain. Denies hemoptysis CARDIOVASCULAR: Denies chest pain. Denies orthopnea. Denies PND. Denies palpitations RESPIRATORY: Denies shortness of breath. GASTROINTESTINAL: Denies abdominal pain. Denies nausea or vomiting. HEMATOLOGIC: Denies bleeding disorders. GENITOURINARY: Denies any blood in urine. SKIN: Denies puritis. Denies rash. Physical examination: Gen: This is 69-year-old female in no acute respiratory distress VS: reviewed HEENT: Head is atraumatic, normocephalic. Pupils equal, round. Sclerae is anicteric. NECK: Supple. No JVD. LUNGS: Diminished breath sounds bilaterally.No intercostal retractions. HEART: Regular rate and rhythm. Systolic ejection murmur. ABDOMEN: Soft No tenderness. EXTREMITIES: No pedal edema. No calf tenderness. NEUROLOGICAL: Patient is awake, alert and oriented x3. Assessment: Short runs of PAT and nonsustained ventricular tachycardia Acute hypoxic respiratory failure Bilateral moderate-sized pleural effusions status post right-sided thoracentesis 02/07 Complicated E. coli UTI and bacteremia Right-sided hydronephrosis status post cystoscopy and ureteral stent placement Moderate mitral valve regurgitation Thoracic aortic aneurysm, stable Hypertension Hyperlipidemia Pulmonary hypertension Dementia Plan: Patient is currently on Toprol XL 50 mg twice daily--increased frequency on 02/07, continue Continue patient on IV Lasix 20 mg every 12 hours per pulmonary medicine Replace potassium and magnesium No further cardiac workup at this time Cardiology will sign off this case and follow on an as-needed basis. Please reconsult for any new concerns. Patient may follow-up in the office with Dr. Rojas in 2 weeks. Thank you kindly for this consultation. Nurse practitioner note has been reviewed, I agree with documented findings and plan of care. Patient was seen and examined. Past Medical History Past Medical History: Deep Vein Thrombosis (DVT), GERD/Reflux, Hypertension, Memory Impairment, Thyroid Disorder Additional Past Medical History / Comment(s): early dementia and [place],90% deaf- please relay information to /daughter. family hx colorectal cancer. bowel/urinary incontinence wears depends. has appt 07/13 with neurologist to r/o myasthenia gravis has been experiencing facial drooping,lethary,muscle weakness. osteopenia History of Any Multi-Drug Resistant Organisms: ESBL Date of last positivie culture/infection: 02/01/25 MDRO Source:: urine Past Surgical History: Heart Catheterization, Hysterectomy Additional Past Surgical History / Comment(s): REPAIR RT RUPTURED THIGH MUSCLE. COLONOSCOPY, bladder prolapse surgery Past Anesthesia/Blood Transfusion Reactions: No Reported Reaction Past Psychological History: No Psychological Hx Reported Additional Psychological History / Comment(s): early dementia. mood swings Smoking Status: Never smoker Past Alcohol Use History: None Reported Past Drug Use History: None Reported - Past Family History Sister(s) Family Medical History: Cancer Additional Family Medical History / Comment(s): COLON Mother Family Medical History: Cancer Additional Family Medical History / Comment(s): BREAST Father Family Medical History: Cancer Additional Family Medical History / Comment(s): LUNG Medications and Allergies Home Medications Medication Instructions Recorded Confirmed Type Metoprolol Succinate (ER) [Toprol 50 mg PO DAILY 08/14/16 02/01/25 History XL] Ferrous Sulfate [Iron (65 MG 325 mg PO DAILY 03/28/21 02/01/25 History Elemental)] Beet Root 1000mg 1,000 mg PO DAILY 10/24/23 02/01/25 History Cyanocobalamin (Vitamin B-12) 1,000 mcg PO Q2D 10/24/23 02/01/25 History [Vitamin B-12] Donepezil [Aricept] 10 mg PO HS 10/24/23 02/01/25 History Ketorolac [Toradol] 10 mg PO Q8HR #15 tab 02/01/25 Rx Levothyroxine Sodium [Synthroid] 137 mcg PO DAILY 02/01/25 02/01/25 History Tamsulosin [Flomax] 0.4 mg PO DAILY #7 cap 02/01/25 Rx traZODone HCL [Desyrel] 50 - 75 mg PO HS 02/01/25 02/01/25 History Atorvastatin Calcium [Lipitor] 40 mg PO HS 02/02/25 02/02/25 History Ertapenem [INVanz] 1 gm IVPB Q24H #12 each 02/06/25 Rx Allergies Allergy/AdvReac Type Severity Reaction Status Date / Time No Known Allergies Allergy Verified 02/01/25 18:20 Physical Exam Vitals: Vital Signs Temp Pulse Resp BP Pulse Ox 02/08/25 07:24 97.7 F 74 18 159/89 95 02/08/25 02:00 97.6 F 74 15 170/84 97 02/07/25 21:30 18 02/07/25 19:39 98.1 F 64 16 171/90 99 02/07/25 14:35 98.2 F 77 20 165/100 99 Intake and Output 02/07/25 02/08/25 02/08/25 22:59 06:59 14:59 Other: Voiding Method Bedside Commode Bedside Commode # Voids 4 4 2 # Bowel Movements 0 6 Results 02/07/25 02:46 02/07/25 02:46 CBC 02/07/25 Range/Units 02:46 WBC 6.50 (4.50-10.00) X 10*3/uL RBC 4.60 (4.10-5.20) X 10*6/uL Hgb 13.1 (12.0-15.0) g/dL Hct 42.3 (37.2-46.3) % Plt Count 173 (140-440) X 10*3/uL Comprehensive Metabolic Panel 02/07/25 Range/Units 02:46 Sodium 143 (135-145) mmol/L Potassium 3.4 L (3.5-5.5) mmol/L Chloride 104 (96-109) mmol/L Carbon Dioxide 30.9 (21.6-31.8) mmol/L BUN 12.8 (9.0-27.0) mg/dL Creatinine 0.4 L (0.6-1.5) mg/dL Glucose 100 (70-110) mg/dL Calcium 8.4 L (8.7-10.3) mg/dL Current Medications Generic Name Dose Route Start Last Admin Trade Name Freq PRN Reason Stop Dose Admin Acetaminophen 650 mg 02/01/25 17:22 02/08/25 04:01 Acetaminophen Tab 325 Mg Tab PO 650 mg Q6HR PRN Administration Mild Pain or Fever > 100.5 Clonidine 0.1 mg 02/02/25 22:00 02/08/25 09:04 Clonidine Hcl 0.1 Mg Tab PO 0.1 mg TID SELENE Administration Diphenoxylate HCl/Atropine 1 each 02/06/25 12:16 02/08/25 09:03 Diphenox-Atrop 2.5-0.025 Mg 1 Each Tab PO 1 each Q6HR PRN Administration Diarrhea Donepezil HCl 10 mg 02/02/25 21:00 02/07/25 21:40 Donepezil 10 Mg Tab PO 10 mg HS SELENE Administration Ferrous Sulfate 325 mg 02/02/25 09:00 02/08/25 09:03 Ferrous Sulfate 325 Mg Tab PO 325 mg DAILY SELENE Administration Furosemide 20 mg 02/07/25 09:00 02/08/25 09:04 Furosemide 10 Mg/Ml 2 Ml Vial IV 20 mg Q12HR SELENE Administration Heparin Sodium (Porcine) 5,000 unit 02/06/25 10:45 02/08/25 09:04 Heparin Sodium,Porcine 5,000 Unit/Ml 1 Ml Vial SQ 5,000 unit Q8HR SELENE Administration Hydromorphone HCl 0.5 mg 02/01/25 17:22 02/07/25 05:37 Hydromorphone 0.5 Mg/0.5 Ml Syringe IVP 0.5 mg Q3HR PRN Administration Moderate Pain (Scale 4 to 6) Ertapenem 1 gm/ Sodium 50 mls @ 100 mls/hr 02/02/25 18:00 02/07/25 17:36 Chloride IVPB 100 mls/hr 1800 SELENE Administration Protocol Levothyroxine Sodium 137 mcg 02/02/25 06:30 02/08/25 06:58 Levothyroxine 137 Mcg Tab PO 137 mcg DAILY@0630 SELENE Administration Metoprolol Succinate 50 mg 02/07/25 23:00 02/08/25 09:04 Metoprolol Succinate (Er) 50 Mg Tab.Er.24h PO 50 mg BID SELENE Administration Naloxone HCl 0.2 mg 02/01/25 17:22 Naloxone 0.4 Mg/Ml 1 Ml Vial IV Q2M PRN Opioid Reversal Ondansetron HCl 4 mg 02/01/25 17:22 02/06/25 19:41 Ondansetron 4 Mg/2 Ml Vial IVP 4 mg Q8HR PRN Administration Nausea And Vomiting Trazodone HCl 50 mg 02/02/25 21:00 02/07/25 21:40 Trazodone Hcl 50 Mg Tab PO 50 mg HS SELENE Administration Intake and Output 02/07/25 02/08/25 02/08/25 22:59 06:59 14:59 Other: Voiding Method Bedside Commode Bedside Commode # Voids 4 4 2 # Bowel Movements 0 6 02/07/25 02:46 02/07/25 02:46
--- NOTE | 2025-02-08 14:17 | P.PN ---
Subjective Progress Note Date: 02/08/25 On 02/07/2025 we are seeing this patient in follow-up. We are asked to reevaluate this patient regards to increased oxygen demands and exertional dyspnea. Originally, presented to the emergency department on 02/01/2025 with right flank pain. CT of the chest, abdomen, pelvis identified a obstructing 12 mm right UVJ calculus with associated moderate to marked right-sided hydronephrosis. Patient is status postoperative day #5 following cystoscopy, right ureteroscopy with holmium laser lithotripsy and stone basketing, and right ureteral stent insertion. Urine was positive for ESBL producing E. coli. Initially, a critical care consultation was placed to evaluate the patient in regard to urosepsis. Blood pressures remain normotensive, not requiring vasopressors. She has been receiving normal saline at 75 mL/h. White blood cell count trending down. Procalcitonin was elevated at 25.7. Blood was positive for E. coli bacteremia. No longer febrile. Continues on ertapenem per ID recommendations. Most recent labs from 02/05/2025 included CBC with a WBC count of 10.8, hemoglobin 13.2, platelets 167. BMP: Sodium 139, potassium 3.4, chloride 105, serum bicarb 25, BUN 23, creatinine 0.44, glucose 112. Pulmonary/CC had signed off the case. Pulmonary was reconsulted yesterday as the patient has had slight increase oxygen demands over the last couple days. Currently, on 4 L/min nasal cannula. Chest x-ray from yesterday demonstrates cardiomegaly, pulmonary vascular congestion, and new moderate-sized bilateral pleural effusions with associated atelectasis. Patient currently being evaluated in the general medical floor. She is awake and alert, she is hard of hearing. On 4 L/min nasal cannula. No notable respiratory distress while at rest. Reports significant exertional dyspnea with ambulation to the restroom. Denies history of heart failure. Denies history of previous thoracentesis. Denies chest pain, heart palpitations, lightheadedness or syncopal events, orthopnea, lower extremity edema. Denies cough, sputum production, hemoptysis. Not on any anticoagulants. Current vital signs: Temperature 97.6 F, heart rate 63 bpm, blood pressure 165/94 mmHg, nontachypneic, SpO2 was recorded at 99% on 4 L/min nasal cannula. The patient is seen today February 08, 2025 in follow-up on the regular medical floor. She is currently sitting up at the bedside. Awake and alert no acute distress. Maintaining good O2 saturations in the 90s on 3 L/min per nasal cannula. She is breathing easier today compared to yesterday. She did undergo a right sided thoracentesis with 700 cc of lis-colored fluid removed. Analysis is transudate with a total protein of 1.4 and an LDH of 80. Her proBNP had been 18,800. She remains on IV Lasix. Heparin for DVT prophylaxis. Antibiotics in the form of ertapenem. Her initial urine and blood cultures have been positive for ESBL E. coli. Objective - Vital Signs Vital signs: Vital Signs Temp 97.7 F 02/08/25 07:24 Pulse 74 02/08/25 07:24 Resp 18 02/08/25 07:24 BP 159/89 02/08/25 07:24 Pulse Ox 95 02/08/25 07:24 FiO2 Intake & Output 02/07/25 02/08/25 02/08/25 18:59 06:59 18:59 Weight 88.451 kg Other: Voiding Method Bedside Commode Bedside Commode # Voids 4 4 2 # Bowel Movements 0 6 - Exam GENERAL EXAM: Alert, pleasant 69-year-old female, hard of hearing, on 3 L/min nasal cannula, comfortable in no apparent distress. HEAD: Normocephalic and atraumatic EYES: Normal reaction of pupils, equal size. NOSE: Clear with pink turbinates. THROAT: No erythema or exudates. NECK: No masses, no JVD. CHEST: No chest wall deformity. LUNGS: Equal air entry with diminished bibasilar lung sounds. Expiratory wheezing over the anterior lung shipman. CVS: S1 and S2 normal with no audible murmur, regular rhythm. No extra heart sounds ABDOMEN: No hepatosplenomegaly, active bowel sounds, no guarding or rigidity. SPINE: No scoliosis or deformity SKIN: No rashes CENTRAL NERVOUS SYSTEM: No focal deficits, tone is normal in all 4 extremities. EXTREMITIES: There is no peripheral edema, clubbing, or cyanosis. Peripheral pulses are intact. - Labs CBC & Chem 7: 02/07/25 02:46 02/07/25 02:46 Labs: Microbiology - Last 24 Hours (Table) 02/07/25 12:49 Gram Stain - Preliminary Pleural Fluid Body Fluid Culture - Preliminary 02/05/25 16:59 Blood Culture - Preliminary Blood 02/02/25 17:08 Blood Culture Gram Stain - Final Blood Blood Culture - Final Escherichia coli Molecular ID Assessment and Plan Assessment: Acute hypoxemic respiratory failure, secondary to acute exacerbation of systolic congestive heart failure, chest x-ray demonstrating cardiomegaly, pulmonary vascular congestion, and new bilateral moderate-sized pleural effusions. Bilateral pleural effusions, status post right sided thoracentesis with 700 mL of turbid yellow fluid removed February 07, 2025. Fluid analysis shows transudate Right ureteral stone, with secondary rightt flank pain /obstructing 12 mm right UVJ calcification, marked right hydronephrosis and hydroureter secondary to an obstructing stoneand the patient is status post Cystoscopy, right ureteroscopy with Holmium laser lithotripsy and stone basketing, right ureteral stent insertion. The patient is postop day # 5 Complicated UTI with ESBL producing E. coli, currently on IV Invanz E. coli bacteremia Acute systemic inflammatory response syndrome post urologic intervention, improved and the patient is hemodynamically stable Dementia Hypertension Hypothyroidism Cholelithiasis without evidence of cholecystitis Hearing impairment Previous history of DVT Previous history of E. coli urinary tract infection, ESBL producing Plan: The patient was seen and evaluated Chest x-ray, labs and medications reviewed Echocardiogram reviewed Stable and on 3 L nasal cannula No plans for left-sided thoracentesis at this time Continue diuretics Continue antibiotics Titrate down the FiO2 as tolerated Increase her activity as tolerated We will continue to follow I have personally seen and examined the patient, performed the documentation and the assessment and plan as written. Number of minutes spent on the visit: 10 Dictation was produced using [employer] dictation software. Please excuse any grammatical, word or spelling errors.
[2025-02-08] MEDS: POTASSIUM CHLORIDE ER 20 MEQ TAB.ER PO STA (14:25)
--- NOTE | 2025-02-08 17:34 | P.PN ---
Subjective Progress Note Date: 02/08/25 Principal diagnosis: Reason for follow-up is E. coli UTI and bacteremia Patient is a 69-year-old female with a past medical history significant for DVT reflux hypertension memory impairment presenting to the hospital with right flank pain has been diagnosed with a complicated UTI in this patient with right-sided hydronephrosis requiring cystoscopy and ureteral stent placement urine culture with ESBL E. coli blood culture documented positive as well. On today's evaluation that is 02/08/2025,the patient denies any fever or any chills, patient is breathing comfortably on room air, the patient denies chest pain shortness of breath and no significant cough, patient denies abdominal pain, no nausea vomiting or diarrhea. No new lab has been obtained today blood culture repeat has been negative Objective - Vital Signs Vital signs: Vital Signs Temp 97.7 F 02/08/25 07:24 Pulse 74 02/08/25 07:24 Resp 18 02/08/25 07:24 BP 159/89 02/08/25 07:24 Pulse Ox 95 02/08/25 07:24 FiO2 Intake & Output 02/07/25 02/08/25 02/08/25 18:59 06:59 18:59 Weight 88.451 kg Other: Voiding Method Bedside Commode Bedside Commode # Voids 4 4 2 # Bowel Movements 0 6 - Exam GENERAL DESCRIPTION: An elderly female lying in bed in no distress RESPIRATORY SYSTEM: Unlabored breathing , decreased breath sounds at bases HEART: S1 S2 regular rate and rhythm , ABDOMEN: Soft , no tenderness EXTREMITIES: No edema feet - Labs CBC & Chem 7: 02/07/25 02:46 02/07/25 02:46 Labs: Microbiology - Last 24 Hours (Table) 02/07/25 12:49 Gram Stain - Preliminary Pleural Fluid Body Fluid Culture - Preliminary 02/05/25 16:59 Blood Culture - Preliminary Blood 02/02/25 17:08 Blood Culture Gram Stain - Final Blood Blood Culture - Final Escherichia coli Molecular ID Assessment and Plan (1) E coli bacteremia Current Visit: No Status: Acute Code(s): R78.81 - BACTEREMIA; B96.20 - UNSP ESCHERICHIA COLI THE CAUSE OF DISEASES [facility] SNOMED Code(s): 762444223436 (2) Infection due to ESBL-producing Escherichia coli Current Visit: No Status: Acute Code(s): A49.8 - OTHER BACTERIAL INFECTIONS OF UNSPECIFIED SITE; Z16.12 - EXTENDED SPECTRUM BETA LACTAMASE (ESBL) RESISTANCE SNOMED Code(s): 424302065 (3) Leukocytosis Current Visit: No Status: Acute Code(s): D72.829 - ELEVATED WHITE BLOOD CELL COUNT, UNSPECIFIED SNOMED Code(s): 911317355 Plan: 1patient presented to hospital with sepsis in this patient who did have a fever tachycardia elevated white count source is complicated UTI in this patient who did have right-sided hydronephrosis requiring cystoscopy and ureteral stent placement with urine is growing ESBL E. coli, however patient blood culture also positive for E. coli that is a sensitive pathogen 2patient is afebrile clinic responding to Invanz to continue will need a midline for outpatient IV Invanz on discharge Dictation was produced using [employer] dictation software. please excuse any grammatical, word or spelling errors. Time with Patient: Less than 30
[2025-02-09 11:01] VITALS: RESP 18
--- NOTE | 2025-02-09 14:07 | P.DS ---
Providers Date of admission: 02/01/25 17:09 Expected date of discharge: 02/09/25 Attending physician: Arie Roy Consults: 02/01/25 17:22 Consult Physician Urgent Consulting Provider: Gino Son Consult Reason/Comments: stone Do you want consulting provider notified?: Already Contacted 02/02/25 16:23 Consult Physician Stat Consulting Provider: Brodie Bang Consult Reason/Comments: Urosepsis Do you want consulting provider notified?: Already Contacted 02/04/25 16:17 Consult Physician Routine Consulting Provider: Susanne Dacosta Consult Reason/Comments: UTI/ESBL E. coli Do you want consulting provider notified?: Yes 02/06/25 12:07 Consult Physician Routine Consulting Provider: Lincoln Moreno Consult Reason/Comments: hypoxia Do you want consulting provider notified?: Yes 02/07/25 21:02 Consult Physician Routine Consulting Provider: Tyler Flores Consult Reason/Comments: Run of VE Do you want consulting provider notified?: Yes, Notify in am Primary care physician: Rachana Dasilva Hospital Course: Discharge diagnoses; Acute hypoxic respiratory failure Bilateral pleural effusions Acute urinary tract infection and cystitis associated with right flank pain secondary to UTI. Urine culture is growing ESBL Marked right hydronephrosis and hydroureter secondary to an obstructing stone as noted on imaging, s/p right ureteral stent placement on 02/02 Bacteremia History of DVT GERD Hypertension History of early dementia Hard of hearing Hypothyroidism Hospital course; 69-year-old female who presented to the emergency department with sudden onset right flank pain that started yesterday having intense pain and came to the ER for further evaluation. Patient underwent CT abdomen pelvis and there was a moderate to marked right hydronephrosis and hydroureter secondary to obstructing 12 mm right UVJ calcification otherwise left kidney is unremarkable, hepatal medically and mild cholelithiasis with mild nonspecific interstitial densities in the lung bases right greater than left noted. Patient follows with Dr. Rachana Dasilva in the outpatient setting with a past medical history of DVT, GERD, hypertension, early dementia, significant hard of hearing, hypothyroidism. Patient denies any illicit drug use, alcohol, or smoking. Urology was consulted and patient is scheduled to undergo cystoscopy with right ureteroscopy and laser lithotripsy along with stone basketing and right ureteral stent insertion today. Patient is currently n.p.o. and will await official report. Labs reviewed and patient had a normal white count of 9.9, hemoglobin was 16.1, platelets 215, sodium 139 with a potassium of 3.7, BUN 23 with a creatinine of 0.62, urinalysis was negative other than a trace of blood and WBCs mildly elevated at 28. Patient denies any pain, burning, or frequency with urination. 02/04/2025 - the patient is seen and evaluated sitting up in bedside chair; has no specific complaints. The patient had a urinary tract infection with ESBL producing E. coli. She is status post cystoscopy and right ureteroscopy and laser lithotripsy and stone basketing and right ureteral stent insertion. -- Blood work reveals the white cell count is at 13.1 with a heme of 13.2 and a platelet count of 145. Electrolytes are all within normal limits. Procalcitonin level is at 25. -Urine culture reveals E. coli, ESBL positive; patient is currently on Invanz 1 g IV; we will consult ID for final recommendations on antibiotic therapy 02/05/2025 Patient is seen and evaluated sitting up in bed; denies any complaint of chest pain, dysuria hematuria Vital signs are reviewed and stable Blood work reveals WBC of 10.8, hemoglobin of 13.2 and platelet count of 167, sodium 139, potassium 3.4, BUNs/creatinine of 23/0.44 Blood culture is positive for gram-negative bacilli; final culture and sensitivities pending; urine culture is growing ESBL E. coli -ID is on board and recommending to continue with IV Invanz; patient will need PICC line for extended IV antibiotic therapy outpatient 02/06 Patient still feels generally weak She still feels dysuria Patient is only minimally better No chest pain or dyspnea She remains on Invanz/ertapenem started for her ESBL E. coli in the blood and urine culture pending final results CRP elevated 12.9 and procalcitonin 25.7. 02/07. Patient seen and examined. Breathing has improved. Currently on 3 L of oxygen denies any chest pain 02/08. Patient seen and examined. Breathing is improving, continues to be on 3 L of oxygen. Denies any chest pain. Denies any cough. Patient underwent right-sided thoracentesis with removal of 700 mL of fluid 02/09. Patient seen and examined. ID recommended discharging patient on ertapenem, prescription given by ID for 12 more days. Cardiology also evaluated patient, recommended to patient on Toprol and Lasix, outpatient follow-up with cardiology. Pulmonology cleared the patient for discharge as well. PHYSICAL EXAMINATION: GENERAL: The patient is alert and oriented x3, ill looking HEENT: Pupils are round and equally reacting to light. EOMI. No scleral icterus. No conjunctival pallor. Normocephalic, atraumatic. No pharyngeal erythema. No thyromegaly. CARDIOVASCULAR: S1 and S2 present. No murmurs, rubs, or gallops. PULMONARY: Coarse and diminished breath sounds at the bases. Bilaterally, no wheeze rhonchi ABDOMEN: Soft, nontender, nondistended, normoactive bowel sounds. No palpable organomegaly. MUSCULOSKELETAL: No joint swelling or deformity. EXTREMITIES: No cyanosis, clubbing, or pedal edema. NEUROLOGICAL: Gross neurological examination did not reveal any focal deficits. SKIN: No rashes. Dictation was produced using [employer] ([employer] dictation software. please excuse any grammatical, word or spelling errors. Patient Condition at Discharge: Stable Plan - Discharge Summary Discharge Rx Participant: No New Discharge Prescriptions: New Tamsulosin [Flomax] 0.4 mg PO DAILY #7 cap Ertapenem [INVanz] 1 gm IVPB Q24H #12 each Metoprolol Succinate (ER) [Toprol XL] 50 mg PO BID 30 Days #60 tab Ketorolac [Toradol] 10 mg PO Q8HR #15 tab cloNIDine HCL [Catapres] 0.1 mg PO TID 30 Days #90 tab Furosemide [Lasix] 20 mg PO BID 30 Days #60 tab Continue Ferrous Sulfate [Iron (65 MG Elemental)] 325 mg PO DAILY Beet Root 1000mg 1,000 mg PO DAILY Levothyroxine Sodium [Synthroid] 137 mcg PO DAILY traZODone HCL [Desyrel] 50 - 75 mg PO HS Atorvastatin Calcium [Lipitor] 40 mg PO HS Cyanocobalamin (Vitamin B-12) [Vitamin B-12] 1,000 mcg PO Q2D Donepezil [Aricept] 10 mg PO HS Discontinued Metoprolol Succinate (ER) [Toprol XL] 50 mg PO DAILY Discharge Medication List Ferrous Sulfate [Iron (65 MG Elemental)] 325 mg PO DAILY 05/06/21 [History] Beet Root 1000mg 1,000 mg PO DAILY 10/24/23 [History] Cyanocobalamin (Vitamin B-12) [Vitamin B-12] 1,000 mcg PO Q2D 10/24/23 [History] Donepezil [Aricept] 10 mg PO HS 10/24/23 [History] Ketorolac [Toradol] 10 mg PO Q8HR #15 tab 02/01/25 [Rx] Levothyroxine Sodium [Synthroid] 137 mcg PO DAILY 02/01/25 [History] Tamsulosin [Flomax] 0.4 mg PO DAILY #7 cap 02/01/25 [Rx] traZODone HCL [Desyrel] 50 - 75 mg PO HS 02/01/25 [History] Atorvastatin Calcium [Lipitor] 40 mg PO HS 02/02/25 [History] Ertapenem [INVanz] 1 gm IVPB Q24H #12 each 02/06/25 [Rx] Furosemide [Lasix] 20 mg PO BID 30 Days #60 tab 02/09/25 [Rx] Metoprolol Succinate (ER) [Toprol XL] 50 mg PO BID 30 Days #60 tab 02/09/25 [Rx] cloNIDine HCL [Catapres] 0.1 mg PO TID 30 Days #90 tab 02/09/25 [Rx] Follow up Appointment(s)/Referral(s): Elaine Rojas MD [STAFF PHYSICIAN] - 2 Weeks Gino Son MD [STAFF PHYSICIAN] - 02/08/25 Rachana Dasilva MD [Primary Care Provider] - 1-2 days Susanne Dacosta MD [STAFF PHYSICIAN] - 1 Week Patient Instructions/Handouts: Kidney Stones (ED), How to Strain Your Urine (ED) Activity/Diet/Wound Care/Special Instructions: Follow-up with Dr. Son within 1 week for office cystoscopy with stent removal. Diet and activity as tolerated. Drink plenty of fluids. Discharge Disposition: TRANSFER TO SNF/ECF
--- NOTE | 2025-02-09 15:51 | P.PN ---
Subjective Progress Note Date: 02/09/25 Principal diagnosis: Reason for follow-up is E. coli UTI and bacteremia Patient is a 69-year-old female with a past medical history significant for DVT reflux hypertension memory impairment presenting to the hospital with right flank pain has been diagnosed with a complicated UTI in this patient with right-sided hydronephrosis requiring cystoscopy and ureteral stent placement urine culture with ESBL E. coli blood culture documented positive as well. On today's evaluation that is 02/09/2025,the patient remains to be afebrile, patient is on 3 L nasal cannula supplemental oxygen and denies any shortness of breath no chest pain or cough.Patient denies having any nausea or vomiting, no abdominal pain and no diarrhea. No new labs has been done today blood repeat and pleural culture negative Objective - Vital Signs Vital signs: Vital Signs Temp 98.5 F 02/09/25 07:10 Pulse 59 L 02/09/25 07:10 Resp 18 02/09/25 07:10 BP 158/82 02/09/25 07:10 Pulse Ox 93 L 02/09/25 07:10 FiO2 Intake & Output 02/08/25 02/09/25 02/09/25 18:59 06:59 18:59 Weight 88.451 kg Other: Voiding Method Bedside Commode Bedside Commode Bedside Commode # Voids 4 3 # Bowel Movements 1 - Exam GENERAL DESCRIPTION: An elderly female lying in bed in no distress RESPIRATORY SYSTEM: Unlabored breathing , decreased breath sounds at bases HEART: S1 S2 regular rate and rhythm , ABDOMEN: Soft , no tenderness EXTREMITIES: No edema feet - Labs CBC & Chem 7: 02/07/25 02:46 02/07/25 02:46 Labs: Microbiology - Last 24 Hours (Table) 02/07/25 12:49 Gram Stain - Preliminary Pleural Fluid Body Fluid Culture - Preliminary 02/05/25 16:59 Blood Culture - Preliminary Blood Assessment and Plan (1) E coli bacteremia Current Visit: No Status: Acute Code(s): R78.81 - BACTEREMIA; B96.20 - UNSP ESCHERICHIA COLI THE CAUSE OF DISEASES [facility] SNOMED Code(s): 390390512787 (2) Infection due to ESBL-producing Escherichia coli Current Visit: No Status: Acute Code(s): A49.8 - OTHER BACTERIAL INFECTIONS OF UNSPECIFIED SITE; Z16.12 - EXTENDED SPECTRUM BETA LACTAMASE (ESBL) RESISTANCE SNOMED Code(s): 188836557 (3) Leukocytosis Current Visit: No Status: Acute Code(s): D72.829 - ELEVATED WHITE BLOOD CELL COUNT, UNSPECIFIED SNOMED Code(s): 018124472 Plan: 1patient presented to hospital with sepsis in this patient who did have a fever tachycardia elevated white count source is complicated UTI in this patient who did have right-sided hydronephrosis requiring cystoscopy and ureteral stent placement with urine is growing ESBL E. coli, however patient blood culture also positive for E. coli that is a sensitive pathogen 2patient is afebrile she will continue with IV Invanz for another 7 days to finish course of therapy discussed with the admitting team working on discharge Dictation was produced using [employer] dictation software. please excuse any grammatical, word or spelling errors. Time with Patient: Less than 30
[2025-02-09] MEDS: MELATONIN 3 MG TABLET PO PRN (22:00)
[2025-02-10 08:35] VITALS: BP 126/68; PULSE 61; TEMP 97.9
--- NOTE | 2025-02-10 13:11 | P.PN ---
Subjective Progress Note Date: 02/10/25 69-year-old female who presented to the emergency department with sudden onset right flank pain that started yesterday having intense pain and came to the ER for further evaluation. Patient underwent CT abdomen pelvis and there was a moderate to marked right hydronephrosis and hydroureter secondary to obstructing 12 mm right UVJ calcification otherwise left kidney is unremarkable, hepatal medically and mild cholelithiasis with mild nonspecific interstitial densities in the lung bases right greater than left noted. Patient follows with Dr. Rachana Dasilva in the outpatient setting with a past medical history of DVT, GERD, hypertension, early dementia, significant hard of hearing, hypothyroidism. Claire ent denies any illicit drug use, alcohol, or smoking. Urology was consulted and patient is scheduled to undergo cystoscopy with right ureteroscopy and laser lithotripsy along with stone basketing and right ureteral stent insertion today. Patient is currently n.p.o. and will await official report. Labs reviewed and patient had a normal white count of 9.9, hemoglobin was 16.1, platelets 215, sodium 139 with a potassium of 3.7, BUN 23 with a creatinine of 0.62, urinalysis was negative other than a trace of blood and WBCs mildly elevated at 28. Patient denies any pain, burning, or frequency with urination. 02/04/2025 - the patient is seen and evaluated sitting up in bedside chair; has no specific complaints. The patient had a urinary tract infection with ESBL producing E. coli. She is status post cystoscopy and right ureteroscopy and laser lithotripsy and stone basketing and right ureteral stent insertion. -- Blood work reveals the white cell count is at 13.1 with a heme of 13.2 and a platelet count of 145. Electrolytes are all within normal limits. Proc alcitonin level is at 25. -Urine culture reveals E. coli, ESBL positive; patient is currently on Invanz 1 g IV; we will consult ID for final recommendations on antibiotic therapy 02/05/2025 Patient is seen and evaluated sitting up in bed; denies any complaint of chest pain, dysuria hematuria Vital signs are reviewed and stable Blood work reveals WBC of 10.8, hemoglobin of 13.2 and platelet count of 167, sodium 139, potassium 3.4, BUNs/creatinine of 23/0.44 Blood culture is positive for gram-negative bacilli; final culture and sensitivities pending; urine culture is growing ESBL E. coli -ID is on board and recommending to continue with IV Invanz; patient will need PICC line for extended IV antibiotic therapy outpatient 02/06 Patient still feels generally weak She still feels dysuria Patient is only minimally better No chest pain or dyspnea She remains on Invanz/ertapenem started for her ESBL E. coli in the blood and urine culture pending final results CRP elevated 12.9 and procalcitonin 25.7. 02/07. Patient seen and examined. Breathing has improved. Currently on 3 L of oxygen denies any chest pain 02/08. Patient seen and examined. Breathing is improving, continues to be on 3 L of oxygen. Denies any chest pain. Denies any cough. Patient underwent r ight-sided thoracentesis with removal of 700 mL of fluid 02/10. Patient seen and examined. Patient is currently waiting on discharge to rehab facility REVIEW OF SYSTEMS: CONSTITUTIONAL: No fever, no malaise,. CARDIOVASCULAR: No chest pain, no palpitations, no syncope. PULMONARY: No shortness of breath, no cough, GASTROINTESTINAL: No diarrhea, no nausea, no vomiting, no abdominal pain. NEUROLOGICAL: No headaches, no weakness, PHYSICAL EXAMINATION: GENERAL: The patient is alert and oriented x3, ill looking HEENT: Pupils are round and equally reacting to light. EOMI. No scleral icterus. No conjunctival pallor. Normocephalic, atraumatic. No pharyngeal erythema. No thyromegaly. CARDIOVASCULAR: S1 and S2 present. No murmurs, rubs, or gallops. PULMONARY: diminished breath sounds at bases bilaterally, no wheezing or crackles. ABDOMEN: Soft, nontender, nondistended, normoactive bowel sounds. No palpable organomegaly. MUSCULOSKELETAL: No joint swelling or deformity. EXTREMITIES: No cyanosis, clubbing, or pedal edema. NEUROLOGICAL: Gross neurological examination did not reveal any focal deficits. SKIN: No rashes. Assessment and plan Acute hypoxic respiratory failure Bilateral pleural effusions Acute urinary tract infection and cystitis associated with right flank pain se condary to UTI. Urine culture is growing ESBL Marked right hydronephrosis and hydroureter secondary to an obstructing stone as noted on imaging, s/p right ureteral stent placement on 02/02 Bacteremia History of DVT GERD Hypertension History of early dementia Hard of hearing Hypothyroidism Monitor vital signs Status post right-sided thoracentesis with removal of 700 mL of fluid on 02/07 Strict I's and O's, daily weights Continue oral Lasix at discharge 2D echo 2D echo done showed a large left ventricle with global decrease in contractility EF 45%, enlarged atria, enlarged right ventricle with moderate to severe pulm hypertension. Moderate tricuspid regurg, mild atrial regurg no pericardial effusion Continue ertapenem Currently waiting on transfer to rehab facility Labs and medication were reviewed.. Continue same treatment. Continue with symptomatic treatment. Resume home medication. Monitor labs and vitals. DVT and GI prophylaxis. Further recommendations as per clinical course of the patient Dictation was produced using [employer] dictation software. please excuse any grammatical, word or spelling errors. Objective - Vital Signs Vital signs: Vital Signs Temp 97.9 F 02/10/25 08:00 Pulse 61 02/10/25 08:00 Resp 18 02/10/25 08:00 BP 126/68 02/10/25 08:00 Pulse Ox 98 02/10/25 08:00 FiO2 Intake & Output 02/09/25 02/10/25 02/10/25 18:59 06:59 18:59 Intake Total 1200 Balance 1200 Intake: Oral 1200 Other: Voiding Method Bedside Commode Toilet # Voids 5 4 - Labs CBC & Chem 7: 02/07/25 02:46 02/07/25 02:46 Labs: Microbiology - Last 24 Hours (Table) 02/07/25 12:49 Gram Stain - Preliminary Pleural Fluid Body Fluid Culture - Preliminary
== END 2025-02-10 11:32 | DRG 853 ==
LOC: EC 13:46 → 4SSUR 17:09
PROVIDERS: ADMIT Hospitalist; ATTEND Hospitalist
PROC: 0T768DZ Dilation of Right Ureter with Intraluminal Device, Via Natural or Artificial Opening Endoscopic (ICD-10-PCS; principal; 2025-02-02 13:55)
PROC: 0TC68ZZ Extirpation of Matter from Right Ureter, Via Natural or Artificial Opening Endoscopic (ICD-10-PCS; principal; 2025-02-02 13:55)
PROC: 0W993ZX Drainage of Right Pleural Cavity, Percutaneous Approach, Diagnostic (ICD-10-PCS; 2025-02-07)
DX: A41.51 Sepsis due to Escherichia coli [E. coli] (principal); I50.23 Acute on chronic systolic (congestive) heart failure; J96.01 Acute respiratory failure with hypoxia; I27.20 Pulmonary hypertension, unspecified; J91.8 Pleural effusion in other conditions classified elsewhere; I11.0 Hypertensive heart disease with heart failure; F03.90 Unspecified dementia, unspecified severity, without behavioral disturbance, psychotic disturbance, mood disturbance, and anxiety; E03.9 Hypothyroidism, unspecified; I71.20 Thoracic aortic aneurysm, without rupture, unspecified; I08.1 Rheumatic disorders of both mitral and tricuspid valves; I47.20 Ventricular tachycardia, unspecified; N13.6 Pyonephrosis; Z16.12 Extended spectrum beta lactamase (ESBL) resistance; J98.11 Atelectasis; N20.1 Calculus of ureter; I47.19 Other supraventricular tachycardia; R15.9 Full incontinence of feces; R19.7 Diarrhea, unspecified; R32 Unspecified urinary incontinence; R79.82 Elevated C-reactive protein (CRP); R41.3 Other amnesia; I95.9 Hypotension, unspecified; E78.5 Hyperlipidemia, unspecified; H91.90 Unspecified hearing loss, unspecified ear; K21.9 Gastro-esophageal reflux disease without esophagitis; K80.20 Calculus of gallbladder without cholecystitis without obstruction; Z79.890 Hormone replacement therapy; Z79.899 Other long term (current) drug therapy; Z86.718 Personal history of other venous thrombosis and embolism; Z87.440 Personal history of urinary (tract) infections
CPT/HCPCS: 36410; 36415; 71045; 71046; 74177; 76604; 76937; 80048; 80053; 81001; 82365; 82945; 83605; 83615; 83735; 83880; 84145; 84157; 85025; 86140; 87040; 87070; 87077; 87086; 87186; 87205; 88108; 88305; 93306; 94760; 96361; 96374; 96375; 99285